=== PATIENT | male | born 1955 | race Caucasian/White ===

== ENCOUNTER 2023-02-12 19:00 | Emergency (ER) | payer MEDICARE, MEDICAID ==
[~2023-02-12] VITALS: Ht 180.3 cm; Wt 86.2 kg
[~2023-02-12 19:00] MED LIST: ASPI81CH43 PO; DIPH25CA39 PO; FURO1TAB31 PO; HYDR8TAB46 PO; LEVADOPA PO; MULTTAB99 PO; POTA-167 PO; TEST100I IM; VENL1TAB97 PO
[2023-02-12 19:53] VITALS: BP 102/60
== END 2023-02-12 19:57 | disposition home or self-care (01) ==
LOC: EDBD 19:00 → ER 19:10
DX: R55 Syncope and collapse (principal); I95.1 Orthostatic hypotension; F45.8 Other somatoform disorders; Z79.899 Other long term (current) drug therapy; Z79.82 Long term (current) use of aspirin

== ENCOUNTER 2024-08-15 16:29 | Inpatient (IN) | payer MEDICARE, MEDICAID ==
[~2024-08-15] VITALS: Ht 195.6 cm; Wt 75.0 kg
[~2024-08-15 16:29] MED LIST changes: -POTA-167 PO; +POTA-211 PO
--- NOTE | 2024-08-15 16:41 | ED.PDOC ---
Altered Mental Status HPI Comments 69 y.o male presents to the ED via EMS for an evaluation of increased confusion x 2 days. reports patient was recently diagnosed with a UTI, was prescribed Macrobid, took a dose last night and began vomiting profusely. also reports patient has frequency and is not more confused than usual. Patient has a history of throat cancer and seizures. 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 When he took his second dose last evening, he became dizzy, agitated, developed itching of the skin, and sensation of his throat closing up. Home Meds Reported Medications Hydromorphone Hcl (Dilaudid) 8 Mg Tab, 64 MG PO Q4HR, TAB 10/17/13 Testosterone Cypionate (Depo-Testosterone) 100 Mg/Ml Inj, IM UNK, INJ 10/15/13 Diphenhydramine Hcl (Benadryl) 25 Mg Cap, 25 MG PO BID, CAP 10/15/13 Multiple Vitamin (Mvi Tab) 1 Tab Tb, 1 TAB PO DAILY 10/15/13 Venlafaxine Hydrochloride (Venlafaxine Hcl) 37.5 Mg Tab, 37.5 MG PO DAILY, #2 TAB 10/15/13 Aspirin (Asa) 81 Mg Ch, 81 MG PO DAILY 10/15/13 [Levadopa] No Conflict Check, 25-100 TAB PO TID 10/15/13 Potassium Chloride (Klor-Con 10) 10 Meq Tab, 10 MEQ PO DAILY, TAB 10/15/13 Furosemide (Lasix) 40 Mg Tab, 40 MG PO DAILY, TAB 10/15/13 Information Source: Emergency Med Personnel, Spouse Mode of Arrival: EMS Severity: Unable to Care for Self Timing: Days (2) Duration: Since onset Quality: Change in Behavior, Confusion Recent: Urinary Symptoms History of: Other Associated Signs and Symptoms: Other Past Medical History PAST MEDICAL HISTORY: Cancer, Seizures Surgical History: Denies all surgeries Family History Family History: No family hx of Cancer Social History Smoker: Pipe Alcohol: Denies ETOH Use Drugs: Denies Drug Use Lives In: Home Unable to Obtain due to: Altered Mental Status Physical Exam General Appearance: Moderate Distress HEENT: Normal ENT Inspection, Pharynx Normal, TMs Normal Neck: Full Range of Motion, Non-Tender, Normal, Normal Inspection Respiratory: Chest Non-Tender, Lungs Clear, No Accessory Muscle Use, No Respiratory Distress, Normal Breath Sounds Cardiovascular: No Edema, No JVD, No Murmur, No Gallop, Normal Peripheral Pulses, Regular Rate/Rhythm Breast Exam: Deferred Gastrointestinal: No Organomegaly, Non Tender, No Pulsatile Mass, Normal Bowel Sounds, Soft Genitalia: Deferred Pelvic: Deferred Rectal: Deferred Extremities: No pedal edema Musculoskeletal : Apperance: Normal Neurologic: Disoriented Cerebellar Function: NOT DONE Reflexes: NOT DONE Skin: Dry, Normal Color, Warm Lymphatic: No Adenopathy Was a procedure done? Was a procedure done?: No Differential Diagnosis (ALOC) Differential Diagnosis: Dehydration, Sepsis, Other (UTI) X-Ray, Labs, Meds, VS Patient disoriented. Unable to express himself. Vitals stable. at bedside. States that he has frequent urinary tract infections. Possible sepsis from urine. Patient was normal few days ago. For the past two days it is getting progressively confused. Establish intravenous access. Was given fluids. Was given Rocephin. Reviewed his previous visit. Explained to the patient. Continue cardiac monitoring. EKG reviewed does not show any acute changes. Will be followed by night provider Neil. Time of 1ST Reevaluation: 16:41 Reevaluation 1ST: Unchanged Patient Education/Counseling: Other Family Education/Counseling: Diagnosis, Treatment, Prognosis Assigned to Dr. Trejo Departure 1 Departure Time of Disposition: 16:53 Impression: Primary Impression: Metabolic encephalopathy Additional Impression: Sepsis due to urinary tract infection Disposition: ADMITTED INPATIENT Admit to: Med Surg Condition: Guarded Critical Care Note Critical Care Time?: Yes (45 min-critical care time only) Stability Stability form required: No I personally scribed for ALBERTO,SHELBI MD ([email or web address]) on 08/15/24 at 16:41. Electronically submitted by Kylah White ([facility]). SHELBI DOMINGUEZ MD Aug 15, 2024 16:41
[2024-08-15] MEDS: SODIUM CHLORIDE 0.9% 1,000 ML IV ONE ×2 (16:45→18:21)
--- NOTE | 2024-08-15 17:20 | DVH ---
EXAM: CT HEAD WITHOUT CONTRAST INDICATION: AMS TECHNIQUE: CT of the head without intravenous contrast. Radiation dose : Head: CT Dose: CTDI volume is 53 mGy. Dose-length product is 863.9 mGy*cm The dose indicators for CT are the volume computed tomography (CT) dose index (CTDIvol) and the dose length product (DLP), and are measured in units of mGy and mGy-cm, respectively. These indicators are not patient dose, but values generated from the CT scanner acquisition factors. The report includes radiation exposure data for exposures received during this examination. COMPARISON: None FINDINGS: There is no evidence of acute intracranial hemorrhage, extra-axial collection, mass effect, midline s hift, herniation or hydrocephalus. The ventricles, sulci and cisterns are age appropriate. The peña-white differentiation is intact. Patchy periventricular and subcortical white matter hypoattenuation is nonspecific but may be related to small vessel ischemic disease. The visualized paranasal sinuses and mastoid air cells are clear. The surrounding soft tissues and osseous structures are unremarkable. IMPRESSION: 1. No acute intracranial abnormality. Moderate changes of chronic microvascular ischemic disease. Radiation optimization: All CT scans at this facility use at least one of these dose optimization rafael hniques: Automated exposure control mA and/or kV adjustment per patient size (includes targeted exams where dose is matched to clinical indication) or iterative reconstruction. HS:Y
[2024-08-15 17:51] LABS: Basophils # (auto) 0 10 ^3/uL (0-0.2); Basophils % (auto) 0.2 % (0.0-2.0); Eosinophils # (auto) 0 10 ^3/uL (0-0.8); Lymphocytes # (auto) 1.3 10 ^3/uL (0.4-5.4); Monocytes # (auto) 0.7 10 ^3/uL (0-1.3)
[2024-08-15 17:53] LABS: Hemoglobin 11.3 g/dL (13.5-17.5); Lymphocytes % (auto) 9.9 % (10.0-50.0); Mean Corpuscular Hemoglobin 34.3 pg (28.0-32.0); Mean Corpuscular Hgb Conc. 34.3 g/dL (32.0-36.0); Mean Corpuscular Volume 100.1 fL (80.0-100.0); Neutrophils # (auto) 11.6 10 ^3/uL (1.6-8.6); Neutrophils % (auto) 84.9 % (37.0-80.0); Platelet Count (auto) 167 10^3/uL (140-450); White Blood Cell 13.6 10^3/uL (4.4-10.8)
[2024-08-15 17:58] LABS: Chloride 103 mmol/L (98-107); Potassium 3.6 mmol/L (3.5-5.1); Sodium 139 mmol/L (136-145)
[2024-08-15 17:59] LABS: Anion Gap 7 (5-15); Carbon Dioxide 29 mmol/L (20-31)
[2024-08-15 18:00] LABS: Calcium 9.8 mg/dL (8.7-10.4)
[2024-08-15 18:05] LABS: BUN/Creatinine Ratio 13.2 (10.0-20.0); Blood Urea Nitrogen 19 mg/dL (9-23); Glucose 122 mg/dL (74-106)
[2024-08-15] MEDS: cefTRIAXone 1GM/50ML D5W 50 ML IV ONE (18:21)
[2024-08-15 18:27] VITALS: PULSE 100; RESP 18; O2SAT 94
[2024-08-15 18:32] LABS: Urine Bacteria None Seen /hpf (None Seen)
[2024-08-15 18:54] LABS: Urine Blood 2+ /uL (Negative); Urine Clarity Ex.Turbid (Clear); Urine Color Yellow (Yellow); Urine Mucus FEW (None Seen); Urine Protein, UAD 2+ (Negative); Urine Specific Gravity 1.017 (1.001-1.035); Urine Urobilinogen Normal (Negative); Urine WBC 4161 /hpf (0 - 3); Urine WBC Clumps PRESENT /hpf (None Seen)
--- NOTE | 2024-08-15 19:04 | ECG ---
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
[2024-08-15] MEDS ORDERED: ACETAMINOPHEN 325 MG TAB PO PRN (20:30)
[2024-08-15] MEDS: ENOXAPARIN SOD 40 MG/0.4 ML SYRINGE SC SCH (20:30)
[2024-08-15] MEDS ORDERED: NITROGLYCERIN 0.4 MG SL TAB SL PRN (20:30)
[2024-08-15] MEDS ORDERED: MORPHINE SULFATE INJ 2 MG/ml SYRG IV PRN (20:30)
[2024-08-15 21:14] LABS: Basophils # (auto) 0 10 ^3/uL (0-0.2); Basophils % (auto) 0.2 % (0.0-2.0); Eosinophils # (auto) 0 10 ^3/uL (0-0.8); Hematocrit 29.6 % (41.0-53.0); Hemoglobin 9.6 g/dL (13.5-17.5); Lymphocytes # (auto) 2.1 10 ^3/uL (0.4-5.4); Lymphocytes % (auto) 16.1 % (10.0-50.0); Mean Corpuscular Hemoglobin 32.7 pg (28.0-32.0); Mean Corpuscular Hgb Conc. 32.4 g/dL (32.0-36.0); Mean Corpuscular Volume 101.2 fL (80.0-100.0); Monocytes # (auto) 0.8 10 ^3/uL (0-1.3); Monocytes % (auto) 5.7 % (0.0-12.0); Neutrophils # (auto) 10.4 10 ^3/uL (1.6-8.6); Platelet Count (auto) 143 10^3/uL (140-450); Red Blood Cells 2.93 10^6/uL (4.5-5.90); Red Cell Distribution Width 14.2 % (11.8-14.3); White Blood Cell 13.3 10^3/uL (4.4-10.8)
[2024-08-15 21:24] LABS: Alanine Aminotransferase 13 U/L (7-40); Albumin 3.1 g/dL (3.2-4.8); Alkaline Phosphatase 80 U/L (46-116); Anion Gap 9 (5-15); Aspartate Aminotransferase 20 U/L (13-40); Blood Urea Nitrogen 19 mg/dL (9-23); Calcium 8.5 mg/dL (8.7-10.4); Carbon Dioxide 25 mmol/L (20-31); Chloride 107 mmol/L (98-107); Glucose 101 mg/dL (74-106); Potassium 3.3 mmol/L (3.5-5.1); Sodium 141 mmol/L (136-145)
[2024-08-15 21:25] LABS: Bilirubin, Total 0.3 mg/dL (0.2-1.0); Total Protein 6.3 g/dL (5.7-8.2)
--- NOTE | 2024-08-15 22:12 | DVHHPRES ---
History of Present Illness Resident Creating Document: EDNA LUNA RESIDENT History of Present Illness Eduardo Inman is a 69 years old male with a PMH of AML, hepatitis-C, throat cancer, PTSD accompanied by his presented to the ED with the chief complaints of altered level of consciousness for 2 days. Patient is altered, poor historian so given the history, 2 weeks ago patient had urinary symptoms, went to PCP, given antibiotics but the symptoms keep on going, for last 2 days patient has been altered, confused asking for a friend who has 15 years ago then patient called PCP, prescribed Macrobid, after taking that medication patient become more ill with vomiting and also had 2 times fall today, lacerated injury left elbow and noted having more incontinence than before which prompted them to visit ED. 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 Denies smoking, alcohol and other drug abuse Review of Systems Constitutional: No: Fever, Chills, Sweats, Weakness, Malaise, Other Eyes: No: Pain, Vision change, Conjunctivae inflammation, Eyelid inflammation, Other, Redness ENT: No: Ear pain, Ear discharge, Nose pain, Nose discharge, Nose congestion, Mouth pain, Mouth swelling, Throat pain, Throat swelling, Other Respiratory: No: Cough, Dry, Shortness of breath, SOB with excertion, Wheezing, Hemoptysis, Pleuritic Pain, Sputum, Wheezing, Other Cardiovascular: No: Chest Pain, Palpitations, Orthopnea, Paroxysmal Noc. Dyspnea, Edema, Lt Headedness, Other Genitourinary: Incontinence Musculoskeletal: No: other, neck pain, shoulder pain, arm pain, back pain, hand pain, leg pain, foot pain Skin: No: Rash, Lesions, Jaundice, Bruising, Other Neurological: Weakness, Change in speech, Confusion Other Limited due to patient clinical status Allergies: Coded Allergies: Furosemide (Verified Allergy, Severe, 10/16/13) DIFFICULTY BREATHING AND THROAT SWELLS UP Caffeine (Verified Allergy, Mild, 10/17/13) PER CAFFEINE IS CONTRAINDICATED TO PT DUE TO PARKINSONS DISEASE Codeine (Verified Allergy, Unknown, 08/15/24) Doripenem (Verified Allergy, Unknown, 08/15/24) Metoclopramide (Verified Allergy, Unknown, 08/15/24) Metolazone (Verified Allergy, Unknown, 08/15/24) HISTORY OF PRESENT ILLNESS: The patient was recently started on to a new diuretic medication of metolazone. When he took his second dose last evening, he became dizzy, agitated, developed itching of the skin, and sensation of his throat closing up. Medications Current Medications Medications Dose Ordered Sig/Praneeth Route Start Time Stop Time Status Last Admin Dose Admin Sodium Chloride 10 ml Q8HR IV 08/15/24 22:00 Ondansetron HCl 4 mg Q4HP PRN IV 08/15/24 20:30 Acetaminophen 650 mg Q6HP PRN PO 08/15/24 20:30 Morphine Sulfate 2 mg Q4HPRN PRN IV 08/15/24 20:30 Enoxaparin Sodium 40 mg DAILY SC 08/15/24 20:30 Nitroglycerin 0.4 mg Q5MINP PRN SL 08/15/24 20:30 Morphine Sulfate 2 mg Q30M PRN IV 08/15/24 20:30 Ceftriaxone Sodium 50 ml @ 100 mls/hr DAILY@09 IV 08/16/24 09:00 UNV Potassium Chloride 100 ml @ 50 mls/hr Q2H IV 08/15/24 22:00 08/16/24 01:59 UNV Exam Vital Signs Vital Signs Date Time Temp Pulse Resp B/P (MAP) Pulse Ox O2 Delivery O2 Flow Rate FiO2 08/15/24 18:27 100 18 94 Room Air* 0 21 08/15/24 18:27 98.2 125/62 (83) 98.2 Exam Pt is lying on bed, limited exam due to patient clinical status General Appearance: Confused, Oriented X0, HEENT: Atraumatic, Mucous membranes moist/pink Respiratory: Clear to auscultation, Normal air movement, No added sounds Cardiovascular: Regular rate, Normal S1, Normal S2, No murmurs Abdominal: Active bowel sounds, Soft, no distention, no tenderness Extremities: No edema, Normal pulses, No tenderness/swelling : Pal's catheter In place Skin: Lacerated injury near left elbow Neuro: Unable to perform Psych/Mental Status: Confused Nurse was there as sharperone during examination Labs/Xrays Labs Test 08/15/24 20:50 08/15/24 18:15 08/15/24 17:24 Range/Units White Blood Count 13.3 H 4.4-10.8 10^3/uL Red Blood Count 2.93 L 4.5-5.90 10^6/uL Hemoglobin 9.6 #L 13.5-17.5 g/dL Hematocrit 29.6 #L 41.0-53.0 % Mean Corpuscular Volume 101.2 H 80.0-100.0 fL Mean Corpuscular Hemoglobin 32.7 H 28.0-32.0 pg Mean Corpuscular Hemoglobin Concent 32.4 32.0-36.0 g/dL Red Cell Distribution Width 14.2 11.8-14.3 % Platelet Count 143 140-450 10^3/uL Mean Platelet Volume 8.3 6.9-10.8 fL Neutrophils (%) (Auto) 78.0 37.0-80.0 % Lymphocytes (%) (Auto) 16.1 10.0-50.0 % Monocytes (%) (Auto) 5.7 0.0-12.0 % Eosinophils (%) (Auto) 0.0 0.0-7.0 % Basophils (%) (Auto) 0.2 0.0-2.0 % Neutrophils # (Auto) 10.4 H 1.6-8.6 10 ^3/uL Lymphocytes # (Auto) 2.1 0.4-5.4 10 ^3/uL Monocytes # (Auto) 0.8 0-1.3 10 ^3/uL Eosinophils # (Auto) 0 0-0.8 10 ^3/uL Basophils # (Auto) 0 0-0.2 10 ^3/uL Nucleated Red Blood Cells 0.0 % Sodium Level 141 136-145 mmol/L Potassium Level 3.3 L 3.5-5.1 mmol/L Chloride Level 107 98-107 mmol/L Carbon Dioxide Level 25 20-31 mmol/L Anion Gap 9 5-15 Blood Urea Nitrogen 19 9-23 mg/dL Creatinine 1.12 0.700-1.30 mg/dL Glomerular Filtration Rate Calc 70 >90 mL/min BUN/Creatinine Ratio 17.0 10.0-20.0 Serum Glucose 101 74-106 mg/dL Calcium Level 8.5 L 8.7-10.4 mg/dL Total Bilirubin 0.3 0.2-1.0 mg/dL Aspartate Amino Transferase (AST) 20 13-40 U/L Alanine Aminotransferase (ALT) 13 7-40 U/L Alkaline Phosphatase 80 46-116 U/L B-Type Natriuretic Peptide 515.54 0-100 pg/mL Total Protein 6.3 5.7-8.2 g/dL Albumin 3.1 L 3.2-4.8 g/dL Urine Color Yellow Yellow Urine Clarity Ex.turbid Clear Urine pH 6.0 5.0-9.0 Urine Specific [place] 1.017 1.001-1.035 Urine Protein 2+ H Negative Urine Ketones Trace Negative Urine Blood 2+ H Negative /uL Urine Nitrite Negative Negative Urine Bilirubin Negative Negative Urine Urobilinogen Normal Negative mg/dL Urine Leukocyte Esterase 3+ Negative /uL Urine RBC 49 0 - 3 /hpf Urine WBC 4161 0 - 3 /hpf Urine WBC Clumps Present None Seen /hpf Urine Squamous Epithelial Cells Mod <5 /hpf Urine Bacteria None seen None Seen /hpf Urine Mucus Few None Seen Urine Glucose Trace Normal mg/dL Assessment/Plan Assessment/Plan # mechanical fall without LOC # acute metabolic encephalopathy -head CT showed no acute abnormalities -continuously monitor -fall risk precautions # leukocytosis # rule out sepsis # Acute complicated UTI/ cystitis - evident on urinalysis - ordered urine bacterial culture - currently giving Rocephin # acute lacerated injury on left elbow due to fall -ordered wound consult # anemia macrocytic, hyperchromic -monitor lab for now # PTSD -continue home meds SCDs for now Protonix Soft Diet as tolerated Goals of care discussed with the patient for more than 27 minutes: Full code status Case management discussed with Dr. Lieberman, patient and nurse Plan discussed with: Patient My Orders Orders - EDNA LUNA RESIDENT Procedure Category Date Status Time Admit ADMIT 08/15/24 Transmitted 20:26 Allergies KEON 08/15/24 In Process 20:26 Code Status CODE 08/15/24 Transmitted 20:26 Sodium Chloride Lock PHA 08/15/24 In Process (Saline Lock Ns) 22:00 Ondansetron Hcl PHA 08/15/24 In Process (Zofran) 20:30 Complete Blood Count LAB 08/16/24 Verified 04:00 Comprehensive LAB 08/16/24 Verified Metabolic Panel 04:00 Acetaminophen Tablet PHA 08/15/24 In Process (Tylenol Tablet) 20:30 Morphine Sulfate PHA 08/15/24 In Process Injection 20:30 Nitroglycerin PHA 08/15/24 In Process Sublingual (Ntrostat 20:30 Morphine Sulfate PHA 08/15/24 In Process Injection 20:30 Oxygen By Nasal RT 08/15/24 Transmitted Cannula 20:26 Stat Ekg For Chest KEON 08/15/24 In Process Pain 20:26 Notify Of Changes KEON 08/15/24 In Process From Base 20:26 Machine I Engraver For KEON 08/15/24 In Process 24 Hours 20:26 Emergency Dysrhythmia KEON 08/15/24 In Process Protocol 20:26 Rhythm Strips Once KEON 08/15/24 In Process Every Shift 20:26 Vitamin D, 25-Hydroxy LAB 08/15/24 In Process 21:50 Vitamin B12 LAB 08/15/24 In Process 21:50 Thyroid Stimulating LAB 08/15/24 In Process Hormone 21:50 PTPTT LAB 08/15/24 In Process 21:50 Hemoglobin A1c LAB 08/15/24 In Process 21:50 Drug Screen LAB 08/15/24 Logged 21:50 L Elbow 2 View Xray XY 08/15/24 Taken 21:50 * Wound Consult CONS 08/15/24 Transmitted Urine Bacterial ALEXSANDER 08/15/24 Logged Culture 21:50 Ceftriaxone 1gm/50ml PHA 08/16/24 Logged D5w (Rocephin) 09:00 Potassium Chl PHA 08/15/24 Logged 20meq/100ml 22:00 Aspirin Tablet PHA 08/16/24 In Process 10:00 Furosemide Tablet PHA 08/16/24 Pending (Lasix Tablet) 10:00 Venlafaxine PHA 08/16/24 Logged Hydrochloride 10:00 (Nf) [Levadopa] PHA 08/16/24 Logged 06:00 Pantoprazole PHA 08/15/24 Logged (Protonix) 22:15 Pantoprazole PHA 08/16/24 Logged (Protonix) 10:00 Sequential KEON 08/15/24 In Process Compression Device 22:04 Mechanical Soft Diet DIET 08/16/24 Transmitted Breakfast Folate (Folic Acid) LAB 08/15/24 Logged 22:06 Lactic Acid W/ Reflex LAB 08/15/24 Logged Order 22:07 Date of Service: Aug 15, 2024 Billing Provider: LEIGHTON LIEBERMAN MD Common Visit Codes: [id number] INP/OBS CARE (HIGH) Secondary Visit Codes: [id number] CARE PLAN 30 MINUTES EDNA LUNA RESIDENT Aug 15, 2024 22:12 LEIGHTON LIEBERMAN MD Aug 16, 2024 10:43
[2024-08-15 22:26] LABS: Partial Thromboplastin Time 32.8 SEC (24.5-34.5); Prothrombin Time 10.6 sec (9.3-11.8)
--- NOTE | 2024-08-15 22:41 | DVH ---
CLINICAL INDICATION: fall TECHNIQUE: 3 radiographic views of the left elbow were obtained. Comparison: None FINDINGS/IMPRESSION: There is no evidence of acute fracture or dislocation. The visualized joint space is well maintained. The alignment is anatomical. There is no radiopaque foreign body.
[2024-08-15 23:20] LABS: Amphetamine Screen, Urine Neg (NEGATIVE); Barbiturate Scree,Urine Pos (NEGATIVE); Benzodiazephine Screen, Urine Neg (NEGATIVE); Cannabinoid Screen, Urine Neg (NEGATIVE); Cocaine Screen, Urine Neg (NEGATIVE); Opiate Scree,Urine Neg (NEGATIVE); Phencyclidine Screen, Urine Neg (NEGATIVE)
[2024-08-15] MEDS: SODIUM CHLOR 0.9% PF (SALINE LOCK) 10ML VIAL/SYR IV SCH (23:29)
[2024-08-16] MEDS: PANTOPRAZOLE 40 MG/10 ML VIAL INJ IV ONE (00:31)
[2024-08-16] MEDS: POTASSIUM CHL 20MEQ/100ML 100 ML IV SCH (00:32)
[2024-08-16] MEDS ORDERED: HYDR2TAB58 PO (00:53)
[2024-08-16] MEDS ORDERED: FLUD0.1T2 PO (00:53)
[2024-08-16] MEDS ORDERED: VIBE75TA PO (00:53)
[2024-08-16] MEDS ORDERED: VENL112. PO (00:53)
[2024-08-16] MEDS: MORPHINE SULFATE INJ 2 MG/ml SYRG IV PRN (03:33)
[2024-08-16] MEDS: ONDANSETRON HCL 4 MG/2 ML VIAL IV PRN (03:38)
[2024-08-16 05:11] LABS: Basophils # (auto) 0 10 ^3/uL (0-0.2); Basophils % (auto) 0.2 % (0.0-2.0); Eosinophils # (auto) 0 10 ^3/uL (0-0.8); Hematocrit 28.9 % (41.0-53.0); Hemoglobin 9.6 g/dL (13.5-17.5); Lymphocytes # (auto) 2.2 10 ^3/uL (0.4-5.4); Lymphocytes % (auto) 20.2 % (10.0-50.0); Mean Corpuscular Hemoglobin 33.6 pg (28.0-32.0); Mean Corpuscular Hgb Conc. 33.2 g/dL (32.0-36.0); Mean Corpuscular Volume 101.2 fL (80.0-100.0); Monocytes # (auto) 0.7 10 ^3/uL (0-1.3); Monocytes % (auto) 6.7 % (0.0-12.0); Neutrophils # (auto) 7.9 10 ^3/uL (1.6-8.6); Neutrophils % (auto) 72.9 % (37.0-80.0); Platelet Count (auto) 129 10^3/uL (140-450); Red Blood Cells 2.85 10^6/uL (4.5-5.90); Red Cell Distribution Width 14.1 % (11.8-14.3); White Blood Cell 10.9 10^3/uL (4.4-10.8)
[2024-08-16 05:29] LABS: Alanine Aminotransferase 12 U/L (7-40); Albumin 3.3 g/dL (3.2-4.8); Alkaline Phosphatase 81 U/L (46-116); Anion Gap 10 (5-15); Aspartate Aminotransferase 22 U/L (13-40); Bilirubin, Total 0.4 mg/dL (0.2-1.0); Blood Urea Nitrogen 17 mg/dL (9-23); Calcium 9.1 mg/dL (8.7-10.4); Carbon Dioxide 21 mmol/L (20-31); Chloride 105 mmol/L (98-107); Glucose 96 mg/dL (74-106); Sodium 136 mmol/L (136-145); Total Protein 6.4 g/dL (5.7-8.2)
[2024-08-16 07:00] VITALS: PULSE 5; RESP 21; O2SAT 96
[2024-08-16] MEDS: CARBIDOPA W LEVODOPA 25/100mg TABLET PO SCH (09:00)
--- NOTE | 2024-08-16 09:53 | DVH ---
EXAM: XY CHEST PORTABLE Indication:sepsis Technique: Single frontal view of the chest was obtained Comparison: None FINDINGS: Lines and Tubes: None Lungs: Diffuse multifocal consolidative. Pleura: No effusion. No pneumothorax. Cardiomediastinal contours: Unremarkable Bones: No acute osseous abnormality. IMPRESSION: Diffuse multifocal consolidative opacities which can be seen in the setting of atypical infection or pulmonary edema.
[2024-08-16] MEDS ORDERED: VENLAFAXINE HCL 37.5MG TABLET PO SCH (10:00)
[2024-08-16] MEDS: FUROSEMIDE 40 MG TAB PO SCH (10:00)
[2024-08-16] MEDS: ASPirin 81 mg TAB PO SCH (10:29)
[2024-08-16] MEDS: AZITHROMYCIN 500MG/ 250ML 250 ML IV ONE (10:29)
[2024-08-16] MEDS: PANTOPRAZOLE 40 MG/10 ML VIAL INJ IV SCH (10:29)
[2024-08-16 14:20] LABS: Rapid Influenza A Negative (Negative); Rapid Influenza B Negative (Negative)
[2024-08-16 14:23] LABS: COVID19 ANTIGEN SOFIA FIA NEGATIVE (NEGATIVE)
--- NOTE | 2024-08-16 16:00 | DVHPNRES ---
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 Per patient's , he recently was diagnosed with UTI for which he was started on Macrobid and the patient started nausea and vomiting 08/15 following which he was altered and disoriented and experienced a mechanical fall and hit his left elbow. Patient reports weakness and that he could not get up from his bed and therefore they called EMS. Patient denies loss of consciousness or fever/chills/chest pain/shortness of breaths/cough/phlegm. Patient was seen in this facility for syncope versus ALOC due to metolazone Past medical history: See HPI Home medications: Midodrine HCL 50 mg b.i.d., Amitiza 24 mcg b.i.d., omeprazole 20 mg, testosterone 1000 mg/mL 0.05 mg every week, venlafaxine 150 mg, naproxen surgery, valproate 250 mg b.i.d., Dilaudid 2 mg every 8 hour, fludrocortisone 0.1 mg daily, levothyroxine 0.100 mcg daily, primidone 50 mg q.i.d., empties on 75 mg daily, alprazolam 0.5 mg p.r.n., iron slow release 45 mg Patient's reports that patient gets seizures with azithromycin. Objective vital signs Vital Sign Date Time Temp Pulse Resp B/P (MAP) Pulse Ox O2 Delivery O2 Flow Rate FiO2 08/16/24 13:00 90 19 107/57 (74) 97 08/16/24 07:00 Nasal Cannula* 2 28 08/16/24 03:30 99.2 99.2 Total Intake and Output 08/15/24 08/15/24 08/16/24 15:00 23:00 07:00 Intake Total 600 ml 1050 ml Balance 600 ml 1050 ml medications Current Medications Medications Dose Ordered Sig/Praneeth Route Start Time Stop Time Status Last Admin Dose Admin Sodium Chloride 10 ml Q8HR IV 08/15/24 22:00 08/16/24 13:04 10 ML Ondansetron HCl 4 mg Q4HP PRN IV 08/15/24 20:30 08/16/24 03:38 4 MG Acetaminophen 650 mg Q6HP PRN PO 08/15/24 20:30 Morphine Sulfate 2 mg Q4HPRN PRN IV 08/15/24 20:30 08/16/24 03:33 2 MG Nitroglycerin 0.4 mg Q5MINP PRN SL 08/15/24 20:30 Morphine Sulfate 2 mg Q30M PRN IV 08/15/24 20:30 Ceftriaxone Sodium 50 ml @ 100 mls/hr DAILY@1800 IV 08/16/24 18:00 Aspirin 81 mg DAILY PO 08/16/24 10:00 08/16/24 10:29 81 MG Furosemide 40 mg DAILY PO 08/16/24 10:00 Carbidopa/Levodopa 1 tab TID PO 08/16/24 09:00 UNV Pantoprazole Sodium 40 mg DAILY IV 08/16/24 10:00 08/16/24 10:29 40 MG Azithromycin 250 ml @ 125 mls/hr DAILY IV 08/17/24 10:00 Examination Elderly male patient lying in bed, in no acute distress General: Cachectic looking, afebrile, palor, mucosae are moist Cardiovascular: Regular S1 and S2. No murmurs, gallops or rubs. No JVD elevation. No pedal edema Respiratory: Normal B/L air entry on 2 L NC. Clear lung sounds on auscultation Abdomen: Soft, nontender, nondistended, normoactive bowel sounds, no rebound tenderness, no organomegaly, no masses. Laceration at left elbow. Genitourinary: Deferred MSK/skin: Mobilizes 4 limbs. Skin is dry and warm Neurological: No motor, no sensitive deficits, normal speech. Pupils are isocoric and reactive. Psych/Mental Status: A/Ox3, not oriented to time laboratory and microbiology Laboratory Tests 08/16/24 04:54 Test 08/16/24 04:54 Range/Units Serum Glucose 96 74-106 mg/dL Labs and/or images reviewed: Labs reviewed by me, Image(s) reviewed by me Problem List/Assessment/Plan Problem List/Assessment/Plan Sepsis secondary to Probable community-acquired pneumonia, Gram-positive and Gram-negative versus acute cystitis Lactic acid WNL On Unasyn and doxycycline Started ceftriaxone 08/15, switched to Unasyn 08/16 Started azithromycin 08/16, switched to doxycycline 08/17 Nebulized treatment with ipratropium and levalbuterol q.6 p.r.n. Blood culture and MRSA screen pending COVID and influenza testing negative Altered level of consciousness secondary to above Head CT unremarkable for acute intracranial pathology. Moderate chronic microvascular ischemic changes. Folate/B12 within normal limits TSH WNL Acute cystitis Started ceftriaxone 08/15 Urine bacterial culture pending Anemia, likely macrocytic H&H 9.6/8.9 MCV 101 History of seizure disorder Continue home medication valproate 250 mg b.i.d. 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 Novoa. Plan discussed with: Patient, Spouse (At bedside) My Orders My Orders Orders - JUSTIN GARCIA Procedure Category Date Status Time Clean Wound With: ORDERS 08/16/24 Transmitted 06:48 Cleanse Wound W/ KEON 08/16/24 In Process Sterile Gauze 06:48 Valproate Ivpb Depacon PHA 08/16/24 Verified 15:30 Fludrocortisone PHA 08/16/24 Verified Tablet (Florinef 15:30 Fludrocortisone PHA 08/17/24 Verified Tablet (Florinef 10:00 Levothyroxine Tablet PHA 08/17/24 Verified (Synthroid Tablet) 06:00 Levothyroxine Tablet PHA 08/16/24 Verified (Synthroid Tablet) 15:30 Doxycycline PHA 08/17/24 Verified 100mg/250ml 08:30 Date of Service: Aug 16, 2024 Billing Provider: SARAVANAN HARRISON MD Common Visit Codes: [id number] INP/OBS CARE(HIGH) JUSTIN GARCIA Aug 16, 2024 16:00 SARAVANAN HARRISON MD Aug 17, 2024 19:59
[2024-08-16] MEDS: FLUDROCORTISONE ACETATE 0.1 MG TAB PO ONE (16:32)
[2024-08-16] MEDS: LEVOTHYROXINE SODIUM 100 MCG TAB PO ONE (16:32)
[2024-08-16] MEDS ORDERED: cefTRIAXone 1GM/50ML D5W 50 ML IV SCH (18:00)
[2024-08-16] MEDS: AMPICILLIN & SULBACTAM SODIUM 3 GM in SODIUM CHL 0.9% 100 ML IV SCH (18:44)
[2024-08-16] MEDS: VALPROATE INJ 250 MG in SODIUM CHL 0.9% 50 ML IV SCH (18:44)
[2024-08-16 19:30] VITALS: PULSE 92; RESP 17; O2SAT 94
[2024-08-16] MEDS: PRIMIDONE 50 MG TAB PO SCH (22:48)
[2024-08-17 04:56] LABS: Basophils # (auto) 0 10 ^3/uL (0-0.2); Basophils % (auto) 0.3 % (0.0-2.0); Eosinophils # (auto) 0.1 10 ^3/uL (0-0.8); Eosinophils % (auto) 0.9 % (0.0-7.0); Hematocrit 30.4 % (41.0-53.0); Hemoglobin 10.2 g/dL (13.5-17.5); Lymphocytes # (auto) 2.2 10 ^3/uL (0.4-5.4); Lymphocytes % (auto) 31.9 % (10.0-50.0); Mean Corpuscular Hemoglobin 33.7 pg (28.0-32.0); Mean Corpuscular Hgb Conc. 33.5 g/dL (32.0-36.0); Mean Corpuscular Volume 100.6 fL (80.0-100.0); Monocytes # (auto) 0.5 10 ^3/uL (0-1.3); Monocytes % (auto) 6.5 % (0.0-12.0); Neutrophils # (auto) 4.2 10 ^3/uL (1.6-8.6); Neutrophils % (auto) 60.4 % (37.0-80.0); Nucleated Red Blood Cells % 0.1 %; Platelet Count (auto) 139 10^3/uL (140-450); Red Blood Cells 3.02 10^6/uL (4.5-5.90); Red Cell Distribution Width 14.6 % (11.8-14.3); White Blood Cell 6.9 10^3/uL (4.4-10.8)
[2024-08-17 05:06] LABS: Chloride 109 mmol/L (98-107); Potassium 3.4 mmol/L (3.5-5.1); Sodium 143 mmol/L (136-145)
[2024-08-17 05:07] LABS: Anion Gap 8 (5-15); Calcium 9.4 mg/dL (8.7-10.4); Carbon Dioxide 26 mmol/L (20-31)
[2024-08-17 05:12] LABS: BUN/Creatinine Ratio 15.4 (10.0-20.0); Blood Urea Nitrogen 16 mg/dL (9-23); Glucose 103 mg/dL (74-106)
[2024-08-17] MEDS: LEVOTHYROXINE SODIUM 100 MCG TAB PO SCH (06:31)
[2024-08-17 07:30] VITALS: PULSE 99; RESP 18; O2SAT 97
[2024-08-17] MEDS: DOXYCYCLINE 100MG/250ML 250 ML IV SCH (08:34)
[2024-08-17] MEDS ORDERED: AZITHROMYCIN 500MG/ 250ML 250 ML IV SCH (10:00)
[2024-08-17] MEDS: FLUDROCORTISONE ACETATE 0.1 MG TAB PO SCH (10:50)
[2024-08-17] MEDS: POTASSIUM EFFERVESENT TAB 25 MEQ PO ONE (12:15)
[2024-08-17] MEDS ORDERED: DOXY-286 PO (14:17)
[2024-08-17] MEDS ORDERED: AUG875T PO (14:17)
[2024-08-17 14:59] VITALS: BP 100/52; PULSE 89; RESP 20; TEMP 98.2; O2SAT 96
[2024-08-17 15:20] VITALS: BP 96/53; PULSE 81; RESP 20; TEMP 97.9; O2SAT 99
--- NOTE | 2024-08-17 16:15 | DVHDSRES ---
Discharge Summary Date of Admission Resident Creating Document: BURTON WHITT Aug 15, 2024 at 20:26 Date of Discharge: Aug 17, 2024 Labs/Diagnostic Data: Laboratory Results Test 08/17/24 04:20 08/16/24 12:27 08/16/24 04:54 08/15/24 22:27 White Blood Count 6.9 10^3/uL (4.4-10.8) Red Blood Count 3.02 10^6/uL (4.5-5.90) Hemoglobin 10.2 g/dL (13.5-17.5) Hematocrit 30.4 % (41.0-53.0) Mean Corpuscular Volume 100.6 fL (80.0-100.0) Mean Corpuscular Hemoglobin 33.7 pg (28.0-32.0) Mean Corpuscular Hemoglobin Concent 33.5 g/dL (32.0-36.0) Red Cell Distribution Width 14.6 % (11.8-14.3) Platelet Count 139 10^3/uL (140-450) Mean Platelet Volume 8.3 fL (6.9-10.8) Neutrophils (%) (Auto) 60.4 % (37.0-80.0) Lymphocytes (%) (Auto) 31.9 % (10.0-50.0) Monocytes (%) (Auto) 6.5 % (0.0-12.0) Eosinophils (%) (Auto) 0.9 % (0.0-7.0) Basophils (%) (Auto) 0.3 % (0.0-2.0) Neutrophils # (Auto) 4.2 10 ^3/uL (1.6-8.6) Lymphocytes # (Auto) 2.2 10 ^3/uL (0.4-5.4) Monocytes # (Auto) 0.5 10 ^3/uL (0-1.3) Eosinophils # (Auto) 0.1 10 ^3/uL (0-0.8) Basophils # (Auto) 0 10 ^3/uL (0-0.2) Nucleated Red Blood Cells 0.1 % Sodium Level 143 mmol/L (136-145) Potassium Level 3.4 mmol/L (3.5-5.1) Chloride Level 109 mmol/L (98-107) Carbon Dioxide Level 26 mmol/L (20-31) Anion Gap 8 (5-15) Blood Urea Nitrogen 16 mg/dL (9-23) Creatinine 1.04 mg/dL (0.700-1.30) Glomerular Filtration Rate Calc 77 mL/min (>90) BUN/Creatinine Ratio 15.4 (10.0-20.0) Serum Glucose 103 mg/dL (74-106) Calcium Level 9.4 mg/dL (8.7-10.4) Influenza Type A Antigen Negative (Negative) Influenza Type B Antigen Negative (Negative) SARS-CoV-2 Antigen (Rapid) Negative (NEGATIVE) Magnesium Level 2.0 mg/dL (1.6-2.6) Total Bilirubin 0.4 mg/dL (0.2-1.0) Aspartate Amino Transferase (AST) 22 U/L (13-40) Alanine Aminotransferase (ALT) 12 U/L (7-40) Alkaline Phosphatase 81 U/L (46-116) Total Protein 6.4 g/dL (5.7-8.2) Albumin 3.3 g/dL (3.2-4.8) Lactic Acid Level 1.6 mmol/L (0.4-2.0) Test 08/15/24 20:50 08/15/24 18:15 08/15/24 17:24 B-Type Natriuretic Peptide 515.54 pg/mL (0-100) Urine Color Yellow (Yellow) Urine Clarity Ex.turbid (Clear) Urine pH 6.0 (5.0-9.0) Urine Specific [place] 1.017 (1.001-1.035) Urine Protein 2+ (Negative) Urine Ketones Trace (Negative) Urine Blood 2+ /uL (Negative) Urine Nitrite Negative (Negative) Urine Bilirubin Negative (Negative) Urine Urobilinogen Normal mg/dL (Negative) Urine Leukocyte Esterase 3+ /uL (Negative) Urine RBC 49 /hpf (0 - 3) Urine WBC 4161 /hpf (0 - 3) Urine WBC Clumps Present /hpf (None Seen) Urine Squamous Epithelial Cells Mod /hpf (<5) Urine Bacteria None seen /hpf (None Seen) Urine Mucus Few (None Seen) Urine Glucose Trace mg/dL (Normal) Urine Opiates Screen Neg (NEGATIVE) Urine Fentanyl Screen Neg (NEGATIVE) Urine Barbiturates Screen Pos (NEGATIVE) Urine Phencyclidine Screen Neg (NEGATIVE) Urine Amphetamines Screen Neg (NEGATIVE) Urine Benzodiazepines Screen Neg (NEGATIVE) Urine Cocaine Screen Neg (NEGATIVE) Urine Cannabinoids Screen Neg (NEGATIVE) Prothrombin Time 10.6 sec (9.3-11.8) Prothrombin Time INR 1.00 (0.9-1.15) Activated Partial Thromboplast Time 32.8 SEC (24.5-34.5) Hemoglobin A1c 5.8 % A1C (<5.7) Vitamin B12 Level 1078 pg/mL (211-911) Vitamin D 25-Hydroxy 47.2 ng/mL (30.0-100) Folic Acid 15.94 ng/mL (>5.38) Thyroid Stimulating Hormone (TSH) 1.06 uIU/mL (0.55-4.78) Other Laboratory Tests 08/17/24 04:20 Brief Hx & Hospital Course: 69-year-old male patient with past medical history of AML, in remission, hepatitis-C, throat cancer, chemotherapy-induced toxicity, essential tremor, PTSD, history of seizure disorder presented with chief complaint of ALOC associated nausea and vomiting. Per patient's , he recently was diagnosed with UTI for which he was started on Macrobid and the patient started nausea and vomiting 08/15 following which he was altered and disoriented and experienced a mechanical fall and hit his left elbow. Patient reported weakness and that he could not get up from his bed and therefore they called EMS. Patient was started on IV fluids for sepsis. Patient was initially Started on initially ceftriaxone because urine routine showed evidence of UTI. Chest x-ray showed possible evidence of pneumonia after which doxycycline was added. Patient was initially on oxygen but later was on room air. Patient got more alert during the hospital stay and as per patient was at baseline at the time of discharge. Head CT showed no acute abnormalities. Patient was continued on his home medication. Patient had an elbow injury left side but elbow x-ray did not show any evidence of fracture. Patient was already receiving home health services at home. At the time of discharge, patient is stable vitals, no new complaints. discharge plan was discussed with the patient and patient was advised to follow up with PCP within one week. Patient was discharged on Augmentin and doxycycline Condition at Discharge: Stable Final Diagnosis/Problems List Sepsis in the setting of UTI/pneumonia Metabolic encephalopathy due to UTI/sepsis/pneumonia left elbow wound UTI Comm acquired Pneumonia- gram +ve/-ve history of seizure anemia Prediabetes Hypothyroidism history of AML in remission history of hep c history of throat cancer chemotherapy induced ototoxicity hsitory of essential tremor Discharge Disposition: Home Discharge Instruct/Medications Diet: Cardiac 2g Na,low cholest Activity: No Restrictions, As Tolerated Follow Up/Referral: pcp Medications: augmentin doxycycline Discharge Statement: "Patient was advised to return to the ER or call 911 if any headaches, dizziness, shortness of breath, chest pain, abdominal pain, bleeding, fevers, or worsening of medical condition. Patient was counseled about treatment plan, medications, possible side effects, patientverbalized understanding. All questions were answered to the best of my ability. This discharge took greater then 30 minutes in planning, reviewing documentation, counseling the patient, and discussing with other team members." ASSESSMENT ASSESSMENT Assessment BURTON WHITT RESIDENT Aug 17, 2024 16:15
== END 2024-08-17 13:28 | disposition home or self-care (01) | DRG 871 ==
LOC: EDBD 16:29 → ER 16:29 → EDUNIT# 16:29 → TELE 20:26
PROVIDERS: ADMIT Student in an Organized Health Care Education/Training Program; ATTEND Student in an Organized Health Care Education/Training Program
DX: A41.59 Other Gram-negative sepsis (principal); G93.41 Metabolic encephalopathy; J15.69 Pneumonia due to other Gram-negative bacteria; J15.9 Unspecified bacterial pneumonia; N30.00 Acute cystitis without hematuria; D53.9 Nutritional anemia, unspecified; F43.10 Post-traumatic stress disorder, unspecified; S51.012A Laceration without foreign body of left elbow, initial encounter; E03.9 Hypothyroidism, unspecified; I95.1 Orthostatic hypotension; G40.909 Epilepsy, unspecified, not intractable, without status epilepticus; H91.03 Ototoxic hearing loss, bilateral; T45.1X5A Adverse effect of antineoplastic and immunosuppressive drugs, initial encounter; Z79.82 Long term (current) use of aspirin; Z79.899 Other long term (current) drug therapy; Z85.818 Personal history of malignant neoplasm of other sites of lip, oral cavity, and pharynx; W18.39XA Other fall on same level, initial encounter; Y93.89 Activity, other specified; Y92.89 Other specified places as the place of occurrence of the external cause; Y99.8 Other external cause status; R73.03 Prediabetes
CPT/HCPCS: 36415; 70450; 71045; 73070; 80048; 80053; 80307; 81001; 82306; 82607; 82746; 83036; 83605; 83735; 83880; 84443; 85025; 85610; 85730; 87077; 87086; 87205; 87426; 87804; 93005; 99291; G0378; J2405; J2470; J3480; J3490

== ENCOUNTER 2024-09-16 13:08 | Inpatient (IN) | payer MEDICARE, MEDICAID ==
[~2024-09-16] VITALS: Ht 195.6 cm; Wt 79.2 kg
[~2024-09-16 13:08] MED LIST changes: +AUG875T PO; +DIVA1TAB59 PO; +DOXY-286 PO; +FLUD0.1T2 PO; +HYDR2TAB58 PO; +VENL112. PO; +VIBE75TA PO
[2024-09-16 15:02] LABS: Basophils # (auto) 0 10 ^3/uL (0-0.2); Eosinophils # (auto) 0.5 10 ^3/uL (0-0.8); Monocytes # (auto) 0.7 10 ^3/uL (0-1.3); Neutrophils # (auto) 3.2 10 ^3/uL (1.6-8.6)
[2024-09-16 15:03] LABS: Basophils % (auto) 0.5 % (0.0-2.0); Eosinophils % (auto) 5.4 % (0.0-7.0); Hematocrit 36.4 % (41.0-53.0); Hemoglobin 12.2 g/dL (13.5-17.5); Lymphocytes # (auto) 4.6 10 ^3/uL (0.4-5.4); Lymphocytes % (auto) 50.9 % (10.0-50.0); Mean Corpuscular Hemoglobin 34.3 pg (28.0-32.0); Mean Corpuscular Hgb Conc. 33.6 g/dL (32.0-36.0); Monocytes % (auto) 7.8 % (0.0-12.0); Neutrophils % (auto) 35.4 % (37.0-80.0); Nucleated Red Blood Cells % 0.1 %; Platelet Count (auto) 182 10^3/uL (140-450); Red Blood Cells 3.57 10^6/uL (4.5-5.90); Red Cell Distribution Width 15.1 % (11.8-14.3); White Blood Cell 9.1 10^3/uL (4.4-10.8)
[2024-09-16 15:19] LABS: Alanine Aminotransferase 13 U/L (7-40); Albumin 3.9 g/dL (3.2-4.8); Alkaline Phosphatase 97 U/L (46-116); Anion Gap 7 (5-15); Aspartate Aminotransferase 21 U/L (13-40); BUN/Creatinine Ratio 13.8 (10.0-20.0); Blood Alcohol 3.6 mg/dL (<10); Blood Urea Nitrogen 19 mg/dL (9-23); Carbon Dioxide 29 mmol/L (20-31); Chloride 104 mmol/L (98-107); Glucose 95 mg/dL (74-106); Potassium 4.4 mmol/L (3.5-5.1); Sodium 140 mmol/L (136-145)
[2024-09-16 15:20] LABS: Total Protein 7.4 g/dL (5.7-8.2)
[2024-09-16 15:22] LABS: Bilirubin, Total 0.3 mg/dL (0.2-1.0)
--- NOTE | 2024-09-16 15:37 | DVH ---
EXAM: CT HEAD WITHOUT CONTRAST HISTORY: ams COMPARISON: CT HEAD WITHOUT CONTRAST on DOS: 08/15/24 TECHNIQUE: Axial images of the head were obtained and reformatted in coronal and sagittal planes. All CT scans at this medical facility are performed using dose modulation techniques as appropriate t o a performed exam including the following: Automated exposure control was utilized; adjustment of th e MA and/or KV according to patient size; and use of iterative reconstruction technique. CT Dose: CTDI volume is 56 mGy. Dose-length product is 11 15 mGy*cm FINDINGS: There is no evidence of acute intracranial hemorrhage, mass, mass effect midline shift. There is no h ydrocephalus or extra-axial fluid collection. There are patchy hypodense changes in the supratentoria l white matter compatible with chronic microvascular ischemic changes. Najera-white matter differentia tion appears maintained. The visualized paranasal sinuses and mastoid air cells are clear. The calvarium is intact. IMPRESSION: 1. No acute intracranial process. HS:Y
--- NOTE | 2024-09-16 15:38 | DVH ---
CHEST RADIOGRAPH Indication: sob Technique: Single frontal view of the chest was obtained Comparison: XY CHEST PORTABLE on DOS: 08/16/24, XY CHEST PORTABLE on DOS: 08/16/24 FINDINGS: Lines and Tubes: None Lungs: Diffuse multifocal consolidative. Pleura: No effusion. No pneumothorax. Cardiomediastinal contours: Unremarkable Bones: No acute osseous abnormality. IMPRESSION: Diffuse multifocal consolidative opacities which can be seen in the setting of atypical infection or pulmonary edema.
--- NOTE | 2024-09-16 18:01 | ED.PDOC ---
History of Present Illness HPI Comments 69-year-old is brought in by ambulance with spouse for complaint of altered level consciousness with confusion and urinary incontinence, today. Per spouse patient was found altered this morning after having urinary incontinence symptoms for the past few days. She suspects on him having another UTI, due to previous ED visit with hospital admission for similar symptoms in the past. He was stated to have been treated with antibiotics done and discharged without any medications. He has some having any dysuria, fever, chills, associated symptoms or modifying us at this time Chief Complaint: Urinary Time Seen by MD: 14:30 Primary Care Provider: UNKNOWN NAME Reviewed Notes: Nurses Notes, [facility] Notes, Medications, Allergies Allergies: Coded Allergies: Caffeine (Verified Allergy, Mild, 10/17/13) PER CAFFEINE IS CONTRAINDICATED TO PT DUE TO PARKINSONS DISEASE Codeine (Verified Allergy, Unknown, 08/15/24) Doripenem (Verified Allergy, Unknown, 08/15/24) Metoclopramide (Verified Allergy, Unknown, 08/15/24) Metolazone (Verified Allergy, Unknown, 08/15/24) HISTORY OF PRESENT ILLNESS: The patient was recently started on to a new diuretic medication of metolazone. When he took his second dose last evening, he became dizzy, agitated, developed itching of the skin, and sensation of his throat closing up. Home Meds Active Scripts Doxycycline Hyclate (DOXYCYCLINE HYCLATE) 100 Mg Tab, 1 TAB PO BID for 7 Days, #14 TAB Prov:SIENNA PRETTYMY Saqib DO 08/17/24 Amoxicillin & Pot Clavulanate (AUGMENTIN TABLET) 875 Mg Tb, 875 MG PO BID for 7 Days, #14 TAB Prov:DAVID PRETTY DO 08/17/24 Reported Medications Venlafaxine Besylate (Venlafaxine Besylate ER) 112.5 Mg Tab, 112.5 MG PO, TAB 08/16/24 Fludrocortisone Acetate (Fludrocortisone Acetate) 0.1 Mg Tab, 0.1 MG PO, TAB 08/16/24 Vibegron (Gemtesa) 75 Mg Tab, 150 MG PO, TAB 08/16/24 Vibegron (Gemtesa) 75 Mg Tab, 75 MG PO, TAB 08/16/24 Hydromorphone Hcl (Dilaudid) 2 Mg Tab, 2 MG PO, TAB 08/16/24 Hydromorphone Hcl (Dilaudid) 8 Mg Tab, 64 MG PO Q4HR, TAB 10/17/13 Testosterone Cypionate (Depo-Testosterone) 100 Mg/Ml Inj, IM UNK, INJ 10/15/13 Diphenhydramine Hcl (Benadryl) 25 Mg Cap, 25 MG PO BID, CAP 10/15/13 Multiple Vitamin (Mvi Tab) 1 Tab Tb, 1 TAB PO DAILY 10/15/13 Venlafaxine Hydrochloride (Venlafaxine Hcl) 37.5 Mg Tab, 37.5 MG PO DAILY, #2 TAB 10/15/13 Aspirin (Asa) 81 Mg Ch, 81 MG PO DAILY 10/15/13 [Levadopa] No Conflict Check, 25-100 TAB PO TID 10/15/13 Potassium Chloride (Klor-Con 10) 10 Meq Tab, 10 MEQ PO DAILY, TAB 10/15/13 Furosemide (Lasix) 40 Mg Tab, 40 MG PO DAILY, TAB 10/15/13 Information Source: Patient, Emergency Med Personnel, Spouse Mode of Arrival: EMS Severity: Moderate Timing: Days Duration: Since onset Prehospital treatment: 12 Lead EKG, Accucheck (high), Mica Laminating Machine Feeder, IVF (500ml ns) Past Medical History PAST MEDICAL HISTORY: Anemia, Cancer (AML in remission, throat cancer), DM (Prediabetes), Liver (Hepatitis C), Seizures, Thyroid (Hypothyroidism), UTI'S Past Medical History (Other): Sepsis, pneumonia, metabolic encephalopathy, chemotherapy otoxicity, history of essential tremor, hard of hearing Surgical History: Denies all surgeries Family History Family History: No family hx of Cancer Social History Smoker: Pipe Alcohol: Denies ETOH Use Drugs: Denies Drug Use Lives In: Home Genitourinary: reports: incontinence (Urine) Neurological: reports: others (ALOC, with confusion) Physical Exam Exam Comments General Appearance: No Apparent Distress, Normal HEENT: Pharynx Normal, TMs Normal, Other (hard of hearing, otherwise nml HEENT exam) Neck: Full Range of Motion, Non-Tender, Normal, Normal Inspection Respiratory: Chest Non-Tender, Lungs Clear, No Accessory Muscle Use, No Respiratory Distress, Normal Breath Sounds Cardiovascular: No Edema, No JVD, No Murmur, No Gallop, Normal Peripheral Pulses, Regular Rate/Rhythm Breast Exam: Deferred Gastrointestinal: No Organomegaly, Non Tender, No Pulsatile Mass, Normal Bowel Sounds, Soft Genitalia: Deferred Pelvic: Deferred Rectal: Deferred Extremities: No calf tenderness, Normal capillary refill, Normal inspection, Normal range of motion, Non-tender, No pedal edema Musculoskeletal : Apperance: Normal Neurologic: Alert, education director II-XII nml as Tested, No Motor Deficits, Normal Affect, Normal Mood, No Sensory Deficits, Other (answering questions appropriately; not appear confused amidst spouse's testimony) Cerebellar Function: Normal Reflexes: Normal Skin: Dry, Normal Color, Warm Lymphatic: No Adenopathy Was a procedure done? Was a procedure done?: No Differential Dx Considerations may include: Cystitis, pyelonephritis, electrolyte imbalance, and encephalopathy X-Ray, Labs, Meds, VS Vital Signs Date Time Temp Pulse Resp B/P (MAP) Pulse Ox O2 Delivery O2 Flow Rate FiO2 09/16/24 13:27 94.5 85 20 169/102 (124) 95 Lab Test 09/16/24 15:53 09/16/24 14:50 Range/Units Troponin I High Sensitivity 5 5 </=54 ng/L White Blood Count 9.1 4.4-10.8 10^3/uL Red Blood Count 3.57 L 4.5-5.90 10^6/uL Hemoglobin 12.2 L 13.5-17.5 g/dL Hematocrit 36.4 L 41.0-53.0 % Mean Corpuscular Volume 102.0 H 80.0-100.0 fL Mean Corpuscular Hemoglobin 34.3 H 28.0-32.0 pg Mean Corpuscular Hemoglobin Concent 33.6 32.0-36.0 g/dL Red Cell Distribution Width 15.1 H 11.8-14.3 % Platelet Count 182 140-450 10^3/uL Mean Platelet Volume 8.5 6.9-10.8 fL Neutrophils (%) (Auto) 35.4 L 37.0-80.0 % Lymphocytes (%) (Auto) 50.9 H 10.0-50.0 % Monocytes (%) (Auto) 7.8 0.0-12.0 % Eosinophils (%) (Auto) 5.4 0.0-7.0 % Basophils (%) (Auto) 0.5 0.0-2.0 % Neutrophils # (Auto) 3.2 1.6-8.6 10 ^3/uL Lymphocytes # (Auto) 4.6 0.4-5.4 10 ^3/uL Monocytes # (Auto) 0.7 0-1.3 10 ^3/uL Eosinophils # (Auto) 0.5 0-0.8 10 ^3/uL Basophils # (Auto) 0 0-0.2 10 ^3/uL Nucleated Red Blood Cells 0.1 % Sodium Level 140 136-145 mmol/L Potassium Level 4.4 3.5-5.1 mmol/L Chloride Level 104 98-107 mmol/L Carbon Dioxide Level 29 20-31 mmol/L Anion Gap 7 5-15 Blood Urea Nitrogen 19 9-23 mg/dL Creatinine 1.38 H 0.700-1.30 mg/dL Glomerular Filtration Rate Calc 55 >90 mL/min BUN/Creatinine Ratio 13.8 10.0-20.0 Serum Glucose 95 74-106 mg/dL Calcium Level 10.0 8.7-10.4 mg/dL Total Bilirubin 0.3 0.2-1.0 mg/dL Aspartate Amino Transferase (AST) 21 13-40 U/L Alanine Aminotransferase (ALT) 13 7-40 U/L Alkaline Phosphatase 97 46-116 U/L Total Protein 7.4 5.7-8.2 g/dL Albumin 3.9 3.2-4.8 g/dL Plasma/Serum Blood Alcohol 3.6 <10 mg/dL [place] [address] Ph: [phone] DIAGNOSTIC IMAGING Diagnostic Imaging Report : [id number] Signed PATIENT: NICHOLE NIELSON ACCT: [id number] UNIT: [id number] : 1955 LOC: ER ROOM / BED: / AGE / SEX: 69 / M ADM STATUS: REG ER SERVICE 1438 ORDERING PHYSICIAN: YADIRA VILLEDA MD PROCEDURE(s): HWOCT - HEAD WITHOUT CONTRAST REASON: [facility] ORDER NUMBER(s): [id number], ACCESSION NUMBER(s): [id number] EXAM: CT HEAD WITHOUT CONTRAST HISTORY: ams COMPARISON: CT HEAD WITHOUT CONTRAST on DOS: 08/15/24 TECHNIQUE: Axial images of the head were obtained and reformatted in coronal and sagittal planes. All CT scans at this medical facility are performed using dose modulation techniques as appropriate to a performed exam including the following: Automated exposure control was utilized; adjustment of the MA and/or KV according to patient size; and use of iterative reconstruction technique. CT Dose: CTDI volume is 56 mGy. Dose-length product is 11 15 mGy*cm FINDINGS: There is no evidence of acute intracranial hemorrhage, mass, mass effect midline shift. There is no hydrocephalus or extra-axial fluid collection. There are patchy hypodense changes in the supratentorial white matter compatible with chronic microvascular ischemic changes. Najera-white matter differentiation appears maintained. The visualized paranasal sinuses and mastoid air cells are clear. The calvarium is intact. IMPRESSION: 1. No acute intracranial process. HS:Y ATED BY: JACQUES HENSLEY MD DICTATED DATE/TIME: 09/16/24 153 SIGNED BY: JACQUES HENSLEY MD SIGNED DATE/TIME: 09/16/241534 CC: [place] [address] Ph: [phone] DIAGNOSTIC IMAGING Diagnostic Imaging Report : [id number] Signed PATIENT: NICHOLE NIELSON ACCT: [id number] UNIT: [id number] : 1955 LOC: ER ROOM / BED: / AGE / SEX: 69 / M ADM STATUS: REG ER SERVICE 1438 ORDERING PHYSICIAN: YADIRA VILLEDA MD PROCEDURE(s): CXRP - CHEST PORTABLE REASON: sob ORDER NUMBER(s): [id number], ACCESSION NUMBER(s): [id number] CHEST RADIOGRAPH Indication: sob Technique: Single frontal view of the chest was obtained Comparison: XY CHEST PORTABLE on DOS: 08/16/24, XY CHEST PORTABLE on DOS: 08/16/24 FINDINGS: Lines and Tubes: None Lungs: Diffuse multifocal consolidative. Pleura: No effusion. No pneumothorax. Cardiomediastinal contours: Unremarkable Bones: No acute osseous abnormality. IMPRESSION: Diffuse multifocal consolidative opacities which can be seen in the setting of atypical infection or pulmonary edema. ATED BY: KANE CANO MD DICTATED DATE/TIME: 09/16/24 153 SIGNED BY: KANE CANO MD SIGNED DATE/TIME: 09/16/245 CC: Time of 1ST Reevaluation: 15:00 Reevaluation 1ST: Unchanged Patient Education/Counseling: Diagnosis, Treatment Family Education/Counseling: No Family Present Additional Information I reviewed the following notes from patient's past medical encounters: Hospital admission discharge summary report on 08/17/2024. The following tests were ordered, and results were reviewed by me: Labs, x- rays, CT Additional Information was gathered from interviewing the following independent historians: Spouse, EMT I reviewed and agreed with the following test results read by other providers: X-Ray, CT I discussed treatment and results with medical personnel and: Spouse Departure 1 Departure Time of Disposition: 18:02 Impression: Primary Impression: AMS (altered mental status) Disposition: 09 ADMITTED INPATIENT Admit to: Tele Condition: Guarded Critical Care Note Critical Care Time?: No Stability Stability form required: No Heart Score Heart Score: Heart Score Response (Comments) Value History N/A 0 EKG N/A 0 Age N/A 0 Risk Factors N/A 0 Troponin N/A 0 Total 0 I personally scribed for YADIRA VILLEDA MD ([email or web address]) on 09/16/24 at 18:01. Electronically submitted by Cornell Anderson [email or web address]). YADIRA VILLEDA MD Sep 16, 2024 18:01
[2024-09-16 18:25] VITALS: PULSE 89; RESP 13; O2SAT 96
[2024-09-16] MEDS ORDERED: ONDANSETRON HCL 4 MG/2 ML VIAL IV PRN (19:00)
[2024-09-16] MEDS ORDERED: AZITHROMYCIN 500MG/ 250ML 250 ML IV ONE (19:00)
[2024-09-16] MEDS ORDERED: cefTRIAXone 1GM/50ML D5W 50 ML IV ONE (19:00)
[2024-09-16 19:34] LABS: Urine Bacteria FEW /hpf (None Seen); Urine Blood 2+ /uL (Negative); Urine Clarity Ex.Turbid (Clear); Urine Color Light-Orange (Yellow); Urine Mucus FEW (None Seen); Urine Protein, UAD 2+ (Negative); Urine Urobilinogen Normal (Negative); Urine WBC 5531 /hpf (0 - 3); Urine WBC Clumps PRESENT /hpf (None Seen)
[2024-09-16] MEDS: cefTRIAXone 1GM/50ML D5W 50 ML IV ONE (20:57)
[2024-09-16 21:03] VITALS: PULSE 89; RESP 16; O2SAT 96
[2024-09-16] MEDS: AZITHROMYCIN 500MG/ 250ML 250 ML IV ONE (21:05)
[2024-09-16 21:47] VITALS: BP 118/57; PULSE 91; RESP 18; TEMP 98.3; O2SAT 98
[2024-09-16] MEDS: CARBIDOPA W LEVODOPA 25/100mg TABLET PO SCH (22:00)
[2024-09-16] MEDS ORDERED: VENL150C58 PO (22:41)
[2024-09-16] MEDS ORDERED: HYDR2TAB2 PO (22:41)
[2024-09-16] MEDS ORDERED: LEVO125T7 PO (22:41)
[2024-09-16] MEDS ORDERED: ALPR0.5T7 PO (22:41)
[2024-09-16] MEDS ORDERED: MIDO5TAB22 PO (22:41)
[2024-09-16] MEDS ORDERED: VENL75CA78 PO (22:41)
[2024-09-16] MEDS ORDERED: PRIM125T PO (22:41)
[2024-09-16] MEDS ORDERED: LUBI24CA12 PO (22:41)
[2024-09-16] MEDS ORDERED: OMEP1CAP70 PO (22:41)
--- NOTE | 2024-09-16 22:47 | DVHHP2 ---
History of Present Illness Reason for Visit: Altered mental status History of Present Illness 69-year-old male brought in for evaluation of altered mental status. Patient presents with a two day history of worsening confusion with associated urinary incontinence. No slurred speech or unilateral weakness. Patient is currently lethargic and oriented x2. No complaints of chest pain no shortness a breath. No other acute complaints. Past Medical History Anemia, diabetes mellitus, liver disease, seizures, thyroid, Past Surgical History None Family History Noncontributory Smoke: No ALCOHOL: none Drugs: None Lives: with Family Review of Systems Review of Systems Review of systems are currently negative otherwise addressed in HPI. Allergies: Coded Allergies: Caffeine (Verified Allergy, Mild, 10/17/13) PER CAFFEINE IS CONTRAINDICATED TO PT DUE TO PARKINSONS DISEASE Azithromycin (Verified Allergy, Unknown, 09/16/24) Codeine (Verified Allergy, Unknown, 08/15/24) Doripenem (Verified Allergy, Unknown, 08/15/24) Metoclopramide (Verified Allergy, Unknown, 08/15/24) Metolazone (Verified Allergy, Unknown, 08/15/24) HISTORY OF PRESENT ILLNESS: The patient was recently started on to a new diuretic medication of metolazone. When he took his second dose last evening, he became dizzy, agitated, developed itching of the skin, and sensation of his throat closing up. Medications Current Medications Medications Dose Ordered Sig/Praneeth Route Start Time Stop Time Status Last Admin Dose Admin Carbidopa/Levodopa 1 tab BID PO 09/16/24 22:00 09/16/24 22:00 1 TAB Aspirin 81 mg DAILY PO 09/17/24 10:00 Furosemide 40 mg DAILY PO 09/17/24 10:00 Levothyroxine Sodium 125 mcg QAM@0600 PO 09/17/24 06:00 Divalproex Sodium 500 mg BID PO 09/16/24 22:00 09/16/24 22:00 500 MG Ceftriaxone Sodium 50 ml @ 100 mls/hr DAILY@09 IV 09/17/24 09:00 Azithromycin 250 ml @ 125 mls/hr DAILY IV 09/17/24 10:00 Cancel Ondansetron HCl 4 mg Q4HP PRN IV 09/16/24 19:00 Enoxaparin Sodium 40 mg DAILY SC 09/17/24 10:00 Acetaminophen 650 mg Q6HP PRN PO 09/16/24 19:00 Exam Vital Signs Vital Signs Date Time Temp Pulse Resp B/P (MAP) Pulse Ox O2 Delivery O2 Flow Rate FiO2 09/16/24 21:03 89 16 104/58 (73) 96 09/16/24 21:03 Room Air* 0 21 09/16/24 13:27 94.5 Exam Gen: 69-year-old male in mild distress, lethargic Skin: Warm, dry, normal color and texture, no rash. HEENT: Normocephalic atraumatic, mucous membranes moist and pink. Neck: Cervical and supraclavicular nodes normal without enlargement, trachea is midline, thyroid gland is normal without masses. Pulmonary: Clear to auscultation and percussion bilaterally. Cardiac: Regular rate and rhythm. No murmur Abdomen: Soft, nontender, nondistended, bowel sounds present all 4 quadrants, no guarding, no rigidity, no organomegaly. Extremities: No cyanosis, clubbing, no edema Neuro: Cranial nerves II through XII grossly intact, normal affect and speech, no focal motor deficits. Labs/Xrays ORDERING PHYSICIAN: YADIRA VILLEDA MD PROCEDURE(s): CXRP - CHEST PORTABLE REASON: sob ORDER NUMBER(s): [id number], ACCESSION NUMBER(s): [id number] CHEST RADIOGRAPH Indication: sob Technique: Single frontal view of the chest was obtained Comparison: XY CHEST PORTABLE on DOS: 08/16/24, XY CHEST PORTABLE on DOS: 08/16/24 FINDINGS: Lines and Tubes: None Lungs: Diffuse multifocal consolidative. Pleura: No effusion. No pneumothorax. Cardiomediastinal contours: Unremarkable Bones: No acute osseous abnormality. IMPRESSION: Diffuse multifocal consolidative opacities which can be seen in the setting of atypical infection or pulmonary edema. RING PHYSICIAN: YADIRA VILLEDA MD PROCEDURE(s): HWOCT - HEAD WITHOUT CONTRAST REASON: ams ORDER NUMBER(s): [id number], ACCESSION NUMBER(s): [id number] EXAM: CT HEAD WITHOUT CONTRAST HISTORY: ams COMPARISON: CT HEAD WITHOUT CONTRAST on DOS: 08/15/24 TECHNIQUE: Axial images of the head were obtained and reformatted in coronal and sagittal planes. All CT scans at this medical facility are performed using dose modulation techniques as appropriate to a performed exam including the following: Automated exposure control was utilized; adjustment of the MA and/or KV according to patient size; and use of iterative reconstruction technique. CT Dose: CTDI volume is 56 mGy. Dose-length product is 11 15 mGy*cm FINDINGS: There is no evidence of acute intracranial hemorrhage, mass, mass effect midline shift. There is no hydrocephalus or extra-axial fluid collection. There are patchy hypodense changes in the supratentorial white matter compatible with chronic microvascular ischemic changes. Najera-white matter differentiation appears maintained. The visualized paranasal sinuses and mastoid air cells are clear. The calvarium is intact. IMPRESSION: 1. No acute intracranial process. HS:Y Labs Test 09/16/24 21:44 09/16/24 18:36 09/16/24 17:25 09/16/24 14:50 Range/Units B-Type Natriuretic Peptide 207.60 0-100 pg/mL Troponin I High Sensitivity 3 L </=54 ng/L Urine Color Light-orange Yellow Urine Clarity Ex.turbid Clear Urine pH 6.0 5.0-9.0 Urine Specific Dillon 1.010 1.001-1.035 Urine Protein 2+ H Negative Urine Ketones Negative Negative Urine Blood 2+ H Negative /uL Urine Nitrite Negative Negative Urine Bilirubin Negative Negative Urine Urobilinogen Normal Negative mg/dL Urine Leukocyte Esterase 3+ Negative /uL Urine RBC 14 0 - 3 /hpf Urine WBC 5531 0 - 3 /hpf Urine WBC Clumps Present None Seen /hpf Urine Squamous Epithelial Cells Few <5 /hpf Urine Bacteria Few H None Seen /hpf Urine Mucus Few None Seen Urine Glucose Normal Normal mg/dL White Blood Count 9.1 4.4-10.8 10^3/uL Red Blood Count 3.57 L 4.5-5.90 10^6/uL Hemoglobin 12.2 L 13.5-17.5 g/dL Hematocrit 36.4 L 41.0-53.0 % Mean Corpuscular Volume 102.0 H 80.0-100.0 fL Mean Corpuscular Hemoglobin 34.3 H 28.0-32.0 pg Mean Corpuscular Hemoglobin Concent 33.6 32.0-36.0 g/dL Red Cell Distribution Width 15.1 H 11.8-14.3 % Platelet Count 182 140-450 10^3/uL Mean Platelet Volume 8.5 6.9-10.8 fL Neutrophils (%) (Auto) 35.4 L 37.0-80.0 % Lymphocytes (%) (Auto) 50.9 H 10.0-50.0 % Monocytes (%) (Auto) 7.8 0.0-12.0 % Eosinophils (%) (Auto) 5.4 0.0-7.0 % Basophils (%) (Auto) 0.5 0.0-2.0 % Neutrophils # (Auto) 3.2 1.6-8.6 10 ^3/uL Lymphocytes # (Auto) 4.6 0.4-5.4 10 ^3/uL Monocytes # (Auto) 0.7 0-1.3 10 ^3/uL Eosinophils # (Auto) 0.5 0-0.8 10 ^3/uL Basophils # (Auto) 0 0-0.2 10 ^3/uL Nucleated Red Blood Cells 0.1 % Sodium Level 140 136-145 mmol/L Potassium Level 4.4 3.5-5.1 mmol/L Chloride Level 104 98-107 mmol/L Carbon Dioxide Level 29 20-31 mmol/L Anion Gap 7 5-15 Blood Urea Nitrogen 19 9-23 mg/dL Creatinine 1.38 H 0.700-1.30 mg/dL Glomerular Filtration Rate Calc 55 >90 mL/min BUN/Creatinine Ratio 13.8 10.0-20.0 Serum Glucose 95 74-106 mg/dL Calcium Level 10.0 8.7-10.4 mg/dL Total Bilirubin 0.3 0.2-1.0 mg/dL Aspartate Amino Transferase (AST) 21 13-40 U/L Alanine Aminotransferase (ALT) 13 7-40 U/L Alkaline Phosphatase 97 46-116 U/L Total Protein 7.4 5.7-8.2 g/dL Albumin 3.9 3.2-4.8 g/dL Plasma/Serum Blood Alcohol 3.6 <10 mg/dL Assessment/Plan Assessment/Plan Assessment Metabolic encephalopathy Urinary tract infection Possible pneumonia Plan Admit the patient to [facility] to the hospitalist Dennis Resume home medications Continue treatment per orders. Plan discussed with: Patient My Orders Orders - NARCISA SAMAYOA Procedure Category Date Status Time Carbidopa W Levodopa PHA 09/16/24 In Process 25/100mg (Sinemet 2 22:00 Aspirin Tablet PHA 09/17/24 In Process 10:00 Furosemide Tablet PHA 09/17/24 In Process (Lasix Tablet) 10:00 Levothyroxine Tablet PHA 09/17/24 In Process (Synthroid Tablet) 06:[address] Tablet PHA 09/16/24 In Process (Depakote "Dr" Tabl 22:00 Ceftriaxone 1gm/50ml PHA 09/17/24 In Process D5w (Rocephin) 09:00 Blood Culture ALEXSANDER 09/16/24 In Process 18:59 Basic Metabolic Panel LAB 09/17/24 Verified 04:00 Admit ADMIT 09/16/24 Transmitted 18:59 Ondansetron Hcl PHA 09/16/24 In Process (Zofran) 19:00 Enoxaparin Sodium PHA 09/17/24 In Process (Lovenox) 10:00 Complete Blood Count LAB 09/17/24 Verified 04:00 Cardiac DIET 09/17/24 Transmitted Diet-2gna,Lofat,Lochol Breakfast Condition: Stable KEON 09/16/24 In Process 18:59 Acetaminophen Tablet PHA 09/16/24 In Process (Tylenol Tablet) 19:00 Bedrest With Bathroom KEON 09/16/24 In Process Privileg 18:59 Date of Service: Sep 16, 2024 Billing Provider: NARCISA SAMAYOA Common Visit Codes: [id number] INP/OBS CARE (HIGH) NARCISA SAMAYOA Sep 16, 2024 22:46
[2024-09-17] VITALS (8 sets, daily range): BP systolic 94–142; BP diastolic 52–74; PULSE 86–93; RESP 16–18; TEMP 97.2–98.2; O2SAT 92–96
[2024-09-17] MEDS: ACETAMINOPHEN 325 MG TAB PO PRN (05:43)
[2024-09-17] MEDS: LEVOTHYROXINE SODIUM 50 MCG TAB PO SCH (05:43)
[2024-09-17 06:29] LABS: Chloride 102 mmol/L (98-107); Potassium 3.9 mmol/L (3.5-5.1); Sodium 138 mmol/L (136-145)
[2024-09-17 06:30] LABS: Anion Gap 7 (5-15); Calcium 9.6 mg/dL (8.7-10.4); Carbon Dioxide 29 mmol/L (20-31)
[2024-09-17 06:35] LABS: BUN/Creatinine Ratio 14.8 (10.0-20.0); Blood Urea Nitrogen 18 mg/dL (9-23); Glucose 93 mg/dL (74-106)
[2024-09-17 06:43] LABS: Basophils # (auto) 0 10 ^3/uL (0-0.2); Basophils % (auto) 0.4 % (0.0-2.0); Eosinophils # (auto) 0.3 10 ^3/uL (0-0.8); Eosinophils % (auto) 3.9 % (0.0-7.0); Hematocrit 32.3 % (41.0-53.0); Lymphocytes # (auto) 3.1 10 ^3/uL (0.4-5.4); Mean Corpuscular Hemoglobin 34.9 pg (28.0-32.0); Mean Corpuscular Hgb Conc. 34.1 g/dL (32.0-36.0); Mean Corpuscular Volume 102.4 fL (80.0-100.0); Monocytes # (auto) 0.5 10 ^3/uL (0-1.3); Neutrophils # (auto) 3.5 10 ^3/uL (1.6-8.6); Neutrophils % (auto) 46.7 % (37.0-80.0); Platelet Count (auto) 152 10^3/uL (140-450); Red Blood Cells 3.16 10^6/uL (4.5-5.90); Red Cell Distribution Width 14.8 % (11.8-14.3); White Blood Cell 7.5 10^3/uL (4.4-10.8)
[2024-09-17 09:05] LABS: Blood Alcohol 3.2 mg/dL (<10)
[2024-09-17 09:07] LABS: Phosphorus 3.5 mg/dL (2.4-5.1)
[2024-09-17] MEDS ORDERED: DOXYCYCLINE 100MG/250ML 250 ML IV ONE (09:15)
[2024-09-17] MEDS: FUROSEMIDE 40 MG TAB PO SCH (09:27)
[2024-09-17] MEDS: ASPirin 81 mg TAB PO SCH (09:27)
[2024-09-17] MEDS: cefTRIAXone 1GM/50ML D5W 50 ML IV SCH (09:28)
[2024-09-17] MEDS: ENOXAPARIN SOD 40 MG/0.4 ML SYRINGE SC SCH (09:28)
[2024-09-17] MEDS ORDERED: AZITHROMYCIN 500MG/ 250ML 250 ML IV SCH ×2 (10:00)
[2024-09-17] MEDS: DOXYCYCLINE 100MG/250ML 250 ML IV SCH (11:45)
[2024-09-17 12:36] LABS: Folate (Folic Acid) 15.43 ng/mL (>5.38)
[2024-09-17 13:14] LABS: Amphetamine Screen, Urine Neg (NEGATIVE); Barbiturate Scree,Urine Pos (NEGATIVE); Benzodiazephine Screen, Urine Neg (NEGATIVE); Cannabinoid Screen, Urine Neg (NEGATIVE); Cocaine Screen, Urine Neg (NEGATIVE); Opiate Scree,Urine Neg (NEGATIVE); Phencyclidine Screen, Urine Neg (NEGATIVE)
--- NOTE | 2024-09-17 14:56 | DVHPNRES ---
Progress Note Date Seen: Sep 17, 2024 Resident Creating Document: SINAN BORDEN RESIDENT Medical Necessity Reason Pt with a Central, PICC or Fol: No Subjective Review of Systems Patient is 69 years old male with past medical history of seizure disorder, thyroid disorder, liver disease, history of recurrent UTI, throat cancer status post chemotherapy and radiotherapy, peripheral neuropathy, Two kind of stimulator in the body one for bladder and oneon the spine for pain, history of essential tremor/Parkinson's disease was brought in to the hospital due to altered mental status. Provider spoke with the patient's Alyse henson [phone], and also gathered information reviewing chart from the ER. As per patient's patient was getting confused for last 2 days, he could not complete a full sentence, had hard time concentrating or following commands. Patient also had urinary incontinence. Patient's family denied any chest pain, fever, shortness of breath, acute joint redness or swelling, diarrhea. Initial lab workup revealed serum creatinine 1.38, GFR 55, TSH 0.38, urinalysis revealed UTI with leukocyte esterase 3+, WBC 5531, RBC 14, bacteria few. CXR revealed- Diffuse multifocal consolidative opacities which can be seen in the setting of atypical infection or pulmonary edema. CTA revealed -No acute intracranial process. Allergy- azithromycin, caffeine, codeine, doripenem, metoclopramide, metolazone Patient was seen today at the bedside. Cardiovascular- deny acute chest pain or shortness of breath or cough or palpitation Respiratory- denies cough or short of breath or wheezing Gastrointestinal- denies any rectal bleeding, nausea or vomiting Musculoskeletal-denies acute joint swelling or tenderness or redness Psychiatry- denies depression or SI or HI Skin- denies acute rash or purpura Patient is seen today for clinical evaluation. Labs and chart reviewed. Patient with a confusion. Patient IV antibiotic ceftriaxone and doxycycline, tolerating well. External Grinder spoke to patient's Alyse henson and answered her question. Pending echo 2D report. Pending blood culture, urinary culture, respiratory culture. Objective vital signs Vital Sign Date Time Temp Pulse Resp B/P (MAP) Pulse Ox O2 Delivery O2 Flow Rate FiO2 09/17/24 13:00 97.2 86 18 120/70 (87) 94 97.2 09/17/24 08:30 Room Air* 0 21 Total Intake and Output 09/16/24 09/16/24 09/17/24 15:00 23:00 07:00 Intake Total 200 ml Output Total 600 ml Balance -400 ml medications Current Medications Medications Dose Ordered Sig/Praneeth Route Start Time Stop Time Status Last Admin Dose Admin Carbidopa/Levodopa 1 tab BID PO 09/16/24 22:00 09/17/24 09:26 1 TAB Aspirin 81 mg DAILY PO 09/17/24 10:00 09/17/24 09:27 81 MG Furosemide 40 mg DAILY PO 09/17/24 10:00 09/17/24 09:27 40 MG Levothyroxine Sodium 125 mcg QAM@0600 PO 09/17/24 06:00 09/17/24 05:43 125 MCG Divalproex Sodium 500 mg BID PO 09/16/24 22:00 Hold 09/17/24 09:26 500 MG Ceftriaxone Sodium 50 ml @ 100 mls/hr DAILY@09 IV 09/17/24 09:00 09/17/24 09:28 100 MLS/HR Azithromycin 250 ml @ 125 mls/hr DAILY IV 09/17/24 10:00 Cancel Ondansetron HCl 4 mg Q4HP PRN IV 09/16/24 19:00 Enoxaparin Sodium 40 mg DAILY SC 09/17/24 10:00 09/17/24 09:28 40 MG Acetaminophen 650 mg Q6HP PRN PO 09/16/24 19:00 09/17/24 05:43 650 MG Doxycycline Hyclate 250 ml @ 125 mls/hr Q12H IV 09/17/24 09:15 09/17/24 11:45 125 MLS/HR Fludrocortisone Acetate 0.1 mg DAILY PO 09/18/24 10:00 Hydromorphone HCl 2 mg Q8HR PO 09/17/24 22:00 Patient Own Medication 3 tab BID PO 09/17/24 22:00 UNV Patient Own Medication 250 tab BID PO 09/17/24 22:00 UNV Patient Own Medication 1 tab DAILY PO 09/18/24 10:00 UNV Patient Own Medication 2 cap DAILY PO 09/18/24 10:00 UNV Patient Own Medication 1 cap DAILY PO 09/18/24 10:00 UNV Patient Own Medication 50 mg BID PO 09/17/24 22:00 UNV Patient Own Medication 1 cap DAILY PO 12/18/24 10:00 UNV Patient Own Medication 1 cap DAILY PO 09/18/24 10:00 UNV Patient Own Medication 75 mg HS PO 09/17/24 22:00 UNV Examination General examination- patient with confusion HEENT- PEERLA, no acute nasal discharge Cardiovascular- S1-S2 audible, rate and rhythm regular, no murmur Respiratory- CTAB, no wheeze or rhonchi Gastrointestinal-nontender, bowel sound+. Nondistended Musculoskeletal-no acute joint swelling or tenderness or redness# Lower extremity- no leg edema Neurological- cranial nerves intact, no acute dysarthria or dysphagia Psychiatry- patient with confusion Skin- fragile skin laboratory and microbiology Laboratory Tests 09/17/24 05:14 Test 09/17/24 05:14 Range/Units Serum Glucose 93 74-106 mg/dL Problem List/Assessment/Plan Problem List/Assessment/Plan # metabolic encephalopathy likely due to UTI/pneumonia #UTI # pneumonia Gram-positive versus Gram-negative # seizure disorder # hypothyroidism # peripheral neuropathy # suspected congestive heart failure, pending echo 2D report # AGATHA on CKD stage 2 likely due to VMN/hemodynamic cause # history of throat cancer, status post chemotherapy and radiotherapy # history of essential tremor versus Parkinson's disease Pending blood culture, urine culture, sputum culture Continue ceftriaxone 1 g IV daily Continue doxycycline 100 mg IV b.i.d. Continue levothyroxine 100 mcg q.a.m. Continue Lovenox 40 mg subcutaneously daily Continue normal saline 75 mL/hour daily Continue hydromorphone as prescribed Continue divalproex DR tablet 250 mg b.i.d. Continue midodrine 5 mg p.o. t.i.d. Continue Lasix 20 mg daily -continue carbidopa levodopa as prescribed Goals of care/advance care planning; FULL CODE; discussed with the patient >15 minutes PUD prophylaxis: Omeprazole DVT prophylaxis: Lovenox Plan discussed with Dr. Norris, nursing staff, patient Total time spent on patient evaluation, chart review, assessment and plan, discussion discussion >30 minutes Plan discussed with: Patient Plan discussed with: Patient, Spouse, Other (RN) My Orders My Orders Orders - SINAN BORDEN Procedure Category Date Status Time Urine Bacterial ALEXSANDER 09/17/24 In Process Culture 08:38 Respiratory Culture ALEXSANDER 09/17/24 Logged W/ Gs 08:45 Doxycycline PHA 12/17/24 In Process 100mg/250ml 09:15 * Window Covering Sales Consultant CONS 09/17/24 Transmitted Consult Pt Request For Service PT 09/17/24 Logged 13:07 Ammonia LAB 09/17/24 Logged 13:07 Echo 2d Mode Cardiac US 09/17/24 Taken DOP 13:07 Fludrocortisone PHA 09/18/24 In Process Tablet (Florinef 10:00 Hydromorphone Tablet PHA 09/17/24 In Process (Dilaudid Tablet) 22:00 (Nf) Midodrine Hcl PHA 09/17/24 Logged (Midodrine Hydrochlor 22:00 (Nf) Divalproex PHA 09/17/24 Logged Sodium (Divalproex 22:00 (Nf) Levothyroxine PHA 09/18/24 Logged Sodium 10:00 (Nf) Lubiprostone PHA 09/18/24 Logged 10:00 (Nf) Omeprazole PHA 09/18/24 Logged (Omeprazole Dr) 10:00 (Nf) Primidone PHA 09/17/24 Logged 22:00 (Nf) Venlafaxine Hcl PHA 09/18/24 Logged (Venlafaxine Hcl Er 10:00 (Nf) Venlafaxine Hcl PHA 09/18/24 Logged (Venlafaxine Hcl Er 10:00 (Nf) Vibegron PHA 09/17/24 Logged (Gemtesa) 22:00 Date of Service: Sep 17, 2024 Billing Provider: ELIDIA NORRIS MD Common Visit Codes: [id number] INP/OBS CARE(HIGH) Secondary Visit Codes: [id number] CARE PLAN 30 MINUTES SINAN BORDEN RESIDENT Sep 17, 2024 14:56 ELIDIA NORRIS MD Sep 17, 2024 19:23
[2024-09-17] MEDS: HYDROmorphone HCL 2 MG TAB PO SCH (16:00)
--- NOTE | 2024-09-17 16:05 | DVHSR ---
APPROVED REPORT EXAM: LIMITED Two-dimensional and M-mode echocardiogram with Doppler and color Doppler. Blood Pressure: 120/70 mmHg INDICATION rule out hypokinesia/ valvular heart disease RISK FACTORS Height: 6'5, Weight: 210 DIMENSIONS EF (%) 55.0 (55-70%)Rt. Atrium (1.9-4.0cm)Asc. Aorta cm Mitral Valve MitralMitral Stenosis A wavem/sMV Peak GR.64mmHg E/A ratio0.02D MVAcm2 Tricuspid Valve TR Velocity1.90m/s [id number] Other Information Quality : Technically LimitedRhythm : Technically limited study due to patient position.body habitus. Conclusion Only subcostal views were obtained. Given limited images patient ECHO revealed, grossly normal left ventricular size and dimension with the overall preserved left ventricular systolic function 55%. Normal right ventricular size and dimension. Normal biatrial size and dimension. No significant pathologic change was noted No significant pericardial effusion.
[2024-09-17] MEDS: SODIUM CHLORIDE 0.9% 1,000 ML IV SCH (16:22)
[2024-09-17] MEDS: MIDODRINE HCL 10 MG TAB PO SCH (17:16)
[2024-09-17] MEDS: PRIMIDONE 50 MG TAB PO SCH (21:49)
[2024-09-17] MEDS ORDERED: HYDROmorphone HCL 2 MG TAB PO SCH (22:00)
[2024-09-17] MEDS ORDERED: FAMOTIDINE (10MG/ML) 2ML VL IV SCH (22:00)
[2024-09-17] MEDS: Vibegron 75 MG TABLET PO SCH (22:00)
[2024-09-18] VITALS (8 sets, daily range): BP systolic 98–126; BP diastolic 47–66; PULSE 80–99; RESP 17–19; TEMP 97.7–98.6; O2SAT 94–99
[2024-09-18] MEDS ORDERED: LEVOTHYROXINE SODIUM 25 MCG TAB PO SCH (07:00)
[2024-09-18] MEDS ORDERED: LEVOTHYROXINE SODIUM 100 MCG TAB PO SCH (07:00)
[2024-09-18 07:02] LABS: Basophils # (auto) 0 10 ^3/uL (0-0.2); Basophils % (auto) 0.3 % (0.0-2.0); Hematocrit 34.9 % (41.0-53.0); Monocytes # (auto) 0.5 10 ^3/uL (0-1.3)
[2024-09-18 07:05] LABS: Albumin 3.6 g/dL (3.2-4.8); Alkaline Phosphatase 81 U/L (46-116); Anion Gap 10 (5-15); Calcium 9.8 mg/dL (8.7-10.4); Carbon Dioxide 26 mmol/L (20-31); Chloride 103 mmol/L (98-107); Glucose 83 mg/dL (74-106); Magnesium 2.1 mg/dL (1.6-2.6); Potassium 3.8 mmol/L (3.5-5.1); Sodium 139 mmol/L (136-145)
[2024-09-18 07:06] LABS: Total Protein 7.1 g/dL (5.7-8.2)
[2024-09-18 07:07] LABS: Eosinophils # (auto) 0.2 10 ^3/uL (0-0.8); Eosinophils % (auto) 2.4 % (0.0-7.0); Hemoglobin 11.6 g/dL (13.5-17.5); Lymphocytes # (auto) 2.9 10 ^3/uL (0.4-5.4); Lymphocytes % (auto) 40.9 % (10.0-50.0); Mean Corpuscular Hgb Conc. 33.2 g/dL (32.0-36.0); Mean Corpuscular Volume 102.5 fL (80.0-100.0); Monocytes % (auto) 6.9 % (0.0-12.0); Neutrophils # (auto) 3.5 10 ^3/uL (1.6-8.6); Neutrophils % (auto) 49.5 % (37.0-80.0); Platelet Count (auto) 164 10^3/uL (140-450); Red Cell Distribution Width 14.5 % (11.8-14.3); White Blood Cell 7.2 10^3/uL (4.4-10.8)
[2024-09-18 07:17] LABS: Alanine Aminotransferase < 9 U/L (7-40); Aspartate Aminotransferase 13 U/L (13-40); Bilirubin, Total 0.2 mg/dL (0.2-1.0)
[2024-09-18 07:32] LABS: Blood Urea Nitrogen 17 mg/dL (9-23)
[2024-09-18] MEDS: FLUDROCORTISONE ACETATE 0.1 MG TAB PO SCH (09:42)
[2024-09-18] MEDS: FUROSEMIDE 40 MG TAB PO SCH (09:43)
[2024-09-18] MEDS: VENLAFAXINE HCL 37.5mg XR cap PO SCH (09:44)
[2024-09-18] MEDS ORDERED: PATIENTS OWN MEDICATION (Venlafaxine Hcl (Venlafaxine Hcl Er) 1 CAP) PO SCH (10:00)
--- NOTE | 2024-09-18 10:16 | ECG ---
[facility] Test Date: 2024-09-16 Test Time: 13:14:52 Pat Name: NICHOLE NIELSON Department: ED Room: 0275 B Gender: M Fuel Manager: MICHAEL : [id number] Requested By: YADIRA VILLEDA Order Number: [id number] Reading MD: Armani Gama Measurements Intervals [place] Rate: 93 P: 79 MO: 146 QRS: 22 QRSD: 110 T: 59 QT: 388 QTc: 483 Interpretive Statements Sinus rhythm Probable left atrial enlargement Borderline low voltage, extremity leads Borderline prolonged QT interval Electronically Signed On 09-20-2024 10:18:40 PST by Armani Gama Please click the below link to view image of tracing.
--- NOTE | 2024-09-18 16:25 | DVHPNRES ---
Progress Note Date Seen: Sep 18, 2024 Resident Creating Document: SINAN BORDEN RESIDENT Medical Necessity Reason Pt with a Central, PICC or Fol: No Subjective Review of Systems Patient is 69 years old male with past medical history of seizure disorder, thyroid disorder, liver disease, history of recurrent UTI, throat cancer status post chemotherapy and radiotherapy, peripheral neuropathy, Two kind of stimulator in the body one for bladder and oneon the spine for pain, history of essential tremor/Parkinson's disease was brought in to the hospital due to altered mental status. Provider spoke with the patient's Alyse henson [phone], and also gathered information reviewing chart from the ER. As per patient's patient was getting confused for last 2 days, he could not complete a full sentence, had hard time concentrating or following commands. Patient also had urinary incontinence. Patient's family denied any chest pain, fever, shortness of breath, acute joint redness or swelling, diarrhea. Initial lab workup revealed serum creatinine 1.38, GFR 55, TSH 0.38, urinalysis revealed UTI with leukocyte esterase 3+, WBC 5531, RBC 14, bacteria few. CXR revealed- Diffuse multifocal consolidative opacities which can be seen in the setting of atypical infection or pulmonary edema. CTA revealed -No acute intracranial process. Allergy- azithromycin, caffeine, codeine, doripenem, metoclopramide, metolazone Patient was seen today at the bedside. Cardiovascular- deny acute chest pain or shortness of breath or cough or palpitation Respiratory- denies cough or short of breath or wheezing Gastrointestinal- denies any rectal bleeding, nausea or vomiting Musculoskeletal-denies acute joint swelling or tenderness or redness Psychiatry- denies depression or SI or HI Skin- denies acute rash or purpura Patient is seen today for clinical evaluation. Labs and chart reviewed. Patient is more awake and alert today and more communicative. Echo 2D revealed- Only subcostal views were obtained. Given limited images patient ECHO revealed, grossly normal left ventricular size and dimension with the overall preserved left ventricular systolic function 55%. Blood culture no growth so far in 24 hours. Uterine preliminary culture no growth. Patient's IV antibiotic ceftriaxone and doxycycline, tolerating well, no side effect noted. Objective vital signs Vital Sign Date Time Temp Pulse Resp B/P (MAP) Pulse Ox O2 Delivery O2 Flow Rate FiO2 09/18/24 09:43 126/66 09/18/24 09:00 98.3 94 19 95 98.3 09/18/24 08:30 Room Air* 0 21 Total Intake and Output 09/17/24 09/17/24 09/18/24 15:00 23:00 07:00 Intake Total 300 ml 480 ml 425 ml Output Total 1000 ml 1300 ml Balance 300 ml -520 ml -875 ml medications Current Medications Medications Dose Ordered Sig/Praneeth Route Start Time Stop Time Status Last Admin Dose Admin Carbidopa/Levodopa 1 tab BID PO 09/16/24 22:00 09/18/24 09:40 1 TAB Aspirin 81 mg DAILY PO 09/17/24 10:00 09/18/24 09:40 81 MG Ceftriaxone Sodium 50 ml @ 100 mls/hr DAILY@09 IV 09/17/24 09:00 09/18/24 09:45 100 MLS/HR Azithromycin 250 ml @ 125 mls/hr DAILY IV 09/17/24 10:00 Cancel Ondansetron HCl 4 mg Q4HP PRN IV 09/16/24 19:00 Enoxaparin Sodium 40 mg DAILY SC 09/17/24 10:00 09/18/24 09:44 40 MG Acetaminophen 650 mg Q6HP PRN PO 09/16/24 19:00 09/18/24 01:11 650 MG Doxycycline Hyclate 250 ml @ 125 mls/hr Q12H IV 09/17/24 09:15 09/18/24 11:54 125 MLS/HR Fludrocortisone Acetate 0.1 mg DAILY PO 09/18/24 10:00 09/18/24 09:42 0.1 MG Midodrine 15 mg BIDD PO 09/17/24 18:00 09/18/24 06:00 15 MG Divalproex Sodium 250 mg BID PO 09/17/24 22:00 Hold Patient Own Medication 2 cap DAILY PO 09/18/24 10:00 Patient Own Medication 1 cap DAILY PO 09/18/24 10:00 Primidone 50 mg BID PO 09/17/24 22:00 09/18/24 09:40 50 MG Venlafaxine HCl 225 mg DAILY PO 09/18/24 10:00 09/18/24 09:44 225 MG Patient Own Medication 75 mg HS PO 09/17/24 22:00 Sodium Chloride 1,000 ml @ 75 mls/hr [id number] IV 09/17/24 15:00 09/18/24 05:58 75 MLS/HR Hydromorphone HCl 2 mg BID PO 09/17/24 16:00 09/18/24 09:41 2 MG Furosemide 20 mg DAILY PO 09/18/24 10:00 09/18/24 09:43 20 MG Examination General examination-patient is more awake and alert today, more communicative HEENT- PEERLA, no acute nasal discharge Cardiovascular- S1-S2 audible, rate and rhythm regular, no murmur Respiratory- CTAB, no wheeze or rhonchi Gastrointestinal-nontender, bowel sound+. Nondistended Musculoskeletal-no acute joint swelling or tenderness or redness# Lower extremity- no leg edema Neurological- cranial nerves intact, no acute dysarthria or dysphagia Psychiatry- patient with confusion Skin- fragile skin laboratory and microbiology Laboratory Tests 09/18/24 06:02 Test 09/18/24 06:02 Range/Units Serum Glucose 83 74-106 mg/dL Microbiology Date/Time Source Procedure Growth Status 09/17/24 12:30 Voided Urine Urine Culture - Preliminary Resulted 09/16/24 21:44 Blood Blood Culture - Preliminary NO GROWTH AFTER 24 HOURS OF INCUBATION. Resulted Problem List/Assessment/Plan Problem List/Assessment/Plan # metabolic encephalopathy likely due to UTI/pneumonia #UTI # pneumonia Gram-positive versus Gram-negative # seizure disorder # hypothyroidism # peripheral neuropathy # suspected congestive heart failure, pending echo 2D report # AGATHA on CKD stage 2 likely due to VMN/hemodynamic cause # history of throat cancer, status post chemotherapy and radiotherapy # history of essential tremor versus Parkinson's disease Echo 2D revealed-Only subcostal views were obtained. Given limited images patient ECHO revealed, grossly normal left ventricular size and dimension with the overall preserved left ventricular systolic function 55%. Blood culture no growth so far in 24 hours. Urine preliminary culture no growth. Continue ceftriaxone 1 g IV daily Continue doxycycline 100 mg IV b.i.d. Continue levothyroxine 100 mcg q.a.m. Continue Lovenox 40 mg subcutaneously daily Continue normal saline 75 mL/hour daily Continue hydromorphone as prescribed Continue divalproex DR tablet 250 mg b.i.d. Continue midodrine 5 mg p.o. t.i.d. Continue Lasix 20 mg daily -continue carbidopa levodopa as prescribed Goals of care/advance care planning; FULL CODE; discussed with the patient >15 minutes PUD prophylaxis: Omeprazole DVT prophylaxis: Lovenox Plan discussed with Dr. Norris, nursing staff, patient Total time spent on patient evaluation, chart review, assessment and plan, discussion discussion >30 minutes Plan discussed with: Patient Plan discussed with: Patient, Other (RN) Date of Service: Sep 18, 2024 Billing Provider: ELIDIA NORRIS MD Common Visit Codes: [id number] INP/OBS CARE(HIGH) SINAN BORDEN RESIDENT Sep 18, 2024 16:25 ELIDIA NORRIS MD Sep 18, 2024 20:21
[2024-09-19 01:00] VITALS: BP 105/59; PULSE 95; RESP 19; TEMP 98; O2SAT 94
[2024-09-19 05:00] VITALS: BP 118/64; PULSE 98; RESP 19; TEMP 97.9; O2SAT 95
[2024-09-19 07:16] LABS: Anion Gap 6 (5-15); Basophils # (auto) 0 10 ^3/uL (0-0.2); Basophils % (auto) 0.5 % (0.0-2.0); Carbon Dioxide 28 mmol/L (20-31); Chloride 105 mmol/L (98-107); Eosinophils # (auto) 0.2 10 ^3/uL (0-0.8); Eosinophils % (auto) 2.7 % (0.0-7.0); Hemoglobin 11.1 g/dL (13.5-17.5); Lymphocytes # (auto) 3.1 10 ^3/uL (0.4-5.4); Mean Corpuscular Hemoglobin 33.9 pg (28.0-32.0); Mean Corpuscular Hgb Conc. 33.5 g/dL (32.0-36.0); Mean Corpuscular Volume 101.1 fL (80.0-100.0); Monocytes # (auto) 0.7 10 ^3/uL (0-1.3); Monocytes % (auto) 8.2 % (0.0-12.0); Neutrophils # (auto) 4.4 10 ^3/uL (1.6-8.6); Neutrophils % (auto) 51.6 % (37.0-80.0); Platelet Count (auto) 173 10^3/uL (140-450); Potassium 3.6 mmol/L (3.5-5.1); Red Blood Cells 3.26 10^6/uL (4.5-5.90); Sodium 139 mmol/L (136-145); White Blood Cell 8.5 10^3/uL (4.4-10.8)
[2024-09-19 07:17] LABS: Calcium 9.7 mg/dL (8.7-10.4)
[2024-09-19 07:21] LABS: Glucose 97 mg/dL (74-106)
[2024-09-19 07:22] LABS: BUN/Creatinine Ratio 16.7 (10.0-20.0); Blood Urea Nitrogen 24 mg/dL (9-23); Magnesium 1.9 mg/dL (1.6-2.6)
[2024-09-19 08:42] VITALS: BP 149/75; PULSE 95; RESP 18; TEMP 98.6; O2SAT 97
[2024-09-19] MEDS ORDERED: AUG875T PO (11:40)
--- NOTE | 2024-09-19 12:26 | DVHDSRES ---
Discharge Summary Date of Admission Resident Creating Document: SINAN BORDEN Sep 16, 2024 at 18:59 Date of Discharge: Sep 19, 2024 Admitting Diagnosis Altered mental status likely due to pneumonia/UTI Labs/Diagnostic Data: Laboratory Results Test 09/19/24 06:27 09/18/24 06:02 09/17/24 14:46 09/17/24 12:30 White Blood Count 8.5 10^3/uL (4.4-10.8) Red Blood Count 3.26 10^6/uL (4.5-5.90) Hemoglobin 11.1 g/dL (13.5-17.5) Hematocrit 33.0 % (41.0-53.0) Mean Corpuscular Volume 101.1 fL (80.0-100.0) Mean Corpuscular Hemoglobin 33.9 pg (28.0-32.0) Mean Corpuscular Hemoglobin Concent 33.5 g/dL (32.0-36.0) Red Cell Distribution Width 15.0 % (11.8-14.3) Platelet Count 173 10^3/uL (140-450) Mean Platelet Volume 8.6 fL (6.9-10.8) Neutrophils (%) (Auto) 51.6 % (37.0-80.0) Lymphocytes (%) (Auto) 37.0 % (10.0-50.0) Monocytes (%) (Auto) 8.2 % (0.0-12.0) Eosinophils (%) (Auto) 2.7 % (0.0-7.0) Basophils (%) (Auto) 0.5 % (0.0-2.0) Neutrophils # (Auto) 4.4 10 ^3/uL (1.6-8.6) Lymphocytes # (Auto) 3.1 10 ^3/uL (0.4-5.4) Monocytes # (Auto) 0.7 10 ^3/uL (0-1.3) Eosinophils # (Auto) 0.2 10 ^3/uL (0-0.8) Basophils # (Auto) 0 10 ^3/uL (0-0.2) Nucleated Red Blood Cells 0.0 % Sodium Level 139 mmol/L (136-145) Potassium Level 3.6 mmol/L (3.5-5.1) Chloride Level 105 mmol/L (98-107) Carbon Dioxide Level 28 mmol/L (20-31) Anion Gap 6 (5-15) Blood Urea Nitrogen 24 mg/dL (9-23) Creatinine 1.44 mg/dL (0.700-1.30) Glomerular Filtration Rate Calc 52 mL/min (>90) BUN/Creatinine Ratio 16.7 (10.0-20.0) Serum Glucose 97 mg/dL (74-106) Calcium Level 9.7 mg/dL (8.7-10.4) Magnesium Level 1.9 mg/dL (1.6-2.6) Total Bilirubin 0.2 mg/dL (0.2-1.0) Aspartate Amino Transferase (AST) 13 U/L (13-40) Alanine Aminotransferase (ALT) < 9 U/L (7-40) Alkaline Phosphatase 81 U/L (46-116) Total Protein 7.1 g/dL (5.7-8.2) Albumin 3.6 g/dL (3.2-4.8) Ammonia 13 umol/L (11-32) Urine Opiates Screen Neg (NEGATIVE) Urine Fentanyl Screen Neg (NEGATIVE) Urine Barbiturates Screen Pos (NEGATIVE) Urine Phencyclidine Screen Neg (NEGATIVE) Urine Amphetamines Screen Neg (NEGATIVE) Urine Benzodiazepines Screen Neg (NEGATIVE) Urine Cocaine Screen Neg (NEGATIVE) Urine Cannabinoids Screen Neg (NEGATIVE) Test 09/17/24 05:14 09/16/24 21:44 09/16/24 18:36 09/16/24 17:25 D-Dimer, Quantitative 0.88 mg/L FEU (0.0-0.49) Hemoglobin A1c 5.6 % A1C (<5.7) Phosphorus Level 3.5 mg/dL (2.4-5.1) Vitamin B12 Level 1032 pg/mL (211-911) Vitamin D 25-Hydroxy 40.7 ng/mL (30.0-100) Folic Acid 15.43 ng/mL (>5.38) Thyroid Stimulating Hormone (TSH) 0.38 uIU/mL (0.55-4.78) Plasma/Serum Blood Alcohol 3.2 mg/dL (<10) B-Type Natriuretic Peptide 207.60 pg/mL (0-100) Troponin I High Sensitivity 3 ng/L (</=54) Urine Color Light-orange (Yellow) Urine Clarity Ex.turbid (Clear) Urine pH 6.0 (5.0-9.0) Urine Specific [place] 1.010 (1.001-1.035) Urine Protein 2+ (Negative) Urine Ketones Negative (Negative) Urine Blood 2+ /uL (Negative) Urine Nitrite Negative (Negative) Urine Bilirubin Negative (Negative) Urine Urobilinogen Normal mg/dL (Negative) Urine Leukocyte Esterase 3+ /uL (Negative) Urine RBC 14 /hpf (0 - 3) Urine WBC 5531 /hpf (0 - 3) Urine WBC Clumps Present /hpf (None Seen) Urine Squamous Epithelial Cells Few /hpf (<5) Urine Bacteria Few /hpf (None Seen) Urine Mucus Few (None Seen) Urine Glucose Normal mg/dL (Normal) Other Laboratory Tests 09/19/24 06:27 Brief Hx & Hospital Course: Patient is 69 years old male with past medical history of seizure disorder, thyroid disorder, liver disease, history of recurrent UTI, throat cancer status post chemotherapy and radiotherapy, peripheral neuropathy, Two kind of stimulator in the body one for bladder and oneon the spine for pain, history of essential tremor/Parkinson's disease was brought in to the hospital due to altered mental status. Provider spoke with the patient's Alyse henson [phone], and also gathered information reviewing chart from the ER. As per patient's patient was getting confused for last 2 days, he could not complete a full sentence, had hard time concentrating or following commands. Patient also had urinary incontinence. Patient's family denied any chest pain, fever, shortness of breath, acute joint redness or swelling, diarrhea. Initial lab workup revealed serum creatinine 1.38, GFR 55, TSH 0.38, urinalysis revealed UTI with leukocyte esterase 3+, WBC 5531, RBC 14, bacteria few. CXR revealed- Diffuse multifocal consolidative opacities which can be seen in the setting of atypical infection or pulmonary edema. CTA revealed -No acute intracranial process.Echo 2D revealed-Only subcostal views were obtained. Given limited images patient ECHO revealed, grossly normal left ventricular size and dimension with the overall preserved left ventricular systolic function 55%. During hospitalization patient was treated with IV antibiotic ceftriaxone and doxycycline. Urine culture had no significant growth. Blood culture had no significant growth. Patient is significantly improved during hospitalization with treatment. Patient was more awake and alert and very coherent. Patient is being discharged home with Augmentin 875 mg 1 tab b.i.d for 5 days. Patient was advised to follow up with the primary care physician 1 week. Patient's meds were sent to the pharmacy electronically. Patient was hemodynamically stable on discharge Allergy- azithromycin, caffeine, codeine, doripenem, metoclopramide, metolazone Patient was seen today at the bedside. Cardiovascular- deny acute chest pain or shortness of breath or cough or palpitation Respiratory- denies cough or short of breath or wheezing Gastrointestinal- denies any rectal bleeding, nausea or vomiting Musculoskeletal-denies acute joint swelling or tenderness or redness Psychiatry- denies depression or SI or HI Skin- denies acute rash or purpura Operations or Procedures Diagnostic Imaging Report : [id number] Signed PATIENT: NICHOLE HENSON ACCT: [id number] UNIT: [id number] : 1955 LOC: ER ROOM / BED: / AGE / SEX: 69 / M ADM STATUS: REG ER SERVICE [id number] ORDERING PHYSICIAN: YADIRA VILLEDA MD PROCEDURE(s): CXRP - CHEST PORTABLE REASON: sob ORDER NUMBER(s): [id number], ACCESSION NUMBER(s): [id number] CHEST RADIOGRAPH Indication: sob Technique: Single frontal view of the chest was obtained Comparison: XY CHEST PORTABLE on DOS: 08/16/24, XY CHEST PORTABLE on DOS: 08/16/24 FINDINGS: Lines and Tubes: None Lungs: Diffuse multifocal consolidative. Pleura: No effusion. No pneumothorax. Cardiomediastinal contours: Unremarkable Bones: No acute osseous abnormality. IMPRESSION: Diffuse multifocal consolidative opacities which can be seen in the setting of atypical infection or pulmonary edema. ATED BY: KANE CANO MD DICTATED DATE/TIME: 09/16/241534 SIGNED BY: KANE CANO MD SIGNED DATE/TIME: 09/16/241534 CC: Signed PATIENT: NICHOLE HENSON ACCT: [id number] UNIT: [id number] : 1955 LOC: ER ROOM / BED: / AGE / SEX: 69 / M ADM STATUS: REG ER SERVICE 1438 ORDERING PHYSICIAN: YADIRA VILLEDA MD PROCEDURE(s): HWOCT - HEAD WITHOUT CONTRAST REASON: ams ORDER NUMBER(s): [id number], ACCESSION NUMBER(s): [id number] EXAM: CT HEAD WITHOUT CONTRAST HISTORY: ams COMPARISON: CT HEAD WITHOUT CONTRAST on DOS: 08/15/24 TECHNIQUE: Axial images of the head were obtained and reformatted in coronal and sagittal planes. All CT scans at this medical facility are performed using dose modulation techniques as appropriate to a performed exam including the following: Automated exposure control was utilized; adjustment of the MA and/or KV according to patient size; and use of iterative reconstruction technique. CT Dose: CTDI volume is 56 mGy. Dose-length product is 11 15 mGy*cm FINDINGS: There is no evidence of acute intracranial hemorrhage, mass, mass effect midline shift. There is no hydrocephalus or extra-axial fluid collection. There are patchy hypodense changes in the supratentorial white matter compatible with chronic microvascular ischemic changes. Najera-white matter differentiation appears maintained. The visualized paranasal sinuses and mastoid air cells are clear. The calvarium is intact. IMPRESSION: 1. No acute intracranial process. HS:Y ATED BY: JACQUES HENSLEY MD DICTATED DATE/TIME: 09/16/241534 SIGNED BY: JACQUES HENSLEY MD SIGNED DATE/TIME: 09/16/241534 CC: Condition at Discharge: Stable Final Diagnosis/Problems List #Metabolic encephalopathy due to UTI and pneumonia #UTI # pneumonia Gram-positive versus Gram-negative # seizure disorder #Liver Disease # hypothyroidism # peripheral neuropathy # suspected congestive heart failure, pending echo 2D report # AGATHA on CKD stage 2 likely due to VMN/hemodynamic cause # history of throat cancer, status post chemotherapy and radiotherapy # history of essential tremor versus Parkinson's disease Discharge Disposition: Home Discharge Instruct/Medications Diet: Consistent carbohydrate Activity: Light activity Follow Up/Referral: Please follow with your primary care physician in 1 week Medications: Augmentin 1 tab b.i.d. as prescribed Resume home medications Discharge Statement: "Patient was advised to return to the ER or call 911 if any headaches, dizziness, shortness of breath, chest pain, abdominal pain, bleeding, fevers, or worsening of medical condition. Patient was counseled about treatment plan, medications, possible side effects, patientverbalized understanding. All questions were answered to the best of my ability. This discharge took greater then 30 minutes in planning, reviewing documentation, counseling the patient, and discussing with other team members." ASSESSMENT ASSESSMENT Assessment Metabolic encephalopathy due to UTI and pneumonia Date of Service: Sep 19, 2024 Billing Provider: ELIDIA HOLLAND MD Common Visit Codes: 28625-SGQ/OBS DISCH DAY >30min SINAN BORDEN RESIDENT Sep 19, 2024 12:26 ELIDIA HOLLAND MD Sep 19, 2024 20:30
[2024-09-19 12:45] VITALS: BP 133/60; PULSE 93; RESP 20
[2024-09-19 12:58] VITALS: BP 133/60; PULSE 93; RESP 20; TEMP 98.2; O2SAT 98
== END 2024-09-19 14:00 | disposition home health service (06) | DRG 177 ==
LOC: EDBD 13:08 → ER 13:08 → EDUNIT# 13:08 → OVERFLOW 18:59 → WEST WING 21:20
PROVIDERS: ADMIT Internal Medicine Geriatric Medicine; ATTEND Internal Medicine Geriatric Medicine
DX: J15.69 Pneumonia due to other Gram-negative bacteria (principal); G93.41 Metabolic encephalopathy; N17.0 Acute kidney failure with tubular necrosis; N39.0 Urinary tract infection, site not specified; J15.9 Unspecified bacterial pneumonia; G40.909 Epilepsy, unspecified, not intractable, without status epilepticus; N18.2 Chronic kidney disease, stage 2 (mild); I50.9 Heart failure, unspecified; E03.9 Hypothyroidism, unspecified; G20.A1 Parkinson's disease without dyskinesia, without mention of fluctuations; F17.200 Nicotine dependence, unspecified, uncomplicated; E11.42 Type 2 diabetes mellitus with diabetic polyneuropathy; E11.22 Type 2 diabetes mellitus with diabetic chronic kidney disease; Z88.1 Allergy status to other antibiotic agents; Z88.5 Allergy status to narcotic agent; Z79.82 Long term (current) use of aspirin; Z79.899 Other long term (current) drug therapy; Z85.819 Personal history of malignant neoplasm of unspecified site of lip, oral cavity, and pharynx
CPT/HCPCS: 36415; 70450; 71045; 80048; 80053; 80307; 80320; 81001; 82140; 82306; 82607; 82746; 83036; 83735; 83880; 84100; 84443; 84484; 85025; 85379; 87040; 87086; 93005; 93306; 97163; G0378; J3490

== ENCOUNTER 2024-10-13 15:19 | Inpatient (IN) | payer MEDICARE, MEDICAID ==
[~2024-10-13] VITALS: Ht 177.8 cm; Wt 75.4 kg
[~2024-10-13 15:19] MED LIST changes: +ALPR0.5T7 PO; -ASPI81CH43 PO; -DIPH25CA39 PO; -DOXY-286 PO; -FURO1TAB31 PO; +HYDR2TAB2 PO; -HYDR2TAB58 PO; -HYDR8TAB46 PO; -LEVADOPA PO; +LEVO125T7 PO; +LUBI24CA12 PO; +MIDO5TAB22 PO; -MULTTAB99 PO; +OMEP1CAP70 PO; -POTA-211 PO; +PRIM125T PO; -VENL112. PO; +VENL150C58 PO; -VENL1TAB97 PO; +VENL75CA78 PO
--- NOTE | 2024-10-13 15:35 | ECG ---
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
[2024-10-13 15:38] VITALS: PULSE 100; RESP 17; O2SAT 97
[2024-10-13] MEDS: SODIUM CHLORIDE 0.9% 1,000 ML IV ONE (15:57)
--- NOTE | 2024-10-13 15:57 | DVH ---
CHEST RADIOGRAPH Indication: aloc Technique: Single frontal view of the chest was obtained Comparison: XY CHEST PORTABLE on DOS: 09/16/24, XY CHEST PORTABLE on DOS: 08/16/24 FINDINGS: Lines and Tubes: None Lungs: No focal consolidation. Mild interstitial prominence with hazy opacification of the right jessica thorax. Suture material is noted over the right costophrenic angle. Minimal blunting of the right co stophrenic angle. Right lower lung zone linear densities. No pneumothorax. Cardiomediastinal contours: Unremarkable Bones: No acute osseous abnormality. IMPRESSION: Diffuse interstitial prominence which may be from pulmonary vascular congestion with underlying fibro tic changes not excluded. Hazy opacification of the right hemithorax with minimal blunting of the right costophrenic angle whic h may be from layering effusion . Right lower lung zone linear atelectasis.
--- NOTE | 2024-10-13 16:05 | ED.PDOC ---
History of Present Illness HPI Comments 69-year-old male who comes in with chief complaint of altered level of consciousness. The patient's states that the symptoms started approximately 3-4 hours ago. The patient's states that the patient was recently admitted to our facility from the through the 18 of September. The patient then went home with a UTI and returned again with a UTI. At this time, the patient is not completely oriented and stating that does not want to take his medications at this time. EN route, the patient's vital signs were normal. The patient's Accu-Chek was 79. There has been no fever or chills at this time. Chief Complaint: ALOC Time Seen by MD: 15:25 Primary Care Provider: UNKNOWN NAME Reviewed Notes: Nurses Notes, Hand Mold Maker Notes, Medications, Allergies (Allergies listed above) Allergies: Coded Allergies: Caffeine (Verified Allergy, Mild, 10/17/13) PER CAFFEINE IS CONTRAINDICATED TO PT DUE TO PARKINSONS DISEASE Azithromycin (Verified Allergy, Unknown, 09/16/24) Codeine (Verified Allergy, Unknown, 08/15/24) Doripenem (Verified Allergy, Unknown, 08/15/24) Metoclopramide (Verified Allergy, Unknown, 08/15/24) Metolazone (Verified Allergy, Unknown, 08/15/24) HISTORY OF PRESENT ILLNESS: The patient was recently started on to a new diuretic medication of metolazone. When he took his second dose last evening, he became dizzy, agitated, developed itching of the skin, and sensation of his throat closing up. Home Meds Active Scripts Amoxicillin & Pot Clavulanate (AUGMENTIN TABLET) 875 Mg Tb, 875 MG PO BID for 5 Days, #10 TAB Prov:AYSHA GARCES RESIDENT 09/19/24 Reported Medications Alprazolam (Alprazolam) 0.5 Mg Tab, 0.5 MG PO Q8HPRN PRN for ANXIETY, TAB 09/16/24 Primidone (Primidone) 125 Mg Tab, 50 MG PO BID, TAB 09/16/24 Levothyroxine Sodium (Levothyroxine Sodium) 125 Mcg Tab, 1 TAB PO DAILY 09/16/24 Hydromorphone Hcl (Hydromorphone Hcl) 2 Mg Tab, 1 TAB PO Q8HR 12/16/24 Divalproex Sodium (Divalproex Sodium Dr) 500 Mg Tab, 1 TAB PO BID for 90 Days, #180 09/16/24 Venlafaxine Hcl (Venlafaxine Hcl Er) 75 Mg Cap, 1 CAP PO DAILY 09/16/24 Venlafaxine Hcl (Venlafaxine Hcl Er) 150 Mg Cap, 1 CAP PO DAILY 09/16/24 Omeprazole (Omeprazole Dr) 20 Mg Cap, 1 CAP PO DAILY 09/16/24 Lubiprostone (Lubiprostone) 24 Mcg Cap, 2 CAP PO DAILY 09/16/24 Midodrine HCl (Midodrine Hydrochloride) 5 Mg Tab, 3 TAB PO BID 09/16/24 Fludrocortisone Acetate (Fludrocortisone Acetate) 0.1 Mg Tab, 1 TAB PO BID for 90 Days, #180 08/16/24 Vibegron (Gemtesa) 75 Mg Tab, 75 MG PO HS, TAB 08/16/24 Testosterone Cypionate (Depo-Testosterone) 100 Mg/Ml Inj, 0.5 ML IM ONCE EVERY OTHER WEEK for 180 Days, #10 10/15/13 Information Source: Emergency Med Personnel, Spouse Mode of Arrival: EMS Severity: Moderate Timing: Hours Duration: Since onset Prehospital treatment: Accucheck (79), 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, IVF Associated signs and symptoms Generalized weakness Past Medical History PAST MEDICAL HISTORY: Anemia, Cancer (Throat cancer, leukemia), DM, Liver, Seizures, Thyroid, UTI'S Past Medical History (Other): Hard of hearing Surgical History: Cholecystectomy Surgical History (Other): Throat cancer surgery Family History Family History: No family hx of Cancer Social History Smoker: Pipe Alcohol: Denies ETOH Use Drugs: Denies Drug Use Lives In: Home Constitutional: reports: weakness; denies: chills, diaphoresis, fatigue, fever, malaise, sweats, others EENTM: denies: blurred vision, double vision, ear bleeding, ear discharge, ear drainage, ear pain, ear ringing, eye pain, eye redness, hearing loss, mouth pain, mouth swelling, nasal discharge, nose bleeding, nose congestion, nose pain, photophobia, tearing, throat pain, throat swelling, voice changes, others Respiratory: denies: cough, hemoptysis, orthopnea, SOB at rest, shortness of breath, SOB with excertion, stridor, wheezing, others Cardiovascular: denies: chest pain, dizzy spells, diaphoresis, Dyspnea on exertion, edema, irregular heart beat, left arm pain, lightheadedness, palpitations, PND, syncope, others Gastrointestinal: denies: abdomen distended, abdominal pain, blood streaked bowels, constipated, diarrhea, dysphagia, difficulty swallowing, hematemesis, melena, nausea, poor appetite, poor fluid intake, rectal bleeding, rectal pain, vomiting, others Genitourinary: denies: burning, dysuria, flank pain, frequency, hematuria, incontinence, penile discharge, penile sore, pain, testicle pain, testicle swelling, urgency, others Neurological: reports: others (Confusion); denies: dizziness, fainting, headache, left sided numbness, left sided weakness, numbness, paresthesia, pre- existing deficit, right sided numbness, right sided weakness, seizure, speech problems, tingling, tremors, weakness Musculoskeletal: denies: back pain, gout, joint pain, joint swelling, muscle pain, muscle stiffness, neck pain, others Integumetry: denies: bruises, change in color, change in hair/nails, dryness, laceration, lesions, lumps, rash, wounds, others Allergic/Immunocompromised: denies: Difficulty Healing, Frequent Infections, Hives, Itching, others Hematologic/Lymphatic: denies: anemia, blood clots, easy bleeding, easy bruising, swollen glands, others Endocrine: denies: excessive hunger, excessive sweating, excessive thirst, excessive urination, flushing, intolerance to cold, intolerance to heat, unexplained weight gain, unexplained weight loss, others Psychiatric: denies: anxiety, bipolar disorder, depression, hopeless, panic disorder, schizophrenia, sleepless, suicidal, others Physical Exam General Appearance: Moderate Distress HEENT: Pale Conjuntivae (L), Pale Conjuntivae (R), Pharynx Normal, TMs Normal Neck: Full Range of Motion, Non-Tender, Normal, Normal Inspection Respiratory: Chest Non-Tender, Lungs Clear, No Accessory Muscle Use, No Respiratory Distress, Normal Breath Sounds Cardiovascular: No Edema, No JVD, No Murmur, No Gallop, Normal Peripheral Pulses, Regular Rate/Rhythm Breast Exam: Deferred Gastrointestinal: No Organomegaly, Non Tender, No Pulsatile Mass, Normal Bowel Sounds, Soft Genitalia: Deferred Pelvic: Deferred Rectal: Deferred Extremities: No calf tenderness, Normal capillary refill, No pedal edema Musculoskeletal : Apperance: Normal Neurologic: can tester II-XII nml as Tested, Motor Weakness, Normal Affect, Normal Mood, No Sensory Deficits, Other (Patient is somewhat confused) Cerebellar Function: Unable to Test Reflexes: Normal Skin: Dry, Pallor, Warm Lymphatic: No Adenopathy Was a procedure done? Was a procedure done?: No EKG EKG : Pulse Rate (adult): 103 [employer]: Normal Cardiac Rhythm: ST ST: Nonsp Differential Dx Considerations may include: Generalized weakness, electrolyte imbalance, dehydration, UTI, sepsis X-Ray, Labs, Meds, VS Vital Signs Date Time Temp Pulse Resp B/P (MAP) Pulse Ox O2 Delivery O2 Flow Rate FiO2 10/13/24 18:00 88 18 102/57 (72) 93 10/13/24 16:05 103 10/13/24 16:00 96 19 121/59 (79) 91 10/13/24 15:38 98.4 99 19 126/56 (79) 92 98.4 10/13/24 15:38 100 17 97 Room Air* 0 21 10/13/24 15:25 98.4 107 24 105/52 (69) 96 10/13/24 15:23 103 Lab Test 10/13/24 15:49 Range/Units White Blood Count 7.0 4.4-10.8 10^3/uL Red Blood Count 3.66 L 4.5-5.90 10^6/uL Hemoglobin 12.2 L 13.5-17.5 g/dL Hematocrit 36.8 L 41.0-53.0 % Mean Corpuscular Volume 100.6 H 80.0-100.0 fL Mean Corpuscular Hemoglobin 33.4 H 28.0-32.0 pg Mean Corpuscular Hemoglobin Concent 33.2 32.0-36.0 g/dL Red Cell Distribution Width 14.4 H 11.8-14.3 % Platelet Count 140 140-450 10^3/uL Mean Platelet Volume 8.7 6.9-10.8 fL Neutrophils (%) (Auto) 59.8 37.0-80.0 % Lymphocytes (%) (Auto) 26.1 10.0-50.0 % Monocytes (%) (Auto) 8.2 0.0-12.0 % Eosinophils (%) (Auto) 5.4 0.0-7.0 % Basophils (%) (Auto) 0.5 0.0-2.0 % Neutrophils # (Auto) 4.2 1.6-8.6 10 ^3/uL Lymphocytes # (Auto) 1.8 0.4-5.4 10 ^3/uL Monocytes # (Auto) 0.6 0-1.3 10 ^3/uL Eosinophils # (Auto) 0.4 0-0.8 10 ^3/uL Basophils # (Auto) 0 0-0.2 10 ^3/uL Nucleated Red Blood Cells 0.0 % Sodium Level 137 136-145 mmol/L Potassium Level 3.3 L 3.5-5.1 mmol/L Chloride Level 102 98-107 mmol/L Carbon Dioxide Level 28 20-31 mmol/L Anion Gap 7 5-15 Blood Urea Nitrogen 25 H 9-23 mg/dL Creatinine 1.36 H 0.700-1.30 mg/dL Glomerular Filtration Rate Calc 56 >90 mL/min BUN/Creatinine Ratio 18.4 10.0-20.0 Serum Glucose 148 H 74-106 mg/dL Lactic Acid Level 1.8 0.4-2.0 mmol/L Calcium Level 10.3 8.7-10.4 mg/dL Current Medications Medications (Trade) Dose Ordered Sig/Praneeth Route Start Time Stop Time Status Last Admin Sodium Chloride 1,000 ml @ 150 mls/hr Q6H40M ONCE IV 10/13/24 15:45 10/13/24 22:24 10/13/24 15:57 CHEST RADIOGRAPH IMPRESSION: Diffuse interstitial prominence which may be from pulmonary vascular congestion with underlying fibrotic changes not excluded. Hazy opacification of the right hemithorax with minimal blunting of the right costophrenic angle which may be from layering effusion . Right lower lung zone linear atelectasis. Patient was given normal saline as a bolus The CBC is within normal limits The patient's potassium is 3.3 The BUN is 25 the creatinine is 1.36 The lactic acid level is 1.8 After blood cultures were drawn, the patient was started on Levaquin 500 mg IV piggyback. Images Reviewed?: Images reviewed and evaluated by me Time of 1ST Reevaluation: 16:04 Reevaluation 1ST: Unchanged Patient Education/Counseling: Other (The patient was confused) Family Education/Counseling: Diagnosis, Treatment, Prognosis Departure 1 Departure Time of Disposition: 18:59 Impression: Primary Impression: Sepsis due to urinary tract infection Additional Impressions: Dysfunctional autonomic nervous system Metabolic encephalopathy Pleural effusion Disposition: 09 ADMITTED INPATIENT Admit to: Tele Condition: Fair Critical Care Note Critical Care Time?: Yes (45 min-critical care time only) Stability Stability form required: Yes Unstable for transfer: Telemetry monitoring (Telemetry monitoring required), ED Physician Assesment (Clinical assesment) Heart Score Heart Score: Heart Score Response (Comments) Value History N/A 0 EKG N/A 0 Age N/A 0 Risk Factors N/A 0 Troponin N/A 0 Total 0 I personally scribed for PARK BARRIOS MD ([email or web address]) on 10/13/24 at 16:06. Electronically submitted by Kylah White ([facility]). PARK BARRIOS MD Oct 13, 2024 16:05
[2024-10-13 16:07] LABS: Basophils # (auto) 0 10 ^3/uL (0-0.2); Basophils % (auto) 0.5 % (0.0-2.0); Eosinophils # (auto) 0.4 10 ^3/uL (0-0.8); Eosinophils % (auto) 5.4 % (0.0-7.0); Hematocrit 36.8 % (41.0-53.0); Hemoglobin 12.2 g/dL (13.5-17.5); Lymphocytes # (auto) 1.8 10 ^3/uL (0.4-5.4); Lymphocytes % (auto) 26.1 % (10.0-50.0); Mean Corpuscular Hemoglobin 33.4 pg (28.0-32.0); Mean Corpuscular Hgb Conc. 33.2 g/dL (32.0-36.0); Mean Corpuscular Volume 100.6 fL (80.0-100.0); Monocytes # (auto) 0.6 10 ^3/uL (0-1.3); Monocytes % (auto) 8.2 % (0.0-12.0); Neutrophils # (auto) 4.2 10 ^3/uL (1.6-8.6); Neutrophils % (auto) 59.8 % (37.0-80.0); Platelet Count (auto) 140 10^3/uL (140-450); Red Blood Cells 3.66 10^6/uL (4.5-5.90); Red Cell Distribution Width 14.4 % (11.8-14.3)
[2024-10-13 16:12] LABS: Chloride 102 mmol/L (98-107); Potassium 3.3 mmol/L (3.5-5.1); Sodium 137 mmol/L (136-145)
[2024-10-13 16:13] LABS: Anion Gap 7 (5-15); Calcium 10.3 mg/dL (8.7-10.4); Carbon Dioxide 28 mmol/L (20-31)
[2024-10-13 16:18] LABS: BUN/Creatinine Ratio 18.4 (10.0-20.0)
[2024-10-13 16:22] LABS: Blood Urea Nitrogen 25 mg/dL (9-23); Glucose 148 mg/dL (74-106)
[2024-10-13] MEDS ORDERED: levoFLOXacin 500MG 100 ML IV ONE (19:00)
[2024-10-13 19:30] VITALS: PULSE 90; RESP 16; O2SAT 97
[2024-10-13] MEDS: cefTRIAXone 1GM/50ML D5W 50 ML IV ONE (19:45)
[2024-10-13 20:22] LABS: Urine Bacteria None Seen /hpf (None Seen)
[2024-10-13 20:26] LABS: Urine Blood Negative /uL (Negative); Urine Clarity Clear (Clear); Urine Color Yellow (Yellow); Urine Protein, UAD TRACE (Negative); Urine Specific Gravity 1.016 (1.001-1.035); Urine Squamous Epithelial Cell FEW /hpf (<5); Urine Urobilinogen Normal (Negative); Urine WBC 2 /hpf (0 - 3); Urine pH 6.5 (5.0-9.0)
[2024-10-13] MEDS ORDERED: DEXTROSE (50%) 50ML SYRG IV PRN (21:00)
[2024-10-13] MEDS ORDERED: ONDANSETRON HCL 4 MG/2 ML VIAL IV PRN (21:00)
[2024-10-13] MEDS ORDERED: ACETAMINOPHEN 325 MG TAB PO PRN (21:00)
[2024-10-13] MEDS: POTASSIUM CHL 20 Meq TABLET PO ONE (21:20)
[2024-10-13] MEDS: InsuLIN REG 1unit/0.01ml Soln (100units/ml) SC SCH (21:59)
[2024-10-13] MEDS: ACCU-CHEK COMFORT CURVE STRIP VI SCH (22:01)
[2024-10-13 23:05] VITALS: BP 155/83; PULSE 90; RESP 18; TEMP 97.5; O2SAT 98
[2024-10-14] VITALS (7 sets, daily range): BP systolic 110–146; BP diastolic 65–90; PULSE 86–103; RESP 17–19; TEMP 97–98.5; O2SAT 94–97
--- NOTE | 2024-10-14 04:27 | DVHHP2 ---
History of Present Illness Reason for Visit: Altered mental status History of Present Illness 69-year-old male presents for evaluation of altered mental status. Patient is who was at the bedside reports a one day history of worsening confusion and generalized weakness. Patient has been recently treated for urinary tract infection. No reports of slurred speech or unilateral weakness. No other acute complaints reported. Past Medical History Anemia, throat cancer, diabetes mellitus, liver disease, seizures thyroid, UTI Past Surgical History Lung biopsy, throat surgery, spinal stimulator Family History Noncontributory Smoke: No ALCOHOL: none Drugs: None Lives: with Family Review of Systems Review of Systems Review of systems are currently negative otherwise addressed in HPI. Allergies: Coded Allergies: Caffeine (Verified Allergy, Mild, 10/17/13) PER CAFFEINE IS CONTRAINDICATED TO PT DUE TO PARKINSONS DISEASE Azithromycin (Verified Allergy, Unknown, 09/16/24) Codeine (Verified Allergy, Unknown, 08/15/24) Doripenem (Verified Allergy, Unknown, 08/15/24) Metoclopramide (Verified Allergy, Unknown, 08/15/24) Metolazone (Verified Allergy, Unknown, 08/15/24) HISTORY OF PRESENT ILLNESS: The patient was recently started on to a new diuretic medication of metolazone. When he took his second dose last evening, he became dizzy, agitated, developed itching of the skin, and sensation of his throat closing up. Medications Current Medications Medications Dose Ordered Sig/Praneeth Route Start Time Stop Time Status Last Admin Dose Admin Ceftriaxone Sodium 50 ml @ 100 mls/hr DAILY@2000 IV 10/14/24 20:00 Divalproex Sodium 500 mg BID PO 10/13/24 22:00 10/13/24 21:51 500 MG Levothyroxine Sodium 125 mcg QAM@0600 PO 10/14/24 06:00 Venlafaxine HCl 75 mg DAILY PO 10/14/24 10:00 Ondansetron HCl 4 mg Q4HP PRN IV 10/13/24 21:00 Enoxaparin Sodium 40 mg DAILY SC 10/14/24 10:00 Acetaminophen 650 mg Q6HP PRN PO 10/13/24 21:00 Diagnostic Test (Pha) 1 strip ACHS 10/13/24 22:00 10/13/24 22:01 1 STRIP Insulin Human Regular ACHS SC 10/13/24 22:00 10/13/24 21:59 2 UNITS Dextrose 50 ml UD PRN IV 10/13/24 21:00 Midodrine 5 mg BID PO 10/14/24 10:00 Exam Vital Signs Vital Signs Date Time Temp Pulse Resp B/P (MAP) Pulse Ox O2 Delivery O2 Flow Rate FiO2 10/14/24 01:00 97.0 102 19 136/65 (88) 95 97.0 10/13/24 23:05 Room Air* 0 21 Exam Gen: 69-year-old male in mild distress Skin: Warm, dry, normal color and texture, no rash. HEENT: Normocephalic atraumatic, mucous membranes moist and pink. Neck: Cervical and supraclavicular nodes normal without enlargement, trachea is midline, thyroid gland is normal without masses. Pulmonary: Clear to auscultation and percussion bilaterally. Cardiac: Regular rate and rhythm. No murmur Abdomen: Soft, nontender, nondistended, bowel sounds present all 4 quadrants, no guarding, no rigidity, no organomegaly. Extremities: No cyanosis, clubbing, no edema Neuro: Lethargic, no focal deficits Labs/Xrays Labs Test 10/13/24 20:10 10/13/24 15:49 Range/Units Urine Color Yellow Yellow Urine Clarity Clear Clear Urine pH 6.5 5.0-9.0 Urine Specific [place] 1.016 1.001-1.035 ORDERING PHYSICIAN: PARK BARRIOS MD PROCEDURE(s): CXRP - CHEST PORTABLE REASON: aloc ORDER NUMBER(s): [id number], ACCESSION NUMBER(s): [id number] CHEST RADIOGRAPH Indication: aloc Technique: Single frontal view of the chest was obtained Comparison: XY CHEST PORTABLE on DOS: 09/16/24, XY CHEST PORTABLE on DOS: 08/16/24 FINDINGS: Lines and Tubes: None Lungs: No focal consolidation. Mild interstitial prominence with hazy opacification of the right hemithorax. Suture material is noted over the right costophrenic angle. Minimal blunting of the right costophrenic angle. Right lower lung zone linear densities. No pneumothorax. Cardiomediastinal contours: Unremarkable Bones: No acute osseous abnormality. IMPRESSION: Diffuse interstitial prominence which may be from pulmonary vascular congestion with underlying fibrotic changes not excluded. Hazy opacification of the right hemithorax with minimal blunting of the right costophrenic angle which may be from layering effusion . Right lower lung zone linear atelectasis. Urine Protein Trace H Negative Urine Ketones Negative Negative Urine Blood Negative Negative /uL Urine Nitrite Negative Negative Urine Bilirubin Negative Negative Urine Urobilinogen Normal Negative mg/dL Urine Leukocyte Esterase Negative Negative /uL Urine RBC <1 0 - 3 /hpf Urine WBC 2 0 - 3 /hpf Urine Squamous Epithelial Cells Few <5 /hpf Urine Bacteria None seen None Seen /hpf Urine Glucose Trace Normal mg/dL White Blood Count 7.0 4.4-10.8 10^3/uL Red Blood Count 3.66 L 4.5-5.90 10^6/uL Hemoglobin 12.2 L 13.5-17.5 g/dL Hematocrit 36.8 L 41.0-53.0 % Mean Corpuscular Volume 100.6 H 80.0-100.0 fL Mean Corpuscular Hemoglobin 33.4 H 28.0-32.0 pg Mean Corpuscular Hemoglobin Concent 33.2 32.0-36.0 g/dL Red Cell Distribution Width 14.4 H 11.8-14.3 % Platelet Count 140 140-450 10^3/uL Mean Platelet Volume 8.7 6.9-10.8 fL Neutrophils (%) (Auto) 59.8 37.0-80.0 % Lymphocytes (%) (Auto) 26.1 10.0-50.0 % Monocytes (%) (Auto) 8.2 0.0-12.0 % Eosinophils (%) (Auto) 5.4 0.0-7.0 % Basophils (%) (Auto) 0.5 0.0-2.0 % Neutrophils # (Auto) 4.2 1.6-8.6 10 ^3/uL Lymphocytes # (Auto) 1.8 0.4-5.4 10 ^3/uL Monocytes # (Auto) 0.6 0-1.3 10 ^3/uL Eosinophils # (Auto) 0.4 0-0.8 10 ^3/uL Basophils # (Auto) 0 0-0.2 10 ^3/uL Nucleated Red Blood Cells 0.0 % Sodium Level 137 136-145 mmol/L Potassium Level 3.3 L 3.5-5.1 mmol/L Chloride Level 102 98-107 mmol/L Carbon Dioxide Level 28 20-31 mmol/L Anion Gap 7 5-15 Blood Urea Nitrogen 25 H 9-23 mg/dL Creatinine 1.36 H 0.700-1.30 mg/dL Glomerular Filtration Rate Calc 56 >90 mL/min BUN/Creatinine Ratio 18.4 10.0-20.0 Serum Glucose 148 H 74-106 mg/dL Lactic Acid Level 1.8 0.4-2.0 mmol/L Calcium Level 10.3 8.7-10.4 mg/dL Assessment/Plan Assessment/Plan Assessment Acute encephalopathy Diabetes mellitus Hypertension Chronic kidney disease Hypokalemia Plan Admit the patient to Med surge to the hospitalist Dennis Resume home medications Continue treatment per orders. Plan discussed with: Spouse My Orders Orders - NARCISA SAMAYOA Procedure Category Date Status Time Communication Order ORDERS 10/13/24 Transmitted 19:44 Ceftriaxone 1gm/50ml PHA 10/14/24 In Process D5w (Rocephin) 20:[address] Tablet PHA 10/13/24 In Process (Depakote "Dr" Tabl 22:00 Levothyroxine Tablet PHA 10/14/24 In Process (Synthroid Tablet) 06:00 Venlafaxine PHA 10/14/24 In Process Hydrochloride 10:00 Basic Metabolic Panel LAB 10/14/24 Logged 04:00 Admit ADMIT 10/13/24 Transmitted 20:48 Ondansetron Hcl PHA 10/13/24 In Process (Zofran) 21:00 Enoxaparin Sodium PHA 10/14/24 In Process (Lovenox) 10:00 Complete Blood Count LAB 10/14/24 Logged 04:00 Cardiac DIET 10/14/24 Transmitted Diet-2gna,Lofat,Lochol Breakfast Condition: Stable KEON 10/13/24 In Process 20:48 Acetaminophen Tablet PHA 10/13/24 In Process (Tylenol Tablet) 21:00 Bedrest With Bathroom KEON 10/13/24 In Process Privileg 20:48 Glucose Blood PHA 10/13/24 In Process (Accu-Chek Comfort 22:00 Insulin R (Human) PHA 10/13/24 In Process (Insulin R) 22:00 Dextrose 50% Syringe PHA 10/13/24 In Process 21:00 Midodrine Tablet PHA 10/14/24 In Process (Proamatine Tablet) 10:00 Mrsa Screen ALEXSANDER 10/14/24 Uncollected 02:03 * Process Development Manager CONS 10/14/24 Transmitted Consult 03:05 * Dietary Consult CONS 10/14/24 Transmitted 03:05 Date of Service: Oct 13, 2024 Billing Provider: NARCISA SAMAYOA Common Visit Codes: [id number] INP/OBS CARE (HIGH) NARCISA SAMAYOA Oct 14, 2024 04:27
[2024-10-14] MEDS: LEVOTHYROXINE SODIUM 50 MCG TAB PO SCH (06:41)
[2024-10-14 06:58] LABS: Basophils # (auto) 0 10 ^3/uL (0-0.2); Basophils % (auto) 0.6 % (0.0-2.0); Eosinophils # (auto) 0.1 10 ^3/uL (0-0.8); Eosinophils % (auto) 1.7 % (0.0-7.0); Hematocrit 34.8 % (41.0-53.0); Hemoglobin 11.6 g/dL (13.5-17.5); Lymphocytes # (auto) 3.3 10 ^3/uL (0.4-5.4); Mean Corpuscular Hemoglobin 33.7 pg (28.0-32.0); Mean Corpuscular Hgb Conc. 33.4 g/dL (32.0-36.0); Mean Corpuscular Volume 100.9 fL (80.0-100.0); Monocytes # (auto) 0.5 10 ^3/uL (0-1.3); Monocytes % (auto) 6.9 % (0.0-12.0); Neutrophils # (auto) 3.8 10 ^3/uL (1.6-8.6); Neutrophils % (auto) 48.8 % (37.0-80.0); Nucleated Red Blood Cells % 0.1 %; Platelet Count (auto) 117 10^3/uL (140-450); Red Blood Cells 3.45 10^6/uL (4.5-5.90); Red Cell Distribution Width 14.7 % (11.8-14.3); White Blood Cell 7.8 10^3/uL (4.4-10.8)
[2024-10-14 07:09] LABS: Chloride 106 mmol/L (98-107); Potassium 3.6 mmol/L (3.5-5.1); Sodium 139 mmol/L (136-145)
[2024-10-14 07:10] LABS: Anion Gap 7 (5-15); Carbon Dioxide 26 mmol/L (20-31)
[2024-10-14 07:11] LABS: Calcium 9.4 mg/dL (8.7-10.4)
[2024-10-14 07:15] LABS: BUN/Creatinine Ratio 15.5 (10.0-20.0); Blood Urea Nitrogen 16 mg/dL (9-23); Glucose 93 mg/dL (74-106)
--- NOTE | 2024-10-14 08:35 | DVHPNRES ---
Progress Note Date Seen: Oct 14, 2024 Resident Creating Document: BEATRIZ NULL RESIDENT Has the PT tested + for MRSA If YES, has PT been informed?: No Medical Necessity Reason Pt with a Central, PICC or Fol: No Subjective Review of Systems 69-year-old male with past medical history of throat cancer in remission AML seizure disorder hypothyroidism anemia, liver disease? Who came for altered mental status since October 10, per patient is being having dysarthria and since october 17 patient is been more combative than usual Home meds: vigebron venlafaxine testosterone primidone omeprazole methadone levothyroxine fludrocortisone divalproex, alprazolam Dilaudid Objective vital signs Vital Sign Date Time Temp Pulse Resp B/P (MAP) Pulse Ox O2 Delivery O2 Flow Rate FiO2 10/14/24 01:00 97.0 102 19 136/65 (88) 95 97.0 10/13/24 23:05 Room Air* 0 21 Total Intake and Output 10/13/24 10/13/24 10/14/24 15:00 23:00 07:00 Intake Total 1000 ml Balance 1000 ml medications Current Medications Medications Dose Ordered Sig/Praneeth Route Start Time Stop Time Status Last Admin Dose Admin Ceftriaxone Sodium 50 ml @ 100 mls/hr DAILY@2000 IV 10/14/24 20:00 Divalproex Sodium 500 mg BID PO 10/13/24 22:00 10/13/24 21:51 500 MG Levothyroxine Sodium 125 mcg QAM@0600 PO 10/14/24 06:00 10/14/24 06:41 125 MCG Venlafaxine HCl 75 mg DAILY PO 10/14/24 10:00 Ondansetron HCl 4 mg Q4HP PRN IV 10/13/24 21:00 Enoxaparin Sodium 40 mg DAILY SC 10/14/24 10:00 Acetaminophen 650 mg Q6HP PRN PO 10/13/24 21:00 Diagnostic Test (Pha) 1 strip ACHS 10/13/24 22:00 10/14/24 06:40 1 STRIP Insulin Human Regular ACHS SC 10/13/24 22:00 10/13/24 21:59 2 UNITS Dextrose 50 ml UD PRN IV 10/13/24 21:00 Midodrine 5 mg BID PO 10/14/24 10:00 Examination Gen: 69-year-old male in mild distress Skin: Warm, dry, normal color and texture, no rash. HEENT: Normocephalic atraumatic, mucous membranes moist and pink. Neck: Cervical and supraclavicular nodes normal without enlargement, trachea is midline, thyroid gland is normal without masses. Pulmonary: Clear to auscultation and percussion bilaterally. Cardiac: Regular rate and rhythm. No murmur Abdomen: Soft, nontender, nondistended, bowel sounds present all 4 quadrants, no guarding, no rigidity, no organomegaly. Extremities: No cyanosis, clubbing, no edema Neuro: [id number]-kyrjjnr, no dysarthria on examination, no focal deficit laboratory and microbiology Laboratory Tests 10/14/24 06:13 Test 10/14/24 06:13 Range/Units Serum Glucose 93 74-106 mg/dL Problem List/Assessment/Plan Problem List/Assessment/Plan #Acute metabolic encephalopathy due to probably sepsis #Early dementia? #Sepsis due to probably aspiration pneumonia #H/o throat cancer in remission s/p chemotherapy and radiotherapy #Radiation induced esophageal strictures # H/o AML s/p chemotherapy #Peripheral neuropathy due to chemotherapy #Hyperammonemia #Hypothyroidism #Thrombocytopenia #AGATHA due to VMN resolved #Mild macrocytic anemia #Depression #Emphysema #Bilateral renal cysts Cardiac diet Aspiration precautions No need of O2 AB: ceftriaxone and doxycicline Normal valproate levels Keep levothyroxine 125 mg: due to sepsis TSH can be supressed normal T4 Pt is seeing Dr Carina WEI as outpatient, due to probably Radiation induced esophageal strictures, EDS was planned on Monday, GI consult was placed and Dr Lim is aware: probably EDS as inpatient Hyperammonemia: Liver US and CMP is ordered No need of insulin, normal hba1c Protonix IV Due to thromobocytopenia: SCD Normal head ct scan: no focal deficit at exam Case discussed with Dr Eiwng Time spent on care 23 min Plan discussed with: Patient, Other (rn) My Orders My Orders Orders - BEATRIZ NULL RESIDENT Procedure Category Date Status Time Covid19 Antigen Nora LAB 10/14/24 Logged Rapid Influenza A&B LAB 10/14/24 Logged 08:[address] 10/14/24 Logged 08:03 Date of Service: Oct 14, 2024 Billing Provider: ANURADHA EWING MD Common Visit Codes: [id number] INP/OBS CARE(HIGH) BEATRIZ NULL RESIDENT Oct 14, 2024 08:35 ANURADHA EWING MD Oct 16, 2024 17:11
--- NOTE | 2024-10-14 10:19 | DVH ---
EXAM: CT HEAD WITHOUT CONTRAST HISTORY: AMS COMPARISON: CT HEAD WITHOUT CONTRAST on DOS: 09/16/24, CT HEAD WITHOUT CONTRAST on DOS: 08/15/24 TECHNIQUE: Axial images of the head were obtained and reformatted in coronal and sagittal planes. All CT scans at this medical facility are performed using dose modulation techniques as appropriate t o a performed exam including the following: Automated exposure control was utilized; adjustment of th e MA and/or KV according to patient size; and use of iterative reconstruction technique. CT Dose: CTDI volume is 67 mGy. Dose-length product is 1326 mGy*cm FINDINGS: There is no evidence of acute intracranial hemorrhage, mass, mass effect midline shift. There is no h ydrocephalus or extra-axial fluid collection. There are patchy hypodense signal changes in supratent orial white matter compatible with chronic small-vessel ischemic changes. Najera-white matter different iation is maintained. The visualized paranasal sinuses and mastoid air cells are clear. The calvarium is intact. IMPRESSION: 1. No acute intracranial process. HS:Y
[2024-10-14] MEDS: ENOXAPARIN SOD 40 MG/0.4 ML SYRINGE SC SCH (10:55)
[2024-10-14] MEDS: VENLAFAXINE HCL 37.5MG TABLET PO SCH (10:55)
[2024-10-14] MEDS: MIDODRINE HCL 10 MG TAB PO SCH (10:56)
--- NOTE | 2024-10-14 11:07 | DVH ---
Procedure: CT CHEST WITHOUT CONTRAST Reason for study/Clinical History: r/o right sided parenchymal infection/ pleural effusion Comparison Study: Chest radiograph performed on 10/13/2024 Exam Date: 10/14/2024 09:56 AM TECHNIQUE: Multidetector CT of the chest was performed from the lung apices to the upper abdomen with out the use of intravenous contract. Axial, coronal and sagittal multiplanar reformats were performed . Radiation Dose Information: CT Dose: CTDI volume is 10.4 mGy. Dose-length product is 420.4 mGy*cm The dose indicators for CT are the volume Computed Tomography (CT) Dose Index (CTDIvol) and the Dose Length Product (DLP), and are measured in units of mGy and mGy-cm, respectively. These indicators are not patient dose, but values generated from the CT scanner acquisition factors. The report includes radiation exposure data for exposures received during this examination. FINDINGS: Lower neck: Normal thyroid. Lungs: There are scattered opacities in the right upper and lower lobe. There is a 4 mm right lower lobe pulmonary nodule. There is emphysema at the lung apices. Central airways: Patent. Esophagus: There fluid and/or enteric debris in the esophagus. Pleura: No pleural effusion or significant pneumothorax. Heart/Vascular Structures: Normal heart size. No pericardial effusion. Normal caliber thoracic aorta and main pulmonary artery. Lymph Nodes: No adenopathy Musculoskeletal: No acute osseous abnormality. Soft tissues: Normal. Upper abdomen: Limited portions of the upper abdomen show bilateral renal cysts. There is a 1.8 cm r ight hyperdense renal cysts. Cholecystectomy. IMPRESSION: 1. Scattered opacities in the right upper and lower lobe which may be infectious or inflammatory in e tiology. 2. Emphysema. 3. Fluid and/or enteric debris in the esophagus. Aspiration precautions recommended. 4. Cholecystectomy. Bilateral renal cysts. Radiation optimization: All CT scans at this facility use at least one of these dose optimization rafael hniques: automated exposure control mA and/or kV adjustment per patient size (includes targeted exam s where dose is matched to clinical indication) or iterative reconstruction.
[2024-10-14 13:14] LABS: Barbiturate Scree,Urine Pos (NEGATIVE); Opiate Scree,Urine Neg (NEGATIVE)
[2024-10-14 13:20] LABS: Amphetamine Screen, Urine Neg (NEGATIVE); Benzodiazephine Screen, Urine Neg (NEGATIVE); Cannabinoid Screen, Urine Neg (NEGATIVE); Cocaine Screen, Urine Neg (NEGATIVE); Phencyclidine Screen, Urine Neg (NEGATIVE)
[2024-10-14] MEDS: DOXYCYCLINE 100MG/100ML 100 ML IV SCH (16:01)
[2024-10-14 16:05] LABS: % Iron Saturation 20.6 % (20-55)
[2024-10-14 16:26] LABS: COVID19 ANTIGEN SOFIA FIA NEGATIVE (NEGATIVE); Rapid Influenza A Negative (Negative); Rapid Influenza B Negative (Negative)
[2024-10-14] MEDS: cefTRIAXone 1GM/50ML D5W 50 ML IV SCH (21:44)
[2024-10-15] VITALS (8 sets, daily range): BP systolic 106–148; BP diastolic 61–88; PULSE 88–100; RESP 16–20; TEMP 97.7–98.9; O2SAT 92–98
[2024-10-15 08:13] LABS: Eosinophils # (auto) 0.1 10 ^3/uL (0-0.8); Lymphocytes # (auto) 3.1 10 ^3/uL (0.4-5.4); Monocytes # (auto) 0.6 10 ^3/uL (0-1.3); Monocytes % (auto) 8.5 % (0.0-12.0); Neutrophils # (auto) 2.9 10 ^3/uL (1.6-8.6); Nucleated Red Blood Cells % 0.1 %; Platelet Count (auto) 136 10^3/uL (140-450); White Blood Cell 6.8 10^3/uL (4.4-10.8)
[2024-10-15 08:15] LABS: Basophils # (auto) 0.1 10 ^3/uL (0-0.2); Basophils % (auto) 0.8 % (0.0-2.0); Eosinophils % (auto) 1.9 % (0.0-7.0); Hematocrit 34.3 % (41.0-53.0); Hemoglobin 11.5 g/dL (13.5-17.5); Lymphocytes % (auto) 45.4 % (10.0-50.0); Mean Corpuscular Hemoglobin 33.5 pg (28.0-32.0); Mean Corpuscular Hgb Conc. 33.5 g/dL (32.0-36.0); Neutrophils % (auto) 43.4 % (37.0-80.0); Red Blood Cells 3.43 10^6/uL (4.5-5.90); Red Cell Distribution Width 14.5 % (11.8-14.3)
[2024-10-15 08:21] LABS: Alkaline Phosphatase 82 U/L (46-116); Anion Gap 10 (5-15); Aspartate Aminotransferase 14 U/L (13-40); BUN/Creatinine Ratio 16.1 (10.0-20.0); Blood Urea Nitrogen 19 mg/dL (9-23); Calcium 9.9 mg/dL (8.7-10.4); Carbon Dioxide 25 mmol/L (20-31); Chloride 105 mmol/L (98-107); Glucose 97 mg/dL (74-106); Potassium 3.5 mmol/L (3.5-5.1); Sodium 140 mmol/L (136-145)
[2024-10-15 08:22] LABS: Albumin 3.8 g/dL (3.2-4.8); Total Protein 7.3 g/dL (5.7-8.2)
--- NOTE | 2024-10-15 08:33 | DVH ---
INDICATION: h/o liver disease TECHNIQUE: Multiple real-time sonographic images were obtained of the right upper quadrant. COMPARISON: None FINDINGS: The liver demonstrates coarsened echotexture without focal mass lesions. The liver measures 15 cm. There is no intrahepatic or extrahepatic ductal dilatation. The common duct measures 4 mm. Gallbladder is surgically absent. The right kidney measures 8.1 cm. Right kidney is small in with increased echogenicity. There is a r ight renal cyst measuring 1 cm. The pancreas is not well visualized due to overlying bowel gas. IMPRESSION: Findings suggestive of hepatic cirrhosis. Echogenic small right kidney suggestive chronic medical renal disease. No hydronephrosis.
[2024-10-15 08:37] LABS: Alanine Aminotransferase < 9 U/L (7-40); Bilirubin, Total 0.2 mg/dL (0.2-1.0)
[2024-10-15] MEDS: PANTOPRAZOLE 40 MG/10 ML VIAL INJ IV SCH (08:59)
[2024-10-15] MEDS: HYDROmorphone HCL 2 MG TAB PO SCH (11:19)
--- NOTE | 2024-10-15 13:13 | DVHPNRES ---
Progress Note Date Seen: Oct 15, 2024 Resident Creating Document: BEATRIZ NULL RESIDENT Has the PT tested + for MRSA If YES, has PT been informed?: No Medical Necessity Reason Pt with a Central, PICC or Fol: No Subjective Review of Systems 69-year-old male with past medical history of throat cancer in remission AML seizure disorder hypothyroidism anemia, liver disease? Who came for altered mental status since October 10, per patient is being having dysarthria and since october 17 patient is been more combative than usual Home meds: vigebron venlafaxine testosterone primidone omeprazole methadone levothyroxine fludrocortisone divalproex, alprazolam Dilaudid Objective vital signs Vital Sign Date Time Temp Pulse Resp B/P (MAP) Pulse Ox O2 Delivery O2 Flow Rate FiO2 10/15/24 09:07 98.1 97 17 124/77 (93) 92 98.1 10/14/24 20:00 Room Air* 0 21 Total Intake and Output 10/14/24 10/14/24 10/15/24 15:00 23:00 07:00 Intake Total 830 ml 300 ml Output Total 4 ml 400 ml Balance 826 ml -100 ml medications Current Medications Medications Dose Ordered Sig/Praneeth Route Start Time Stop Time Status Last Admin Dose Admin Ceftriaxone Sodium 50 ml @ 100 mls/hr DAILY@2000 IV 10/14/24 20:00 10/14/24 21:44 100 MLS/HR Divalproex Sodium 500 mg BID PO 10/13/24 22:00 10/15/24 09:00 500 MG Levothyroxine Sodium 125 mcg QAM@0600 PO 10/14/24 06:00 10/15/24 05:04 125 MCG Venlafaxine HCl 75 mg DAILY PO 10/14/24 10:00 10/15/24 08:59 75 MG Ondansetron HCl 4 mg Q4HP PRN IV 10/13/24 21:00 Enoxaparin Sodium 40 mg DAILY SC 10/14/24 10:00 10/15/24 09:00 40 MG Acetaminophen 650 mg Q6HP PRN PO 10/13/24 21:00 Diagnostic Test (Pha) 1 strip ACHS 10/13/24 22:00 10/15/24 11:26 1 STRIP Dextrose 50 ml UD PRN IV 10/13/24 21:00 Midodrine 5 mg BID PO 10/14/24 10:00 10/15/24 09:00 5 MG Doxycycline Hyclate 100 ml @ 50 mls/hr Q12H IV 10/14/24 15:00 10/15/24 02:15 50 MLS/HR Pantoprazole Sodium 40 mg DAILY IV 10/15/24 10:00 10/15/24 08:59 40 MG Hydromorphone HCl 2 mg Q12HR PO 10/15/24 10:00 10/15/24 11:19 2 MG Examination Gen: 69-year-old male in mild distress Skin: Warm, dry, normal color and texture, no rash. HEENT: Normocephalic atraumatic, mucous membranes moist and pink. Neck: Cervical and supraclavicular nodes normal without enlargement, trachea is midline, thyroid gland is normal without masses. Pulmonary: Clear to auscultation and percussion bilaterally. Cardiac: Regular rate and rhythm. No murmur Abdomen: Soft, nontender, nondistended, bowel sounds present all 4 quadrants, no guarding, no rigidity, no organomegaly. Extremities: No cyanosis, clubbing, no edema Neuro: Pteu-sy-lchzzst, no dysarthria on examination, no focal deficit laboratory and microbiology Laboratory Tests 10/15/24 06:57 Test 10/15/24 06:57 Range/Units Serum Glucose 97 74-106 mg/dL Microbiology Date/Time Source Procedure Growth Status 10/13/24 15:49 Blood Blood Culture - Preliminary NO GROWTH AFTER 24 HOURS OF INCUBATION. Resulted Problem List/Assessment/Plan Problem List/Assessment/Plan #Acute metabolic encephalopathy due to probably sepsis #Early dementia? #Sepsis due to probably aspiration pneumonia #H/o throat cancer in remission s/p chemotherapy and radiotherapy #Radiation induced esophageal strictures # H/o AML s/p chemotherapy #Peripheral neuropathy due to chemotherapy #Compensated liver cirrhosis #Hyperammonemia #Hypothyroidism #Thrombocytopenia #AGATHA due to VMN resolved on CKD stage 2 #Mild macrocytic anemia #Depression #Emphysema #Bilateral renal cysts Cardiac diet Aspiration precautions No need of O2 AB: ceftriaxone and doxycicline Normal valproate levels Keep levothyroxine 125 mg: due to sepsis TSH can be supressed normal T4 Pt is seeing Dr Carina WEI as outpatient, due to probably Radiation induced esophageal strictures, EDS was planned on Monday, GI consult was placed and Dr Lim is aware: probably EDS as inpatient Hyperammonemia: Liver US showed liver cirrhosis: lipid panel, acute hepatitis panel and coags are ordered No need of insulin, normal hba1c Protonix IV Normal head ct scan: no focal deficit at exam Case discussed with Dr Ewing Time spent on care 23 min Plan discussed with: Patient, Other (rn) My Orders My Orders Orders - BEATRIZ NULL Procedure Category Date Status Time Doxycycline PHA 10/14/24 In Process 100mg/100ml 15:00 * Gi D[facility] Academic Support Specialist CONS 10/14/24 Transmitted 14:54 LIVER US 10/15/24 Resulted 08:00 Strict Aspiration KEON 10/14/24 In Process Precautions 18:49 Pantoprazole PHA 10/15/24 In Process (Protonix) 10:00 Mrsa Screen ALEXSANDER 10/14/24 In Process 12:00 Dietary Evaluation Review Comments: 1) Continue to monitor pt PO intake to meet at least 75% of meals 2) If pt appetite remains poor consider Ensure Enlive BID 3) Continue current plan of care Expected Outcomes/Goals: 1) Pt appetite to improve 2) F/U in 3-5 days Date of Service: Oct 15, 2024 Billing Provider: ANURADHA EWING MD Common Visit Codes: [id number] INP/OBS CARE(HIGH) BEATRIZ NULL RESIDENT Oct 15, 2024 13:13 ANURADHA EWING MD Oct 16, 2024 17:11
--- NOTE | 2024-10-15 17:22 | DVHINCON2 ---
Date of service: Oct 15, [address] Pitts Reason for Consultation Abdominal pain dysphagia History of Present Illness This 69-year-old male presented with complaints of weakness tiredness in the altered mental status patient has got also complaints of confusion and disori entation patient has been recently treated for UTI. Patient is has history of throat cancer with complaints of dysphagia patient had throat surgery as well as lung biopsy and spinal stimulator also found to be anemic No gross GI bleed Patient was scheduled for an outpatient GI endoscopy with possible dilation for because of the stricture because of dysphagia Had an upper barium swallow as well as CT scan which was which were unremarkable Past Medical History Throat cancer diabetes liver problems anemia Past Surgical History None except for throat surgery and spinal stimulator Family History: Patient reports no known family medical history. Family History Noncontributory Social History Denies smoking or Allergies: Coded Allergies: Caffeine (Verified Allergy, Mild, 10/17/13) PER CAFFEINE IS CONTRAINDICATED TO PT DUE TO PARKINSONS DISEASE Azithromycin (Verified Allergy, Unknown, 09/16/24) Codeine (Verified Allergy, Unknown, 08/15/24) Doripenem (Verified Allergy, Unknown, 08/15/24) Metoclopramide (Verified Allergy, Unknown, 08/15/24) Metolazone (Verified Allergy, Unknown, 08/15/24) HISTORY OF PRESENT ILLNESS: The patient was recently started on to a new diuretic medication of metolazone. When he took his second dose last evening, he became dizzy, agitated, developed itching of the skin, and sensation of his throat closing up. Home Meds Active Scripts Amoxicillin & Pot Clavulanate (AUGMENTIN TABLET) 875 Mg Tb, 875 MG PO BID for 5 Days, #10 TAB Prov:AYSHA GARCES RESIDENT 09/19/24 Reported Medications Alprazolam (Alprazolam) 0.5 Mg Tab, 0.5 MG PO Q8HPRN PRN for ANXIETY, TAB 09/16/24 Primidone (Primidone) 125 Mg Tab, 50 MG PO BID, TAB 09/16/24 Levothyroxine Sodium (Levothyroxine Sodium) 125 Mcg Tab, 1 TAB PO DAILY 09/16/24 Hydromorphone Hcl (Hydromorphone Hcl) 2 Mg Tab, 1 TAB PO Q8HR 09/16/24 Divalproex Sodium (Divalproex Sodium Dr) 500 Mg Tab, 250 MG PO BID for 90 Days, #180 09/16/24 Venlafaxine Hcl (Venlafaxine Hcl Er) 75 Mg Cap, 1 CAP PO DAILY 09/16/24 Venlafaxine Hcl (Venlafaxine Hcl Er) 150 Mg Cap, 1 CAP PO DAILY 09/16/24 Omeprazole (Omeprazole Dr) 20 Mg Cap, 1 CAP PO DAILY 09/16/24 Lubiprostone (Lubiprostone) 24 Mcg Cap, 2 CAP PO DAILY 09/16/24 Midodrine HCl (Midodrine Hydrochloride) Unknown Strength Tab, PO BID MIDODRINE 5 MG BID: 10 MG IN PM / 15 MG IN AM 09/16/24 Fludrocortisone Acetate (Fludrocortisone Acetate) 0.1 Mg Tab, 1 TAB PO BID for 90 Days, #180 08/16/24 Vibegron (Gemtesa) 75 Mg Tab, 75 MG PO HS, TAB 08/16/24 Testosterone Cypionate (Depo-Testosterone) 100 Mg/Ml Inj, 0.5 ML IM ONCE EVERY OTHER WEEK for 180 Days, #10 10/15/13 Current Medications Current Medications Medications (Trade) Dose Ordered Sig/Praneeth Route PRN Reason Start Time Stop Time Status Last Admin Ceftriaxone Sodium 50 ml @ 100 mls/hr DAILY@1999 IV 10/14/24 20:00 10/14/24 21:44 Pantoprazole Sodium (Protonix) 40 mg DAILY IV 10/15/24 10:00 10/15/24 08:59 Hydromorphone HCl (Dilaudid Tablet) 2 mg Q12HR PO 10/15/24 10:00 10/15/24 11:19 Enoxaparin Sodium (Lovenox) 40 mg DAILY SC 10/16/24 10:00 Review of Systems Noncontributory Vital Signs Vital Signs Date Time Temp Pulse Resp B/P (MAP) Pulse Ox O2 Delivery O2 Flow Rate FiO2 10/15/24 17:01 97.7 94 16 107/61 (76) 95 97.7 10/15/24 08:00 Room Air* 0 21 Physical Exam Originally built and nourished male in no acute distress HEENT examination no pallor no icterus Neck is supple no lymphadenopathy no thyroid Chest was bilaterally symmetrical lungs clear Cardiovascular unremarkable Abdomen is soft nontender no masses Extremities no edema Labs/Diagnostic Data Labs Test 10/15/24 16:42 10/15/24 11:22 10/15/24 06:57 10/14/24 15:32 Range/Units POC Glucose 119 H 70-106 mg/dl White Blood Count 6.8 4.4-10.8 10^3/uL Red Blood Count 3.43 L 4.5-5.90 10^6/uL Hemoglobin 11.5 L 13.5-17.5 g/dL Hematocrit 34.3 L 41.0-53.0 % Mean Corpuscular Volume 100.0 80.0-100.0 fL Mean Corpuscular Hemoglobin 33.5 H 28.0-32.0 pg Mean Corpuscular Hemoglobin Concent 33.5 32.0-36.0 g/dL Red Cell Distribution Width 14.5 H 11.8-14.3 % Platelet Count 136 L 140-450 10^3/uL Mean Platelet Volume 8.6 6.9-10.8 fL Neutrophils (%) (Auto) 43.4 37.0-80.0 % Lymphocytes (%) (Auto) 45.4 10.0-50.0 % Monocytes (%) (Auto) 8.5 0.0-12.0 % Eosinophils (%) (Auto) 1.9 0.0-7.0 % Basophils (%) (Auto) 0.8 0.0-2.0 % Neutrophils # (Auto) 2.9 1.6-8.6 10 ^3/uL Lymphocytes # (Auto) 3.1 0.4-5.4 10 ^3/uL Monocytes # (Auto) 0.6 0-1.3 10 ^3/uL Eosinophils # (Auto) 0.1 0-0.8 10 ^3/uL Basophils # (Auto) 0.1 0-0.2 10 ^3/uL Nucleated Red Blood Cells 0.1 % Sodium Level 140 136-145 mmol/L Potassium Level 3.5 3.5-5.1 mmol/L Chloride Level 105 98-107 mmol/L Carbon Dioxide Level 25 20-31 mmol/L Anion Gap 10 5-15 Blood Urea Nitrogen 19 9-23 mg/dL Creatinine 1.18 0.700-1.30 mg/dL Glomerular Filtration Rate Calc 66 >90 mL/min BUN/Creatinine Ratio 16.1 10.0-20.0 Serum Glucose 97 74-106 mg/dL Calcium Level 9.9 8.7-10.4 mg/dL Total Bilirubin 0.2 0.2-1.0 mg/dL Aspartate Amino Transferase (AST) 14 13-40 U/L Alanine Aminotransferase (ALT) < 9 7-40 U/L Alkaline Phosphatase 82 46-116 U/L Total Protein 7.3 5.7-8.2 g/dL Albumin 3.8 3.2-4.8 g/dL Iron Level 53 L 65-175 ug/dL Total Iron Binding Capacity 257 250-425 ug/dL Percent Iron Saturation 20.6 20-55 % Ferritin 215.3 22-322 ng/mL Ammonia 53 H 11-32 umol/L Free Thyroxine (T4) Calculated 1.13 0.89-1.76 ng/dL Test 10/14/24 15:05 10/14/24 06:13 10/13/24 20:10 10/13/24 15:49 Range/Units Influenza Type A Antigen Negative Negative Influenza Type B Antigen Negative Negative SARS-CoV-2 Antigen (Rapid) Negative NEGATIVE B-Type Natriuretic Peptide 242.39 0-100 pg/mL Thyroid Stimulating Hormone (TSH) 0.12 L 0.55-4.78 uIU/mL Urine Color Yellow Yellow Urine Clarity Clear Clear Urine pH 6.5 5.0-9.0 Urine Specific [place] 1.016 1.001-1.035 Urine Protein Trace H Negative Urine Ketones Negative Negative Urine Blood Negative Negative /uL Urine Nitrite Negative Negative Urine Bilirubin Negative Negative Urine Urobilinogen Normal Negative mg/dL Urine Leukocyte Esterase Negative Negative /uL Urine RBC <1 0 - 3 /hpf Urine WBC 2 0 - 3 /hpf Urine Squamous Epithelial Cells Few <5 /hpf Urine Bacteria None seen None Seen /hpf Urine Glucose Trace Normal mg/dL Urine Opiates Screen Neg NEGATIVE Urine Fentanyl Screen Neg NEGATIVE Urine Barbiturates Screen Pos NEGATIVE Urine Phencyclidine Screen Neg NEGATIVE Urine Amphetamines Screen Neg NEGATIVE Urine Benzodiazepines Screen Neg NEGATIVE Urine Cocaine Screen Neg NEGATIVE Urine Cannabinoids Screen Neg NEGATIVE Lactic Acid Level 1.8 0.4-2.0 mmol/L Microbiology Date/Time Source Procedure Growth Status 10/14/24 12:00 Nose MRSA Screen - Final Complete 10/13/24 15:49 Blood Blood Culture - Preliminary NO GROWTH AFTER 48 HOURS OF INCUBATION. Resulted Assessment Patient is a 68-year-old with complaints of dysphagia altered level of consciousness now with a history UTI patient has history of throat cancer if problems with dysphagia at clinical impression is dysphagia rule out stricture acute diabetes mellitus hypertension electrolyte imbalance and UTI and slight confusion. Suggestions the patient does better now patient was scheduled for an outpatient EGD and the family wants to have the EGD with possible dilatation if necessary done Plan/Recommendation will arrange to have the EGD and dilatation done as inpatient as wanted by the family Procedure risks increased benefits were were all discussed with the and agreeable for the same Thank you Dr. Lim Plan discussed with: Spouse RON LIM MD Oct 15, 2024 17:22
[2024-10-15 17:37] LABS: INR 1.01 (0.9-1.15); Partial Thromboplastin Time 27.3 SEC (24.5-34.5); Prothrombin Time 10.7 sec (9.3-11.8)
[2024-10-15 19:47] LABS: Urine Bacteria None Seen /hpf (None Seen)
[2024-10-15 20:41] LABS: Urine Blood Negative /uL (Negative); Urine Clarity Clear (Clear); Urine Color Yellow (Yellow); Urine Hyaline Cast FEW /lpf (0 - 2); Urine Mucus FEW (None Seen); Urine Protein, UAD TRACE (Negative); Urine Specific Gravity 1.018 (1.001-1.035); Urine Squamous Epithelial Cell FEW /hpf (<5); Urine Urobilinogen Normal (Negative); Urine WBC 7 /hpf (0 - 3)
[2024-10-16] MEDS ORDERED: SODIUM CHLORIDE LOCK 10 ML ONE (08:27)
[2024-10-16] MEDS ORDERED: FLUMAZENIL 0.1 MG/ML INJ 10ML MDV IV ONE (08:27)
[2024-10-16] MEDS ORDERED: diphenhdrAMINE HCL 50 MG/1 ML VL ONE (08:27)
[2024-10-16] MEDS ORDERED: LIDOCAINE VISCOUS 2% 15ML UD ONE (08:27)
[2024-10-16] MEDS ORDERED: NALOXONE HCL 0.4 MG/ML VIAL ONE (08:27)
[2024-10-16 09:00] VITALS: BP 111/65; PULSE 82; RESP 17; TEMP 97; O2SAT 94
[2024-10-16] MEDS: MIDAZOLAM HCL 5 MG/ML-1ML VIAL ONE (09:41)
[2024-10-16] MEDS: fentaNYL CITRATE 100 MCG/2 ML VL ONE (09:41)
[2024-10-16 09:54] VITALS: PULSE 81; RESP 14; O2SAT 98
--- NOTE | 2024-10-16 10:02 | DVHOP2 ---
Operative Report DATE OF PROCEDURE: 10/16/24 INDICATIONS FOR THE PROCEDURE: Abdominal pain dysphagia history of throat cancer inability to eat properly PROCEDURE PERFORMED: 1. Esophagogastroduodenoscopy and biopsy POSTOPERATIVE DIAGNOSIS: Mild esophagitis in the distal esophagus biopsies taken Gastric stasis mild in the body Mild gastritis No evidence of any gross tumors in the oropharynx No stricture seen INFORMED CONSENT: The risks and benefits and alternatives were explained to the patient and informed consent was obtained. PROCEDURE IN DETAIL: The patient was kept NPO after midnight. In the endoscopy room, he was given IV fentanyl 25 mcg and Versed, 1 mg titrated slowly to get him sedated. Olympus gastroscope was passed through the oropharynx into the stomach and the duodenum, and the findings were as follows. Vocal cords within normal limits No obvious lesions seen in the in the oropharyngeal area though there were some thick secretions for a very optimal exam of the area Esophagus mild esophagitis in the distal esophagus LA classification B no ulcers no strictures no mass lesions seen Stomach: Fundus retroflexed and visualized normal, the body some gastric stasis possibly from hypomotility of the stomach Mild antral gastritis biopsies taken to ensure there was no H pylori or other pathology, this also could be from the mild stasis Pylorus normal Duodenum unremarkable Endoscopic impression Mild esophagitis Mild gastric stasis Very mild gastritis No mass lesions seen No esophageal stricture No pyloric obstruction Suggestions Await the biopsy results Aggressive treatment with Pepcid If symptoms persist may need further evaluations including ENT evaluation if necessary and other workup Thank you for asking me to take part in the care of this pleasant patient RON Tristan MD Oct 16, 2024 10:02
[2024-10-16] MEDS: ENOXAPARIN SOD 40 MG/0.4 ML SYRINGE SC SCH (11:22)
[2024-10-16 12:44] LABS: Triglycerides 65 mg/dL (< 150)
[2024-10-16 12:46] LABS: Cholesterol 181 mg/dL (< 200); HDL Cholesterol 49 mg/dL (40-59); LDL Cholesterol 116 mg/dL (< 100)
[2024-10-16 13:00] VITALS: BP 139/79; PULSE 87; RESP 16; TEMP 97.4; O2SAT 100
[2024-10-16] MEDS ORDERED: AZIT500T66 PO (14:23)
[2024-10-16] MEDS ORDERED: AUG875T PO (14:25)
--- NOTE | 2024-10-16 15:33 | DVHDSRES ---
Discharge Summary Date of Admission Resident Creating Document: BEATRIZ NULL RESIDENT Oct 13, 2024 at 20:48 Date of Discharge: Oct 16, 2024 Admitting Diagnosis acute metabolic encephalopathy Labs/Diagnostic Data: Laboratory Results Test 10/16/24 11:31 10/15/24 19:15 10/15/24 16:42 10/15/24 11:22 Triglycerides Level 65 mg/dL (< 150) Cholesterol Level 181 mg/dL (< 200) LDL Cholesterol 116 mg/dL (< 100) HDL Cholesterol 49 mg/dL (40-59) Urine Color Yellow (Yellow) Urine Clarity Clear (Clear) Urine pH 6.0 (5.0-9.0) Urine Specific [place] 1.018 (1.001-1.035) Urine Protein Trace (Negative) Urine Ketones Negative (Negative) Urine Blood Negative /uL (Negative) Urine Nitrite Negative (Negative) Urine Bilirubin Negative (Negative) Urine Urobilinogen Normal mg/dL (Negative) Urine Leukocyte Esterase Negative /uL (Negative) Urine RBC 1 /hpf (0 - 3) Urine WBC 7 /hpf (0 - 3) Urine Squamous Epithelial Cells Few /hpf (<5) Urine Calcium Oxalate Crystals Few (None Seen) Urine Bacteria None seen /hpf (None Seen) Urine Hyaline Casts Few /lpf (0 - 2) Urine Mucus Few (None Seen) Urine Glucose Normal mg/dL (Normal) Prothrombin Time 10.7 sec (9.3-11.8) Prothrombin Time INR 1.01 (0.9-1.15) Activated Partial Thromboplast Time 27.3 SEC (24.5-34.5) POC Glucose 119 mg/dl (70-106) Test 10/15/24 06:57 10/14/24 15:32 10/14/24 15:05 10/14/24 06:13 White Blood Count 6.8 10^3/uL (4.4-10.8) Red Blood Count 3.43 10^6/uL (4.5-5.90) Hemoglobin 11.5 g/dL (13.5-17.5) Hematocrit 34.3 % (41.0-53.0) Mean Corpuscular Volume 100.0 fL (80.0-100.0) Mean Corpuscular Hemoglobin 33.5 pg (28.0-32.0) Mean Corpuscular Hemoglobin Concent 33.5 g/dL (32.0-36.0) Red Cell Distribution Width 14.5 % (11.8-14.3) Platelet Count 136 10^3/uL (140-450) Mean Platelet Volume 8.6 fL (6.9-10.8) Neutrophils (%) (Auto) 43.4 % (37.0-80.0) Lymphocytes (%) (Auto) 45.4 % (10.0-50.0) Monocytes (%) (Auto) 8.5 % (0.0-12.0) Eosinophils (%) (Auto) 1.9 % (0.0-7.0) Basophils (%) (Auto) 0.8 % (0.0-2.0) Neutrophils # (Auto) 2.9 10 ^3/uL (1.6-8.6) Lymphocytes # (Auto) 3.1 10 ^3/uL (0.4-5.4) Monocytes # (Auto) 0.6 10 ^3/uL (0-1.3) Eosinophils # (Auto) 0.1 10 ^3/uL (0-0.8) Basophils # (Auto) 0.1 10 ^3/uL (0-0.2) Nucleated Red Blood Cells 0.1 % Sodium Level 140 mmol/L (136-145) Potassium Level 3.5 mmol/L (3.5-5.1) Chloride Level 105 mmol/L (98-107) Carbon Dioxide Level 25 mmol/L (20-31) Anion Gap 10 (5-15) Blood Urea Nitrogen 19 mg/dL (9-23) Creatinine 1.18 mg/dL (0.700-1.30) Glomerular Filtration Rate Calc 66 mL/min (>90) BUN/Creatinine Ratio 16.1 (10.0-20.0) Serum Glucose 97 mg/dL (74-106) Calcium Level 9.9 mg/dL (8.7-10.4) Total Bilirubin 0.2 mg/dL (0.2-1.0) Aspartate Amino Transferase (AST) 14 U/L (13-40) Alanine Aminotransferase (ALT) < 9 U/L (7-40) Alkaline Phosphatase 82 U/L (46-116) Total Protein 7.3 g/dL (5.7-8.2) Albumin 3.8 g/dL (3.2-4.8) Iron Level 53 ug/dL (65-175) Total Iron Binding Capacity 257 ug/dL (250-425) Percent Iron Saturation 20.6 % (20-55) Ferritin 215.3 ng/mL (22-322) Ammonia 53 umol/L (11-32) Free Thyroxine (T4) Calculated 1.13 ng/dL (0.89-1.76) Influenza Type A Antigen Negative (Negative) Influenza Type B Antigen Negative (Negative) SARS-CoV-2 Antigen (Rapid) Negative (NEGATIVE) B-Type Natriuretic Peptide 242.39 pg/mL (0-100) Thyroid Stimulating Hormone (TSH) 0.12 uIU/mL (0.55-4.78) Test 10/13/24 20:10 10/13/24 15:49 Urine Opiates Screen Neg (NEGATIVE) Urine Fentanyl Screen Neg (NEGATIVE) Urine Barbiturates Screen Pos (NEGATIVE) Urine Phencyclidine Screen Neg (NEGATIVE) Urine Amphetamines Screen Neg (NEGATIVE) Urine Benzodiazepines Screen Neg (NEGATIVE) Urine Cocaine Screen Neg (NEGATIVE) Urine Cannabinoids Screen Neg (NEGATIVE) Lactic Acid Level 1.8 mmol/L (0.4-2.0) Other Laboratory Tests 10/15/24 06:57 Brief Hx & Hospital Course: 69-year-old male with a past medical history of throat cancer in remission, AML (acute myeloid leukemia) s/p chemotherapy, seizure disorder, hypothyroidism, anemia, compensated liver cirrhosis, and radiation-induced esophageal strictures. The patient was admitted for altered mental status that began on October 10. the patient had dysarthria and increased combativeness. Evaluation revealed acute metabolic encephalopathy likely secondary to sepsis, which was suspected to be due to pneumonia. Hyperammonemia was noted and attributed to underlying compensated liver cirrhosis. Head ct scan normal and no focal deficit was found during physical exam The patient underwent an esophagogastroduodenoscopy (EGD) on October 16, revealing mild esophagitis and mild gastritis without evidence of obstruction, strictures, or mass lesions. Biopsies were taken, and results are pending. No significant findings were noted in the duodenum. Treatment included antibiotics (ceftriaxone and doxycycline) for pneumonia, supportive care with protonix IV for gastritis, and aspiration precautions. Thyroid hormone (levothyroxine 125 mcg) was continued. the patients mental status improved and was discharged on AB and f/u with pcp and Gi Gen: 69-year-old male Skin: Warm, , normal color and texture, no rash. HEENT: Normocephalic atraumatic, mucous membranes moist and pink. Neck: Cervical and supraclavicular nodes normal without enlargement, trachea is midline, thyroid gland is normal without masses. Pulmonary: Clear to auscultation and percussion bilaterally. Cardiac: Regular rate and rhythm. No murmur Abdomen: Soft, nontender, nondistended, bowel sounds present all 4 quadrants, no guarding, no rigidity, no organomegaly. Extremities: No cyanosis, clubbing, no edema Neuro: [id number], no dysarthria on examination, no focal deficit Case discussed with Dr Ewing Time spent on care 23 min Consults/Reason for consult gi to rule out esophageal obstruction Operations or Procedures DATE OF PROCEDURE: 10/16/24 INDICATIONS FOR THE PROCEDURE: Abdominal pain dysphagia history of throat cancer inability to eat properly PROCEDURE PERFORMED: 1. Esophagogastroduodenoscopy and biopsy POSTOPERATIVE DIAGNOSIS: Mild esophagitis in the distal esophagus biopsies taken Gastric stasis mild in the body Mild gastritis No evidence of any gross tumors in the oropharynx No stricture seen INFORMED CONSENT: The risks and benefits and alternatives were explained to the patient and informed consent was obtained. PROCEDURE IN DETAIL: The patient was kept NPO after midnight. In the endoscopy room, he was given IV fentanyl 25 mcg and Versed, 1 mg titrated slowly to get him sedated. Olympus gastroscope was passed through the oropharynx into the stomach and the duodenum, and the findings were as follows. Vocal cords within normal limits No obvious lesions seen in the in the oropharyngeal area though there were some thick secretions for a very optimal exam of the area Esophagus mild esophagitis in the distal esophagus LA classification B no ulcers no strictures no mass lesions seen Stomach: Fundus retroflexed and visualized normal, the body some gastric stasis possibly from hypomotility of the stomach Mild antral gastritis biopsies taken to ensure there was no H pylori or other pathology, this also could be from the mild stasis Pylorus normal Duodenum unremarkable Endoscopic impression Mild esophagitis Mild gastric stasis Very mild gastritis No mass lesions seen No esophageal stricture No pyloric obstruction Suggestions Await the biopsy results Aggressive treatment with Pepcid If symptoms persist may need further evaluations including ENT evaluation if necessary and other workup Thank you for asking me to take part in the care of this pleasant patient RON Tristan MD Oct 16, 2024 10:02 DICTATED BY:RON MENDENHALL MD DICTATED DATE/TIME:10/16/24 1002 ELECTRONICALLY SIGNED BY:RON MENDENHALL MD 10/16/24 1002 ELECTRONICALLY CO-SIGNED BY: Condition at Discharge: Stable Final Diagnosis/Problems List #Acute metabolic encephalopathy due to sepsis resolved #Early dementia? #Sepsis due to pneumonia gram +/ gram neg #H/o throat cancer in remission s/p chemotherapy and radiotherapy # H/o AML s/p chemotherapy #Peripheral neuropathy due to chemotherapy #Compensated liver cirrhosis #Hyperammonemia #Hypothyroidism #Thrombocytopenia #AGATHA hemodinamically mediated (VMN) resolved on CKD stage 2 #Mild macrocytic anemia #Depression #Emphysema #Bilateral renal cysts Discharge Disposition: Home Discharge Instruct/Medications Diet: Consistent carbohydrate, Cardiac 2g Na,low cholest, Renal Activity: No Restrictions, As Tolerated Follow Up/Referral: f/u with GI, f/u with pcp Medications: resume home meds+ antibiotics Discharge Statement: "Patient was advised to return to the ER or call 911 if any headaches, dizziness, shortness of breath, chest pain, abdominal pain, bleeding, fevers, or worsening of medical condition. Patient was counseled about treatment plan, medications, possible side effects, patientverbalized understanding. All questions were answered to the best of my ability. This discharge took greater then 30 minutes in planning, reviewing documentation, counseling the patient, and discussing with other team members." ASSESSMENT ASSESSMENT Assessment aspiration pneumonia Date of Service: Oct 16, 2024 Billing Provider: ANURADHA EWING MD Common Visit Codes: 30275-YAS/OBS DISCH DAY >30min BEATRIZ NULL RESIDENT Oct 16, 2024 15:33 ANURADHA EWING MD Oct 18, 2024 14:51
[2024-10-16 15:52] VITALS: TEMP 37.1
[2024-10-17 10:42] LABS: Hepatitis A Ab IgM Negative; Hepatitis B Core IgM Negative (Negative); Hepatitis B Surface Antigen Negative (Negative); Hepatitis C Antibody Positive (Negative)
== END 2024-10-16 17:05 | disposition home health service (06) | DRG 871 ==
LOC: ER 15:19 → EDBD 15:19 → OVERFLOW 20:48 → CENTRAL 22:46
PROVIDERS: ADMIT Student in an Organized Health Care Education/Training Program; ATTEND Student in an Organized Health Care Education/Training Program
PROC: 0DB68ZX Excision of Stomach, Via Natural or Artificial Opening Endoscopic, Diagnostic (ICD-10-PCS; 2024-10-16)
PROC: 0DB58ZX Excision of Esophagus, Via Natural or Artificial Opening Endoscopic, Diagnostic (ICD-10-PCS; principal; 2024-10-16 09:29)
DX: A41.50 Gram-negative sepsis, unspecified (principal); G93.41 Metabolic encephalopathy; J15.69 Pneumonia due to other Gram-negative bacteria; J69.0 Pneumonitis due to inhalation of food and vomit; N17.0 Acute kidney failure with tubular necrosis; J15.9 Unspecified bacterial pneumonia; J90 Pleural effusion, not elsewhere classified; N39.0 Urinary tract infection, site not specified; E72.20 Disorder of urea cycle metabolism, unspecified; E11.22 Type 2 diabetes mellitus with diabetic chronic kidney disease; Z20.822 Contact with and (suspected) exposure to COVID-19; R13.10 Dysphagia, unspecified; E87.6 Hypokalemia; G20.A1 Parkinson's disease without dyskinesia, without mention of fluctuations; I12.9 Hypertensive chronic kidney disease with stage 1 through stage 4 chronic kidney disease, or unspecified chronic kidney disease; K20.90 Esophagitis, unspecified without bleeding; K29.70 Gastritis, unspecified, without bleeding; G90.89 Other disorders of autonomic nervous system; G62.0 Drug-induced polyneuropathy; T45.1X5A Adverse effect of antineoplastic and immunosuppressive drugs, initial encounter; E03.9 Hypothyroidism, unspecified; D53.9 Nutritional anemia, unspecified; D69.6 Thrombocytopenia, unspecified; J43.9 Emphysema, unspecified; N28.1 Cyst of kidney, acquired; G40.909 Epilepsy, unspecified, not intractable, without status epilepticus; N18.2 Chronic kidney disease, stage 2 (mild); F32.A Depression, unspecified; Z88.5 Allergy status to narcotic agent; Z79.899 Other long term (current) drug therapy; Z90.49 Acquired absence of other specified parts of digestive tract; Z85.819 Personal history of malignant neoplasm of unspecified site of lip, oral cavity, and pharynx; Z85.6 Personal history of leukemia; Z88.1 Allergy status to other antibiotic agents; Y92.89 Other specified places as the place of occurrence of the external cause
CPT/HCPCS: 36415; 43239; 70450; 71045; 71250; 76705; 80048; 80053; 80061; 80074; 80307; 81001; 82140; 82728; 82962; 83540; 83550; 83605; 83880; 84439; 84443; 85025; 85610; 85730; 87040; 87081; 87086; 87426; 87804; 93005; 99291; G0378; J1815; J2250; J2470

== ENCOUNTER 2025-04-08 14:47 | Inpatient (IN) | payer MEDICARE, MEDICAID ==
[~2025-04-08] VITALS: Ht 195.6 cm; Wt 77.6 kg
[~2025-04-08 14:47] MED LIST changes: +ERGO1CAP12 PO; +MIDO5TAB4 PO; +PRIM50TA5 PO
--- NOTE | 2025-04-08 15:04 | ED.PDOC ---
Altered Mental Status HPI Comments This is a 70 year old male BIBA presenting to the ED with chief complaint of ALOC. EMS reports that the patient has not been eating or drinking well over the past few days, however, after having a nap earlier today, family noticed patient to be more altered than baseline. EMS relays that the patient had not been answering many questions on route to the ED, but was able to remember what his name is. Patient states in the ED that he is currently experiencing chest pain, headache, and right knee pain. EMS notes that the patient has been having frequent falls according to family. Patient denies any SOB, N/V, syncope, or dizziness. 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 When he took his second dose last evening, he became dizzy, agitated, developed itching of the skin, and sensation of his throat closing up. Home Meds Active Scripts Amoxicillin & Pot Clavulanate (AUGMENTIN TABLET) 875 Mg Tb, 875 MG PO BID for 3 Days, #6 TAB Prov:BEATRIZ NULL RESIDENT 10/16/24 Amoxicillin & Pot Clavulanate (AUGMENTIN TABLET) 875 Mg Tb, 875 MG PO BID for 5 Days, #10 TAB Prov:AYSHA GARCES RESIDENT 09/19/24 Reported Medications Divalproex Sodium (Divalproex Sodium Dr) 500 Mg Tab, 1 TAB PO BID 03/13/25 Ergocalciferol (Vitamin D) 50,000 Unit Cap, 1 CAP PO QWEEKLY 03/13/25 Lubiprostone (Lubiprostone) 24 Mcg Cap, CAP PO 03/13/25 Levothyroxine Sodium (Levothyroxine Sodium) 125 Mcg Tab, 1 TAB PO DAILY 03/13/25 Primidone (MYSOLINE TABLET) 50 Mg Tb, TAB PO 03/13/25 Midodrine Hcl (Midodrine Hcl) 5 Mg Tab, 3 TAB PO BID 03/13/25 Venlafaxine Hcl (Venlafaxine Hcl Er) 75 Mg Cap, 1 CAP PO DAILY 03/13/25 Vibegron (Gemtesa) 75 Mg Tab, 1 TAB PO DAILY 03/13/25 Omeprazole (Omeprazole Dr) 20 Mg Cap, 1 CAP PO QAM 03/13/25 Alprazolam (Alprazolam) 0.5 Mg Tab, 0.5 MG PO Q8HPRN PRN for ANXIETY, TAB 09/16/24 Primidone (Primidone) 125 Mg Tab, 50 MG PO BID, TAB 09/16/24 Levothyroxine Sodium (Levothyroxine Sodium) 125 Mcg Tab, 1 TAB PO DAILY 09/16/24 Hydromorphone Hcl (Hydromorphone Hcl) 2 Mg Tab, 1 TAB PO Q8HR 09/16/24 Divalproex Sodium (Divalproex Sodium Dr) 500 Mg Tab, 250 MG PO BID for 90 Days, #180 09/16/24 Venlafaxine Hcl (Venlafaxine Hcl Er) 75 Mg Cap, 1 CAP PO DAILY 09/16/24 Venlafaxine Hcl (Venlafaxine Hcl Er) 150 Mg Cap, 1 CAP PO DAILY 09/16/24 Omeprazole (Omeprazole Dr) 20 Mg Cap, 1 CAP PO DAILY 09/16/24 Lubiprostone (Lubiprostone) 24 Mcg Cap, 2 CAP PO DAILY 09/16/24 Midodrine HCl (Midodrine Hydrochloride) Unknown Strength Tab, PO BID MIDODRINE 5 MG BID: 10 MG IN PM / 15 MG IN AM 09/16/24 Fludrocortisone Acetate (Fludrocortisone Acetate) 0.1 Mg Tab, 1 TAB PO BID for 90 Days, #180 08/16/24 Vibegron (Gemtesa) 75 Mg Tab, 75 MG PO HS, TAB 08/16/24 Testosterone Cypionate (Depo-Testosterone) 100 Mg/Ml Inj, 0.5 ML IM ONCE EVERY OTHER WEEK for 180 Days, #10 10/15/13 Information Source: Patient, Emergency Med Personnel Mode of Arrival: EMS Severity: Moderate Timing: Hours Duration: Since onset Prehospital treatment: None Quality: Decreased Alertness, Change in Behavior, Not Eating Recent: None History of: Dementia Past Medical History PAST MEDICAL HISTORY: Anemia, Cancer, COPD, Dementia, DM, Liver, Seizures, Thyroid, UTI'S Surgical History: Cholecystectomy Surgical History (Other): Back surgery, implanted stimulators Family History Family History: Reviewed,noncontributory to illness, No family hx of Cancer Social History Smoker: Pipe Alcohol: Denies ETOH Use Drugs: Denies Drug Use Lives In: Home Constitutional: denies: chills, diaphoresis, fatigue, fever, malaise, sweats, weakness, others EENTM: denies: blurred vision, double vision, ear bleeding, ear discharge, ear drainage, ear pain, ear ringing, eye pain, eye redness, hearing loss, mouth pain, mouth swelling, nasal discharge, nose bleeding, nose congestion, nose pain, photophobia, tearing, throat pain, throat swelling, voice changes, others Respiratory: reports: cough; denies: hemoptysis, orthopnea, SOB at rest, shortness of breath, SOB with excertion, stridor, wheezing, others Cardiovascular: reports: chest pain; denies: dizzy spells, diaphoresis, Dyspnea on exertion, edema, irregular heart beat, left arm pain, lightheadedness, palpitations, PND, syncope, others Gastrointestinal: denies: abdomen distended, abdominal pain, blood streaked bowels, constipated, diarrhea, dysphagia, difficulty swallowing, hematemesis, melena, nausea, poor appetite, poor fluid intake, rectal bleeding, rectal pain, vomiting, others Genitourinary: denies: burning, dysuria, flank pain, frequency, hematuria, incontinence, penile discharge, penile sore, pain, testicle pain, testicle swelling, urgency, others Neurological: reports: headache; denies: dizziness, fainting, left sided numbness, left sided weakness, numbness, paresthesia, pre-existing deficit, right sided numbness, right sided weakness, seizure, speech problems, tingling, tremors, weakness, others Musculoskeletal: reports: others (Rt knee pain); denies: back pain, gout, joint pain, joint swelling, muscle pain, muscle stiffness, neck pain Integumetry: denies: bruises, change in color, change in hair/nails, dryness, laceration, lesions, lumps, rash, wounds, others Allergic/Immunocompromised: denies: Difficulty Healing, Frequent Infections, Hives, Itching, others Hematologic/Lymphatic: denies: anemia, blood clots, easy bleeding, easy bruising, swollen glands, others Endocrine: denies: excessive hunger, excessive sweating, excessive thirst, excessive urination, flushing, intolerance to cold, intolerance to heat, unexplained weight gain, unexplained weight loss, others Psychiatric: denies: anxiety, bipolar disorder, depression, hopeless, panic d isorder, schizophrenia, sleepless, suicidal, others All Other Systems: Reviewed and Negative Physical Exam General Appearance: Moderate Distress HEENT: Normal ENT Inspection, Pharynx Normal, TMs Normal Neck: Full Range of Motion, Non-Tender, Normal, Normal Inspection Respiratory: Chest Non-Tender, Lungs Clear, No Accessory Muscle Use, No Respiratory Distress, Normal Breath Sounds Cardiovascular: No Edema, No JVD, No Murmur, No Gallop, Normal Peripheral Pulses, Regular Rate/Rhythm Breast Exam: Deferred Gastrointestinal: No Organomegaly, No Pulsatile Mass, Normal Bowel Sounds, Soft, Suprapubic, Tenderness Genitalia: Deferred Pelvic: Deferred Rectal: Deferred Extremities: No calf tenderness, Normal capillary refill, No pedal edema Musculoskeletal : Apperance: Normal 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 Was a procedure done?: No Differential Diagnosis (ALOC) Differential Diagnosis: Dehydration, Encephalopathy, Seizure, CVA X-Ray, Labs, Meds, VS Vital Signs Date Time Temp Pulse Resp B/P (MAP) Pulse Ox O2 Delivery O2 Flow Rate FiO2 04/08/25 17:04 98 22 95 Nasal Cannula* 2 28 04/08/25 17:04 98.6 98 22 116/64 (81) 95 98.6 04/08/25 15:01 99 04/08/25 14:52 98.3 100 16 101/53 (69) 91 98.3 Lab Test 04/08/25 17:00 04/08/25 15:21 Range/Units Urine Color Yellow Yellow Urine Clarity Clear Clear Urine pH 5.5 5.0-9.0 Urine Specific [place] 1.020 1.001-1.035 Urine Protein Trace H Negative Urine Ketones Negative Negative Urine Blood Trace H Negative /uL Urine Nitrite Negative Negative Urine Bilirubin Negative Negative Urine Urobilinogen Normal Negative mg/dL Urine Leukocyte Esterase 2+ Negative /uL Urine RBC 2 0 - 3 /hpf Urine Microscopic WBC 51 H 0-3 /HPF Urine Squamous Epithelial Cells Few <5 /hpf Urine Bacteria None seen None Seen /hpf Urine Glucose Normal Normal mg/dL White Blood Count 9.4 4.4-10.8 10^3/uL Red Blood Count 3.37 L 4.5-5.90 10^6/uL Hemoglobin 10.9 L 13.5-17.5 g/dL Hematocrit 32.3 L 41.0-53.0 % Mean Corpuscular Volume 95.8 80.0-100.0 fL Mean Corpuscular Hemoglobin 32.3 H 28.0-32.0 pg Mean Corpuscular Hemoglobin Concent 33.7 32.0-36.0 g/dL Red Cell Distribution Width 13.7 11.8-14.3 % Platelet Count 284 140-450 10^3/uL Mean Platelet Volume 8.2 6.9-10.8 fL Neutrophils (%) (Auto) 66.7 37.0-80.0 % Lymphocytes (%) (Auto) 20.8 10.0-50.0 % Monocytes (%) (Auto) 9.1 0.0-12.0 % Eosinophils (%) (Auto) 2.6 0.0-7.0 % Basophils (%) (Auto) 0.8 0.0-2.0 % Neutrophils # (Auto) 6.2 1.6-8.6 10 ^3/uL Lymphocytes # (Auto) 1.9 0.4-5.4 10 ^3/uL Monocytes # (Auto) 0.9 0-1.3 10 ^3/uL Eosinophils # (Auto) 0.2 0-0.8 10 ^3/uL Basophils # (Auto) 0.1 0-0.2 10 ^3/uL Nucleated Red Blood Cells 0.0 % Sodium Level 139 136-145 mmol/L Potassium Level 3.7 3.5-5.1 mmol/L Chloride Level 102 98-107 mmol/L Carbon Dioxide Level 29 20-31 mmol/L Anion Gap 8 5-15 Blood Urea Nitrogen 29 H 9-23 mg/dL Creatinine 1.24 0.700-1.30 mg/dL Glomerular Filtration Rate Calc 62 >90 mL/min BUN/Creatinine Ratio 23.4 H 10.0-20.0 Serum Glucose 115 H 74-106 mg/dL Lactic Acid Level 1.5 0.4-2.0 mmol/L Calcium Level 10.6 H 8.7-10.4 mg/dL Thyroid Stimulating Hormone (TSH) 1.67 0.55-4.78 uIU/mL Plasma/Serum Blood Alcohol < 3.0 <10 mg/dL Current Medications Medications (Trade) Dose Ordered Sig/Praneeth Route Start Time Stop Time Status Last Admin Sodium Chloride 1,000 ml @ 60 mls/hr [id number] IV 04/08/25 16:45 04/08/25 16:45 The chest x-ray showed a possible mass to the left upper lung area. The recommendation was to get a CAT scan of the chest so we did a CAT scan of the chest which shows: IMPRESSION: There are 2 large left upper lobe masses measuring 10.1 cm and 11.6 cm as described above most consistent with neoplasm /malignancy. Recommend oncology and pulmonology consultation for further management. 11.6 cm left upper lobe mass likely extends into the left supraclavicular region. Mediastinal lymphadenopathy consistent with silvia spread of disease. New right adrenal mass measuring 4.3 cm consistent with metastatic disease. Bilateral pulmonary tree-in-bud nodularity which can be secondary to miliary spread carcinoma, atypical infection, bronchiolitis. Right lower lobe pulmonary nodules up to 9 mm likely representing metastatic disease. Small bilateral pleural effusions. Right pleural calcifications which may represent sequela previous trauma/ infection, asbestos exposure. The urine test is positive for UTI The lactic acid level is within normal limits The patient's CBC is within normal limits except for anemia with a hemoglobin of 10.9 At this time, the patient is being admitted to the hospitalist Images Reviewed?: Images reviewed and evaluated by me Time of 1ST Reevaluation: 18:09 Reevaluation 1ST: Unchanged Patient Education/Counseling: Other (The patient is confused) Family Education/Counseling: Diagnosis, Treatment, Prognosis Additional Information Reviewed patient's previous visit(s): 03/13/25 for bilateral hip pain The following tests were ordered, and results were reviewed by me: CBC, BMP, Lactic, Troponin, UA, Blood ETOH, Blood Culture, EKG, Head CT, Chest XR Additional information was gathered from interviewing the following independent historian: EMS I reviewed and agreed with the following test results read by other provider: Head CT, Chest XR I discussed treatments and results with medical personnel and: Patient Comprehensive systems review obtained and negative except for what is stated in the HPI. SEPSIS Sepsis Screen Physician Orders Chest Portable (04/08/25 14:55) Head Without Contrast (04/08/25 14:55) Knuckler (04/08/25 14:55) Pulse Oximetry (04/08/25 14:55) Blood Pressure (04/08/25 14:55) Heplock Iv (04/08/25 14:55) Blood Culture (04/08/25 14:55) Electrocardigram (04/08/25 14:55) Knuckler (04/08/25 16:26) Pal Catheters (04/08/25 ) Chest Without Contrast (04/08/25 16:26) Famotidine Injection (Pepcid Injection) (04/09/25 10:00) Divalproex Dr Tablet (Depakote "Dr" Tabl (04/08/25 22:00) Midodrine Tablet (Proamatine Tablet) (04/08/25 18:00) Levothyroxine Tablet (Synthroid Tablet) (04/09/25 06:00) Alprazolam Tablet (Xanax Tablet) (04/08/25 16:45) Albuterol Medneb (Ventolin Medneb) (04/08/25 16:45) Allergies (04/08/25 16:44) Code Status (04/08/25 16:44) Sodium Chloride 0.9% (04/08/25 16:45) Oxygen Per Hour (04/08/25 16:44) Hydrocodone-Acet 5/325mg Tab ([place] 5/32 (04/08/25 16:45) Ondansetron Hcl (Zofran) (04/08/25 16:45) Docusate Sodium Capsule (Colace Capsule) (04/08/25 16:45) Fall Risk Precautions In Place QSHIFT (04/08/25 16:44) Complete Blood Count (04/09/25 04:00) Comprehensive Metabolic Panel (04/09/25 04:00) Cardiac Diet-2gna,Lofat,Lochol (04/08/25 Dinner) Condition: Serious (04/08/25 16:44) Acetaminophen Tablet (Tylenol Tablet) (04/08/25 16:45) Maintain Bed Rest (04/08/25 16:44) Sequential Compression Device (04/08/25 ) Ceftriaxone 1gm/50ml D5w (Rocephin) (04/08/25 18:15) Vital Signs Date Time Temp Pulse Resp B/P (MAP) Pulse Ox O2 Delivery O2 Flow Rate FiO2 04/08/25 17:04 98 22 95 Nasal Cannula* 2 28 04/08/25 17:04 98.6 98 22 116/64 (81) 95 98.6 04/08/25 15:01 99 04/08/25 14:52 98.3 100 16 101/53 (69) 91 98.3 Laboratory Tests Test 04/08/25 15:21 Lactic Acid Level 1.5 mmol/L (0.4-2.0) White Blood Count 9.4 10^3/uL (4.4-10.8) Medications Medications Dose Ordered Sig/Praneeth Route Start Time Stop Time Status Last Admin Dose Admin Sodium Chloride 1,000 ml @ 60 mls/hr [id number] IV 04/08/25 16:45 04/08/25 16:45 Departure 1 Departure Time of Disposition: 18:09 Impression: Primary Impression: AMS (altered mental status) Qualified Codes: R41.82 - Altered mental status, unspecified Additional Impression: UTI (urinary tract infection) Qualified Codes: N30.00 - Acute cystitis without hematuria Disposition: ADMITTED INPATIENT Admit to: Tele Condition: Fair Critical Care Note Critical Care Time?: Yes (45 min-critical care time only) Stability Stability form required: Yes Unstable for transfer: Telemetry monitoring (Telemetry monitoring required), ED Physician Assesment (Clinical assesment) Heart Score Heart Score: Heart Score Response (Comments) Value History N/A 0 EKG N/A 0 Age N/A 0 Risk Factors N/A 0 Troponin N/A 0 Total 0 I personally scribed for PARK BARRIOS MD ([email or web address]) on 04/08/25 at 15:04. Electronically submitted by Rashel Duvall ([email or web address]). I personally scribed for PARK BARRIOS MD ([email or web address]) on 04/08/25 at 18:23. Electronically submitted by Rashel Duvall ([email or web address]). PARK BARRIOS MD Apr 08, 2025 15:04
[2025-04-08 15:39] LABS: Hematocrit 32.3 % (41.0-53.0); Hemoglobin 10.9 g/dL (13.5-17.5); Mean Corpuscular Hemoglobin 32.3 pg (28.0-32.0); Mean Corpuscular Volume 95.8 fL (80.0-100.0); Nucleated Red Blood Cells % 0.0 %
[2025-04-08 15:47] LABS: Chloride 102 mmol/L (98-107); Potassium 3.7 mmol/L (3.5-5.1); Sodium 139 mmol/L (136-145)
[2025-04-08 15:48] LABS: Anion Gap 8 (5-15); Carbon Dioxide 29 mmol/L (20-31)
[2025-04-08 15:50] LABS: Calcium 10.6 mg/dL (8.7-10.4)
[2025-04-08 15:53] LABS: BUN/Creatinine Ratio 23.4 (10.0-20.0)
[2025-04-08 15:54] LABS: Blood Urea Nitrogen 29 mg/dL (9-23); Glucose 115 mg/dL (74-106)
--- NOTE | 2025-04-08 16:16 | DVH ---
EXAM: CT HEAD WITHOUT CONTRAST INDICATION: ALOC TECHNIQUE: CT of the head without intravenous contrast. Radiation Dose Information: CT Dose: CTDI volume is 56.84 mGy. Dose-length product is 1006.4 mGy*cm The dose indicators for CT are the volume Computed Tomography (CT) Dose Index (CTDIvol) and the Dose Length Product (DLP), and are measured in units of mGy and mGy-cm, respectively. These indicators are not patient dose, but values generated from the CT scanner acquisition factors. The report includes radiation exposure data for exposures received during this examination. COMPARISON: CT HEAD WITHOUT CONTRAST on DOS: 10/14/24, CT HEAD WITHOUT CONTRAST on DOS: 09/16/24, CT H EAD WITHOUT CONTRAST on DOS: 08/15/24. FINDINGS: There is no evidence of acute intracranial hemorrhage, extra-axial collection, mass effect, midline s hift, herniation or hydrocephalus. The ventricles, sulci and cisterns are age appropriate. The peña-white differentiation is intact. Patchy periventricular and subcortical white matter hypoattenuation is nonspecific but may be related to small vessel ischemic disease. The visualized paranasal sinuses and mastoid air cells are clear. The surrounding soft tissues and osseous structures are unremarkable. IMPRESSION: 1. No acute intracranial abnormality.
--- NOTE | 2025-04-08 16:17 | DVH ---
CHEST RADIOGRAPH Indication: cough Technique: Single frontal view of the chest was obtained Comparison: 10/14/2024 FINDINGS: The cardiac silhouette is unremarkable. The lungs demonstrate large left upper lobe mass measuring 9. 4 x 5.0 cm. Extensive consolidation of the left upper lobe. The pulmonary vasculature is prominent. S mall right pleural effusion. There is no pneumothorax. IMPRESSION: Large left upper lobe mass measuring 9.4 x 5 cm concerning for neoplasm. Recommend CT chest with con trast. Extensive left upper lobe airspace consolidation. Small right pleural effusion. Pulmonary vascular congestion.
[2025-04-08] MEDS: SODIUM CHLORIDE 0.9% 1,000 ML IV SCH (16:45)
[2025-04-08] MEDS ORDERED: DOCUSATE SOD 100 MG CAP PO PRN (16:45)
[2025-04-08 17:04] VITALS: PULSE 98; RESP 22; O2SAT 95
[2025-04-08] MEDS ORDERED: DEXTROSE (50%) 50ML SYRG IV PRN (17:15)
[2025-04-08 17:22] LABS: Urine Protein, UAD TRACE (Negative)
--- NOTE | 2025-04-08 17:54 | DVH ---
Indication: left chest mass Technique: CT axial images of the chest are obtained without contrast. Coronal and sagittal reformats were obtained. Radiation Dose Information: CTDI volume is 13.45 mGy. Dose-length product is 535.79 mGy*cm Comparison: CT CHEST WITHOUT CONTRAST on DOS: 10/14/24, chest radiograph from today FINDINGS: Trachea patent. No pneumothorax. Left upper lobe pulmonary mass extending to the left suprahilar region measuring 10.1 x 6.9 by 7.8 cm . There is a another left upper lobe mass measuring 10.8 x 6.1 by 11.6 cm likely with extrapleural, s upraclavicular extension. The trachea is patent. There is no pneumothorax. Right lower lobe pulmonary nodules measuring 9 mm, 6 mm, 6 mm. Right lower lobe tree-in-bud nodularity. Left lower lobe tree-in-bud nodularity. Heart normal in size. Mediastinum lymphadenopathy which includes left paratracheal mass measuring 2.7 cm, pretracheal lymph nodes up to 11 mm, subcarinal lymph node measuring 11 mm. No supraclavicular, axillary lymphadenopathy. Small bilateral pleural effusions. m right renal hemorrhagic / proteinaceous cyst measuring 2.3 cm. Left renal hemorrhagic / proteinace ous cyst measuring measuring 13 mm. Nonobstructing left renal calculus measuring 3 mm. There is a new right adrenal mass measuring 4.3 cm. Liver capsule nodular morphology. Right pleural calcifications. Thoracic neurostimulator leads. Gynecomastia. IMPRESSION: There are 2 large left upper lobe masses measuring 10.1 cm and 11.6 cm as described above most consis tent with neoplasm /malignancy. Recommend oncology and pulmonology consultation for further manageme nt. 11.6 cm left upper lobe mass likely extends into the left supraclavicular region. Mediastinal lymphadenopathy consistent with silvia spread of disease. New right adrenal mass measuring 4.3 cm consistent with metastatic disease. Bilateral pulmonary tree-in-bud nodularity which can be secondary to miliary spread carcinoma, atypic al infection, bronchiolitis. Right lower lobe pulmonary nodules up to 9 mm likely representing metastatic disease. Small bilateral pleural effusions. Right pleural calcifications which may represent sequela previous trauma/ infection, asbestos exposur e. Other findings as described.
--- NOTE | 2025-04-08 18:12 | DVHHP2 ---
History of Present Illness Reason for Visit: Generalized weakness History of Present Illness The patient is a 70-year-old male with multiple past medical history including COPD, dementia, seizures, and UTIs who presented to [facility] ED for evaluation of altered level of consciousness. As reported by , patient has not been eating or drinking well over the past few days, noticed patient to be more altered than baseline, associated frequent falls at home, getting worse that prompted this visit. Patient was seen and evaluated in the ED with complaint of chest pain, headache, and right knee pain. Laboratory data shows WBC 9.4, hemoglobin 10.9, hematocrit 32.3, platelets 284, sodium 139, potassium 3.7, BUN 29, creatinine 1.24, glucose 115, calcium 10.6, lactic acid 1.5, blood pressure 101/55, heart rate 99, temperature 98.3 F, O2 saturation 92% on oxygen. Chest CT revealing to large left upper lobe masses measuring 10.1 cm and 11.6 cm consistent with neoplasm/malignancy, please see imaging reports. Urinalysis positive for urinary tract infection. Patient was started on IV antibiotic regimen Rocephin, please see medication orders section in the computer. On my assessment, at bedside, patient denied chest pain, no headache, no dizziness, no diaphoresis, currently on oxygen, no nausea, no vomiting, no fever, no chills. Patient was admitted for further evaluation and medical management. Past Medical History Anemia, Cancer, COPD, Dementia, Liver, Seizures, Thyroid, UTI'S Past Surgical History Cholecystectomy, Back surgery, implanted stimulators Family History Reviewed, noncontributory to the management of this case. Past Social History The patient lives at home, denies smoking, alcohol or illicit drugs abuse. Review of Systems Constitutional: Yes: Weakness; No: Fever, Chills, Sweats, Malaise, Other Eyes: No: Pain, Vision change, Conjunctivae inflammation, Eyelid inflammation, Other, Redness ENT: No: Ear pain, Ear discharge, Nose pain, Nose discharge, Nose congestion, Mouth pain, Mouth swelling, Throat pain, Throat swelling, Other Respiratory: Cough; No: Dry, Shortness of breath, SOB with excertion, Wheezing, Hemoptysis, Pleuritic Pain, Sputum, Wheezing, Other Cardiovascular: Chest Pain; No: Palpitations, Orthopnea, Paroxysmal Noc. Dyspnea, Edema, Lt Headedness, Other Gastrointestinal: No: Nausea, Vomiting, Abdominal Pain, Diarrhea, Constipation, Melena, Hematochezia, Other Genitourinary: No Dysuria, No Frequency, No Incontinence, No Hematuria, No Retention, No Other Musculoskeletal: other (Rt knee pain); No: neck pain, shoulder pain, arm pain, back pain, hand pain, leg pain, foot pain Skin: No: Rash, Lesions, Jaundice, Bruising, Other Neurological: Other (Altered level of consciousness, headache.); No: Weakness, Numbness, Incoordination, Change in speech, Confusion, Seizures Allergies: Coded Allergies: Caffeine (Verified Allergy, Mild, 10/17/13) PER CAFFEINE IS CONTRAINDICATED TO PT DUE TO PARKINSONS DISEASE Azithromycin (Verified Allergy, Unknown, 09/16/24) Codeine (Verified Allergy, Unknown, 08/15/24) Doripenem (Verified Allergy, Unknown, 08/15/24) Metoclopramide (Verified Allergy, Unknown, 08/15/24) Metolazone (Verified Allergy, Unknown, 08/15/24) HISTORY OF PRESENT ILLNESS: The patient was recently started on to a new diuretic medication of metolazone. When he took his second dose last evening, he became dizzy, agitated, developed itching of the skin, and sensation of his throat closing up. Medications Current Medications Medications Dose Ordered Sig/Praneeth Route Start Time Stop Time Status Last Admin Dose Admin Famotidine 20 mg DAILY IV 04/09/25 10:00 UNV Divalproex Sodium 500 mg BID PO 04/08/25 22:00 UNV Midodrine 10 mg TID@0600,1200,1800 PO 04/08/25 18:00 UNV Levothyroxine Sodium 125 mcg QAM@0600 PO 04/09/25 06:00 UNV Alprazolam 0.5 mg Q8HPRN PRN PO 04/08/25 16:45 UNV Albuterol 2.5 mg Q4HPRN PRN NEB 04/08/25 16:45 Sodium Chloride 1,000 ml @ 60 mls/hr [id number] IV 04/08/25 16:45 04/08/25 16:45 60 MLS/HR Acetaminophen/ Hydrocodone Bitart 1 tab Q4HP PRN PO 04/08/25 16:45 UNV Ondansetron HCl 4 mg Q4HP PRN IV 04/08/25 16:45 Docusate Sodium 100 mg BIDPRN PRN PO 04/08/25 16:45 Acetaminophen 650 mg Q6HP PRN PO 04/08/25 16:45 UNV Exam Vital Signs Vital Signs Date Time Temp Pulse Resp B/P (MAP) Pulse Ox O2 Delivery O2 Flow Rate FiO2 04/08/25 17:04 98 22 95 Nasal Cannula* 2 28 04/08/25 17:04 98.6 116/64 (81) 98.6 General Appearance: Alert, Oriented X3, Cooperative, No acute distress HEENT: Atraumatic, PERRLA, EOMI, Mucous membr. moist/pink Respiratory: Normal air movement Cardiovascular: Regular rate, Normal S1, Normal S2, No murmurs Abdominal: Normal bowel sounds, Soft, No tenderness, No hepatospenomegaly, No masses Extremities: No clubbing, No cyanosis, No edema, Normal pulses, Other (Right knee pain) Skin: No rashes, No significant lesion Neuro: Normal speech, Normal tone, Sensation intact, Cranial nerves 3-12 NL, Reflexes 2+, Other (Generalized weakness) Psych/Mental Status: Mood NL, Other (Altered mental status) Labs/Xrays Labs Test 04/08/25 17:00 04/08/25 15:21 Range/Units Urine Color Yellow Yellow Urine Clarity Clear Clear Urine pH 5.5 5.0-9.0 Urine Specific [place] 1.020 1.001-1.035 Urine Protein Trace H Negative Urine Ketones Negative Negative Urine Blood Trace H Negative /uL Urine Nitrite Negative Negative Urine Bilirubin Negative Negative Urine Urobilinogen Normal Negative mg/dL Urine Leukocyte Esterase 2+ Negative /uL Urine RBC 2 0 - 3 /hpf Urine Microscopic WBC 51 H 0-3 /HPF Urine Squamous Epithelial Cells Few <5 /hpf Urine Bacteria None seen None Seen /hpf Urine Glucose Normal Normal mg/dL White Blood Count 9.4 4.4-10.8 10^3/uL Red Blood Count 3.37 L 4.5-5.90 10^6/uL Hemoglobin 10.9 L 13.5-17.5 g/dL Hematocrit 32.3 L 41.0-53.0 % Mean Corpuscular Volume 95.8 80.0-100.0 fL Mean Corpuscular Hemoglobin 32.3 H 28.0-32.0 pg Mean Corpuscular Hemoglobin Concent 33.7 32.0-36.0 g/dL Red Cell Distribution Width 13.7 11.8-14.3 % Platelet Count 284 140-450 10^3/uL Mean Platelet Volume 8.2 6.9-10.8 fL Neutrophils (%) (Auto) 66.7 37.0-80.0 % Lymphocytes (%) (Auto) 20.8 10.0-50.0 % Monocytes (%) (Auto) 9.1 0.0-12.0 % Eosinophils (%) (Auto) 2.6 0.0-7.0 % Basophils (%) (Auto) 0.8 0.0-2.0 % Neutrophils # (Auto) 6.2 1.6-8.6 10 ^3/uL Lymphocytes # (Auto) 1.9 0.4-5.4 10 ^3/uL Monocytes # (Auto) 0.9 0-1.3 10 ^3/uL Eosinophils # (Auto) 0.2 0-0.8 10 ^3/uL Basophils # (Auto) 0.1 0-0.2 10 ^3/uL Nucleated Red Blood Cells 0.0 % Sodium Level 139 136-145 mmol/L Potassium Level 3.7 3.5-5.1 mmol/L Chloride Level 102 98-107 mmol/L Carbon Dioxide Level 29 20-31 mmol/L Anion Gap 8 5-15 Blood Urea Nitrogen 29 H 9-23 mg/dL Creatinine 1.24 0.700-1.30 mg/dL Glomerular Filtration Rate Calc 62 >90 mL/min BUN/Creatinine Ratio 23.4 H 10.0-20.0 Serum Glucose 115 H 74-106 mg/dL Lactic Acid Level 1.5 0.4-2.0 mmol/L Calcium Level 10.6 H 8.7-10.4 mg/dL Plasma/Serum Blood Alcohol < 3.0 <10 mg/dL PATIENT: NICHOLE NIELSON ACCT: [id number] UNIT: [id number] : 1955 LOC: ER ROOM / BED: / AGE / SEX: 70 / M ADM STATUS: REG ER SERVICE [id number] ORDERING PHYSICIAN: PARK BARRIOS MD PROCEDURE(s): CXRP - CHEST PORTABLE REASON: cough ORDER NUMBER(s): [id number], ACCESSION NUMBER(s): [id number] CHEST RADIOGRAPH Indication: cough Technique: Single frontal view of the chest was obtained Comparison: 10/14/2024 FINDINGS: The cardiac silhouette is unremarkable. The lungs demonstrate large left upper lobe mass measuring 9.4 x 5.0 cm. Extensive consolidation of the left upper lobe. The pulmonary vasculature is prominent. Small right pleural effusion. There is no pneumothorax. IMPRESSION: Large left upper lobe mass measuring 9.4 x 5 cm concerning for neoplasm. Recommend CT chest with contrast. Extensive left upper lobe airspace consolidation. Small right pleural effusion. Pulmonary vascular congestion. ORDERING PHYSICIAN: PARK BARRIOS MD PROCEDURE(s): HWOCT - HEAD WITHOUT CONTRAST REASON: aloc ORDER NUMBER(s): [id number], ACCESSION NUMBER(s): [id number] EXAM: CT HEAD WITHOUT CONTRAST INDICATION: ALOC TECHNIQUE: CT of the head without intravenous contrast. Radiation Dose Information: CT Dose: CTDI volume is 56.84 mGy. Dose-length product is 1006.4 mGy*cm The dose indicators for CT are the volume Computed Tomography (CT) Dose Index (CTDIvol) and the Dose Length Product (DLP), and are measured in units of mGy and mGy-cm, respectively. These indicators are not patient dose, but values generated from the CT scanner acquisition factors. The report includes radiation exposure data for exposures received during this examination. COMPARISON: CT HEAD WITHOUT CONTRAST on DOS: 10/14/24, CT HEAD WITHOUT CONTRAST on DOS: 09/16/24, CT HEAD WITHOUT CONTRAST on DOS: 08/15/24. FINDINGS: There is no evidence of acute intracranial hemorrhage, extra-axial collection, mass effect, midline shift, herniation or hydrocephalus. The ventricles, sulci and cisterns are age appropriate. The peña-white differentiation is intact. Patchy periventricular and subcortical white matter hypoattenuation is nonspecific but may be related to small vessel ischemic disease. The visualized paranasal sinuses and mastoid air cells are clear. The surrounding soft tissues and osseous structures are unremarkable. IMPRESSION: 1. No acute intracranial abnormality. ORDERING PHYSICIAN: PARK BARRIOS MD PROCEDURE(s): CX2CT - CHEST WITHOUT CONTRAST REASON: left chest mass ORDER NUMBER(s): [id number], ACCESSION NUMBER(s): [id number] Indication: left chest mass Technique: CT axial images of the chest are obtained without contrast. Coronal and sagittal reformats were obtained. Radiation Dose Information: CTDI volume is 13.45 mGy. Dose-length product is 535.79 mGy*cm Comparison: CT CHEST WITHOUT CONTRAST on DOS: 10/14/24, chest radiograph from today FINDINGS: Trachea patent. No pneumothorax. Left upper lobe pulmonary mass extending to the left suprahilar region measuring 10.1 x 6.9 by 7.8 cm. There is a another left upper lobe mass measuring 10.8 x 6.1 by 11.6 cm likely with extrapleural, supraclavicular extension. The trachea is patent. There is no pneumothorax. Right lower lobe pulmonary nodules measuring 9 mm, 6 mm, 6 mm. Right lower lobe tree-in-bud nodularity. Left lower lobe tree-in-bud nodularity. Heart normal in size. Mediastinum lymphadenopathy which includes left paratracheal mass measuring 2.7 cm, pretracheal lymph nodes up to 11 mm, subcarinal lymph node measuring 11 mm. No supraclavicular, axillary lymphadenopathy. Small bilateral pleural effusions. m right renal hemorrhagic / proteinaceous cyst measuring 2.3 cm. Left renal hemorrhagic/proteinaceous cyst measuring measuring 13 mm. Nonobstructing left renal calculus measuring 3 mm. There is a new right adrenal mass measuring 4.3 cm. Liver capsule nodular morphology. Right pleural calcifications. Thoracic neurostimulator leads. Gynecomastia. IMPRESSION: There are 2 large left upper lobe masses measuring 10.1 cm and 11.6 cm as jeannie cribed above most consistent with neoplasm /malignancy. Recommend oncology and pulmonology consultation for further management. 11.6 cm left upper lobe mass likely extends into the left supraclavicular region. Mediastinal lymphadenopathy consistent with silvia spread of disease. New right adrenal mass measuring 4.3 cm consistent with metastatic disease. Bilateral pulmonary tree-in-bud nodularity which can be secondary to miliary spread carcinoma, atypical infection, bronchiolitis. Right lower lobe pulmonary nodules up to 9 mm likely representing metastatic disease. Small bilateral pleural effusions. Right pleural calcifications which may represent sequela previous trauma/infection, asbestos exposure. Other findings as described. Assessment/Plan Assessment/Plan AMS (altered mental status) Chronic hip pain Altered mental status, unspecified UTI (urinary tract infection) Generalized weakness Acute cystitis without hematuria Plan 1. Admit to telemetry unit 2. Breathing treatment 3. Pain control management 4. IV antibiotic management 5. Management of fluids and electrolytes 6. Consultation for hospitalist 7. Diagnostic test chest CT 8. DVT prophylaxis-on aspirin 9. Repeat labs CBC, CMP in a.m. 10. Home medication reviewed and reconciled 11. Continue with current medical management 12. Treatment plan discussed with patient and RN. Patient/ verbalized understanding. Plan discussed with: Patient, Other (RN) My Orders Orders - NERIS KULKARNI DNP Procedure Category Date Status Time Famotidine Injection PHA 04/09/25 Logged (Pepcid Injection) 10:[address] Tablet PHA 04/08/25 Logged (Depakote "Dr" Tabl 22:00 Midodrine Tablet PHA 04/08/25 Logged (Proamatine Tablet) 18:00 Levothyroxine Tablet PHA 04/09/25 Logged (Synthroid Tablet) 06:00 Thyroid Stimulating LAB 04/08/25 In Process Hormone 16:44 Alprazolam Tablet PHA 04/08/25 Logged (Xanax Tablet) 16:45 Albuterol Medneb PHA 04/08/25 In Process (Ventolin Medneb) 16:45 Allergies KEON 04/08/25 In Process 16:44 Code Status CODE 04/08/25 Transmitted 16:44 Sodium Chloride 0.9% PHA 04/08/25 In Process 16:45 Oxygen Per Hour RT 04/08/25 Transmitted 16:44 Hydrocodone-Acet PHA 04/08/25 Logged 5/325mg Tab ([place] 16:45 Ondansetron Hcl PHA 04/08/25 In Process (Zofran) 16:45 Docusate Sodium PHA 04/08/25 In Process Capsule (Colace 16:45 Fall Risk Precautions KEON 04/08/[address] 16:44 Complete Blood Count LAB 04/09/25 Verified 04:00 Comprehensive LAB 04/09/25 Verified Metabolic Panel 04:00 Cardiac DIET 04/08/25 Transmitted Diet-2gna,Lofat,Lochol Dinner Condition: Serious KEON 04/08/25 In Process 16:44 Acetaminophen Tablet PHA 04/08/25 Logged (Tylenol Tablet) 16:45 Maintain Bed Rest [facility] 04/08/25 In Process 16:44 Sequential [facility] 04/08/25 In Process Compression Device Admit ADMIT 04/08/25 Verified 18:10 Nitroglycerin [facility] 04/08/25 Verified Sublingual (Ntrostat 18:15 Morphine Sulfate [facility] 04/08/25 Verified Injection 18:15 Stat Ekg For Chest [facility] 04/08/25 Verified Pain 18:10 Notify Md Of Changes [facility] 04/08/25 Verified From Base 18:10 Employee Benefits Coordinator For [facility] 04/08/25 Verified 24 Hours 18:10 Emergency Dysrhythmia [facility] 04/08/25 Verified Protocol 18:10 Rhythm Strips Once [facility] 04/08/25 Verified Every Shift 18:10 Oxygen By Nasal 04/08/25 Verified Cannula 18:10 Hydromorphone [facility] 04/08/25 Verified Injection (Dilaudid 18:15 Problem List: (1) AMS (altered mental status) (2) UTI (urinary tract infection) (3) Chronic hip pain (4) Altered mental status, unspecified (5) Generalized weakness (6) Acute cystitis without hematuria Date of Service: Apr 08, 2025 Billing Provider: NERIS KULKARNI DNP Common Visit Codes: [id number] INP/OBS CARE (HIGH) NERIS KULKARNI DNP Apr 08, 2025 18:12
[2025-04-08] MEDS ORDERED: MORPHINE SULFATE INJ 2 MG/ml SYRG IV PRN (18:15)
[2025-04-08] MEDS ORDERED: NITROGLYCERIN 0.4 MG SL TAB SL PRN (18:15)
[2025-04-08] MEDS: cefTRIAXone 1GM/50ML D5W 50 ML IV ONE (18:23)
[2025-04-08] MEDS: MIDODRINE HCL 10 MG TAB PO SCH (18:52)
[2025-04-08] MEDS ORDERED: FLUD0.1T2 PO (18:55)
[2025-04-08] MEDS ORDERED: PRIM50TA5 GT (18:55)
--- NOTE | 2025-04-08 19:10 | ECG ---
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
[2025-04-08 19:40] VITALS: PULSE 93; RESP 18; O2SAT 97
[2025-04-08] MEDS ORDERED: ACCU-CHEK COMFORT CURVE STRIP VI SCH (22:00)
[2025-04-08] MEDS ORDERED: InsuLIN REG 1unit/0.01ml Soln (100units/ml) SC SCH (22:00)
[2025-04-08 22:50] VITALS: BP 117/57; PULSE 106; RESP 24; TEMP 98.2; O2SAT 94
[2025-04-08] MEDS: ALBUTEROL SULF 2.5 MG/0.5ML(0.5%) NEB SOLN NEB PRN (23:02)
[2025-04-08 23:03] VITALS: PULSE 103; RESP 20; O2SAT 94
[2025-04-08 23:06] VITALS: BP 128/69; PULSE 93; RESP 18; TEMP 98.1; O2SAT 94
[2025-04-08] MEDS ORDERED: LEVO112T4 PO (23:11)
[2025-04-08] MEDS ORDERED: DIVA1TAB58 PO (23:11)
[2025-04-08 23:13] VITALS: PULSE 103; PULSE 106; RESP 19; RESP 20; O2SAT 94; O2SAT 97
[2025-04-08] MEDS: ACETAMINOPHEN 325 MG TAB PO PRN (23:41)
[2025-04-09] VITALS (15 sets, daily range): BP systolic 122–139; BP diastolic 68–86; PULSE 96–107; RESP 16–20; TEMP 97.9–99; O2SAT 92–99
[2025-04-09] MEDS: HYDROmorphone HCL 2 MG/ML VL/or syr IV PRN (05:22)
[2025-04-09] MEDS: LEVOTHYROXINE SODIUM 50 MCG TAB PO SCH (05:56)
--- NOTE | 2025-04-09 06:53 | DVH ---
CHEST RADIOGRAPH Indication: sob Technique: Single frontal view of the chest was obtained COMPARISON: XY CHEST PORTABLE on DOS: 04/08/25, XY CHEST PORTABLE on DOS: 10/13/24, XY CHEST PORTABLE on DOS: 09/16/24, XY CHEST PORTABLE on DOS: 08/16/24 FINDINGS: Lines and Tubes: None Lungs: Stable appearing left upper lobe opacity consistent with pulmonary mass versus masses. This fi nding is superimposed on otherwise stable chronic appearing bilateral interstitial pulmonary markings . Probable small bilateral pleural effusions. No pneumothorax. Cardiomediastinal contours: Unremarkable Bones: Unremarkable IMPRESSION: 1. Stable appearing left upper lobe opacification consistent with mass or multiple masses. 2. Chronic appearing bilateral interstitial pulmonary markings and small bilateral pleural effusions.
[2025-04-09 07:07] LABS: Hematocrit 31.7 % (41.0-53.0); Hemoglobin 10.7 g/dL (13.5-17.5); Mean Corpuscular Hemoglobin 32.2 pg (28.0-32.0); Mean Corpuscular Volume 95.4 fL (80.0-100.0); Nucleated Red Blood Cells % 0.1 %
[2025-04-09 07:18] LABS: Alanine Aminotransferase 12 U/L (7-40); Albumin 3.9 g/dL (3.2-4.8); Alkaline Phosphatase 93 U/L (46-116); Anion Gap 9 (5-15); BUN/Creatinine Ratio 22.3 (10.0-20.0); Carbon Dioxide 29 mmol/L (20-31); Chloride 101 mmol/L (98-107); Glucose 88 mg/dL (74-106); Potassium 4.1 mmol/L (3.5-5.1); Sodium 139 mmol/L (136-145); Total Protein 7.1 g/dL (5.7-8.2)
[2025-04-09 07:22] LABS: Bilirubin, Total 0.2 mg/dL (0.2-1.0); Blood Urea Nitrogen 25 mg/dL (9-23); Calcium 10.6 mg/dL (8.7-10.4)
[2025-04-09] MEDS: FAMOTIDINE (10MG/ML) 2ML VL IV SCH (08:55)
[2025-04-09] MEDS: ALPRAZolam 0.5 MG TAB PO PRN (14:17)
[2025-04-09] MEDS ORDERED: VANCOMYCIN PER PHARMACY 0 MG IV SCH (15:15)
--- NOTE | 2025-04-09 15:23 | DVHPN2 ---
Progress Note Date Seen: Apr 09, 2025 Medical Necessity Reason Pt with a Central, PICC or Fol: Yes The following are medically ne: Aceves Catheter Reason for aceves catheter: Strict I&O Subjective Patient reports: No new complaints Review of Systems: HEENT:Normal, CVS:Normal, RESPIRATORY:Normal, GI:Normal, :Normal, MSK:Normal, NEURO:Normal Objective vital signs Vital Sign Date Time Temp Pulse Resp B/P (MAP) Pulse Ox O2 Delivery O2 Flow Rate FiO2 04/09/25 12:10 105 20 99 04/09/25 12:04 Nasal Cannula* 2 28 04/09/25 11:50 99.0 126/68 (87) 99.0 Total Intake and Output 04/08/25 04/08/25 04/09/25 15:00 23:00 07:00 Intake Total 150 ml Output Total 500 ml Balance -350 ml medications Current Medications Medications Dose Ordered Sig/Praneeth Route Start Time Stop Time Status Last Admin Dose Admin Famotidine 20 mg DAILY IV 04/09/25 10:00 04/09/25 08:55 20 MG Divalproex Sodium 500 mg BID PO 04/08/25 22:00 04/09/25 08:55 500 MG Midodrine 10 mg TID@0600,1200,1800 PO 04/08/25 18:00 04/09/25 11:42 10 MG Levothyroxine Sodium 125 mcg QAM@0600 PO 04/09/25 06:00 04/09/25 05:56 125 MCG Alprazolam 0.5 mg Q8HPRN PRN PO 04/08/25 16:45 04/09/25 14:17 0.5 MG Albuterol 2.5 mg Q4HPRN PRN NEB 04/08/25 16:45 04/09/25 12:04 2.5 MG Sodium Chloride 1,000 ml @ 60 mls/hr [id number] IV 04/08/25 16:45 04/08/25 16:45 60 MLS/HR Acetaminophen/ Hydrocodone Bitart 1 tab Q4HP PRN PO 04/08/25 16:45 Ondansetron HCl 4 mg Q4HP PRN IV 04/08/25 16:45 Docusate Sodium 100 mg BIDPRN PRN PO 04/08/25 16:45 Acetaminophen 650 mg Q6HP PRN PO 04/08/25 16:45 04/08/25 23:41 650 MG Nitroglycerin 0.4 mg Q5MINP PRN SL 04/08/25 18:15 Morphine Sulfate 2 mg Q30M PRN IV 04/08/25 18:15 Hydromorphone HCl 0.5 mg Q4HPRN PRN IV 04/08/25 18:15 Fluconazole 100 ml @ 100 mls/hr DAILY IV 04/10/25 10:00 UNV Albuterol 2.5 mg Q4HWA NEB 04/09/25 18:00 UNV Ipratropium [place] 0.5 mg Q4HWA NEB 04/09/25 18:00 UNV Piperacillin Sod/ Tazobactam Sod 100 ml @ 25 mls/hr Q8HR IV 04/09/25 22:00 UNV Vancomycin HCl 0 ml @ 0 mls/hr UD IV 04/09/25 15:15 UNV Examination: GENERAL:Normal, HEENT:Normal, NECK:Normal, LUNGS:Normal, LUNGS:Abnormal (on oxygen, rales left side), CVS:Normal, ABDOMEN:Normal, MSK:Normal, SKIN:Normal, NEURO:Normal, :Normal laboratory and microbiology Laboratory Tests 04/09/25 06:21 Test 04/09/25 06:21 Range/Units Serum Glucose 88 74-106 mg/dL Problem List/Assessment/Plan Problem List/Assessment/Plan #1 acute resp failure: cont oxygen #2 left lung pneumonia- gram positive/neg: iv antibiotics #3 uti #4 left lung mass ? malignant: pulm consult, biopsy #5 copd #6 h/o throat cancer #7 h/o AML #8 delirium/encephalopathy- metabolic #8 chronic pain #9 depression #10 anemia #11 hypothyroidism #12 seizure disorder #13 orthostatic hypotension Plan discussed with: Patient, Spouse My Orders My Orders Orders - NARCISA CANTU MD Procedure Category Date Status Time Npo Except For KEON 04/09/25 In Process Medications 15:06 Npo (Nothing By DIET 04/09/25 Transmitted Mouth) Diet Dinner * Radiologist Consult CONS 04/09/25 Transmitted 15:06 *Consult CONS 04/09/25 Transmitted / 15:06 Fluconazole PHA 04/10/25 Logged 200mg/100ml (Diflucan 10:00 Fluconazole PHA 04/09/25 Logged 200mg/100ml (Diflucan 15:15 Albuterol Medneb PHA 04/09/25 Transmitted (Ventolin Medneb) 18:00 Ipratropium Medneb PHA 04/09/25 Transmitted (Atrovent Medneb) 18:00 Zosyn Extended PHA 04/09/25 Transmitted Infusion 15:15 Zosyn Extended PHA 04/09/25 Transmitted Infusion 22:00 Vancomycin Per PHA 04/09/25 Transmitted Pharmacy 15:15 Insert/Manage Urinary KEON 04/09/25 In Process Catheter 15:06 Urine Bacterial ALEXSANDER 04/09/25 Logged Culture 15:06 Pt Request For Service PT 04/09/25 Logged 15:06 Echo 2d Mode Cardiac US 04/09/25 Logged DOP 15:06 Basic Metabolic Panel LAB 04/10/25 Verified 06:00 Complete Blood Count LAB 04/10/25 Verified 06:00 Critical Care Time (mins): 38 (critical care time 38 mins) Date of Service: Apr 09, 2025 Billing Provider: NARCISA CANTU MD Common Visit Codes: [id number] CARE 30-74 MIN NARCISA CANTU MD Apr 09, 2025 15:23
[2025-04-09] MEDS ORDERED: CLINIMIX PER PHARMACY 0 ML IV SCH (15:30)
[2025-04-09] MEDS ORDERED: DEXTROSE (50%) 50ML SYRG IV SCH (15:45)
[2025-04-09] MEDS: PIPERACILLIN-TAZOB 3.375GM 100 ML IV ONE (15:58)
[2025-04-09] MEDS: FLUCONAZOLE 200MG/100ML 100 ML IV ONE (15:59)
[2025-04-09 16:10] LABS: Magnesium 2.1 mg/dL (1.6-2.6); Triglycerides 88.0 mg/dL (< 150)
[2025-04-09 16:54] LABS: INR 0.97 (0.9-1.15); Partial Thromboplastin Time 29.3 SEC (24.5-34.5); Prothrombin Time 10.3 sec (9.3-11.8)
[2025-04-09] MEDS: ACCU-CHEK COMFORT CURVE STRIP VI SCH (17:22)
[2025-04-09] MEDS: InsuLIN REG 1unit/0.01ml Soln (100units/ml) SC SCH (17:22)
[2025-04-09] MEDS: VENLAFAXINE HCL 37.5mg XR cap PO ONE (17:41)
[2025-04-09] MEDS: VANCOMYCIN 1GM/200ML PM 250 ML IV SCH (17:41)
[2025-04-09] MEDS: IPRATROPIUM BROM 0.5 MG/2.5ML INH SOL NEB SCH (18:53)
[2025-04-09] MEDS: ALBUTEROL SULF 2.5 MG/0.5ML(0.5%) NEB SOLN NEB SCH (18:53)
--- NOTE | 2025-04-09 20:20 | DVHINCON2 ---
Date of service: Apr 09, 2025 Referring Physician Kenny Crystal MD Reason for Consultation Acute hypoxic respiratory failure, left upper lobe mass, atypical pneumonia and bilateral pleural effusions. History of Present Illness A 70-year-old man with multiple past medical history including COPD, dementia, seizures, and UTIs who presented to ED on 04/08/25 for evaluation of altered level of consciousness. Per , patient has not been eating or drinking well over the past few days, noticed patient to be more altered than baseline, associated with frequent falls at home. Patient c/o chest pain, headache, and right knee pain. ED workup shows WBC 9.4, hemoglobin 10.9, hematocrit 32.3, platelets 284, sodium 139, potassium 3.7, BUN 29, creatinine 1.24, glucose 115, calcium 10.6, lactic acid 1.5. Blood pressure was 101/55, heart rate 99, temperature 98.3 F, O2 saturation 92% on oxygen. Chest CT revealing 2 large left upper lobe masses measuring 10.1 cm and 11.6 cm consistent with neoplasm/malignancy. UA positive for urinary tract infection. Patient was admitted for further care. Pulmonary consultation is requested for evaluation and management of acute hypoxic respiratory failure, left upper lobe mass, atypical pneumonia and bilateral pleural effusions. Review of Systems: 14-point review of systems negative unless otherwise noted above. Past Medical History Anemia, Cancer, COPD, Dementia, Liver, Seizures, Thyroid, UTI'S Past Surgical History Cholecystectomy, Back surgery, implanted stimulators Medications: Reviewed. Allergies: Caffeine Azithromycin Codeine Doripenem Metoclopramide Metolazone. Family History: Breast cancer. Social History: Nonsmoker. No alcohol or illicit drug use. Family History: FH: breast cancer G8 MOTHER Allergies: Coded Allergies: Caffeine (Verified Allergy, Mild, 10/17/13) PER CAFFEINE IS CONTRAINDICATED TO PT DUE TO PARKINSONS DISEASE Azithromycin (Verified Allergy, Unknown, 09/16/24) Codeine (Verified Allergy, Unknown, 08/15/24) Doripenem (Verified Allergy, Unknown, 08/15/24) Metoclopramide (Verified Allergy, Unknown, 08/15/24) Metolazone (Verified Allergy, Unknown, 08/15/24) HISTORY OF PRESENT ILLNESS: The patient was recently started on to a new diuretic medication of metolazone. When he took his second dose last evening, he became dizzy, agitated, developed itching of the skin, and sensation of his throat closing up. Home Meds Reported Medications Levothyroxine Sodium (Levothyroxine Sodium) 112 Mcg Tab, 100 MCG PO, TAB 04/08/25 Divalproex Sodium (Divalproex Sodium Dr) 250 Mg Tab, 250 MG PO, TAB 04/08/25 Ergocalciferol (Vitamin D) 50,000 Unit Cap, 1 CAP PO QWEEKLY 03/13/25 Primidone (MYSOLINE TABLET) 50 Mg Tb, TAB PO 03/13/25 Midodrine Hcl (Midodrine Hcl) 5 Mg Tab, 3 TAB PO BID 03/13/25 Alprazolam (Alprazolam) 0.5 Mg Tab, 0.5 MG PO Q8HPRN PRN for ANXIETY, TAB 09/16/24 Hydromorphone Hcl (Hydromorphone Hcl) 2 Mg Tab, 1 TAB PO Q8HR 09/16/24 Venlafaxine Hcl (Venlafaxine Hcl Er) 75 Mg Cap, 1 CAP PO DAILY 09/16/24 Venlafaxine Hcl (Venlafaxine Hcl Er) 150 Mg Cap, 1 CAP PO DAILY 09/16/24 Omeprazole (Omeprazole Dr) 20 Mg Cap, 1 CAP PO DAILY 09/16/24 Lubiprostone (Lubiprostone) 24 Mcg Cap, 2 CAP PO DAILY 09/16/24 Midodrine HCl (Midodrine Hydrochloride) Unknown Strength Tab, PO BID MIDODRINE 5 MG BID: 10 MG IN PM / 15 MG IN AM 09/16/24 Fludrocortisone Acetate (Fludrocortisone Acetate) 0.1 Mg Tab, 1 TAB PO BID for 90 Days, #180 08/16/24 Vibegron (Gemtesa) 75 Mg Tab, 75 MG PO HS, TAB 08/16/24 Testosterone Cypionate (Depo-Testosterone) 100 Mg/Ml Inj, 0.5 ML IM ONCE EVERY OTHER WEEK for 180 Days, #10 10/15/13 Current Medications Current Medications Medications (Trade) Dose Ordered Sig/Praneeth Route PRN Reason Start Time Stop Time Status Last Admin Famotidine (Pepcid Injection) 20 mg DAILY IV 04/09/25 10:00 04/09/25 08:55 Divalproex Sodium (Depakote "Dr" Tablet) 500 mg BID PO 04/08/25 22:00 04/09/25 08:55 Levothyroxine Sodium (Synthroid Tablet) 125 mcg QAM@0600 PO 04/09/25 06:00 04/09/25 05:56 Diagnostic Test (Pha) (Accu-Chek Comfort Curve T) 1 strip ACHS 04/08/25 22:00 04/08/25 18:10 DC Insulin Human Regular (InsuLIN R) ACHS SC 04/08/25 22:00 04/08/25 18:10 DC Ceftriaxone Sodium 50 ml @ 100 mls/hr DAILY@2100 IV 04/09/25 21:00 04/09/25 15:17 DC Fluconazole 100 ml @ 100 mls/hr DAILY IV 04/10/25 10:00 Albuterol (Ventolin Medneb) 2.5 mg Q4HWA [facility] 04/09/25 18:00 04/09/25 18:53 Ipratropium [place] (Atrovent Medneb) 0.5 mg Q4HWA [facility] 04/09/25 18:00 04/09/25 18:53 Piperacillin Sod/ Tazobactam Sod 100 ml @ 25 mls/hr Q8H IV 04/10/25 00:00 Vancomycin HCl 0 ml @ 0 mls/hr UD IV 04/09/25 15:15 Venlafaxine HCl (Effexor Xr) 37.5 mg BID PO 04/09/25 22:00 Amino Acids 0 ml @ 0 mls/hr PER PHARMACY IV 04/09/25 15:30 Vancomycin HCl 250 ml @ 250 mls/hr Q1H IV 04/09/25 15:45 04/09/25 17:44 DC 04/09/25 17:41 Diagnostic Test (Pha) (Accu-Chek Comfort Curve T) 1 strip Q6HR 04/09/25 18:00 04/09/25 17:22 Insulin Human Regular (InsuLIN R) FOLLOW SLIDING SCALE Q6HR SC 04/09/25 18:00 Dextrose 50 ml UD IV 04/09/25 15:45 Amino Acids 1,000 ml @ 41 mls/hr DAILY@2200 IV 04/09/25 22:00 Vital Signs Vital Signs Date Time Temp Pulse Resp B/P (MAP) Pulse Ox O2 Delivery O2 Flow Rate FiO2 04/09/25 18:59 101 16 96 04/09/25 18:53 Nasal Cannula* 1 24 04/09/25 18:11 128/86 04/09/25 17:00 98.9 98.9 Physical Exam Gen.: Patient lying in bed in no apparent distress. On supplemental oxygen. Head: Normocephalic, atraumatic. Eyes: EOMI/PERRLA. Ears: Normal hearing. Normal anatomy. Neck/trachea: Trachea midline, supple. Nose: Normal external anatomy. Mouth: Moist mucous membranes. Chest: Decreased air entry bilaterally. No wheezing or rhonchi. Cardiovascular: Positive S1, positive S2. Regular rate and rhythm. Abdomen: Positive bowel sounds in all 4 quadrants. Soft, non-tender, non- distended. : Deferred. Rectal: Deferred. Skin: Warm, dry. Intact. Extremities: 2+ radial pulses bilaterally. No lower extremity edema. Neuro: Awake, alert, oriented x3. No gross motor or sensory deficits. Cranial nerves II through XII intact. Gait not assessed. Labs/Diagnostic Data Labs Test 04/09/25 17:19 04/09/25 16:25 04/09/25 06:21 04/08/25 17:00 Range/Units POC Glucose 113 H 70-106 mg/dl Prothrombin Time 10.3 9.3-11.8 sec Prothrombin Time INR 0.97 0.9-1.15 Activated Partial Thromboplast Time 29.3 24.5-34.5 SEC White Blood Count 9.1 4.4-10.8 10^3/uL Red Blood Count 3.32 L 4.5-5.90 10^6/uL Hemoglobin 10.7 L 13.5-17.5 g/dL Hematocrit 31.7 L 41.0-53.0 % Mean Corpuscular Volume 95.4 80.0-100.0 fL Mean Corpuscular Hemoglobin 32.2 H 28.0-32.0 pg Mean Corpuscular Hemoglobin Concent 33.8 32.0-36.0 g/dL Red Cell Distribution Width 13.6 11.8-14.3 % Platelet Count 259 140-450 10^3/uL Mean Platelet Volume 8.3 6.9-10.8 fL Neutrophils (%) (Auto) 57.5 37.0-80.0 % Lymphocytes (%) (Auto) 28.7 10.0-50.0 % Monocytes (%) (Auto) 10.6 0.0-12.0 % Eosinophils (%) (Auto) 2.2 0.0-7.0 % Basophils (%) (Auto) 1.0 0.0-2.0 % Neutrophils # (Auto) 5.2 1.6-8.6 10 ^3/uL Lymphocytes # (Auto) 2.6 0.4-5.4 10 ^3/uL Monocytes # (Auto) 1.0 0-1.3 10 ^3/uL Eosinophils # (Auto) 0.2 0-0.8 10 ^3/uL Basophils # (Auto) 0.1 0-0.2 10 ^3/uL Nucleated Red Blood Cells 0.1 % Sodium Level 139 136-145 mmol/L Potassium Level 4.1 3.5-5.1 mmol/L Chloride Level 101 98-107 mmol/L Carbon Dioxide Level 29 20-31 mmol/L Anion Gap 9 5-15 Blood Urea Nitrogen 25 H 9-23 mg/dL Creatinine 1.12 0.700-1.30 mg/dL Glomerular Filtration Rate Calc 70 >90 mL/min BUN/Creatinine Ratio 22.3 H 10.0-20.0 Serum Glucose 88 74-106 mg/dL Calcium Level 10.6 H 8.7-10.4 mg/dL Phosphorus Level 3.4 2.4-5.1 mg/dL Magnesium Level 2.1 1.6-2.6 mg/dL Total Bilirubin 0.2 0.2-1.0 mg/dL Aspartate Amino Transferase (AST) 33 13-40 U/L Alanine Aminotransferase (ALT) 12 7-40 U/L Alkaline Phosphatase 93 46-116 U/L Total Protein 7.1 5.7-8.2 g/dL Albumin 3.9 3.2-4.8 g/dL Triglycerides Level 88 < 150 mg/dL Urine Color Yellow Yellow Urine Clarity Clear Clear Urine pH 5.5 5.0-9.0 Urine Specific [place] 1.020 1.001-1.035 Urine Protein Trace H Negative Urine Ketones Negative Negative Urine Blood Trace H Negative /uL Urine Nitrite Negative Negative Urine Bilirubin Negative Negative Urine Urobilinogen Normal Negative mg/dL Urine Leukocyte Esterase 2+ Negative /uL Urine RBC 2 0 - 3 /hpf Urine Microscopic WBC 51 H 0-3 /HPF Urine Squamous Epithelial Cells Few <5 /hpf Urine Bacteria None seen None Seen /hpf Urine Glucose Normal Normal mg/dL Test 04/08/25 15:21 Range/Units Lactic Acid Level 1.5 0.4-2.0 mmol/L Thyroid Stimulating Hormone (TSH) 1.67 0.55-4.78 uIU/mL Plasma/Serum Blood Alcohol < 3.0 <10 mg/dL Microbiology Date/Time Source Procedure Growth Status 04/08/25 15:29 Blood Blood Culture - Preliminary NO GROWTH AFTER 24 HOURS OF INCUBATION. Resulted Assessment Impression: Acute hypoxic respiratory failure Dependence on supplemental oxygen Left upper lobe mass Atypical pneumonia Bilateral pleural effusions, loculated right pleural effusion Atelectasis Mediastinal lymphadenopathy Plan: Supplemental oxygen Titrate to keep O2 sats above 92%. CXR done today, reviewed; stable appearing left upper lobe opacification consistent with mass or multiple masses. Chronic appearing bilateral interstitial pulmonary markings and small bilateral pleural effusions. CT chest on 04/08/25 revealed: Two large left upper lobe masses, 10.1 cm and 11.6 cm, most consistent with neoplasm /malignancy. A 11.6 cm left upper lobe mass likely extends into the left supraclavicular region. Mediastinal lymphadenopathy consistent with silvia spread of disease. New right adrenal mass measuring 4.3 cm consistent with metastatic disease. Bilateral pulmonary tree-in-bud nodularity which can be secondary to miliary spread carcinoma, atypical infection, bronchiolitis. Right lower lobe pulmonary nodules up to 9 mm, likely representing metastatic disease. Small bilateral pleural effusions. Right pleural calcifications which may represent sequela previous trauma/infection, asbestos exposure. Continue bronchodilators. Antibiotics/antifungal Incentive spirometry for atelectasis Pepcid for GI ppx Pain control Avoid oversedation Monitor renal function. Monitor electrolytes. Supplement as necessary. Monitor ins and outs. GI/DVT prophylaxis. Prognosis: Poor given patient's multiple co-morbidities. Rest of plan per hospitalist and other consultants. Thank you Dr. Crystal for allowing me to participate in this patient's care. Further recommendations will depend on the patient's clinical course. Please do not hesitate to contact me if you have any questions or concerns. This medical document was created using an electronic medical record system with [employer] dictation system. Although these documentations are being carefully reviewed, there may still be some phonetic and typographical changes. The errors are purely typographical, due to imperfection on the software program, and do not reflect any compromise in the patient's medical care. Plan discussed with: Patient, Spouse, Other (RN/Dr. Crystal) DAWSON AC MD Apr 09, 2025 20:20
[2025-04-09] MEDS ORDERED: cefTRIAXone 1GM/50ML D5W 50 ML IV SCH (21:00)
[2025-04-09] MEDS: AMINO ACID INFUSION IN D5W 1,000 ML IV SCH (22:03)
[2025-04-09] MEDS: VENLAFAXINE HCL 37.5mg XR cap PO SCH (22:19)
[2025-04-10] VITALS (17 sets, daily range): BP systolic 113–137; BP diastolic 67–79; PULSE 69–115; RESP 17–20; TEMP 97.4–99.7; O2SAT 91–100
[2025-04-10] MEDS: PIPERACILLIN-TAZOB 3.375GM 100 ML IV SCH (00:09)
[2025-04-10 05:57] LABS: Hematocrit 34.0 % (41.0-53.0); Hemoglobin 11.6 g/dL (13.5-17.5); Mean Corpuscular Hemoglobin 32.4 pg (28.0-32.0); Mean Corpuscular Volume 95.2 fL (80.0-100.0); Nucleated Red Blood Cells % 0.1 %
[2025-04-10 06:04] LABS: Alanine Aminotransferase 14 U/L (7-40); Albumin 3.6 g/dL (3.2-4.8); Alkaline Phosphatase 94 U/L (46-116); Anion Gap 11 (5-15); BUN/Creatinine Ratio 19.1 (10.0-20.0); Blood Urea Nitrogen 22 mg/dL (9-23); Calcium 10.2 mg/dL (8.7-10.4); Carbon Dioxide 27 mmol/L (20-31); Chloride 101 mmol/L (98-107); Glucose 103 mg/dL (74-106); Magnesium 1.9 mg/dL (1.6-2.6); Potassium 4.0 mmol/L (3.5-5.1); Sodium 139 mmol/L (136-145); Total Protein 6.6 g/dL (5.7-8.2)
[2025-04-10 06:13] LABS: Bilirubin, Total 0.2 mg/dL (0.2-1.0)
--- NOTE | 2025-04-10 11:47 | DVH ---
PROCEDURE: CT and ultrasound-guided biopsy Procedural Personnel Attending physician(s): Jt Lee Fellow physician(s): None Resident physician(s): None Advanced practice provider(s): None Procedure Date (//yyyy): 04/10/2025 Pre-procedure diagnosis: Left lung mass Post-procedure diagnosis: Same Indication: Histopathologic diagnosis Previous biopsy of same target: No Additional clinical history: None Complications: No immediate complications. IMPRESSION: CT and ultrasound-guided biopsy of left upper lobe lung mass. Plan: Specimen(s) sent for evaluation. PROCEDURE SUMMARY: - Percutaneous CT and ultrasound-guided coaxial core needle biopsy - Additional procedure(s): None PROCEDURE DETAILS: Pre-procedure Reference imaging for biopsy target: CT chest 04/08/2025 Consent: Informed consent for the procedure including risks, benefits and alternatives was obtained a nd time-out was performed prior to the procedure. Preparation: The site was prepared and draped using maximal sterile barrier technique including cutan eous antisepsis. Anesthesia/sedation Level of anesthesia/sedation: No sedation Anesthesia/sedation administered by: Not applicable Total intra-service sedation time (minutes): 0 Imaging prior to biopsy The patient was positioned supine. Initial imaging was performed using ultrasound. Biopsy target: - Organ or target location: Lung - Laterality: Left - Maximal diameter (cm): 7.8 Other findings: None Biopsy Local anesthesia was administered. Under CT and US guidance, the biopsy needle was advanced to the ta rget and biopsy was performed. Coaxial needle: 17 gauge Core needle biopsy device: PollitoIngles Core needle size: 18 gauge Number of core specimens: 3 Fine needle aspiration device: NA Fine needle size: Not applicable Number of FNA specimens: Not applicable On-site assessment of biopsy adequacy: No Additional sampling recommendations: None Preliminary assessment of sample adequacy: Not applicable Needle removal The biopsy needle was removed and a sterile dressing was applied. Tract embolization: None Imaging following biopsy Immediate post-biopsy imaging was performed using noncontrast CT. Post-biopsy imaging findings: No significant hemorrhage or pneumothorax Contrast Contrast agent: None Contrast volume (mL): [address] dose length product (mGy-cm): 472.95 Not Used Additional Details Additional description of procedure: None Registry event: V/3/g Device used: None Equipment details: None Unique Device Identifiers: Not available Specimens removed: Biopsy samples as detailed above Estimated blood loss (mL): Less than 10 Standardized report: [email or web address] Attestation Signer name: Jt Lee I attest that I was present for the entire procedure. I reviewed the stored images and agree with the report as written.
[2025-04-10] MEDS: FLUCONAZOLE 200MG/100ML 100 ML IV SCH (13:35)
--- NOTE | 2025-04-10 15:28 | DVHPN2 ---
Progress Note Date Seen: Apr 10, 2025 Medical Necessity Reason Pt with a Central, PICC or Fol: Yes The following are medically ne: Aceves Catheter Reason for aceves catheter: Strict I&O Subjective Patient reports: No new complaints Review of Systems: HEENT:Normal, CVS:Normal, RESPIRATORY:Normal, GI:Normal, :Normal, MSK:Normal, NEURO:Normal Objective vital signs Vital Sign Date Time Temp Pulse Resp B/P (MAP) Pulse Ox O2 Delivery O2 Flow Rate FiO2 04/10/25 14:24 107 18 99 04/10/25 14:15 Room Air 0.0 04/10/25 14:15 21 04/10/25 13:59 120/70 04/10/25 13:00 97.4 97.4 Total Intake and Output 04/09/25 04/09/25 04/10/25 15:00 23:00 07:00 Intake Total 718 ml 500 ml Output Total 800 ml 540 ml Balance -82 ml -40 ml medications Current Medications Medications Dose Ordered Sig/Praneeth Route Start Time Stop Time Status Last Admin Dose Admin Famotidine 20 mg DAILY IV 04/09/25 10:00 04/09/25 08:55 20 MG Divalproex Sodium 500 mg BID PO 04/08/25 22:00 04/09/25 22:20 500 MG Midodrine 10 mg TID@0600,1200,1800 PO 04/08/25 18:00 04/10/25 06:02 10 MG Levothyroxine Sodium 125 mcg QAM@0600 PO 04/09/25 06:00 04/10/25 06:06 125 MCG Alprazolam 0.5 mg Q8HPRN PRN PO 04/08/25 16:45 04/09/25 14:17 0.5 MG Albuterol 2.5 mg Q4HPRN PRN NEB 04/08/25 16:45 04/09/25 12:04 2.5 MG Sodium Chloride 1,000 ml @ 60 mls/hr [id number] IV 04/08/25 16:45 04/10/25 02:05 60 MLS/HR Acetaminophen/ Hydrocodone Bitart 1 tab Q4HP PRN PO 04/08/25 16:45 Ondansetron HCl 4 mg Q4HP PRN IV 04/08/25 16:45 Docusate Sodium 100 mg BIDPRN PRN PO 04/08/25 16:45 Acetaminophen 650 mg Q6HP PRN PO 04/08/25 16:45 04/08/25 23:41 650 MG Nitroglycerin 0.4 mg Q5MINP PRN SL 04/08/25 18:15 Morphine Sulfate 2 mg Q30M PRN IV 04/08/25 18:15 Hydromorphone HCl 0.5 mg Q4HPRN PRN IV 04/08/25 18:15 04/10/25 13:59 0.5 MG Fluconazole 100 ml @ 100 mls/hr DAILY IV 04/10/25 10:00 04/10/25 13:35 100 MLS/HR Albuterol 2.5 mg Q4HWA NEB 04/09/25 18:00 04/10/25 14:15 2.5 MG Ipratropium [place] 0.5 mg Q4HWA NEB 04/09/25 18:00 04/10/25 14:15 0.5 MG Piperacillin Sod/ Tazobactam Sod 100 ml @ 25 mls/hr Q8H IV 04/10/25 00:00 04/10/25 08:32 25 MLS/HR Vancomycin HCl 0 ml @ 0 mls/hr UD IV 04/09/25 15:15 Venlafaxine HCl 37.5 mg BID PO 04/09/25 22:00 04/09/25 22:19 37.5 MG Amino Acids 0 ml @ 0 mls/hr PER PHARMACY IV 04/09/25 15:30 Diagnostic Test (Pha) 1 strip Q6HR 04/09/25 18:00 04/10/25 11:26 1 STRIP Insulin Human Regular FOLLOW SLIDING SCALE Q6HR SC 04/09/25 18:00 Dextrose 50 ml UD IV 04/09/25 15:45 Amino Acids 1,000 ml @ 41 mls/hr DAILY@2200 IV 04/09/25 22:00 04/09/25 22:03 41 MLS/HR Examination: GENERAL:Normal, HEENT:Normal, NECK:Normal, LUNGS:Normal, LUNGS:Abnormal (ON OXYGEN), CVS:Normal, ABDOMEN:Normal, MSK:Normal, SKIN:Normal, NEURO:Normal, :Normal laboratory and microbiology Laboratory Tests 04/10/25 05:08 Test 04/10/25 05:08 Range/Units Serum Glucose 103 74-106 mg/dL Microbiology Date/Time Source Procedure Growth Status 04/09/25 15:25 Urine - Aceves Port Urine Culture - Preliminary Resulted 04/08/25 15:29 Blood Blood Culture - Preliminary NO GROWTH AFTER 24 HOURS OF INCUBATION. Resulted Problem List/Assessment/Plan Problem List/Assessment/Plan #1 acute resp failure: cont oxygen #2 left lung pneumonia- gram positive/neg: iv antibiotics #3 uti #4 left lung mass ? malignant: pulm consult, S/P biopsy #5 copd #6 h/o throat cancer #7 h/o AML #8 delirium/encephalopathy- metabolic #8 chronic pain #9 depression #10 anemia #11 hypothyroidism #12 seizure disorder #13 orthostatic hypotension #14 left hip pain Plan discussed with: Patient, Spouse My Orders My Orders Orders - NARCISA CANTU MD Procedure Category Date Status Time Clinimix Per Pharmacy PHA 04/09/25 In Process 15:30 * Swallow Request ST 04/09/25 Transmitted 15:17 Glucose Blood PHA 04/09/25 In Process (Accu-Chek Comfort 18:00 Insulin R (Human) PHA 04/09/25 In Process (Insulin R) 18:00 Dextrose 50% Syringe PHA 04/09/25 In Process 15:45 Amino Acid Infusion PHA 04/09/25 In Process In D5w (Clinimix 4.2 22:00 Clinimix Per Pharmacy [facility] 04/09/25 In Process 22:00 Vancomycin,Random LAB 04/10/25 Logged 17:00 Comprehensive LAB 04/11/25 Verified Metabolic Panel 04:00 Magnesium LAB 04/11/25 Verified 04:00 Phosphorus LAB 04/11/25 Verified 04:00 Clinimix Per Pharmacy [facility] 04/10/25 In Process 22:00 * Swallow Request ST 04/10/25 Verified 15:14 Dietary Evaluation Review Comments: TPN per pharmacy to meet at least 75% of his needs TF glucerna @60ml/hr will meet 90% of pt's protein and energy requirements PO diet CCHO-75, plus glucerna PO supplements as needed. Expected Outcomes/Goals: avoid catabolism, gradual weight gain, improved nutrition status. Date of Service: Apr 10, 2025 Billing Provider: NARCISA CANTU MD Common Visit Codes: 59518-[id number] INP/OBS CARE(HIGH) NARCISA CANTU MD Apr 10, 2025 15:28
--- NOTE | 2025-04-10 16:24 | DVHSR ---
APPROVED REPORT EXAM: Two-dimensional and M-mode echocardiogram with Doppler and color Doppler. Blood Pressure: 126/68 mmHg INDICATION CHF RISK FACTORS Height: 75, Weight: 175 DIMENSIONS LVDd3.5 (3.8-5.7cm)LA (2D) (1.9-4.0cm)Aortic Root (2.0-3.7cm) LVDs2.6 (2.5-4.0cm)LA (MM) (1.9-4.0cm)Aortic Cusp Exc (1.5-2.0cm) EF (%) 54.0 (55-70%)Rt. Atrium (1.9-4.0cm)Asc. Aorta cm Mitral Valve MitralMitral Stenosis A wavem/sMV Peak GR.85mmHg E/A ratio0.02D MVAcm2 Tricuspid Valve TR Velocity2.37m/s [id number] Other Information Technically limited study due to body habitus, patient position and patient is ALOC Conclusion Technically good study. Difficult acoustic windows. Limited views. There appears to be no significant chamber abnormalities based on subcostal views obtained. Mild concentric LVH. Mild mitral annular calcification. Left ventricular function appears preserved. EF of 60% with normal RV function. Mild TR. No pericardial effusion masses or vegetations discernible.
[2025-04-10] MEDS: VANCOMYCIN 1GM/200ML PM 200 ML IV SCH (22:56)
--- NOTE | 2025-04-10 23:48 | DVHPN2 ---
Progress Note - Dictate Date Seen: Apr 10, 2025 Medical Necessity Reason Pt with a Central, PICC or Fol: Yes The following are medically ne: Aceves Catheter Reason for aceves catheter: Strict I&O Subjective Patient seen and examined at bedside. Remains on supplemental oxygen Overnight events reviewed. vital signs Vital Sign Date Time Temp Pulse Resp B/P (MAP) Pulse Ox O2 Delivery O2 Flow Rate FiO2 04/10/25 22:14 69 18 99 04/10/25 22:06 Nasal Cannula* 2 28 04/10/25 21:05 98.8 113/67 (82) 98.8 Total Intake and Output 04/09/25 04/09/25 04/10/25 15:00 23:00 07:00 Intake Total 718 ml 500 ml Output Total 800 ml 540 ml Balance -82 ml -40 ml medications Current Medications Medications Dose Ordered Sig/Praneeth Route Start Time Stop Time Status Last Admin Dose Admin Famotidine 20 mg DAILY IV 04/09/25 10:00 04/09/25 08:55 20 MG Divalproex Sodium 500 mg BID PO 04/08/25 22:00 04/09/25 22:20 500 MG Midodrine 10 mg TID@0600,1200,1800 PO 04/08/25 18:00 04/10/25 06:02 10 MG Levothyroxine Sodium 125 mcg QAM@0600 PO 04/09/25 06:00 04/10/25 06:06 125 MCG Alprazolam 0.5 mg Q8HPRN PRN PO 04/08/25 16:45 04/09/25 14:17 0.5 MG Albuterol 2.5 mg Q4HPRN PRN NEB 04/08/25 16:45 04/09/25 12:04 2.5 MG Sodium Chloride 1,000 ml @ 60 mls/hr [id number] IV 04/08/25 16:45 04/10/25 02:05 60 MLS/HR Acetaminophen/ Hydrocodone Bitart 1 tab Q4HP PRN PO 04/08/25 16:45 Ondansetron HCl 4 mg Q4HP PRN IV 04/08/25 16:45 Docusate Sodium 100 mg BIDPRN PRN PO 04/08/25 16:45 Acetaminophen 650 mg Q6HP PRN PO 04/08/25 16:45 04/08/25 23:41 650 MG Nitroglycerin 0.4 mg Q5MINP PRN SL 04/08/25 18:15 Morphine Sulfate 2 mg Q30M PRN IV 04/08/25 18:15 Hydromorphone HCl 0.5 mg Q4HPRN PRN IV 04/08/25 18:15 04/10/25 13:59 0.5 MG Fluconazole 100 ml @ 100 mls/hr DAILY IV 04/10/25 10:00 04/10/25 13:35 100 MLS/HR Albuterol 2.5 mg Q4HWA [facility] 04/09/25 18:00 04/10/25 22:06 2.5 MG Ipratropium [place] 0.5 mg Q4HWA [facility] 04/09/25 18:00 04/10/25 22:06 0.5 MG Piperacillin Sod/ Tazobactam Sod 100 ml @ 25 mls/hr Q8H IV 04/10/25 00:00 04/10/25 15:59 25 MLS/HR Vancomycin HCl 0 ml @ 0 mls/hr UD IV 04/09/25 15:15 Venlafaxine HCl 37.5 mg BID PO 04/09/25 22:00 04/09/25 22:19 37.5 MG Amino Acids 0 ml @ 0 mls/hr PER PHARMACY IV 04/09/25 15:30 Diagnostic Test (Pha) 1 strip Q6HR 04/09/25 18:00 04/10/25 17:41 1 STRIP Insulin Human Regular FOLLOW SLIDING SCALE Q6HR SC 04/09/25 18:00 Dextrose 50 ml UD IV 04/09/25 15:45 Amino Acids 1,000 ml @ 41 mls/hr DAILY@2200 IV 04/09/25 22:00 04/10/25 22:58 41 MLS/HR Vancomycin HCl 200 ml @ 200 mls/hr Q12H IV 04/10/25 20:00 04/10/25 22:56 200 MLS/HR objective Gen.: Patient lying in bed in no apparent distress. On supplemental oxygen. Head: Normocephalic, atraumatic. Eyes: EOMI/PERRLA. Ears: Normal hearing. Normal anatomy. Neck/trachea: Trachea midline, supple. Nose: Normal external anatomy. Mouth: Moist mucous membranes. Chest: Decreased air entry bilaterally. No wheezing or rhonchi. Cardiovascular: Positive S1, positive S2. Regular rate and rhythm. Abdomen: Positive bowel sounds in all 4 quadrants. Soft, non-tender, non- distended. : Deferred. Rectal: Deferred. Skin: Warm, dry. Intact. Extremities: 2+ radial pulses bilaterally. No lower extremity edema. Neuro: Awake, alert, oriented x3. No gross motor or sensory deficits. Cranial nerves II through XII intact. Gait not assessed. laboratory and microbiology Laboratory Tests 04/10/25 05:08 Test 04/10/25 05:08 Range/Units Serum Glucose 103 74-106 mg/dL Assessment/Plan Impression: Acute hypoxic respiratory failure Dependence on supplemental oxygen Left upper lobe mass Atypical pneumonia Bilateral pleural effusions Atelectasis Mediastinal lymphadenopathy Events: Remains on supplemental oxygen, 2 LPM NC Taper O2 as tolerated Plan for bronchoscopy with BAL in the AM. Continue bronchodilators Continue antibiotics/antifungals Incentive spirometry Patient to be NPO at midnight. S/p CT guided biopsy of left upper lobe lung mass. Follow up biopsy results. Labs and imaging reviewed. Rest of plan as noted below. Plan: Supplemental oxygen Titrate to keep O2 sats above 92%. CXR on 04/08/25 revealed stable appearing left upper lobe opacification consistent with mass or multiple masses. Chronic appearing bilateral interstitial pulmonary markings and small bilateral pleural effusions. CT chest on 04/08/25 revealed: Two large left upper lobe masses, 10.1 cm and 11.6 cm, most consistent with neoplasm /malignancy. A 11.6 cm left upper lobe mass likely extends into the left supraclavicular region. Mediastinal lymphadenopathy consistent with silvia spread of disease. New right adrenal mass measuring 4.3 cm consistent with metastatic disease. Bilateral pulmonary tree-in-bud nodularity which can be secondary to miliary spread carcinoma, atypical infection, bronchiolitis. Right lower lobe pulmonary nodules up to 9 mm, likely representing metastatic disease. Small bilateral pleural effusions. Right pleural calcifications which may represent sequela previous trauma/infection, asbestos exposure. Continue bronchodilators. Antibiotics/antifungal Incentive spirometry for atelectasis Pepcid for GI ppx Pain control Avoid oversedation Monitor renal function. Monitor electrolytes. Supplement as necessary. Monitor ins and outs. GI/DVT prophylaxis. Prognosis: Poor given patient's multiple co-morbidities. Rest of plan per hospitalist and other consultants. Thank you Dr. Crystal for allowing me to participate in this patient's care. Further recommendations will depend on the patient's clinical course. Please do not hesitate to contact me if you have any questions or concerns. This medical document was created using an electronic medical record system with [employer] dictation system. Although these documentations are being carefully reviewed, there may still be some phonetic and typographical changes. The errors are purely typographical, due to imperfection on the software program, and do not reflect any compromise in the patient's medical care. Dietary Evaluation Review Comments: TPN per pharmacy to meet at least 75% of his needs TF glucerna @60ml/hr will meet 90% of pt's protein and energy requirements PO diet CCHO-75, plus glucerna PO supplements as needed. Expected Outcomes/Goals: avoid catabolism, gradual weight gain, improved nutrition status. Plan discussed with: Patient, Other (DANAE Marie) DAWSON AC MD Apr 10, 2025 23:48
[2025-04-11] VITALS (15 sets, daily range): BP systolic 113–127; BP diastolic 60–74; PULSE 102–121; RESP 15–30; TEMP 97.9–99; O2SAT 91–100
[2025-04-11 07:41] LABS: Alanine Aminotransferase 11 U/L (7-40); Albumin 3.6 g/dL (3.2-4.8); Alkaline Phosphatase 83 U/L (46-116); Anion Gap 10 (5-15); BUN/Creatinine Ratio 18.0 (10.0-20.0); Bilirubin, Total 0.3 mg/dL (0.2-1.0); Blood Urea Nitrogen 18 mg/dL (9-23); Calcium 9.0 mg/dL (8.7-10.4); Carbon Dioxide 24 mmol/L (20-31); Chloride 105 mmol/L (98-107); Glucose 86 mg/dL (74-106); Magnesium 1.7 mg/dL (1.6-2.6); Sodium 139 mmol/L (136-145); Total Protein 6.6 g/dL (5.7-8.2)
[2025-04-11 07:43] LABS: Potassium 3.5 mmol/L (3.5-5.1)
[2025-04-11 07:46] LABS: Hematocrit 31.8 % (41.0-53.0); Hemoglobin 10.5 g/dL (13.5-17.5); Mean Corpuscular Hemoglobin 31.6 pg (28.0-32.0); Mean Corpuscular Volume 95.8 fL (80.0-100.0)
[2025-04-11] MEDS ORDERED: LIDOCAINE 2% JELLY 11ml (GLYDO) ONE (08:05)
[2025-04-11] MEDS ORDERED: EPINEPHrine HCL 1 MG/10 ML SYRG ONE (08:05)
[2025-04-11] MEDS ORDERED: FLUMAZENIL 0.1 MG/ML INJ 10ML MDV IV ONE (08:05)
[2025-04-11] MEDS ORDERED: NALOXONE HCL 0.4 MG/ML VIAL ONE (08:05)
[2025-04-11] MEDS ORDERED: LIDOCAINE 2%HCL (LOCAL ANESTH.) INJ 20ML MDV ONE (08:06)
[2025-04-11] MEDS: GLYCOPYRROLATE 0.2 MG/ML 1ML VIAL ONE (08:49)
[2025-04-11] MEDS: MIDAZOLAM HCL 5 MG/ML-1ML VIAL ONE (08:49)
[2025-04-11] MEDS: diphenhdrAMINE HCL 50 MG/1 ML VL ONE (08:50)
[2025-04-11] MEDS: fentaNYL CITRATE 100 MCG/2 ML VL ONE (08:50)
[2025-04-11 09:25] LABS: Total Cells Counted 100.0 (100)
[2025-04-11 09:26] LABS: RBC Morphology Normal
--- NOTE | 2025-04-11 09:46 | DVH ---
EXAM: XY CHEST XRAY 1 VIEW HISTORY: s/p DIXIE lung biopsy r/o COMPARISON: XY CHEST XRAY 1 VIEW on DOS: 04/09/25, XY CHEST PORTABLE on DOS: 04/08/25, XY CHEST PORTABLE on DOS: 10/13/24, XY CHEST PORTABLE on DOS: 09/16/24, XY CHEST PORTABLE on DOS: 08/16/24, CT scan of t he chest dated 04/10/2025. TECHNIQUE: Portable upright AP view of the chest was performed. FINDINGS: No pneumothorax status post left upper lobe biopsy. Left upper lobe masses re-identified. Emphysemato us changes are better characterized on prior CT scan. There is a small left pleural effusion. The he art is not enlarged. IMPRESSION: 1. No evidence of pneumothorax status post biopsy of the large left upper lobe mass. 2. Emphysema. 3. Small left pleural effusion.
--- NOTE | 2025-04-11 09:52 | DVHNC2 ---
Procedure - Bronchoscopy procedure note: Indications: Right lower lobe atelectasis, Possible mucous plugging. Left upper lobe consolidation possible mass Medicines: Versed 2 mg, Fentanyl 25 mcg, Glycopyrrolate 0.2 mg and Benadryl 50 mg Complications: None Procedure: Patient medications and allergies reviewed. The risks and benefits of the procedure and the sedation options and risk were discussed with the patient's healthcare proxy. All questions were answered and informed consent was obtained. Patient identification and proposed procedure were verified prior to the procedure by the physician, and a nurse, and the respiratory therapist in ICU room. The heart rate, respiratory rate, oxygen saturations, blood pressure, adequacy of pulmonary ventilation, and response to care were monitored throughout the procedure. The physical status of the patient was reassessed after the procedure. After obtaining informed consent, the bronchoscope was introduced through the endotracheal tube and advanced into the trachea bronchial tree of both lungs. The procedure was accomplished without difficulty. The patient tolerated the procedure well. Findings: The trachea is in normal caliber. The eduardo is sharp. The tracheobronchial tree of the right lung was examined to at least the first subsegmental level. The bronchial mucosa and anatomy in the right lung are normal. There are no endobronchial lesions. There was copious whitish secretions from right main stem bronchus onward throughout R4-R10. Right middle lobe (RML) Bronchoalveolar lavage (BAL) obtained. RML BAL sent for gram stain and culture, viral culture, fungal culture, and AFB smear and culture. The left upper lobe, lingula, and left lower lobe were examined to at least the first subsegmental level. Bronchial mucosa and anatomy in the left upper lobe and lingula are normal, except the Left upper lobe bronchus. DIXIE has extrinsic compression with almost complete occlusion. There was no secretions. Left upper lobe (DIXIE) Bronchoalveolar lavage (BAL) obtained. DIXIE BAL sent for gram stain and culture, viral culture, fungal culture, and AFB smear and culture. Left upper lobe brushings were obtained and sent to pathology/cytology. Left upper lobe biopsy was obtained and sent to pathology/cytology. There was no active bleeding at the completion of the procedure. Estimated blood loss: Less than 5 mL. Impression: Right middle/lower lobe atelectasis due to mucous plugging Mucous plugging from R4-R10 RML BAL performed DIXIE BAL performed DIXIE brushings and biopsy performed Recommendation: Follow-up RML and DIXIE BAL, DIXIE brushings and DIXIE biopsy results. Procedure codes: 16340, bronchoscopy, rigid and flexible, including fluoroscopic guidance, one performed; with bronchial endobronchial broncho-alveolar lavage, single or multiple sites DAWSON AC MD Apr 11, 2025 09:52
--- NOTE | 2025-04-11 13:11 | DVHPN2 ---
Progress Note - Dictate Date Seen: Apr 11, 2025 Medical Necessity Reason Pt with a Central, PICC or Fol: Yes The following are medically ne: Aceves Catheter Reason for aceves catheter: Strict I&O vital signs Vital Sign Date Time Temp Pulse Resp B/P (MAP) Pulse Ox O2 Delivery O2 Flow Rate FiO2 04/11/25 12:26 98.1 04/11/25 10:55 110 27 120/67 (84) 97 04/11/25 09:18 Nasal Cannula 2.0 04/11/25 09:18 97 Total Intake and Output 04/10/25 04/10/25 04/11/25 15:00 23:00 07:00 Intake Total 200 ml 500 ml 200 ml Output Total 500 ml 1650 ml Balance 200 ml 0 ml -1450 ml medications Current Medications Medications Dose Ordered Sig/Praneeth Route Start Time Stop Time Status Last Admin Dose Admin Famotidine 20 mg DAILY IV 04/09/25 10:00 04/11/25 11:23 20 MG Divalproex Sodium 500 mg BID PO 04/08/25 22:00 04/11/25 11:24 500 MG Midodrine 10 mg TID@0600,1200,1800 PO 04/08/25 18:00 04/11/25 11:25 10 MG Levothyroxine Sodium 125 mcg QAM@0600 PO 04/09/25 06:00 04/10/25 06:06 125 MCG Alprazolam 0.5 mg Q8HPRN PRN PO 04/08/25 16:45 04/09/25 14:17 0.5 MG Albuterol 2.5 mg Q4HPRN PRN NEB 04/08/25 16:45 04/09/25 12:04 2.5 MG Sodium Chloride 1,000 ml @ 60 mls/hr [id number] IV 04/08/25 16:45 04/10/25 02:05 60 MLS/HR Acetaminophen/ Hydrocodone Bitart 1 tab Q4HP PRN PO 04/08/25 16:45 Ondansetron HCl 4 mg Q4HP PRN IV 04/08/25 16:45 Docusate Sodium 100 mg BIDPRN PRN PO 04/08/25 16:45 Acetaminophen 650 mg Q6HP PRN PO 04/08/25 16:45 04/11/25 12:26 650 MG Nitroglycerin 0.4 mg Q5MINP PRN SL 04/08/25 18:15 Morphine Sulfate 2 mg Q30M PRN IV 04/08/25 18:15 Hydromorphone HCl 0.5 mg Q4HPRN PRN IV 04/08/25 18:15 04/11/25 00:48 0.5 MG Fluconazole 100 ml @ 100 mls/hr DAILY IV 04/10/25 10:00 04/11/25 11:23 100 MLS/HR Albuterol 2.5 mg Q4HWA [facility] 04/09/25 18:00 04/11/25 07:16 2.5 MG Ipratropium [place] 0.5 mg Q4HWA [facility] 04/09/25 18:00 04/11/25 07:16 0.5 MG Piperacillin Sod/ Tazobactam Sod 100 ml @ 25 mls/hr Q8H IV 04/10/25 00:00 04/11/25 00:07 25 MLS/HR Vancomycin HCl 0 ml @ 0 mls/hr UD IV 04/09/25 15:15 Venlafaxine HCl 37.5 mg BID PO 04/09/25 22:00 04/11/25 11:24 37.5 MG Amino Acids 0 ml @ 0 mls/hr PER PHARMACY IV 04/09/25 15:30 Diagnostic Test (Pha) 1 strip Q6HR 04/09/25 18:00 04/11/25 06:24 1 STRIP Insulin Human Regular FOLLOW SLIDING SCALE Q6HR SC 04/09/25 18:00 Dextrose 50 ml UD IV 04/09/25 15:45 Amino Acids 1,000 ml @ 41 mls/hr DAILY@2200 IV 04/09/25 22:00 04/10/25 22:58 41 MLS/HR Vancomycin HCl 200 ml @ 200 mls/hr Q12H IV 04/10/25 20:00 04/10/25 22:56 200 MLS/HR laboratory and microbiology Laboratory Tests 04/11/25 05:45 Test 04/11/25 05:45 Range/Units Serum Glucose 86 74-106 mg/dL Assessment/Plan Impression: Acute hypoxic respiratory failure Dependence on supplemental oxygen Left upper lobe mass Atypical pneumonia Bilateral pleural effusions Atelectasis Mediastinal lymphadenopathy Events: s/p bronch s/p DIXIE mass CT guided bx results pending Continue bronchodilators Continue antibiotics/antifungals Incentive spirometry ok to start diet Dietary Evaluation Review Comments: TPN per pharmacy to meet at least 75% of his needs TF glucerna @60ml/hr will meet 90% of pt's protein and energy requirements PO diet CCHO-75, plus glucerna PO supplements as needed. Expected Outcomes/Goals: avoid catabolism, gradual weight gain, improved nutrition status. Plan discussed with: Patient, Spouse DYLAN SHAY MD Apr 11, 2025 13:11
--- NOTE | 2025-04-11 14:35 | DVHPN2 ---
Subjective Patient denies any symptoms Reviewed: Care Plan, H&P, Labs, Medications Changes from previous H/P or p: No Changes General: Per HPI Eyes: No Pain, No Vision change, No Conjunctivae inflammation, No Eyelid inflammation, No Other, No Redness ENT: No Ear pain, No Ear discharge, No Nose pain, No Nose discharge, No Nose congestion, No Mouth pain, No Mouth swelling, No Throat pain, No Throat swelling, No Other Cardiovascular: Chest Pain; No Palpitations, No Orthopnea, No Paroxysmal Noc. Dyspnea, No Edema, No Lt Headedness, No Other Respiratory: Cough; No Dry, No Shortness of breath, No SOB with excertion, No Wheezing, No Hemoptysis, No Pleuritic Pain, No Sputum, No Other Gastrointestinal: No Nausea, No Vomiting, No Abdominal Pain, No Diarrhea, No Constipation, No Melena, No Hematochezia, No Other Genitourinary: No Dysuria, No Frequency, No Incontinence, No Hematuria, No Retention, No Other Musculoskeletal: other (Rt knee pain); No neck pain, No shoulder pain, No arm pain, No back pain, No hand pain, No leg pain, No foot pain Skin: No Rash, No Lesions, No Jaundice, No Bruising, No Other Objective Vitals Vital Signs Date Time Temp Pulse Resp B/P (MAP) Pulse Ox O2 Delivery O2 Flow Rate FiO2 04/11/25 13:00 97.9 118 15 118/74 (89) 92 97.9 04/11/25 09:18 Nasal Cannula 2.0 04/11/25 09:18 97 Intake/Output Intake and Output 04/11/25 06:59 Intake Total 900 ml Output Total 2150 ml Balance -1250 ml Intake Oral 500 ml IV Total 400 ml Output Urine Total 2150 ml # Bowel Movements 5 General Appearance: Alert, Oriented X3, Cooperative, mild distress HEENT: Atraumatic, PERRLA Lungs: Other (Rhonchi in right lobe. Absent breath sounds in the left upper lobe) Cardiovascular: Normal S1, Normal S2 Abdomen: Normal bowel sounds, No tenderness, No hepatospenomegaly Neuro: Normal gait, Normal speech Skin: Dry, Intact Psych/Mental Status: Mental status NL, Mood NL Medications Current Medications Medications Dose Ordered Sig/Praneeth Route Start Time Stop Time Status Last Admin Dose Admin Famotidine 20 mg DAILY IV 04/09/25 10:00 04/11/25 11:23 20 MG Divalproex Sodium 500 mg BID PO 04/08/25 22:00 04/11/25 11:24 500 MG Midodrine 10 mg TID@0600,1200,1800 PO 04/08/25 18:00 04/11/25 11:25 10 MG Levothyroxine Sodium 125 mcg QAM@0600 PO 04/09/25 06:00 04/10/25 06:06 125 MCG Alprazolam 0.5 mg Q8HPRN PRN PO 04/08/25 16:45 04/09/25 14:17 0.5 MG Albuterol 2.5 mg Q4HPRN PRN NEB 04/08/25 16:45 04/09/25 12:04 2.5 MG Sodium Chloride 1,000 ml @ 60 mls/hr [id number] IV 04/08/25 16:45 04/10/25 02:05 60 MLS/HR Acetaminophen/ Hydrocodone Bitart 1 tab Q4HP PRN PO 04/08/25 16:45 Ondansetron HCl 4 mg Q4HP PRN IV 04/08/25 16:45 Docusate Sodium 100 mg BIDPRN PRN PO 04/08/25 16:45 Acetaminophen 650 mg Q6HP PRN PO 04/08/25 16:45 04/11/25 12:26 650 MG Nitroglycerin 0.4 mg Q5MINP PRN SL 04/08/25 18:15 Morphine Sulfate 2 mg Q30M PRN IV 04/08/25 18:15 Hydromorphone HCl 0.5 mg Q4HPRN PRN IV 04/08/25 18:15 04/11/25 00:48 0.5 MG Fluconazole 100 ml @ 100 mls/hr DAILY IV 04/10/25 10:00 04/11/25 11:23 100 MLS/HR Albuterol 2.5 mg Q4HWA NEB 04/09/25 18:00 04/11/25 07:16 2.5 MG Ipratropium [place] 0.5 mg Q4HWA NEB 04/09/25 18:00 04/11/25 07:16 0.5 MG Piperacillin Sod/ Tazobactam Sod 100 ml @ 25 mls/hr Q8H IV 04/10/25 00:00 04/11/25 00:07 25 MLS/HR Vancomycin HCl 0 ml @ 0 mls/hr UD IV 04/09/25 15:15 Venlafaxine HCl 37.5 mg BID PO 04/09/25 22:00 04/11/25 11:24 37.5 MG Amino Acids 0 ml @ 0 mls/hr PER PHARMACY IV 04/09/25 15:30 Diagnostic Test (Pha) 1 strip Q6HR 04/09/25 18:00 04/11/25 12:00 1 STRIP Insulin Human Regular FOLLOW SLIDING SCALE Q6HR SC 04/09/25 18:00 Dextrose 50 ml UD IV 04/09/25 15:45 Amino Acids 1,000 ml @ 41 mls/hr DAILY@2200 IV 04/09/25 22:00 04/10/25 22:58 41 MLS/HR Vancomycin HCl 200 ml @ 200 mls/hr Q12H IV 04/10/25 20:00 04/10/25 22:56 200 MLS/HR Laboratory Results Laboratory Tests 04/11/25 05:45 Chemistry Test 04/11/25 05:45 Albumin 3.6 g/dL (3.2-4.8) Calcium Level 9.0 mg/dL (8.7-10.4) Magnesium Level 1.7 mg/dL (1.6-2.6) Phosphorus Level 2.9 mg/dL (2.4-5.1) Total Protein 6.6 g/dL (5.7-8.2) LFT Test 04/11/25 05:45 Alanine Aminotransferase (ALT) 11 U/L (7-40) Alkaline Phosphatase 83 U/L (46-116) Aspartate Amino Transferase (AST) 30 U/L (13-40) Total Bilirubin 0.3 mg/dL (0.2-1.0) Urinalysis Test 04/08/25 17:00 Urine Color Yellow (Yellow) Urine Clarity Clear (Clear) Urine pH 5.5 (5.0-9.0) Urine Specific [place] 1.020 (1.001-1.035) Urine Protein Trace (Negative) H Urine Ketones Negative (Negative) Urine Blood Trace /uL (Negative) H Urine Nitrite Negative (Negative) Urine Bilirubin Negative (Negative) Urine Urobilinogen Normal mg/dL (Negative) Urine Leukocyte Esterase 2+ /uL (Negative) Urine RBC 2 /hpf (0 - 3) Urine Microscopic WBC 51 /HPF (0-3) H Urine Squamous Epithelial Cells Few /hpf (<5) Urine Bacteria None seen /hpf (None Seen) Urine Glucose Normal mg/dL (Normal) Microbiology Microbiology Date/Time Source Procedure Growth Status 04/11/25 08:57 Lung Pending Resulted 04/11/25 08:57 Lung Pending Resulted 04/11/25 08:57 Lung Pending Resulted 04/11/25 08:57 Lung Pending Resulted 04/11/25 08:57 Lung - Final See Separate Report... Resulted 04/09/25 15:25 Urine - Pal Port Urine Culture - Final Enterococcus faecalis Complete 04/08/25 15:29 Blood Blood Culture - Preliminary NO GROWTH AFTER 48 HOURS OF INCUBATION. Resulted Labs and/or images reviewed: Labs reviewed by me, Image(s) reviewed by me Assessment/Plan Assessment/Plan Impression: -acute hypoxic respiratory failure -left lung mass -probable aspiration pneumonia -complicated cystitis with Enterococcus faecalis -history of throat cancer, AML -metabolic encephalopathy -hypothyroidism -COPD -left hip pain -seizure disorder Plan: -status post bronchoscopy, left lung mass biopsy -recommend NPO status until swallow evaluation. Witnessed by myself, patient choking on food and thin liquids has been provided by patient's -antibiotic therapy: Continue Zosyn, stop vancomycin -bronchodilators -physical therapy -DC Pal catheter -repeat labs in a.m. Total time spent with patient discussing and formulating plan of care: 35 minutes. This medical document was created using an electronic medical record system with [employer] dictation system. Although this document has been carefully reviewed, there may still be some phonetic and typographical errors. These areas are purely typographical due to imperfections of the software programs, and do not reflect any compromise in the patient's medical care. Plan discussed with: Patient, Other (RN) Date of Service: Apr 11, 2025 Billing Provider: SOFIA NELSON NP Common Visit Codes: 29809-[id number] INP/OBS CARE(HIGH) SOFIA NELSON NP Apr 11, 2025 14:35
[2025-04-12] VITALS (13 sets, daily range): BP systolic 111–132; BP diastolic 63–80; PULSE 110–118; RESP 16–24; TEMP 97.3–98.9; O2SAT 90–100
[2025-04-12] MEDS: LIDOCAINE 2%HCL (LOCAL ANESTH.) INJ 10ml MDV ONE (01:07)
[2025-04-12 07:44] LABS: Hematocrit 32.7 % (41.0-53.0); Hemoglobin 10.7 g/dL (13.5-17.5); Mean Corpuscular Hemoglobin 31.4 pg (28.0-32.0); Mean Corpuscular Volume 95.6 fL (80.0-100.0); Nucleated Red Blood Cells % 0.0 %
[2025-04-12 07:47] LABS: Calcium 10.8 mg/dL (8.7-10.4); Chloride 102 mmol/L (98-107); Potassium 3.6 mmol/L (3.5-5.1); Sodium 136 mmol/L (136-145)
[2025-04-12 07:48] LABS: Anion Gap 11 (5-15); Anion Gap 13.0 (5-15); Carbon Dioxide 23 mmol/L (20-31); Carbon Dioxide 23.0 mmol/L (20-31); Chloride 102.0 mmol/L (98-107); Potassium 3.7 mmol/L (3.5-5.1); Sodium 138.0 mmol/L (136-145)
[2025-04-12 07:50] LABS: Calcium 10.3 mg/dL (8.7-10.4)
[2025-04-12 07:53] LABS: BUN/Creatinine Ratio 19.4 (10.0-20.0); Glucose 104 mg/dL (74-106)
[2025-04-12 07:54] LABS: BUN/Creatinine Ratio 19.5 (10.0-20.0); Glucose 104.0 mg/dL (74-106)
[2025-04-12 07:55] LABS: Albumin 3.8 g/dL (3.2-4.8); Blood Urea Nitrogen 25 mg/dL (9-23); Blood Urea Nitrogen 25.0 mg/dL (9-23); Magnesium 1.8 mg/dL (1.6-2.6)
--- NOTE | 2025-04-12 12:46 | DVHPN2 ---
Subjective Patient denies any symptoms Reviewed: Care Plan, H&P, Labs, Medications Changes from previous H/P or p: No Changes General: Per HPI Eyes: No Pain, No Vision change, No Conjunctivae inflammation, No Eyelid inflammation, No Other, No Redness ENT: No Ear pain, No Ear discharge, No Nose pain, No Nose discharge, No Nose congestion, No Mouth pain, No Mouth swelling, No Throat pain, No Throat swelling, No Other Cardiovascular: Chest Pain; No Palpitations, No Orthopnea, No Paroxysmal Noc. Dyspnea, No Edema, No Lt Headedness, No Other Respiratory: Cough; No Dry, No Shortness of breath, No SOB with excertion, No Wheezing, No Hemoptysis, No Pleuritic Pain, No Sputum, No Other Gastrointestinal: No Nausea, No Vomiting, No Abdominal Pain, No Diarrhea, No Constipation, No Melena, No Hematochezia, No Other Genitourinary: No Dysuria, No Frequency, No Incontinence, No Hematuria, No Retention, No Other Musculoskeletal: other (Rt knee pain); No neck pain, No shoulder pain, No arm pain, No back pain, No hand pain, No leg pain, No foot pain Skin: No Rash, No Lesions, No Jaundice, No Bruising, No Other Objective Vitals Vital Signs Date Time Temp Pulse Resp B/P (MAP) Pulse Ox O2 Delivery O2 Flow Rate FiO2 04/12/25 12:25 98.7 114 21 124/80 (95) 93 98.7 04/12/25 09:22 Room Air 0.0 04/12/25 09:22 21 Intake/Output Intake and Output 04/12/25 07:00 Intake Total 1610 ml Output Total 700 ml Balance 910 ml Intake Oral 700 ml IV Total 910 ml Output Urine Total 700 ml # Voids 4 # Bowel Movements 2 General Appearance: Alert, Oriented X3, Cooperative, mild distress HEENT: Atraumatic, PERRLA Lungs: Other (Rhonchi in right lobe. Absent breath sounds in the left upper lobe) Cardiovascular: Normal S1, Normal S2 Abdomen: Normal bowel sounds, No tenderness, No hepatospenomegaly Neuro: Normal gait, Normal speech Skin: Dry, Intact Psych/Mental Status: Mental status NL, Mood NL Medications Current Medications Medications Dose Ordered Sig/Praneeth Route Start Time Stop Time Status Last Admin Dose Admin Famotidine 20 mg DAILY IV 04/09/25 10:00 04/12/25 10:10 20 MG Divalproex Sodium 500 mg BID PO 04/08/25 22:00 04/12/25 10:11 500 MG Midodrine 10 mg TID@0600,1200,1800 PO 04/08/25 18:00 04/12/25 11:00 10 MG Levothyroxine Sodium 125 mcg QAM@0600 PO 04/09/25 06:00 04/12/25 06:34 125 MCG Alprazolam 0.5 mg Q8HPRN PRN PO 04/08/25 16:45 04/09/25 14:17 0.5 MG Albuterol 2.5 mg Q4HPRN PRN NEB 04/08/25 16:45 04/09/25 12:04 2.5 MG Sodium Chloride 1,000 ml @ 60 mls/hr [id number] IV 04/08/25 16:45 04/12/25 06:15 60 MLS/HR Acetaminophen/ Hydrocodone Bitart 1 tab Q4HP PRN PO 04/08/25 16:45 Ondansetron HCl 4 mg Q4HP PRN IV 04/08/25 16:45 Docusate Sodium 100 mg BIDPRN PRN PO 04/08/25 16:45 Acetaminophen 650 mg Q6HP PRN PO 04/08/25 16:45 04/11/25 12:26 650 MG Nitroglycerin 0.4 mg Q5MINP PRN SL 04/08/25 18:15 Morphine Sulfate 2 mg Q30M PRN IV 04/08/25 18:15 Hydromorphone HCl 0.5 mg Q4HPRN PRN IV 04/08/25 18:15 04/12/25 06:22 0.5 MG Fluconazole 100 ml @ 100 mls/hr DAILY IV 04/10/25 10:00 04/12/25 11:35 100 MLS/HR Albuterol 2.5 mg Q4HWA NEB 04/09/25 18:00 04/12/25 09:22 2.5 MG Ipratropium [place] 0.5 mg Q4HWA NEB 04/09/25 18:00 04/12/25 09:22 0.5 MG Piperacillin Sod/ Tazobactam Sod 100 ml @ 25 mls/hr Q8H IV 04/10/25 00:00 04/12/25 00:54 25 MLS/HR Venlafaxine HCl 37.5 mg BID PO 04/09/25 22:00 04/12/25 10:11 37.5 MG Amino Acids 0 ml @ 0 mls/hr PER PHARMACY IV 04/09/25 15:30 Diagnostic Test (Pha) 1 strip Q6HR 04/09/25 18:00 04/12/25 11:20 1 STRIP Insulin Human Regular FOLLOW SLIDING SCALE Q6HR SC 04/09/25 18:00 Dextrose 50 ml UD IV 04/09/25 15:45 Amino Acids 1,000 ml @ 41 mls/hr DAILY@2200 IV 04/09/25 22:00 04/11/25 21:43 41 MLS/HR Vancomycin HCl 200 ml @ 200 mls/hr Q12H IV 04/10/25 20:00 04/12/25 10:10 200 MLS/HR Laboratory Results Laboratory Tests 04/12/25 07:00 Chemistry Test 04/12/25 07:00 Albumin 3.8 g/dL (3.2-4.8) Calcium Level 10.8 mg/dL (8.7-10.4) H Magnesium Level 1.8 mg/dL (1.6-2.6) Phosphorus Level 2.9 mg/dL (2.4-5.1) Urinalysis Test 04/08/25 17:00 Urine Color Yellow (Yellow) Urine Clarity Clear (Clear) Urine pH 5.5 (5.0-9.0) Urine Specific [place] 1.020 (1.001-1.035) Urine Protein Trace (Negative) H Urine Ketones Negative (Negative) Urine Blood Trace /uL (Negative) H Urine Nitrite Negative (Negative) Urine Bilirubin Negative (Negative) Urine Urobilinogen Normal mg/dL (Negative) Urine Leukocyte Esterase 2+ /uL (Negative) Urine RBC 2 /hpf (0 - 3) Urine Microscopic WBC 51 /HPF (0-3) H Urine Squamous Epithelial Cells Few /hpf (<5) Urine Bacteria None seen /hpf (None Seen) Urine Glucose Normal mg/dL (Normal) Microbiology Microbiology Date/Time Source Procedure Growth Status 04/11/25 08:57 Lung Pending Resulted 04/11/25 08:57 Lung Pending Resulted 04/11/25 08:57 Lung Pending Resulted 04/11/25 08:57 Lung Pending Resulted 04/11/25 08:57 Lung - Final See Separate Report... Resulted 04/09/25 15:25 Urine - Pal Port Urine Culture - Final Enterococcus faecalis Complete 04/08/25 15:29 Blood Blood Culture - Preliminary NO GROWTH AFTER 72 HOURS OF INCUBATION. Resulted Labs and/or images reviewed: Labs reviewed by me, Image(s) reviewed by me Assessment/Plan Assessment/Plan Impression: -acute hypoxic respiratory failure -left lung mass -probable aspiration pneumonia -complicated cystitis with Enterococcus faecalis -history of throat cancer, AML -metabolic encephalopathy -hypothyroidism -COPD -left hip pain -seizure disorder Plan: Events: No events overnight. Speech therapy performed swallow evaluation. Okay to have nectar thick and pureed diet. Patient tolerating approximately 50% of meals. Mucus plugging to right upper and middle lobes noted on bronchoscopy. Start mucolytics -continue bronchodilators, changed to q.6 hours while awake. Add Mucomyst. -antibiotic therapy: Continue Zosyn -PUD prophylaxis -awaiting biopsy results -physical therapy -repeat labs in a.m. Total time spent with patient discussing and formulating plan of care: 35 minutes. This medical document was created using an electronic medical record system with [email or web address] dictation system. Although this document has been carefully reviewed, there may still be some phonetic and typographical errors. These areas are purely typographical due to imperfections of the software programs, and do not reflect any compromise in the patient's medical care. Plan discussed with: Patient, Spouse, Other (RN) My Orders Orders - SOFIA NELSON NP Procedure Category Date Status Time Discontinue Pal KEON 04/11/25 In Process Catheter 14:29 Basic Metabolic Panel LAB 04/13/25 Verified 04:00 Complete Blood Count LAB 04/13/25 Verified 04:00 Albuterol Medneb PHA 04/12/25 Verified (Ventolin Medneb) 18:00 Ipratropium Medneb PHA 04/12/25 Verified (Atrovent Medneb) 18:00 Acetylcysteine PHA 04/12/25 Verified Inhalation 10% 18:00 Date of Service: Apr 12, 2025 Billing Provider: SOFIA NELSON NP Common Visit Codes: [id number] INP/OBS CARE(HIGH) SOFIA NELSON TECHNICAL EDITOR Apr 12, 2025 12:46
--- NOTE | 2025-04-12 13:16 | DVHPN2 ---
Progress Note - Dictate Date Seen: Apr 12, 2025 Medical Necessity Reason Pt with a Central, PICC or Fol: Yes The following are medically ne: Aceves Catheter Reason for aceves catheter: Strict I&O vital signs Vital Sign Date Time Temp Pulse Resp B/P (MAP) Pulse Ox O2 Delivery O2 Flow Rate FiO2 04/12/25 12:25 98.7 114 21 124/80 (95) 93 98.7 04/12/25 09:22 Room Air 0.0 04/12/25 09:22 21 Total Intake and Output 04/11/25 04/11/25 04/12/25 15:00 23:00 07:00 Intake Total 10 ml 900 ml 700 ml Output Total 700 ml Balance 10 ml 200 ml 700 ml medications Current Medications Medications Dose Ordered Sig/Praneeth Route Start Time Stop Time Status Last Admin Dose Admin Famotidine 20 mg DAILY IV 04/09/25 10:00 04/12/25 10:10 20 MG Divalproex Sodium 500 mg BID PO 04/08/25 22:00 04/12/25 10:11 500 MG Midodrine 10 mg TID@0600,1200,1800 PO 04/08/25 18:00 04/12/25 11:00 10 MG Levothyroxine Sodium 125 mcg QAM@0600 PO 04/09/25 06:00 04/12/25 06:34 125 MCG Alprazolam 0.5 mg Q8HPRN PRN PO 04/08/25 16:45 04/09/25 14:17 0.5 MG Albuterol 2.5 mg Q4HPRN PRN NEB 04/08/25 16:45 04/09/25 12:04 2.5 MG Acetaminophen/ Hydrocodone Bitart 1 tab Q4HP PRN PO 04/08/25 16:45 Ondansetron HCl 4 mg Q4HP PRN IV 04/08/25 16:45 Docusate Sodium 100 mg BIDPRN PRN PO 04/08/25 16:45 Acetaminophen 650 mg Q6HP PRN PO 04/08/25 16:45 04/11/25 12:26 650 MG Nitroglycerin 0.4 mg Q5MINP PRN SL 04/08/25 18:15 Morphine Sulfate 2 mg Q30M PRN IV 04/08/25 18:15 Hydromorphone HCl 0.5 mg Q4HPRN PRN IV 04/08/25 18:15 04/12/25 06:22 0.5 MG Fluconazole 100 ml @ 100 mls/hr DAILY IV 04/10/25 10:00 04/12/25 11:35 100 MLS/HR Piperacillin Sod/ Tazobactam Sod 100 ml @ 25 mls/hr Q8H IV 04/10/25 00:00 04/12/25 00:54 25 MLS/HR Venlafaxine HCl 37.5 mg BID PO 04/09/25 22:00 04/12/25 10:11 37.5 MG Amino Acids 0 ml @ 0 mls/hr PER PHARMACY IV 04/09/25 15:30 Diagnostic Test (Pha) 1 strip Q6HR 04/09/25 18:00 04/12/25 11:20 1 STRIP Insulin Human Regular FOLLOW SLIDING SCALE Q6HR SC 04/09/25 18:00 Dextrose 50 ml UD IV 04/09/25 15:45 Amino Acids 1,000 ml @ 41 mls/hr DAILY@2200 IV 04/09/25 22:00 04/11/25 21:43 41 MLS/HR Vancomycin HCl 200 ml @ 200 mls/hr Q12H IV 04/10/25 20:00 04/12/25 10:10 200 MLS/HR Albuterol 2.5 mg Q6HWA [facility] 04/12/25 18:00 UNV Ipratropium [place] 0.5 mg Q6HWA [facility] 04/12/25 18:00 UNV Acetylcysteine 100 mg Q6HWA [facility] 04/12/25 18:00 04/15/25 06:01 UNV laboratory and microbiology Laboratory Tests 04/12/25 07:00 Test 04/12/25 07:00 Range/Units Serum Glucose 104 74-106 mg/dL Assessment/Plan Impression: Acute hypoxic respiratory failure Dependence on supplemental oxygen Left upper lobe mass Atypical pneumonia Bilateral pleural effusions Atelectasis Mediastinal lymphadenopathy Patient seen and examined Events Low oxygen requirements On room air No distress s/p bronch s/p DIXIE mass CT guided bx results pending management Continue bronchodilators Continue antibiotics/antifungals Incentive spirometry Dietary Evaluation Review Comments: TPN per pharmacy to meet at least 75% of his needs TF glucerna @60ml/hr will meet 90% of pt's protein and energy requirements PO diet CCHO-75, plus glucerna PO supplements as needed. Expected Outcomes/Goals: avoid catabolism, gradual weight gain, improved nutrition status. Plan discussed with: Patient DYLAN SHAY MD Apr 12, 2025 13:16
[2025-04-12] MEDS ORDERED: ACETYLCYSTEINE 10 %(100MG/ML) SOL 4ML NEB SCH (18:00)
[2025-04-12] MEDS: ALBUTEROL SULF 2.5 MG/0.5ML(0.5%) NEB SOLN NEB SCH (18:44)
[2025-04-12] MEDS: ACETYLCYSTEINE 10 %(100MG/ML) SOL 4ML NEB SCH (18:45)
[2025-04-12] MEDS: IPRATROPIUM BROM 0.5 MG/2.5ML INH SOL NEB SCH (18:45)
[2025-04-13] VITALS (41 sets, daily range): BP systolic 25–134; BP diastolic 57–86; PULSE 100–117; RESP 9–45; TEMP 98–99.9; O2SAT 81–100
[2025-04-13 06:49] LABS: Hematocrit 35.5 % (41.0-53.0); Hemoglobin 11.8 g/dL (13.5-17.5); Mean Corpuscular Hemoglobin 31.7 pg (28.0-32.0); Mean Corpuscular Volume 95.1 fL (80.0-100.0); Nucleated Red Blood Cells % 0.0 %
[2025-04-13 07:10] LABS: Alanine Aminotransferase 29 U/L (7-40); Alkaline Phosphatase 104 U/L (46-116); Anion Gap 13 (5-15); Carbon Dioxide 24 mmol/L (20-31); Chloride 101 mmol/L (98-107); Glucose 92 mg/dL (74-106); Magnesium 2.0 mg/dL (1.6-2.6); Potassium 3.8 mmol/L (3.5-5.1); Sodium 138 mmol/L (136-145); Total Protein 7.3 g/dL (5.7-8.2)
[2025-04-13 07:11] LABS: Albumin 4.1 g/dL (3.2-4.8)
[2025-04-13 07:12] LABS: Bilirubin, Total 0.4 mg/dL (0.2-1.0)
[2025-04-13 07:16] LABS: Blood Urea Nitrogen 26 mg/dL (9-23); Calcium 10.8 mg/dL (8.7-10.4)
[2025-04-13 07:27] LABS: BUN/Creatinine Ratio 21.3 (10.0-20.0)
[2025-04-13 12:12] LABS: Base Excess -1.2 mmol/L (-2.0-3.0)
--- NOTE | 2025-04-13 12:51 | DVHPN2 ---
Progress Note - Dictate Date Seen: Apr 13, 2025 Medical Necessity Reason Pt with a Central, PICC or Fol: Yes The following are medically ne: Aceves Catheter Reason for aceves catheter: Strict I&O vital signs Vital Sign Date Time Temp Pulse Resp B/P (MAP) Pulse Ox O2 Delivery O2 Flow Rate FiO2 04/13/25 11:54 112 16 100 04/13/25 11:48 Nasal Cannula 1.0 04/13/25 11:48 24 04/13/25 06:47 118/71 04/13/25 04:59 98.8 98.8 Total Intake and Output 04/12/25 04/12/25 04/13/25 15:00 23:00 07:00 Intake Total 100 ml 1340 ml 250 ml Output Total 400 ml Balance 100 ml 940 ml 250 ml medications Current Medications Medications Dose Ordered Sig/Praneeth Route Start Time Stop Time Status Last Admin Dose Admin Famotidine 20 mg DAILY IV 04/09/25 10:00 04/13/25 11:26 20 MG Divalproex Sodium 500 mg BID PO 04/08/25 22:00 04/12/25 21:55 500 MG Midodrine 10 mg TID@0600,1200,1800 PO 04/08/25 18:00 04/13/25 05:41 10 MG Levothyroxine Sodium 125 mcg QAM@0600 PO 04/09/25 06:00 04/13/25 05:42 125 MCG Alprazolam 0.5 mg Q8HPRN PRN PO 04/08/25 16:45 04/12/25 22:09 0.5 MG Albuterol 2.5 mg Q4HPRN PRN NEB 04/08/25 16:45 04/09/25 12:04 2.5 MG Acetaminophen/ Hydrocodone Bitart 1 tab Q4HP PRN PO 04/08/25 16:45 Ondansetron HCl 4 mg Q4HP PRN IV 04/08/25 16:45 Docusate Sodium 100 mg BIDPRN PRN PO 04/08/25 16:45 Acetaminophen 650 mg Q6HP PRN PO 04/08/25 16:45 04/11/25 12:26 650 MG Nitroglycerin 0.4 mg Q5MINP PRN SL 04/08/25 18:15 Morphine Sulfate 2 mg Q30M PRN IV 04/08/25 18:15 Hydromorphone HCl 0.5 mg Q4HPRN PRN IV 04/08/25 18:15 04/13/25 05:41 0.5 MG Fluconazole 100 ml @ 100 mls/hr DAILY IV 04/10/25 10:00 04/12/25 11:35 100 MLS/HR Piperacillin Sod/ Tazobactam Sod 100 ml @ 25 mls/hr Q8H IV 04/10/25 00:00 04/13/25 11:24 25 MLS/HR Venlafaxine HCl 37.5 mg BID PO 04/09/25 22:00 04/12/25 21:55 37.5 MG Amino Acids 0 ml @ 0 mls/hr PER PHARMACY IV 04/09/25 15:30 Diagnostic Test (Pha) 1 strip Q6HR 04/09/25 18:00 04/13/25 12:06 1 STRIP Insulin Human Regular FOLLOW SLIDING SCALE Q6HR SC 04/09/25 18:00 Dextrose 50 ml UD IV 04/09/25 15:45 Amino Acids 1,000 ml @ 41 mls/hr DAILY@2200 IV 04/09/25 22:00 04/12/25 21:54 41 MLS/HR Albuterol 2.5 mg Q6HWA [facility] 04/12/25 18:00 04/13/25 11:48 2.5 MG Ipratropium [place] 0.5 mg Q6HWA [facility] 04/12/25 18:00 04/13/25 11:48 0.5 MG Acetylcysteine 100 mg Q6HWA [facility] 04/12/25 18:00 04/15/25 06:01 04/13/25 11:48 100 MG laboratory and microbiology Laboratory Tests 04/13/25 05:47 04/13/25 05:43 Test 04/13/25 05:43 Range/Units Serum Glucose 92 74-106 mg/dL Assessment/Plan Impression: Acute hypoxic respiratory failure Dependence on supplemental oxygen Left upper lobe mass Atypical pneumonia Bilateral pleural effusions Atelectasis Mediastinal lymphadenopathy Patient seen and examined Events Low oxygen requirements On room air No acute events s/p bronch s/p DIXIE mass CT guided bx results pending management Continue bronchodilators Continue antibiotics/antifungals Incentive spirometry await results Dietary Evaluation Review Comments: TPN per pharmacy to meet at least 75% of his needs TF glucerna @60ml/hr will meet 90% of pt's protein and energy requirements PO diet CCHO-75, plus glucerna PO supplements as needed. Expected Outcomes/Goals: avoid catabolism, gradual weight gain, improved nutrition status. Plan discussed with: Patient DYLAN SHAY MD Apr 13, 2025 12:51
--- NOTE | 2025-04-13 13:05 | DVHPN2 ---
Subjective Patient denies any symptoms Reviewed: Care Plan, H&P, Labs, Medications Changes from previous H/P or p: No Changes General: Per HPI Eyes: No Pain, No Vision change, No Conjunctivae inflammation, No Eyelid inflammation, No Other, No Redness ENT: No Ear pain, No Ear discharge, No Nose pain, No Nose discharge, No Nose congestion, No Mouth pain, No Mouth swelling, No Throat pain, No Throat swelling, No Other Cardiovascular: Chest Pain; No Palpitations, No Orthopnea, No Paroxysmal Noc. Dyspnea, No Edema, No Lt Headedness, No Other Respiratory: Cough; No Dry, No Shortness of breath, No SOB with excertion, No Wheezing, No Hemoptysis, No Pleuritic Pain, No Sputum, No Other Gastrointestinal: No Nausea, No Vomiting, No Abdominal Pain, No Diarrhea, No Constipation, No Melena, No Hematochezia, No Other Genitourinary: No Dysuria, No Frequency, No Incontinence, No Hematuria, No Retention, No Other Musculoskeletal: other (Rt knee pain); No neck pain, No shoulder pain, No arm pain, No back pain, No hand pain, No leg pain, No foot pain Skin: No Rash, No Lesions, No Jaundice, No Bruising, No Other Objective Vitals Vital Signs Date Time Temp Pulse Resp B/P (MAP) Pulse Ox O2 Delivery O2 Flow Rate FiO2 04/13/25 11:54 112 16 100 04/13/25 11:48 Nasal Cannula 1.0 04/13/25 11:48 24 04/13/25 06:47 118/71 04/13/25 04:59 98.8 98.8 Intake/Output Intake and Output 04/13/25 07:00 Intake Total 1690 ml Output Total 400 ml Balance 1290 ml Intake Oral 690 ml IV Total 1000 ml Output Urine Total 400 ml # Voids 3 General Appearance: moderate distress, Other (Patient found to be obtunded) HEENT: Atraumatic, PERRLA Lungs: Other (Rhonchi in right lobe. Absent breath sounds in the left upper lobe) Cardiovascular: Normal S1, Normal S2 Abdomen: Normal bowel sounds, No tenderness, No hepatospenomegaly Neuro: Normal gait, Normal speech Skin: Dry, Intact Psych/Mental Status: Mental status NL, Mood NL Medications Current Medications Medications Dose Ordered Sig/Praneeth Route Start Time Stop Time Status Last Admin Dose Admin Famotidine 20 mg DAILY IV 04/09/25 10:00 04/13/25 11:26 20 MG Divalproex Sodium 500 mg BID PO 04/08/25 22:00 04/12/25 21:55 500 MG Midodrine 10 mg TID@0600,1200,1800 PO 04/08/25 18:00 04/13/25 05:41 10 MG Levothyroxine Sodium 125 mcg QAM@0600 PO 04/09/25 06:00 04/13/25 05:42 125 MCG Alprazolam 0.5 mg Q8HPRN PRN PO 04/08/25 16:45 04/12/25 22:09 0.5 MG Albuterol 2.5 mg Q4HPRN PRN NEB 04/08/25 16:45 04/09/25 12:04 2.5 MG Acetaminophen/ Hydrocodone Bitart 1 tab Q4HP PRN PO 04/08/25 16:45 Ondansetron HCl 4 mg Q4HP PRN IV 04/08/25 16:45 Docusate Sodium 100 mg BIDPRN PRN PO 04/08/25 16:45 Acetaminophen 650 mg Q6HP PRN PO 04/08/25 16:45 04/11/25 12:26 650 MG Nitroglycerin 0.4 mg Q5MINP PRN SL 04/08/25 18:15 Morphine Sulfate 2 mg Q30M PRN IV 04/08/25 18:15 Hydromorphone HCl 0.5 mg Q4HPRN PRN IV 04/08/25 18:15 04/13/25 05:41 0.5 MG Fluconazole 100 ml @ 100 mls/hr DAILY IV 04/10/25 10:00 04/12/25 11:35 100 MLS/HR Piperacillin Sod/ Tazobactam Sod 100 ml @ 25 mls/hr Q8H IV 04/10/25 00:00 04/13/25 11:24 25 MLS/HR Venlafaxine HCl 37.5 mg BID PO 04/09/25 22:00 04/12/25 21:55 37.5 MG Amino Acids 0 ml @ 0 mls/hr PER PHARMACY IV 04/09/25 15:30 Diagnostic Test (Pha) 1 strip Q6HR 04/09/25 18:00 04/13/25 12:06 1 STRIP Insulin Human Regular FOLLOW SLIDING SCALE Q6HR SC 04/09/25 18:00 Dextrose 50 ml UD IV 04/09/25 15:45 Amino Acids 1,000 ml @ 41 mls/hr DAILY@2200 IV 04/09/25 22:00 04/12/25 21:54 41 MLS/HR Albuterol 2.5 mg Q6HWA [facility] 04/12/25 18:00 04/13/25 11:48 2.5 MG Ipratropium [place] 0.5 mg Q6HWA [facility] 04/12/25 18:00 04/13/25 11:48 0.5 MG Acetylcysteine 100 mg Q6HWA [facility] 04/12/25 18:00 04/15/25 06:01 04/13/25 11:48 100 MG Laboratory Results Laboratory Tests 04/13/25 05:43 04/13/25 05:47 Chemistry Test 04/13/25 05:43 Albumin 4.1 g/dL (3.2-4.8) Calcium Level 10.8 mg/dL (8.7-10.4) H Magnesium Level 2.0 mg/dL (1.6-2.6) Phosphorus Level 2.9 mg/dL (2.4-5.1) Total Protein 7.3 g/dL (5.7-8.2) LFT Test 04/13/25 05:43 Alanine Aminotransferase (ALT) 29 U/L (7-40) Alkaline Phosphatase 104 U/L (46-116) Aspartate Amino Transferase (AST) 63 U/L (13-40) H Total Bilirubin 0.4 mg/dL (0.2-1.0) Urinalysis Test 04/08/25 17:00 Urine Color Yellow (Yellow) Urine Clarity Clear (Clear) Urine pH 5.5 (5.0-9.0) Urine Specific [employer] 1.020 (1.001-1.035) Urine Protein Trace (Negative) H Urine Ketones Negative (Negative) Urine Blood Trace /uL (Negative) H Urine Nitrite Negative (Negative) Urine Bilirubin Negative (Negative) Urine Urobilinogen Normal mg/dL (Negative) Urine Leukocyte Esterase 2+ /uL (Negative) Urine RBC 2 /hpf (0 - 3) Urine Microscopic WBC 51 /HPF (0-3) H Urine Squamous Epithelial Cells Few /hpf (<5) Urine Bacteria None seen /hpf (None Seen) Urine Glucose Normal mg/dL (Normal) Blood Gas Results Test 04/13/25 12:06 Arterial Blood pH 7.463 (7.350-7.450) FiO2 % 24.0 Microbiology Microbiology Date/Time Source Procedure Growth Status 04/11/25 08:57 Lung Pending Resulted 04/11/25 08:57 Lung Pending Resulted 04/11/25 08:57 Lung Pending Resulted 04/11/25 08:57 Lung Pending Resulted 04/11/25 08:57 Lung - Final See Separate Report... Resulted 04/11/25 08:57 Bronchial Washings Gram Stain - Final Resulted 04/11/25 08:57 Bronchial Washings Respiratory Culture - Preliminary Resulted 04/09/25 15:25 Urine - Pal Port Urine Culture - Final Enterococcus faecalis Complete 04/08/25 15:29 Blood Blood Culture - Preliminary NO GROWTH AFTER 72 HOURS OF INCUBATION. Resulted Labs and/or images reviewed: Labs reviewed by me, Image(s) reviewed by me Assessment/Plan Assessment/Plan Impression: -acute hypoxic respiratory failure -left lung mass -probable aspiration pneumonia -complicated cystitis with Enterococcus faecalis -history of throat cancer, AML -metabolic encephalopathy -hypothyroidism -COPD -left hip pain -seizure disorder Plan: Events: Patient assessed to be less responsive this a.m.. Does respond to painful stimuli. Is not following any commands. Primary nurse states that patient did not receive any hypnotics or narcotics. Stat CT scan of the head. ABG. Transfer to step-down ICU for closer observation. -continue bronchodilators, changed to q.6 hours while awake. Add Mucomyst. -antibiotic therapy: Continue Zosyn -PUD prophylaxis -awaiting biopsy results -physical therapy -repeat labs in a.m. Critical care time spent with patient discussing and formulating plan of care: 40 minutes. This does not include time spent performing procedures. This medical document was created using an electronic medical record system with [employer] system. Although this document has been carefully reviewed, there may still be some phonetic and typographical errors. These areas are purely typographical due to imperfections of the software programs, and do not reflect any compromise in the patient's medical care. Plan discussed with: Patient, Other (RN) My Orders Orders - SOFIA NELSON NP Procedure Category Date Status Time Urine Bacterial ALEXSANDER 04/13/25 Logged Culture 11:06 Urinalysis LAB 04/13/25 Logged 11:[address] 04/13/25 Logged 11:49 Transfer Orders XFER 04/13/25 Transmitted 11:49 Abg W/ Co-Ox RT 04/13/25 Logged 11:52 Abg W/ Co-Ox RT 04/13/25 Logged 11:53 Chest Xray 1 View XY 04/13/25 Logged 11:49 Date of Service: Apr 13, 2025 Billing Provider: SOFIA NELSON NP Common Visit Codes: [id number] CARE 30-74 MIN SOFIA NELSON NP Apr 13, 2025 13:05
[2025-04-13] MEDS: HYDROmorphone HCL 2 MG/ML VL/or syr IV PRN (16:02)
--- NOTE | 2025-04-13 19:04 | DVH ---
EXAM: CT HEAD WITHOUT CONTRAST INDICATION: altered mental status TECHNIQUE: CT of the head without intravenous contrast. Radiation Dose Information: CT Dose: CTDI volume is 6.3 mGy. Dose-length product is 1655.3 mGy*cm The dose indicators for CT are the volume Computed Tomography (CT) Dose Index (CTDIvol) and the Dose Length Product (DLP), and are measured in units of mGy and mGy-cm, respectively. These indicators are not patient dose, but values generated from the CT scanner acquisition factors. The report includes radiation exposure data for exposures received during this examination. COMPARISON: CT HEAD WITHOUT CONTRAST on DOS: 04/08/25, CT HEAD WITHOUT CONTRAST on DOS: 10/14/24, CT HEA D WITHOUT CONTRAST on DOS: 09/16/24 FINDINGS: There is no evidence of acute intracranial hemorrhage, extra-axial collection, mass effect, midline s hift, herniation or hydrocephalus. The ventricles, sulci and cisterns are age appropriate. The peña-white differentiation is intact. Patchy periventricular and subcortical white matter hypoattenuation is nonspecific but may be related to small vessel ischemic disease. The visualized paranasal sinuses and mastoid air cells are clear. The surrounding soft tissues and osseous structures are unremarkable. IMPRESSION: 1. No acute intracranial abnormality.
--- NOTE | 2025-04-13 19:07 | DVH ---
CHEST RADIOGRAPH Indication: aspiration Technique: Single frontal view of the chest was obtained Comparison: XY CHEST XRAY 1 VIEW on DOS: 04/11/25, XY CHEST XRAY 1 VIEW on DOS: 04/09/25, XY CHEST LULA BLE on DOS: 04/08/25 FINDINGS: Lines and Tubes: None Lungs: Persistent left upper lobe mass. Unchanged from 04/11/2025. No significant change in the lung [place] from 04/11/2025 Pleura: No effusion. No pneumothorax. Cardiomediastinal contours: Unremarkable Bones: No acute osseous abnormality. IMPRESSION: 1. Stable left upper lobe mass 2. No findings of acute airspace disease at this time consider follow-up.
[2025-04-13] MEDS: HYDROcodone-ACET 5/325MG TAB PO PRN (22:49)
[2025-04-14] VITALS (79 sets, daily range): BP systolic 93–128; BP diastolic 51–86; PULSE 94–114; RESP 17–32; TEMP 97.5–99.1; O2SAT 88–100
[2025-04-14 04:30] LABS: Alanine Aminotransferase 20 U/L (7-40); Albumin 3.9 g/dL (3.2-4.8); Alkaline Phosphatase 92 U/L (46-116); Anion Gap 11 (5-15); BUN/Creatinine Ratio 19.0 (10.0-20.0); Blood Urea Nitrogen 20 mg/dL (9-23); Calcium 10.0 mg/dL (8.7-10.4); Carbon Dioxide 20 mmol/L (20-31); Chloride 103 mmol/L (98-107); Magnesium 2.2 mg/dL (1.6-2.6); Potassium 3.6 mmol/L (3.5-5.1); Total Protein 7.4 g/dL (5.7-8.2)
[2025-04-14 04:31] LABS: Bilirubin, Total 0.3 mg/dL (0.2-1.0)
[2025-04-14 04:40] LABS: Glucose 108 mg/dL (74-106); Sodium 134 mmol/L (136-145)
--- NOTE | 2025-04-14 13:06 | DVHPN2 ---
Progress Note Date Seen: Apr 14, 2025 Medical Necessity Reason Pt with a Central, PICC or Fol: Yes The following are medically ne: Aceves Catheter Reason for aceves catheter: Strict I&O Subjective Patient reports: No new complaints Review of Systems: HEENT:Normal, CVS:Normal, RESPIRATORY:Normal, GI:Normal, :Normal, MSK:Normal, NEURO:Normal Objective vital signs Vital Sign Date Time Temp Pulse Resp B/P (MAP) Pulse Ox O2 Delivery O2 Flow Rate FiO2 04/14/25 12:15 114 24 107/62 (77) 95 04/14/25 12:00 98.1 98.1 04/14/25 08:00 Nasal Cannula* 2 28 Total Intake and Output 04/13/25 04/13/25 04/14/25 15:00 23:00 07:00 Intake Total 282 ml 328 ml 528 ml Output Total 425 ml 550 ml Balance 282 ml -97 ml -22 ml medications Current Medications Medications Dose Ordered Sig/Praneeth Route Start Time Stop Time Status Last Admin Dose Admin Famotidine 20 mg DAILY IV 04/09/25 10:00 04/14/25 10:41 20 MG Divalproex Sodium 500 mg BID PO 04/08/25 22:00 04/14/25 10:41 500 MG Midodrine 10 mg TID@0600,1200,1800 PO 04/08/25 18:00 04/14/25 06:00 10 MG Levothyroxine Sodium 125 mcg QAM@0600 PO 04/09/25 06:00 04/14/25 06:00 125 MCG Albuterol 2.5 mg Q4HPRN PRN NEB 04/08/25 16:45 04/09/25 12:04 2.5 MG Acetaminophen/ Hydrocodone Bitart 1 tab Q4HP PRN PO 04/08/25 16:45 04/13/25 22:49 1 TAB Ondansetron HCl 4 mg Q4HP PRN IV 04/08/25 16:45 Docusate Sodium 100 mg BIDPRN PRN PO 04/08/25 16:45 Acetaminophen 650 mg Q6HP PRN PO 04/08/25 16:45 04/11/25 12:26 650 MG Nitroglycerin 0.4 mg Q5MINP PRN SL 04/08/25 18:15 Morphine Sulfate 2 mg Q30M PRN IV 04/08/25 18:15 Fluconazole 100 ml @ 100 mls/hr DAILY IV 04/10/25 10:00 04/14/25 10:41 100 MLS/HR Piperacillin Sod/ Tazobactam Sod 100 ml @ 25 mls/hr Q8H IV 04/10/25 00:00 04/14/25 08:11 25 MLS/HR Venlafaxine HCl 37.5 mg BID PO 04/09/25 22:00 04/13/25 22:50 37.5 MG Amino Acids 0 ml @ 0 mls/hr PER PHARMACY IV 04/09/25 15:30 Diagnostic Test (Pha) 1 strip Q6HR 04/09/25 18:00 04/14/25 12:12 1 STRIP Insulin Human Regular FOLLOW SLIDING SCALE Q6HR SC 04/09/25 18:00 04/14/25 12:14 2 UNITS Dextrose 50 ml UD IV 04/09/25 15:45 Amino Acids 1,000 ml @ 41 mls/hr DAILY@2200 IV 04/09/25 22:00 04/13/25 22:47 41 MLS/HR Albuterol 2.5 mg Q6HWA NEB 04/12/25 18:00 04/14/25 11:31 2.5 MG Ipratropium [place] 0.5 mg Q6HWA NEB 04/12/25 18:00 04/14/25 11:31 0.5 MG Acetylcysteine 100 mg Q6HWA NEB 04/12/25 18:00 04/15/25 06:01 04/14/25 11:31 100 MG Hydromorphone HCl 0.5 mg Q6HPRN PRN IV 04/13/25 15:30 04/13/25 16:02 0.5 MG Examination: GENERAL:Normal, HEENT:Normal, NECK:Normal, LUNGS:Normal, LUNGS:Abnormal (on oxygen), CVS:Normal, ABDOMEN:Normal, MSK:Normal, SKIN:Normal, NEURO:Normal, :Normal laboratory and microbiology Laboratory Tests 04/14/25 03:10 04/13/25 05:47 Test 04/14/25 03:10 Range/Units Serum Glucose 108 H 74-106 mg/dL Microbiology Date/Time Source Procedure Growth Status 04/11/25 08:57 Lung Pending Resulted 04/11/25 08:57 Lung Pending Resulted 04/11/25 08:57 Lung Pending Resulted 04/11/25 08:57 Lung Pending Resulted 04/11/25 08:57 Lung - Final See Separate Report... Resulted 04/11/25 08:57 Bronchial Washings Gram Stain - Final Resulted 04/11/25 08:57 Bronchial Washings Respiratory Culture - Preliminary Resulted 04/09/25 15:25 Urine - Aceves Port Urine Culture - Final Enterococcus faecalis Complete 04/08/25 15:29 Blood Blood Culture - Final NO GROWTH AFTER 5 DAYS OF INCUBATION. Complete Problem List/Assessment/Plan Problem List/Assessment/Plan #1 acute resp failure: cont oxygen #2 left lung pneumonia- gram positive/neg: iv antibiotics #3 uti #4 left lung mass ? malignant: pulm consult, S/P biopsy #5 copd #6 h/o throat cancer #7 h/o AML #8 delirium/encephalopathy- metabolic #8 chronic pain #9 depression #10 anemia #11 hypothyroidism #12 seizure disorder #13 orthostatic hypotension #14 left hip pain #15 uti: culture advance care planning- full code- time spent 19ins Plan discussed with: Patient, Spouse My Orders My Orders Orders - NARCISA CANTU MD Procedure Category Date Status Time Comprehensive LAB 04/15/25 Verified Metabolic Panel 04:00 Magnesium LAB 04/15/25 Verified 04:00 Phosphorus LAB 04/15/25 Verified 04:00 [facility]im[facility] Per [facility]acy [facility] 04/14/25 In Process 22:00 Dietary Evaluation Review Comments: TPN per pharmacy to meet at least 75% of his needs TF glucerna @60ml/hr will meet 90% of pt's protein and energy requirements PO diet CCHO-75, plus glucerna PO supplements as needed. Expected Outcomes/Goals: avoid catabolism, gradual weight gain, improved nutrition status. Date of Service: Apr 14, 2025 Billing Provider: NARCISA CANTU MD Common Visit Codes: [id number] INP/OBS CARE(HIGH) Secondary Visit Codes: [id number] CARE PLAN 30 MINUTES NARCISA CANTU MD Apr 14, 2025 13:06
[2025-04-14 17:01] LABS: Urine Budding Yeast OCCASIONAL /hpf (None Seen); Urine Protein, UAD 1+ (Negative)
[2025-04-14] MEDS: HYDROmorphone HCL 2 MG/ML VL/or syr IV PRN (17:34)
--- NOTE | 2025-04-14 18:56 | DVHPN2 ---
Progress Note - Dictate Date Seen: Apr 14, 2025 Medical Necessity Reason Pt with a Central, PICC or Fol: Yes The following are medically ne: Aceves Catheter Reason for aceves catheter: Strict I&O vital signs Vital Sign Date Time Temp Pulse Resp B/P (MAP) Pulse Ox O2 Delivery O2 Flow Rate FiO2 04/14/25 18:46 107 20 100 04/14/25 18:32 Nasal Cannula* 2 28 04/14/25 18:30 128/68 (88) 04/14/25 16:00 98.3 98.3 Total Intake and Output 04/13/25 04/13/25 04/14/25 15:00 23:00 07:00 Intake Total 282 ml 328 ml 528 ml Output Total 425 ml 550 ml Balance 282 ml -97 ml -22 ml medications Current Medications Medications Dose Ordered Sig/Praneeth Route Start Time Stop Time Status Last Admin Dose Admin Famotidine 20 mg DAILY IV 04/09/25 10:00 04/14/25 10:41 20 MG Divalproex Sodium 500 mg BID PO 04/08/25 22:00 04/14/25 10:41 500 MG Midodrine 10 mg TID@0600,1200,1800 PO 04/08/25 18:00 04/14/25 17:28 10 MG Levothyroxine Sodium 125 mcg QAM@0600 PO 04/09/25 06:00 04/14/25 06:00 125 MCG Albuterol 2.5 mg Q4HPRN PRN NEB 04/08/25 16:45 04/09/25 12:04 2.5 MG Acetaminophen/ Hydrocodone Bitart 1 tab Q4HP PRN PO 04/08/25 16:45 04/13/25 22:49 1 TAB Ondansetron HCl 4 mg Q4HP PRN IV 04/08/25 16:45 Docusate Sodium 100 mg BIDPRN PRN PO 04/08/25 16:45 Acetaminophen 650 mg Q6HP PRN PO 04/08/25 16:45 04/11/25 12:26 650 MG Nitroglycerin 0.4 mg Q5MINP PRN SL 04/08/25 18:15 Morphine Sulfate 2 mg Q30M PRN IV 04/08/25 18:15 Fluconazole 100 ml @ 100 mls/hr DAILY IV 04/10/25 10:00 04/14/25 10:41 100 MLS/HR Piperacillin Sod/ Tazobactam Sod 100 ml @ 25 mls/hr Q8H IV 04/10/25 00:00 04/14/25 16:00 25 MLS/HR Venlafaxine HCl 37.5 mg BID PO 04/09/25 22:00 04/13/25 22:50 37.5 MG Amino Acids 0 ml @ 0 mls/hr PER PHARMACY IV 04/09/25 15:30 Diagnostic Test (Pha) 1 strip Q6HR 04/09/25 18:00 04/14/25 17:28 1 STRIP Insulin Human Regular FOLLOW SLIDING SCALE Q6HR SC 04/09/25 18:00 04/14/25 12:14 2 UNITS Dextrose 50 ml UD IV 04/09/25 15:45 Amino Acids 1,000 ml @ 41 mls/hr DAILY@2200 IV 04/09/25 22:00 04/13/25 22:47 41 MLS/HR Albuterol 2.5 mg Q6HWA [facility] 04/12/25 18:00 04/14/25 18:31 2.5 MG Ipratropium [place] 0.5 mg Q6HWA [facility] 04/12/25 18:00 04/14/25 18:31 0.5 MG Acetylcysteine 100 mg Q6HWA [facility] 04/12/25 18:00 04/15/25 06:01 04/14/25 18:31 100 MG Hydromorphone HCl 0.25 mg Q6HPRN PRN IV 04/14/25 13:00 04/14/25 17:34 0.25 MG laboratory and microbiology Laboratory Tests 04/14/25 03:10 04/13/25 05:47 Test 04/14/25 03:10 Range/Units Serum Glucose 108 H 74-106 mg/dL Assessment/Plan Impression: Acute hypoxic respiratory failure Dependence on supplemental oxygen Left upper lobe mass Atypical pneumonia Bilateral pleural effusions Atelectasis Mediastinal lymphadenopathy Patient seen and examined Events Low oxygen requirements On room air No distress s/p bronch s/p DIXIE mass CT guided bx results pending management Continue bronchodilators Continue antibiotics/antifungals Incentive spirometry await results Dietary Evaluation Review Comments: TPN per pharmacy to meet at least 75% of his needs TF glucerna @60ml/hr will meet 90% of pt's protein and energy requirements PO diet CCHO-75, plus glucerna PO supplements as needed. Expected Outcomes/Goals: avoid catabolism, gradual weight gain, improved nutrition status. Plan discussed with: Patient DYLAN SHAY MD Apr 14, 2025 18:56
[2025-04-15] VITALS (13 sets, daily range): BP systolic 113–127; BP diastolic 60–68; PULSE 88–113; RESP 16–21; TEMP 98.1–100.7; O2SAT 93–100
[2025-04-15 07:45] LABS: Alanine Aminotransferase 25 U/L (7-40); Albumin 4.1 g/dL (3.2-4.8); Alkaline Phosphatase 96 U/L (46-116); Anion Gap 12 (5-15); BUN/Creatinine Ratio 22.0 (10.0-20.0); Bilirubin, Total 0.4 mg/dL (0.2-1.0); Carbon Dioxide 23 mmol/L (20-31); Chloride 102 mmol/L (98-107); Glucose 98 mg/dL (74-106); Magnesium 2.0 mg/dL (1.6-2.6); Sodium 137 mmol/L (136-145); Total Protein 7.4 g/dL (5.7-8.2)
[2025-04-15 07:46] LABS: Blood Urea Nitrogen 26 mg/dL (9-23); Calcium 11.4 mg/dL (8.7-10.4); Potassium 3.0 mmol/L (3.5-5.1)
[2025-04-15] MEDS: ONDANSETRON HCL 4 MG/2 ML VIAL IV PRN (08:42)
--- NOTE | 2025-04-15 12:07 | DVHPN2 ---
Progress Note Date Seen: Apr 15, 2025 Medical Necessity Reason Pt with a Central, PICC or Fol: Yes The following are medically ne: Aceves Catheter Reason for aceves catheter: Strict I&O Subjective Patient reports: No new complaints Review of Systems: HEENT:Normal, CVS:Normal, RESPIRATORY:Normal, GI:Normal, :Normal, MSK:Normal, NEURO:Normal Objective vital signs Vital Sign Date Time Temp Pulse Resp B/P (MAP) Pulse Ox O2 Delivery O2 Flow Rate FiO2 04/15/25 10:00 62 16 114/67 04/15/25 08:55 98.1 94 98.1 04/15/25 08:00 Nasal Cannula* 3 32 Total Intake and Output 04/14/25 04/14/25 04/15/25 15:00 23:00 07:00 Intake Total 537 ml 442 ml 525 ml Output Total 400 ml 625 ml Balance 537 ml 42 ml -100 ml medications Current Medications Medications Dose Ordered Sig/Praneeth Route Start Time Stop Time Status Last Admin Dose Admin Famotidine 20 mg DAILY IV 04/09/25 10:00 04/15/25 10:06 20 MG Divalproex Sodium 500 mg BID PO 04/08/25 22:00 04/15/25 10:07 500 MG Midodrine 10 mg TID@0600,1200,1800 PO 04/08/25 18:00 04/15/25 05:57 10 MG Levothyroxine Sodium 125 mcg QAM@0600 PO 04/09/25 06:00 04/15/25 05:57 125 MCG Albuterol 2.5 mg Q4HPRN PRN NEB 04/08/25 16:45 04/09/25 12:04 2.5 MG Acetaminophen/ Hydrocodone Bitart 1 tab Q4HP PRN PO 04/08/25 16:45 04/13/25 22:49 1 TAB Ondansetron HCl 4 mg Q4HP PRN IV 04/08/25 16:45 04/15/25 08:42 4 MG Docusate Sodium 100 mg BIDPRN PRN PO 04/08/25 16:45 Acetaminophen 650 mg Q6HP PRN PO 04/08/25 16:45 04/14/25 22:39 650 MG Nitroglycerin 0.4 mg Q5MINP PRN SL 04/08/25 18:15 Morphine Sulfate 2 mg Q30M PRN IV 04/08/25 18:15 Fluconazole 100 ml @ 100 mls/hr DAILY IV 04/10/25 10:00 04/15/25 10:06 100 MLS/HR Piperacillin Sod/ Tazobactam Sod 100 ml @ 25 mls/hr Q8H IV 04/10/25 00:00 04/15/25 08:19 25 MLS/HR Venlafaxine HCl 37.5 mg BID PO 04/09/25 22:00 04/15/25 10:07 37.5 MG Amino Acids 0 ml @ 0 mls/hr PER PHARMACY IV 04/09/25 15:30 Diagnostic Test (Pha) 1 strip Q6HR 04/09/25 18:00 04/15/25 11:16 1 STRIP Insulin Human Regular FOLLOW SLIDING SCALE Q6HR SC 04/09/25 18:00 04/14/25 12:14 2 UNITS Dextrose 50 ml UD IV 04/09/25 15:45 Amino Acids 1,000 ml @ 41 mls/hr DAILY@2200 IV 04/09/25 22:00 04/14/25 22:18 41 MLS/HR Albuterol 2.5 mg Q6HWA NEB 04/12/25 18:00 04/15/25 07:07 2.5 MG Ipratropium [place] 0.5 mg Q6HWA NEB 04/12/25 18:00 04/15/25 07:07 0.5 MG Hydromorphone HCl 0.25 mg Q6HPRN PRN IV 04/14/25 13:00 04/15/25 08:43 0.25 MG Examination: GENERAL:Normal, HEENT:Normal, NECK:Normal, LUNGS:Normal, LUNGS:Abnormal (on oxygen), CVS:Normal, ABDOMEN:Normal, MSK:Normal, SKIN:Normal, NEURO:Normal, :Normal laboratory and microbiology Laboratory Tests 04/15/25 06:48 04/13/25 05:47 Test 04/15/25 06:48 Range/Units Serum Glucose 98 74-106 mg/dL Microbiology Date/Time Source Procedure Growth Status 04/14/25 15:55 Urine - Aceves [place] Urine Culture - Preliminary Resulted 04/13/25 14:53 Nose MRSA Screen - Final Complete 04/11/25 08:57 Bronchial Washings Gram Stain - Final Complete 04/11/25 08:57 Respiratory Culture - Final Presumptive Malorie albicans Complete 04/08/25 15:29 Blood Blood Culture - Final NO GROWTH AFTER 5 DAYS OF INCUBATION. Complete Problem List/Assessment/Plan Problem List/Assessment/Plan #1 acute resp failure: cont oxygen #2 left lung pneumonia- gram positive/neg: iv antibiotics #3 uti #4 left lung mass ? malignant: pulm consult, S/P biopsy #5 copd #6 h/o throat cancer #7 h/o AML #8 delirium/encephalopathy- metabolic #8 chronic pain #9 depression #10 anemia #11 hypothyroidism #12 seizure disorder #13 orthostatic hypotension #14 left hip pain #15 uti: culture advance care planning- full code- time spent 19ins Plan discussed with: Patient, Spouse My Orders My Orders Orders - NARCISA CANTU MD Procedure Category Date Status Time [facility] Per Pharmacy [facility] 04/14/25 In Process 22:00 Hydromorphone PHA 04/14/25 In Process Injection (Dilaudid 13:00 Urine Bacterial ALEXSANDER 04/14/25 In Process Culture 13:00 Mechanical Soft Diet DIET 04/14/25 Transmitted Lunch Transfer Orders XFER 04/14/25 Transmitted 13:00 Sitter At Bedside ORDERS 04/14/25 Transmitted 13:00 Dietary Evaluation Review Comments: TPN per pharmacy to meet at least 75% of his needs TF glucerna @60ml/hr will meet 90% of pt's protein and energy requirements PO diet CCHO-75, plus glucerna PO supplements as needed. Expected Outcomes/Goals: avoid catabolism, gradual weight gain, improved nutrition status. Date of Service: Apr 15, 2025 Billing Provider: NARCISA CANTU MD Common Visit Codes: [id number] INP/OBS CARE(HIGH) NARCISA CANTU MD Apr 15, 2025 12:07
[2025-04-15] MEDS: POTASSIUM CHLORIDE 40 MEQ, LIDOCAINE 1% (LOCAL ANESTH.) 4 ML in SODIUM CHL 0.9% 250 ML IV ONE (13:18)
--- NOTE | 2025-04-15 18:23 | DVHPN2 ---
Progress Note - Dictate Date Seen: Apr 15, 2025 Medical Necessity Reason Pt with a Central, PICC or Fol: Yes The following are medically ne: Aceves Catheter Reason for aceves catheter: Strict I&O vital signs Vital Sign Date Time Temp Pulse Resp B/P (MAP) Pulse Ox O2 Delivery O2 Flow Rate FiO2 04/15/25 17:00 99.8 95 18 113/64 (80) 93 99.8 04/15/25 13:02 Nasal Cannula* 1 24 Total Intake and Output 04/14/25 04/14/25 04/15/25 15:00 23:00 07:00 Intake Total 537 ml 442 ml 525 ml Output Total 400 ml 625 ml Balance 537 ml 42 ml -100 ml medications Current Medications Medications Dose Ordered Sig/Praneeth Route Start Time Stop Time Status Last Admin Dose Admin Famotidine 20 mg DAILY IV 04/09/25 10:00 04/15/25 10:06 20 MG Divalproex Sodium 500 mg BID PO 04/08/25 22:00 04/15/25 10:07 500 MG Midodrine 10 mg TID@0600,1200,1800 PO 04/08/25 18:00 04/15/25 18:18 10 MG Levothyroxine Sodium 125 mcg QAM@0600 PO 04/09/25 06:00 04/15/25 05:57 125 MCG Albuterol 2.5 mg Q4HPRN PRN NEB 04/08/25 16:45 04/09/25 12:04 2.5 MG Acetaminophen/ Hydrocodone Bitart 1 tab Q4HP PRN PO 04/08/25 16:45 04/13/25 22:49 1 TAB Ondansetron HCl 4 mg Q4HP PRN IV 04/08/25 16:45 04/15/25 08:42 4 MG Docusate Sodium 100 mg BIDPRN PRN PO 04/08/25 16:45 Acetaminophen 650 mg Q6HP PRN PO 04/08/25 16:45 04/14/25 22:39 650 MG Nitroglycerin 0.4 mg Q5MINP PRN SL 04/08/25 18:15 Morphine Sulfate 2 mg Q30M PRN IV 04/08/25 18:15 Fluconazole 100 ml @ 100 mls/hr DAILY IV 04/10/25 10:00 04/15/25 10:06 100 MLS/HR Piperacillin Sod/ Tazobactam Sod 100 ml @ 25 mls/hr Q8H IV 04/10/25 00:00 04/15/25 18:19 25 MLS/HR Venlafaxine HCl 37.5 mg BID PO 04/09/25 22:00 04/15/25 10:07 37.5 MG Diagnostic Test (Pha) 1 strip Q6HR 04/09/25 18:00 04/15/25 11:16 1 STRIP Insulin Human Regular FOLLOW SLIDING SCALE Q6HR SC 04/09/25 18:00 04/14/25 12:14 2 UNITS Dextrose 50 ml UD IV 04/09/25 15:45 Albuterol 2.5 mg Q6HWA NEB 04/12/25 18:00 04/15/25 13:07 2.5 MG Ipratropium [place] 0.5 mg Q6HWA NEB 04/12/25 18:00 04/15/25 13:07 0.5 MG Hydromorphone HCl 0.25 mg Q6HPRN PRN IV 04/14/25 13:00 04/15/25 15:04 0.25 MG laboratory and microbiology Laboratory Tests 04/15/25 06:48 04/13/25 05:47 Test 04/15/25 06:48 Range/Units Serum Glucose 98 74-106 mg/dL Assessment/Plan Impression: Acute hypoxic respiratory failure Dependence on supplemental oxygen Left upper lobe mass Atypical pneumonia Bilateral pleural effusions Atelectasis Mediastinal lymphadenopathy Patient seen and examined Events Low oxygen requirements On room air No acute events s/p bronch s/p DIXIE mass CT findings consistent with neuroendocrine tumor management Continue bronchodilators Continue antibiotics/antifungals Incentive spirometry F/u oncology Dietary Evaluation Review Comments: TPN per pharmacy to meet at least 75% of his needs TF glucerna @60ml/hr will meet 90% of pt's protein and energy requirements PO diet CCHO-75, plus glucerna PO supplements as needed. Expected Outcomes/Goals: avoid catabolism, gradual weight gain, improved nutrition status. Plan discussed with: Patient DYLAN SHAY MD Apr 15, 2025 18:23
[2025-04-16] VITALS (14 sets, daily range): BP systolic 104–133; BP diastolic 64–76; PULSE 92–112; RESP 17–19; TEMP 37.2; O2SAT 88–100
[2025-04-16 11:31] LABS: Chloride 104 mmol/L (98-107); Potassium 3.6 mmol/L (3.5-5.1)
[2025-04-16 11:32] LABS: Anion Gap 8 (5-15); Calcium 10.7 mg/dL (8.7-10.4); Carbon Dioxide 24 mmol/L (20-31); Sodium 136 mmol/L (136-145)
[2025-04-16 11:37] LABS: BUN/Creatinine Ratio 22.0 (10.0-20.0); Glucose 103 mg/dL (74-106)
[2025-04-16 11:38] LABS: Blood Urea Nitrogen 24 mg/dL (9-23); Magnesium 2.0 mg/dL (1.6-2.6)
[2025-04-16] MEDS ORDERED: FLUC200T50 PO (11:51)
[2025-04-16] MEDS ORDERED: LEVO500T91 PO (11:51)
--- NOTE | 2025-04-16 12:04 | DVHDS ---
DATE OF DISCHARGE: 04/16/2025 The patient is a 70-year-old gentleman who was admitted with history of frequent falls and altered level of consciousness and has history of COPD, dementia, seizures, UTI, as well as previous cancer of the larynx and AML. HOSPITAL COURSE: The patient had a CT of the chest that showed two left upper lobe masses along with mediastinal adenopathy and new right adrenal mass. The patient underwent a CT-guided biopsy that showed high-grade neuroendocrine tumor. He also underwent a bronchoscopy by Dr. Licea and the biopsy also showed high-grade neuroendocrine tumor. Echocardiogram showed ejection fraction of 60%. The patient had a UTI that grew Enterococcus faecalis sensitive to Levaquin. Blood cultures were negative. The patient will now be discharged home after ABG is obtained on room air to resume his home medications as well as to be on Levaquin 500 mg daily for seven days along with fluconazole 200 mg daily for seven days. He will follow up with his primary in [facility]. FINAL DIAGNOSES: * Acute respiratory failure. * Left lung pneumonia gram-positive gram-negative. * UTI with enterococcus. 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 * COPD. * History of laryngeal cancer. * History of AML. * Encephalopathy metabolic. * Chronic pain. * Depression. * Anemia. * Hypothyroidism. * Seizure disorder. * Orthostatic hypotension. * Left hip pain. Time spent in discharge planning and review of plan with the patient, , and nursing was 41 minutes. MD LETTY Montalvo/JAMA TID: [id number] RECEIPT: [id number]
[2025-04-16 12:28] LABS: Base Excess -1.1 mmol/L (-2.0-3.0)
--- NOTE | 2025-04-16 21:06 | DVHPN2 ---
Progress Note - Dictate Date Seen: Apr 16, 2025 Medical Necessity Reason Pt with a Central, PICC or Fol: Yes The following are medically ne: Aceves Catheter Reason for aceves catheter: Strict I&O vital signs Vital Sign Date Time Temp Pulse Resp B/P (MAP) Pulse Ox O2 Delivery O2 Flow Rate FiO2 04/16/25 18:59 100 18 100 04/16/25 18:52 Nasal Cannula 2.0 04/16/25 18:52 28 04/16/25 16:36 98.6 119/69 (86) 98.6 Total Intake and Output 04/15/25 04/15/25 04/16/25 15:00 23:00 07:00 Intake Total 200 ml 1049 ml 200 ml Output Total 500 ml 675 ml Balance 200 ml 549 ml -475 ml laboratory and microbiology Laboratory Tests 04/16/25 10:47 04/13/25 05:47 Test 04/16/25 10:47 Range/Units Serum Glucose 103 74-106 mg/dL Assessment/Plan Impression: Acute hypoxic respiratory failure Dependence on supplemental oxygen Left upper lobe mass Atypical pneumonia Bilateral pleural effusions Atelectasis Mediastinal lymphadenopathy Patient seen and examined Events Low oxygen requirements On room air No acute events s/p bronch s/p DIXIE mass CT findings consistent with neuroendocrine tumor management Continue bronchodilators Continue antibiotics/antifungals Incentive spirometry F/u oncology Dietary Evaluation Review Comments: TPN per pharmacy to meet at least 75% of his needs TF glucerna @60ml/hr will meet 90% of pt's protein and energy requirements PO diet CCHO-75, plus glucerna PO supplements as needed. Expected Outcomes/Goals: avoid catabolism, gradual weight gain, improved nutrition status. Plan discussed with: Patient, Spouse DYLAN SHAY MD Apr 16, 2025 21:06
== END 2025-04-16 19:35 | disposition home health service (06) | DRG 70 ==
LOC: ER 14:47 → EDBD 14:47 → OVERFLOW 18:10 → TELE-WESTW 22:30 → TELE-CENTR 04-10 22:41 → ICU WEST 04-13 13:47 → TELE-WESTW 04-14 22:20
PROVIDERS: ADMIT Internal Medicine; ATTEND Internal Medicine
PROC: 0BBG3ZX Excision of Left Upper Lung Lobe, Percutaneous Approach, Diagnostic (ICD-10-PCS; 2025-04-10)
PROC: 0B9G8ZX Drainage of Left Upper Lung Lobe, Via Natural or Artificial Opening Endoscopic, Diagnostic (ICD-10-PCS; 2025-04-11)
PROC: 0BD88ZX Extraction of Left Upper Lobe Bronchus, Via Natural or Artificial Opening Endoscopic, Diagnostic (ICD-10-PCS; 2025-04-11)
PROC: 0B9D8ZX Drainage of Right Middle Lung Lobe, Via Natural or Artificial Opening Endoscopic, Diagnostic (ICD-10-PCS; principal; 2025-04-11 08:45)
DX: G93.41 Metabolic encephalopathy (principal); J15.69 Pneumonia due to other Gram-negative bacteria; J96.01 Acute respiratory failure with hypoxia; J15.9 Unspecified bacterial pneumonia; N30.00 Acute cystitis without hematuria; J44.0 Chronic obstructive pulmonary disease with (acute) lower respiratory infection; J90 Pleural effusion, not elsewhere classified; F02.83 Dementia in other diseases classified elsewhere, unspecified severity, with mood disturbance; C7A.1 Malignant poorly differentiated neuroendocrine tumors; D64.9 Anemia, unspecified; E03.9 Hypothyroidism, unspecified; F32.A Depression, unspecified; G40.909 Epilepsy, unspecified, not intractable, without status epilepticus; G89.29 Other chronic pain; I95.1 Orthostatic hypotension; R59.0 Localized enlarged lymph nodes; G20.A1 Parkinson's disease without dyskinesia, without mention of fluctuations; E11.9 Type 2 diabetes mellitus without complications; B95.2 Enterococcus as the cause of diseases classified elsewhere; Z88.1 Allergy status to other antibiotic agents; Z88.5 Allergy status to narcotic agent; Z99.81 Dependence on supplemental oxygen; Z79.899 Other long term (current) drug therapy; Z90.49 Acquired absence of other specified parts of digestive tract; Z80.3 Family history of malignant neoplasm of breast; Z85.21 Personal history of malignant neoplasm of larynx; Z85.6 Personal history of leukemia; Z85.819 Personal history of malignant neoplasm of unspecified site of lip, oral cavity, and pharynx
CPT/HCPCS: 10005; 31623; 31624; 36415; 36600; 70450; 71045; 71250; 76942; 77012; 80048; 80053; 80069; 80202; 80320; 81001; 82805; 82962; 83605; 83735; 84100; 84443; 84478; 85007; 85025; 85027; 85610; 85730; 87040; 87070; 87077; 87081; 87086; 87088; 87186; 87205; 92610; 93005; 93306; 94640; 96365; 97110; 97116; 97163; 99291; G0378; J1450; J1815; J2003; J2250; J2405; J2543; J3490

== ENCOUNTER 2025-04-19 01:17 | Inpatient (IN) | payer OTHER, MEDICAID ==
[2025-04-19] VITALS (33 sets, daily range): BP systolic 96–164; BP diastolic 52–99; PULSE 71–159; RESP 13–24; TEMP 98–98.6; O2SAT 95–100
[~2025-04-19] VITALS: Ht 193 cm; Wt 86.6 kg
[~2025-04-19 01:17] MED LIST changes: -AUG875T PO; +DIVA1TAB58 PO; -DIVA1TAB59 PO; +FLUC200T50 PO; +LEVO112T4 PO; -LEVO125T7 PO; +LEVO500T91 PO; -PRIM125T PO
--- NOTE | 2025-04-19 01:29 | ED.PDOC ---
SOB-HPI HPI Comments 70 year old unresponsive male with a Hx of Deafness, COPD, DM, Cancer, Anemia, UTI's, and Dementia was BIBA for the c/c of SOB w/ associated N/V. EMS states that pt was previously here at [facility] where he was admitted for 9x days for same c/c. EMS states that pts HR was 160 and RR was 63 percent on route but has since improved to 100% after being intubated. No other associated symptoms, modifiers, recent injuries or sick contacts present at this time. Time Seen by MD: 01:20 Primary Care Provider: JARRETT Reviewed notes: Nurses Notes, Race Starter Notes, Medications, Allergies Information Source: Emergency Med Personnel Mode of Arrival: EMS Severity: Moderate Timing: Hours Duration: Since onset, Hours Context: At Rest PE Risk Factors: None History of: COPD Prehospital treatment: 12 Lead EKG, Accucheck, Breathing Tx, Animal Tech, Oxygen Modifying Factors: Exertion Associated Signs and Symptoms: None If cough with SOB: Non-Productive Past Medical History PAST MEDICAL HISTORY: Anemia, Cancer, COPD, Dementia, DM, Liver, Seizures, Thyroid, UTI'S Surgical History: Cholecystectomy Family History Family History: Reviewed,noncontributory to illness, No family hx of Cancer Social History Smoker: Pipe Alcohol: Denies ETOH Use Drugs: Denies Drug Use Lives In: Home Constitutional: denies: chills, diaphoresis, fatigue, fever, malaise, sweats, weakness, others EENTM: denies: blurred vision, double vision, ear bleeding, ear discharge, ear drainage, ear pain, ear ringing, eye pain, eye redness, hearing loss, mouth pain, mouth swelling, nasal discharge, nose bleeding, nose congestion, nose pain, photophobia, tearing, throat pain, throat swelling, voice changes, others Respiratory: reports: SOB at rest, shortness of breath; denies: cough, hemoptysis, orthopnea, SOB with excertion, stridor, wheezing, others Cardiovascular: denies: chest pain, dizzy spells, diaphoresis, Dyspnea on exertion, edema, irregular heart beat, left arm pain, lightheadedness, palpitations, PND, syncope, others Gastrointestinal: denies: abdomen distended, abdominal pain, blood streaked bowels, constipated, diarrhea, dysphagia, difficulty swallowing, hematemesis, melena, nausea, poor appetite, poor fluid intake, rectal bleeding, rectal pain, vomiting, others Genitourinary: denies: burning, dysuria, flank pain, frequency, hematuria, incontinence, penile discharge, penile sore, pain, testicle pain, testicle swelling, urgency, others Neurological: denies: dizziness, fainting, headache, left sided numbness, left sided weakness, numbness, paresthesia, pre-existing deficit, right sided nu mbness, right sided weakness, seizure, speech problems, tingling, tremors, weakness, others Musculoskeletal: denies: back pain, gout, joint pain, joint swelling, muscle pain, muscle stiffness, neck pain, others Integumetry: denies: bruises, change in color, change in hair/nails, dryness, laceration, lesions, lumps, rash, wounds, others Allergic/Immunocompromised: denies: Difficulty Healing, Frequent Infections, Hives, Itching, others Hematologic/Lymphatic: denies: anemia, blood clots, easy bleeding, easy bruising, swollen glands, others Endocrine: denies: excessive hunger, excessive sweating, excessive thirst, excessive urination, flushing, intolerance to cold, intolerance to heat, unexplained weight gain, unexplained weight loss, others Psychiatric: denies: anxiety, bipolar disorder, depression, hopeless, panic disorder, schizophrenia, sleepless, suicidal, others Unable to Obtain due to: Altered Mental Status All Other Systems: Reviewed and Negative Physical Exam General Appearance: Normal, Severe Distress, Other (Unresponisve, Chronic ill appearing) HEENT: Normal ENT Inspection, Pharynx Normal, TMs Normal Neck: Full Range of Motion, Non-Tender, Normal, Normal Inspection Respiratory: Accessory Muscle Use, Respiratory Distress Cardiovascular: No Edema, No JVD, No Murmur, No Gallop, Normal Peripheral Pulses, Regular Rate/Rhythm Breast Exam: Deferred Gastrointestinal: No Organomegaly, Non Tender, No Pulsatile Mass, Normal Bowel Sounds, Soft Genitalia: Deferred Pelvic: Deferred Rectal: Deferred Extremities: No calf tenderness, Normal capillary refill, Normal inspection, Normal range of motion, Non-tender, No pedal edema Musculoskeletal : Apperance: Normal Neurologic: Alert, No Motor Deficits, Normal Affect, Normal Mood, No Sensory Deficits Cerebellar Function: Normal Reflexes: Normal Skin: Dry, Normal Color, Warm Lymphatic: No Adenopathy Was a procedure done? Was a procedure done?: Yes Sedation Sedation?: No Central Line Recorder of insertion practice: Observer Occupation of financial planning advisor: Attending Physician Indication: Suspected infection Room prepared for procedure: Yes Track Sweeper performed hand hygien: Yes Maximal sterile barrier precau: Mask/Eye shield, Sterile gown, Cap, Sterlie gloves, Large sterlie drape Skin Preparation: Chlorhexidine gluconate Skin preparation completely dr: Yes Insertion site: Right, Femoral Central line catheter type: [id number] dialysis Number of lumens: 3 Central line exchanged over a: Yes Antiseptic ointment applied to: Yes Post Assessment: Proper placement, No Pneumothorax Informed consent obtained: No Risks/benefits/alt described: No Intubation Indication: Respiratory Insufficiency, Altered Mental Status, Airway Protection Prep: Preoxygenation Pretreated with: Other (10mg Atonium, 80mg Rock) Medicated with: Succinylcholine, Other (10mg Atonium, 80mg Rock) Intubation Approach: Orotracheal Intubation size: cm (8cm) Informed consent obtained: No Risks/benefits/alt described: No Differential Dx Differential Diagnosis: Anxiety, Asthma, Bronchitis, Cardiogenic Shock, CHF, COPD, Dysrhythmia, Hypertension, Myocardial infarction, Panic Attack, Pneumonia, Pneumothorax, Pulmonary Embolism, Respiratory Distress, Sinusitis, Allergic Rhinitis, Pharyngitis, URI X-Ray, Labs, Meds, VS Vital Signs Date Time Temp Pulse Resp B/P (MAP) Pulse Ox O2 Delivery O2 Flow Rate FiO2 04/19/25 02:44 150 20 164/88 100 50 04/19/25 01:44 158 20 164/88 (113) 100 100 04/19/25 01:41 164/88 04/19/25 01:38 164/88 04/19/25 01:20 150 Lab Test 04/19/25 02:44 04/19/25 02:22 04/19/25 02:00 04/19/25 01:49 Range/Units Troponin I High Sensitivity 58 *H 56 *H </=54 ng/L Urine Color Yellow Yellow Urine Clarity Clear Clear Urine pH 5.5 5.0-9.0 Urine Specific [place] 1.022 1.001-1.035 Urine Protein 1+ H Negative Urine Ketones Trace Negative Urine Blood Trace H Negative /uL Urine Nitrite Negative Negative Urine Bilirubin Negative Negative Urine Urobilinogen Normal Negative mg/dL Urine Leukocyte Esterase Negative Negative /uL Urine RBC 1 0 - 3 /hpf Urine Microscopic WBC 1 0-3 /HPF Urine Squamous Epithelial Cells Few <5 /hpf Urine Bacteria None seen None Seen /hpf Urine Glucose Trace Normal mg/dL Blood Gas Specimen Type Arterial Blood Gas Sample Site Right radial Blood Gas Patient Temperature 37.0 Arterial Blood Date Drawn [id number] Arterial Blood pH 7.345 L 7.350-7.450 Arterial Blood Partial Pressure CO2 43.1 35.0-48.0 mmHg Arterial Blood Partial Pressure O2 285.8 H 83.0-108.0 mmHg Arterial Blood HCO3 23.0 21.0-28.0 mmol/L Arterial Blood Oxygen Saturation 99.7 H 94.0-98.0 % Arterial Blood Base Excess -2.6 L -2.0-3.0 mmol/L Arterial Blood Oxyhemoglobin 98.6 H 94.0-98.0 % Arterial Blood Carboxyhemoglobin 0.4 L 0.5-1.5 % Arterial Blood Methemoglobin 0.7 0.0-1.5 % Kadeem Test N/a Blood Gas Total Hemoglobin 11.20 L 13.5-17.5 g/dL Blood Gas Set Respiration Rate 20.0 Blood Gas Modality Vent - ac FiO2 % 100.0 Blood Gas Tidal Volume 500.0 Blood Gas PEEP or CPAP 5.0 White Blood Count 12.8 #H 4.4-10.8 10^3/uL Red Blood Count 3.57 L 4.5-5.90 10^6/uL Hemoglobin 11.3 L 13.5-17.5 g/dL Hematocrit 34.7 L 41.0-53.0 % Mean Corpuscular Volume 97.2 80.0-100.0 fL Mean Corpuscular Hemoglobin 31.7 28.0-32.0 pg Mean Corpuscular Hemoglobin Concent 32.6 32.0-36.0 g/dL Red Cell Distribution Width 14.1 11.8-14.3 % Platelet Count 383 140-450 10^3/uL Mean Platelet Volume 8.7 6.9-10.8 fL Neutrophils (%) (Auto) 77.2 37.0-80.0 % Lymphocytes (%) (Auto) 14.6 10.0-50.0 % Monocytes (%) (Auto) 7.7 0.0-12.0 % Eosinophils (%) (Auto) 0.1 0.0-7.0 % Basophils (%) (Auto) 0.4 0.0-2.0 % Neutrophils # (Auto) 9.9 H 1.6-8.6 10 ^3/uL Lymphocytes # (Auto) 1.9 0.4-5.4 10 ^3/uL Monocytes # (Auto) 1.0 0-1.3 10 ^3/uL Eosinophils # (Auto) 0 0-0.8 10 ^3/uL Basophils # (Auto) 0.1 0-0.2 10 ^3/uL Nucleated Red Blood Cells 0.1 % Prothrombin Time 11.8 9.3-11.8 sec Prothrombin Time INR 1.13 0.9-1.15 Activated Partial Thromboplast Time 27.7 24.5-34.5 SEC Sodium Level 143 # 136-145 mmol/L Potassium Level 3.7 3.5-5.1 mmol/L Chloride Level 107 98-107 mmol/L Carbon Dioxide Level 24 20-31 mmol/L Anion Gap 12 5-15 Blood Urea Nitrogen 31 H 9-23 mg/dL Creatinine 1.33 H 0.700-1.30 mg/dL Glomerular Filtration Rate Calc 57 >90 mL/min BUN/Creatinine Ratio 23.3 H 10.0-20.0 Serum Glucose 146 H 74-106 mg/dL Lactic Acid Level 2.2 *H 0.4-2.0 mmol/L Calcium Level 11.9 H 8.7-10.4 mg/dL Total Bilirubin 0.2 0.2-1.0 mg/dL Aspartate Amino Transferase (AST) 67 H 13-40 U/L Alanine Aminotransferase (ALT) 31 7-40 U/L Alkaline Phosphatase 98 46-116 U/L Total Protein 8.2 5.7-8.2 g/dL Albumin 4.4 3.2-4.8 g/dL Current Medications Medications (Trade) Dose Ordered Sig/Praneeth Route Start Time Stop Time Status Last Admin Propofol 100 ml @ 2.328 mls/ hr Q24H IV 04/19/25 01:45 04/19/25 01:41 Etomidate 10 mg ONCE ONCE IV 04/19/25 01:45 04/19/25 01:46 DC 04/19/25 01:38 Rocuronium [place] 80 mg ONCE ONCE IV 04/19/25 01:45 04/19/25 01:46 DC 04/19/25 01:38 Adenosine (Adenosine) 6 mg ONCE ONCE IV 04/19/25 01:45 04/19/25 01:46 DC 04/19/25 01:45 Adenosine (Adenosine) 12 mg ONCE ONCE IV 04/19/25 02:00 04/19/25 02:01 DC 04/19/25 02:26 Amiodarone HCl 100 ml @ 600 mls/hr ONCE ONCE IV 04/19/25 02:00 04/19/25 02:09 DC 04/19/25 01:59 Sodium Chloride 2,650 ml @ 2,650 mls/hr ONCE ONCE IV 04/19/25 02:30 04/19/25 03:29 04/19/25 02:31 Piperacillin Sod/ Tazobactam Sod 100 ml @ 100 mls/hr ONCE ONCE IV 04/19/25 02:30 04/19/25 03:29 04/19/25 03:01 Acetaminophen (Ofirmev) 1,000 mg ONCE ONCE IV 04/19/25 02:30 04/19/25 02:31 DC 04/19/25 02:59 Time of 1ST Reevaluation: 01:53 Reevaluation 1ST: Unchanged Patient Education/Counseling: Diagnosis, Treatment, Need For Follow Up Family Education/Counseling: No Family Present SEPSIS Sepsis Screen Physician Orders Electrocardigram (04/19/25 01:31) Electrocardigram (04/19/25 04:31) Blood Culture (04/19/25 01:31) Chest Portable (04/19/25 01:31) Troponin-I Hs (04/19/25 04:31) Covid19 Antigen Nora (04/19/25 ) Communication Order (04/19/25 01:34) Propofol (Diprivan) (04/19/25 01:45) Rass Sedation Scale Q1HR (04/19/25 01:34) Abg W/ Co-Ox (04/19/25 02:00) Ventilator Orders (04/19/25 01:32) Respiratory Culture W/ Gs (04/19/25 01:32) Amiodarone 360mg/200ml Premix (Nexterone (04/19/25 02:15) Amiodarone 360mg/200ml Premix (Nexterone (04/19/25 08:15) Sodium Chloride 0.9% (04/19/25 02:30) Piperacillin-Tazob 3.375gm (Zosyn 3.375g (04/19/25 02:30) Azithromycin 500mg/ 250ml (Zithromax 50 (04/19/25 02:30) Vital Signs Date Time Temp Pulse Resp B/P (MAP) Pulse Ox O2 Delivery O2 Flow Rate FiO2 04/19/25 02:44 150 20 164/88 100 50 04/19/25 01:44 158 20 164/88 (113) 100 100 04/19/25 01:41 164/88 04/19/25 01:38 164/88 04/19/25 01:20 150 Laboratory Tests Test 04/19/25 01:49 Lactic Acid Level 2.2 mmol/L (0.4-2.0) *H White Blood Count 12.8 10^3/uL (4.4-10.8) #H Medications Medications Dose Ordered Sig/Praneeth Route Start Time Stop Time Status Last Admin Dose Admin Acetaminophen 1,000 mg ONCE ONCE IV 04/19/25 02:30 04/19/25 02:31 DC 04/19/25 02:59 Adenosine 6 mg ONCE ONCE IV 04/19/25 01:45 04/19/25 01:46 DC 04/19/25 01:45 Adenosine 12 mg ONCE ONCE IV 04/19/25 02:00 04/19/25 02:01 DC 04/19/25 02:26 Amiodarone HCl 100 ml @ 600 mls/hr ONCE ONCE IV 04/19/25 02:00 04/19/25 02:09 DC 04/19/25 01:59 Etomidate 10 mg ONCE ONCE IV 04/19/25 01:45 04/19/25 01:46 DC 04/19/25 01:38 Piperacillin Sod/ Tazobactam Sod 100 ml @ 100 mls/hr ONCE ONCE IV 04/19/25 02:30 04/19/25 03:29 04/19/25 03:01 Propofol 100 ml @ 2.328 mls/ hr Q24H IV 04/19/25 01:45 04/19/25 01:41 Rocuronium [place] 80 mg ONCE ONCE IV 04/19/25 01:45 04/19/25 01:46 DC 04/19/25 01:38 Sodium Chloride 2,650 ml @ 2,650 mls/hr ONCE ONCE IV 04/19/25 02:30 04/19/25 03:29 04/19/25 02:31 Departure 1 Departure Time of Disposition: 03:24 Impression: Primary Impression: Acute respiratory failure with hypoxia Additional Impressions: Aspiration pneumonia Lung cancer Disposition: 09 ADMITTED INPATIENT Admit to: ICU Condition: Critical Discharged With: Self, Spouse Comments Acute Respiratory Failure with Hypoxia Chief Complaint: Acute shortness of breath and tachycardia History of Present Illness: Patient is a 70-year-old male with a significant past medical history of lung cancer, COPD, type 2 diabetes, deafness, anemia, and dementia who presented from home via ambulance. According to the patient's , he was eating when he developed acute shortness of breath and increased heart rate over the last two hours prior to arrival. Upon presentation to the ED, the patient was found to be in severe respiratory distress with marked tachycardia and bilateral basilar rales on auscultation, requiring immediate intervention. Review of Systems: Constitutional: Positive for fever. Respiratory: Positive for acute shortness of breath and respiratory distress. Cardiovascular: Positive for tachycardia. All other systems: Unable to obtain due to patient's critical condition and subsequent intubation. Medications: Home medications: Not available at time of encounter. Medications administered in ED: - Etomidate 10 mg IV for RSI - Rocuronium 80 mg IV for RSI - IV fluids - Acetaminophen (Ofirmev) IV for fever - Piperacillin-Tazobactam (Zosyn) IV for aspiration pneumonia Allergies: No known drug allergies documented at time of encounter. Past Medical History: 1. Lung cancer - left upper lobe mass 2. Chronic Obstructive Pulmonary Disease (COPD) 3. Type 2 Diabetes Mellitus 4. Deafness 5. Anemia 6. Dementia Vital Signs: Temperature: 102F (febrile) Heart Rate: 155 beats per minute (severely tachycardic) Blood Pressure: 164/88 mmHg Respiratory Rate: Not documented Oxygen Saturation: Not documented, but patient required intubation for hypoxic respiratory failure Physical Exam: General: Elderly male in acute respiratory distress requiring emergent intubation. HEENT: Intubated with 8.0 cuffed endotracheal tube. Respiratory: Bilateral basilar rales/rhonchi noted prior to intubation. Cardiovascular: Tachycardic, no murmurs documented. Abdomen: Not documented. Extremities: Right femoral central venous catheter in place. Neurological: Unable to assess due to sedation for intubation. Lab Results: WBC: 12.8 (Elevated) Lactic Acid: 2.2 (Elevated) Troponin: 56 (Elevated) BUN: 31 (Elevated) Creatinine: 1.33 (Elevated) Imaging and Other Relevant Results: Chest X-ray: Left upper lobe lung mass consistent with known lung cancer. Bilateral patchy infiltrates suggestive of pneumonia/aspiration. Medical Decision Making: Summary Statement: 70-year-old male with history of lung cancer, COPD, and multiple comorbidities who presented with acute respiratory distress requiring emergent intubation, found to have aspiration pneumonia, elevated inflammatory markers, and evidence of dehydration. Problem List: 1. Acute hypoxic respiratory failure requiring intubation 2. Aspiration pneumonia 3. Dehydration 4. Known left upper lobe lung mass 5. Elevated troponin 6. Fever Differential Diagnosis: Aspiration pneumonia, COPD exacerbation, pulmonary francisco javier ma, pneumonitis, sepsis, acute coronary syndrome, pulmonary embolism, progression of underlying lung malignancy. ED Course: Patient presented in acute respiratory distress with tachycardia and fever. Rapid sequence intubation was performed using Etomidate 10mg and Rocuronium 80mg with successful placement of 8.0 cuffed endotracheal tube. A 7 [place] triple lumen central line was placed in the right femoral vein. Patient received IV fluids for dehydration, IV acetaminophen for fever, and IV Zosyn for empiric treatment of aspiration pneumonia. Chest X-ray confirmed ETT placement and showed bilateral infiltrates consistent with aspiration. Labs revealed leukocytosis, elevated lactic acid, elevated troponin, and evidence of pre-renal azotemia. Assessment and Plan: 1. Acute Hypoxic Respiratory Failure: - Patient required emergent intubation for respiratory failure - Continue mechanical ventilation with lung-protective strategy - Monitor ventilator settings and arterial blood gases - Admit to ICU for close monitoring and management 2. Aspiration Pneumonia: - Likely aspiration event while eating as per history - Continue IV Zosyn for broad-spectrum coverage - Consider adding anaerobic coverage if not improving - Monitor WBC count and clinical response to antibiotics 3. Dehydration: - Continue IV fluid resuscitation - Monitor input/output and renal function - Adjust fluid rate based on clinical response 4. Elevated Troponin: - Likely demand ischemia in setting of respiratory distress and tachycardia - Monitor serial troponins - Obtain ECG and cardiology consultation if indicated 5. Fever: - Continue antipyretics as needed - Monitor for signs of sepsis - Blood cultures pending 6. Chronic Conditions (Lung Cancer, COPD, Diabetes, Anemia, Dementia): - Continue home medications as appropriate once stabilized - Oncology consultation for management of lung cancer - Monitor blood glucose levels Disposition: Admit to ICU for management of respiratory failure, aspiration pneumonia, and close monitoring. Additional Notes: Patient was intubated in the ED and will be admitted for respiratory failure with hypoxia, aspiration pneumonia, and dehydration. Billing Information: ICD-10: J96.01 - Acute respiratory failure with hypoxia ICD-10: J69.0 - Aspiration pneumonia ICD-10: E86.0 - Dehydration ICD-10: C34.10 - Malignant neoplasm of upper lobe, left bronchus or lung ICD-10: J44.9 - Chronic obstructive pulmonary disease, unspecified ICD-10: E11.9 - Type 2 diabetes mellitus without complications Critical Care Note Critical Care Time?: Yes (35 min-critical care time only) Critical care comment: Total critical care time: Approximately 36 minutes Due to a high probability of clinically significant, life threatening deterioration, the patient required my highest level of preparedness to intervene emergently and I personally spent this critical care time directly and personally managing the patient. This critical care time included obtaining a history; examining the patient; pulse oximetry; ordering and review of studies; arranging urgent treatment with development of a management plan; evaluation of patient's response to treatment; frequent reassessment; and, discussions with other providers. This critical care time was performed to assess and manage the high probability of imminent, life-threatening deterioration that could result in multi-organ failure. It was exclusive of separately billable procedures and treating other patients. Stability Stability form required: No Heart Score Heart Score: Heart Score Response (Comments) Value History Moderate Suspicious 1 EKG Normal 0 Age >65 2 Risk Factors >3 or Hx ASHD 2 Troponin 1-2 x's Normal limit 1 Total 6 I personally scribed for IGOR POZO MD ([email or web address]) on 04/19/25 at 01:29. Electronically submitted by Edwin Miller ([email or web address]). I personally scribed for IGOR POZO MD ([email or web address]) on 04/19/25 at 01:41. Electronically submitted by Edwin Miller ([email or web address]). I personally scribed for IGOR POZO MD ([email or web address]) on 04/19/25 at 02:27. Electronically submitted by Edwin Miller ([email or web address]). IGOR POZO MD Apr 19, 2025 01:29
[2025-04-19] MEDS: PROPOFOL 100 ML IV ONE (01:33)
[2025-04-19] MEDS: SODIUM CHLORIDE 0.9% 1,000 ML IVB ONE (01:36)
[2025-04-19] MEDS: ROCURONIUM 10MG/ML 10ML VIAL IV ONE ×2 (01:37→01:38)
[2025-04-19] MEDS: ETOMIDATE (2MG/ML) 20ML VIAL IV ONE ×2 (01:37→01:38)
[2025-04-19] MEDS: PROPOFOL 100 ML IV SCH (01:41)
[2025-04-19] MEDS: ADENOSINE 6 MG/2 ML INJ IV ONE ×3 (01:45→02:26)
[2025-04-19] MEDS ORDERED: PROPOFOL 100 ML IV SCH (01:45)
[2025-04-19] MEDS: AMIODARONE BOLUS KIT 100 ML IV ONE (01:59)
[2025-04-19] MEDS ORDERED: AMIODARONE BOLUS KIT 100 ML IV ONE (02:00)
[2025-04-19 02:07] LABS: Base Excess -2.6 mmol/L (-2.0-3.0)
[2025-04-19] MEDS ORDERED: AMIODARONE 360mg/200mL PREMIX 200 ML IV ONE (02:15)
[2025-04-19] MEDS: AMIODARONE 360mg/200mL PREMIX 200 ML IV ONE (02:17)
[2025-04-19 02:25] LABS: Hematocrit 34.7 % (41.0-53.0); Hemoglobin 11.3 g/dL (13.5-17.5); Mean Corpuscular Hemoglobin 31.7 pg (28.0-32.0); Mean Corpuscular Volume 97.2 fL (80.0-100.0); Nucleated Red Blood Cells % 0.1 %
[2025-04-19] MEDS: SODIUM CHLORIDE 0.9% 2,650 ML IV ONE (02:31)
[2025-04-19 02:36] LABS: Urine Protein, UAD 1+ (Negative)
[2025-04-19 02:38] LABS: Alanine Aminotransferase 31 U/L (7-40); Albumin 4.4 g/dL (3.2-4.8); Alkaline Phosphatase 98 U/L (46-116); Anion Gap 12 (5-15); BUN/Creatinine Ratio 23.3 (10.0-20.0); Carbon Dioxide 24 mmol/L (20-31); Potassium 3.7 mmol/L (3.5-5.1); Sodium 143 mmol/L (136-145)
[2025-04-19 02:39] LABS: Bilirubin, Total 0.2 mg/dL (0.2-1.0); Blood Urea Nitrogen 31 mg/dL (9-23); Calcium 11.9 mg/dL (8.7-10.4); Chloride 107 mmol/L (98-107); Glucose 146 mg/dL (74-106); INR 1.13 (0.9-1.15); Partial Thromboplastin Time 27.7 SEC (24.5-34.5); Prothrombin Time 11.8 sec (9.3-11.8); Total Protein 8.2 g/dL (5.7-8.2)
[2025-04-19 02:42] LABS: Lactic Acid w/Reflex 2.2 mmol/L (0.4-2.0)
[2025-04-19] MEDS: AZITHROMYCIN 500MG/ 250ML 250 ML IV ONE (02:55)
[2025-04-19] MEDS: ACETAMINOPHEN IV 1000 MG/100ML (10MG/ML) IV ONE (02:59)
[2025-04-19] MEDS: PIPERACILLIN-TAZOB 3.375GM 100 ML IV ONE (03:01)
--- NOTE | 2025-04-19 04:13 | DVH ---
CHEST RADIOGRAPH Indication: SOB, intubated Technique: Single frontal view of the chest was obtained COMPARISON: XY CHEST XRAY 1 VIEW on DOS: 04/13/25, XY CHEST XRAY 1 VIEW on DOS: 04/11/25, XY CHEST XRAY 1 VIEW on DOS: 04/09/25, XY CHEST PORTABLE on DOS: 04/08/25, XY CHEST PORTABLE on DOS: 10/13/24 FINDINGS: Lines and Tubes: Status post intubation. Endotracheal tube tip projects at the level of the clavicle s, approximately 7.4 cm above the level of the eduardo. Lungs: Stable appearing large medial left apical density consistent with known pulmonary mass. New pa tchy bibasilar infiltrate with left basilar consolidative features. Pleura: No effusion. No pneumothorax. Cardiomediastinal contours: Unremarkable Bones: Unremarkable IMPRESSION: 1. New bibasilar pulmonary airspace disease with left basilar consolidative features. 2. Endotracheal tube tip at the level of the clavicles projecting approximately 7.4 cm above the leve l of the eduardo. Advanced as desired. 3. Stable appearing medial left apical pulmonary mass.
[2025-04-19] MEDS: NOREPINEPHRINE 8 MG/250ML KIT 250 ML IV SCH (06:15)
--- NOTE | 2025-04-19 06:15 | ECG ---
[facility] Test Date: 2025-04-19 Test Time: 03:24:11 Pat Name: NICHOLE NIELSON Department: ED Room: 0263 Gender: M Credit Review Analyst: ESTHELA : 1955 Requested By: IGOR POZO Order Number: [id number] Reading MD: Armani Gama Measurements Intervals [place] Rate: 112 P: 0 [place]: 0 QRS: 45 QRSD: 99 T: 54 QT: 369 QTc: 504 Interpretive Statements Atrial fibrillation Borderline repolarization abnormality Prolonged QT interval Electronically Signed On 04-23-2025 15:49:21 PDT by Armani Gama Please click the below link to view image of tracing.
[2025-04-19 07:31] LABS: Base Excess -4.2 mmol/L (-2.0-3.0)
[2025-04-19] MEDS ORDERED: NITROGLYCERIN 0.4 MG SL TAB SL PRN (07:45)
[2025-04-19] MEDS ORDERED: ONDANSETRON HCL 4 MG/2 ML VIAL IV PRN (07:45)
[2025-04-19] MEDS ORDERED: MORPHINE SULFATE INJ 2 MG/ml SYRG IV PRN (07:45)
--- NOTE | 2025-04-19 07:50 | DVHHP2 ---
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 Patient was recently here and admitted for 9 days for the same chief complaint. Patient's Alyse stated that she noticed he had been breathing differently. She had called EMS due to his high pulse rate and breathing pattern. En route patient's heart rate was in the 160s and saturation was around 63% and after intubation it was improved. Patient's stated that the patient was wheezing and was able to obtain oxygen from another provider. Contacted patient's Alyse and updated on plan of care. Reports that patient does not drink, smoke or does drugs. Was discharged recently for a UTI discharge with antibiotics. She also reports that in March her has been was admitted for pneumonia and a UTI when was also discharged on antibiotics. Was discussed hospice with Dr. Brown per patient's Alyse she had reported during the prior visit. She also stated that she had signed on for hospice and was on for about 2 hours in order to obtain oxygen for her . However she states that since he is admitted into the hospital he no longer is on hospice. 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 Throat cancer chemo and XRT done 5 years ago Deaf Dementia Liver disease Past Surgical History: Cholecystectomy, Other (Back surgery, bladder stimulator, and pain stimulator) Smoke: No ALCOHOL: none Drugs: None Lives: with Family Domestic Violence: Neg Review of Systems Respiratory: Shortness of breath Gastrointestinal: Nausea, Vomiting Allergies: Coded Allergies: Caffeine (Verified Allergy, Mild, 10/17/13) PER CAFFEINE IS CONTRAINDICATED TO PT DUE TO PARKINSONS DISEASE Azithromycin (Verified Allergy, Unknown, 09/16/24) Clindamycin (Verified Allergy, Unknown, 04/19/25) Codeine (Verified Allergy, Unknown, 08/15/24) Doripenem (Verified Allergy, Unknown, 08/15/24) Levofloxacin (Verified Allergy, Unknown, 04/19/25) Metoclopramide (Verified Allergy, Unknown, 08/15/24) Metolazone (Verified Allergy, Unknown, 08/15/24) HISTORY OF PRESENT ILLNESS: The patient was recently started on to a new diuretic medication of metolazone. When he took his second dose last evening, he became dizzy, agitated, developed itching of the skin, and sensation of his throat closing up. Nitrofurantoin (Verified Allergy, Unknown, 04/19/25) Phenytoin (Verified Allergy, Unknown, 04/19/25) Zonisamide (Verified Allergy, Unknown, 04/19/25) Medications Current Medications Medications Dose Ordered Sig/Praneeth Route Start Time Stop Time Status Last Admin Dose Admin Propofol 100 ml @ 2.328 mls/ hr Q24H IV 04/19/25 01:45 Cancel Propofol 100 ml @ 2.328 mls/ hr Q24H IV 04/19/25 01:45 04/19/25 07:15 11.64 MLS/HR Norepinephrine Bitartrate 250 ml @ 3.75 mls/hr Q24H IV 04/19/25 06:15 Sodium Chloride 1,000 ml @ 120 mls/hr Q8H20M IV 04/19/25 07:45 UNV Ondansetron HCl 4 mg Q4HP PRN IV 04/19/25 07:45 UNV Enoxaparin Sodium 40 mg DAILY SC 04/19/25 10:00 UNV Acetaminophen 650 mg Q6HP PRN PO 04/19/25 07:45 UNV Nitroglycerin 0.4 mg Q5MINP PRN SL 04/19/25 07:45 UNV Morphine Sulfate 2 mg Q30M PRN IV 04/19/25 07:45 UNV Exam Vital Signs Vital Signs Date Time Temp Pulse Resp B/P (MAP) Pulse Ox O2 Delivery O2 Flow Rate FiO2 04/19/25 07:15 111/57 04/19/25 07:00 99.0 81 20 100 99.0 04/19/25 06:23 50 04/19/25 02:00 Mechanical Ventilator+ Cardiovascular: Normal S1, Normal S2 Abdominal: Soft Labs/Xrays Labs Test 04/19/25 06:22 04/19/25 04:50 04/19/25 03:34 04/19/25 02:22 Range/Units Blood Gas Specimen Type Arterial Blood Gas Sample Site Left radial Blood Gas Patient Temperature 37.0 Arterial Blood Date Drawn [id number] Arterial Blood pH 7.393 7.350-7.450 Arterial Blood Partial Pressure CO2 33.7 L 35.0-48.0 mmHg Arterial Blood Partial Pressure O2 122.2 H 83.0-108.0 mmHg Arterial Blood HCO3 20.1 L 21.0-28.0 mmol/L Arterial Blood Oxygen Saturation 98.2 H 94.0-98.0 % Arterial Blood Base Excess -4.2 L -2.0-3.0 mmol/L Arterial Blood Oxyhemoglobin 97.7 94.0-98.0 % Arterial Blood Carboxyhemoglobin 0.1 L 0.5-1.5 % Arterial Blood Methemoglobin 0.4 0.0-1.5 % Kadeem Test Modified Blood Gas Total Hemoglobin 10.40 L 13.5-17.5 g/dL Blood Gas Set Respiration Rate 20.0 Blood Gas Modality Vent - ac FiO2 % 50.0 Blood Gas Tidal Volume 500.0 Blood Gas PEEP or CPAP 5.0 Troponin I High Sensitivity 78 *H </=54 ng/L Lactic Acid Level 1.7 0.4-2.0 mmol/L Urine Color Yellow Yellow Urine Clarity Clear Clear Urine pH 5.5 5.0-9.0 Urine Specific [place] 1.022 1.001-1.035 Urine Protein 1+ H Negative Urine Ketones Trace Negative Urine Blood Trace H Negative /uL Urine Nitrite Negative Negative Urine Bilirubin Negative Negative Urine Urobilinogen Normal Negative mg/dL Urine Leukocyte Esterase Negative Negative /uL Urine RBC 1 0 - 3 /hpf Urine Microscopic WBC 1 0-3 /HPF Urine Squamous Epithelial Cells Few <5 /hpf Urine Bacteria None seen None Seen /hpf Urine Glucose Trace Normal mg/dL Test 04/19/25 01:49 Range/Units White Blood Count 12.8 #H 4.4-10.8 10^3/uL Red Blood Count 3.57 L 4.5-5.90 10^6/uL Hemoglobin 11.3 L 13.5-17.5 g/dL Hematocrit 34.7 L 41.0-53.0 % Mean Corpuscular Volume 97.2 80.0-100.0 fL Mean Corpuscular Hemoglobin 31.7 28.0-32.0 pg Mean Corpuscular Hemoglobin Concent 32.6 32.0-36.0 g/dL Red Cell Distribution Width 14.1 11.8-14.3 % Platelet Count 383 140-450 10^3/uL Mean Platelet Volume 8.7 6.9-10.8 fL Neutrophils (%) (Auto) 77.2 37.0-80.0 % Lymphocytes (%) (Auto) 14.6 10.0-50.0 % Monocytes (%) (Auto) 7.7 0.0-12.0 % Eosinophils (%) (Auto) 0.1 0.0-7.0 % Basophils (%) (Auto) 0.4 0.0-2.0 % Neutrophils # (Auto) 9.9 H 1.6-8.6 10 ^3/uL Lymphocytes # (Auto) 1.9 0.4-5.4 10 ^3/uL Monocytes # (Auto) 1.0 0-1.3 10 ^3/uL Eosinophils # (Auto) 0 0-0.8 10 ^3/uL Basophils # (Auto) 0.1 0-0.2 10 ^3/uL Nucleated Red Blood Cells 0.1 % Prothrombin Time 11.8 9.3-11.8 sec Prothrombin Time INR 1.13 0.9-1.15 Activated Partial Thromboplast Time 27.7 24.5-34.5 SEC Sodium Level 143 # 136-145 mmol/L Potassium Level 3.7 3.5-5.1 mmol/L Chloride Level 107 98-107 mmol/L Carbon Dioxide Level 24 20-31 mmol/L Anion Gap 12 5-15 Blood Urea Nitrogen 31 H 9-23 mg/dL Creatinine 1.33 H 0.700-1.30 mg/dL Glomerular Filtration Rate Calc 57 >90 mL/min BUN/Creatinine Ratio 23.3 H 10.0-20.0 Serum Glucose 146 H 74-106 mg/dL Calcium Level 11.9 H 8.7-10.4 mg/dL Total Bilirubin 0.2 0.2-1.0 mg/dL Aspartate Amino Transferase (AST) 67 H 13-40 U/L Alanine Aminotransferase (ALT) 31 7-40 U/L Alkaline Phosphatase 98 46-116 U/L Total Protein 8.2 5.7-8.2 g/dL Albumin 4.4 3.2-4.8 g/dL CHEST RADIOGRAPH Indication: SOB, intubated Technique: Single frontal view of the chest was obtained COMPARISON: XY CHEST XRAY 1 VIEW on DOS: 04/13/25, XY CHEST XRAY 1 VIEW on DOS: 04/11/25, XY CHEST XRAY 1 VIEW on DOS: 04/09/25, XY CHEST PORTABLE on DOS: 04/08/25, XY CHEST PORTABLE on DOS: 10/13/24 FINDINGS: Lines and Tubes: Status post intubation. Endotracheal tube tip projects at the level of the clavicles, approximately 7.4 cm above the level of the eduardo. Lungs: Stable appearing large medial left apical density consistent with known pulmonary mass. New patchy bibasilar infiltrate with left basilar consolidative features. Pleura: No effusion. No pneumothorax. Cardiomediastinal contours: Unremarkable Bones: Unremarkable IMPRESSION: 1. New bibasilar pulmonary airspace disease with left basilar consolidative features. 2. Endotracheal tube tip at the level of the clavicles projecting approximately 7.4 cm above the level of the eduardo. Advanced as desired. 3. Stable appearing medial left apical pulmonary mass. SEPSIS Sepsis Screen Date sepsis recognized/suspect: Apr 19, 2025 Time Sepsis recognized/suspect: 044 Recent Procedure: No On Antibiotic Therapy: Yes Respiratory Rate >20: No Heart Rate >90: Yes Temp<36 C (96.8 F) or >38.3 C: No SBP <90 or MAP <65 mmHG: No New Acute Mental Status Change: No Is the patient on CPAP, BIPAP,: No Physician Orders Electrocardigram (04/19/25 04:31) Blood Culture (04/19/25 01:31) Chest Portable (04/19/25 01:31) Covid19 Antigen Nora (04/19/25 ) Communication Order (04/19/25 01:34) Propofol (Diprivan) (04/19/25 01:45) Rass Sedation Scale Q1HR (04/19/25 01:34) Abg W/ Co-Ox (04/19/25 02:00) Ventilator Orders (04/19/25 01:32) Respiratory Culture W/ Gs (04/19/25 01:32) Amiodarone 360mg/200ml Premix (Nexterone (04/19/25 02:15) Amiodarone 360mg/200ml Premix (Nexterone (04/19/25 08:15) Abg W/ Co-Ox (04/19/25 07:00) Norepinephrine 8 Mg/250ml Kit (Levophed) (04/19/25 06:15) Insert Pal Catheter QSHIFT (04/19/25 07:27) Urine Bacterial Culture (04/19/25 07:27) Admit (04/19/25 07:44) Allergies (04/19/25 07:44) Code Status (04/19/25 07:44) Sodium Chloride 0.9% (04/19/25 07:45) Ondansetron Hcl (Zofran) (04/19/25 07:45) Enoxaparin Sodium (Lovenox) (04/19/25 10:00) Complete Blood Count (04/20/25 04:00) Comprehensive Metabolic Panel (04/20/25 04:00) Npo (Nothing By Mouth) Diet (04/19/25 Breakfast) Acetaminophen Tablet (Tylenol Tablet) (04/19/25 07:45) Nitroglycerin Sublingual (Ntrostat Subli (04/19/25 07:45) Morphine Sulfate Injection (04/19/25 07:45) Stat Ekg For Chest Pain (04/19/25 07:44) Notify Of Changes From Base (04/19/25 07:44) Farmworker Cranberry For 24 Hours (04/19/25 07:44) Emergency Dysrhythmia Protocol (04/19/25 07:44) Rhythm Strips Once Every Shift (04/19/25 07:44) Oxygen By Nasal Cannula (04/19/25 07:44) *Consult / (04/19/25 07:44) Vital Signs Date Time Temp Pulse Resp B/P (MAP) Pulse Ox O2 Delivery O2 Flow Rate FiO2 04/19/25 07:15 111/57 04/19/25 07:00 99.0 81 20 109/60 (76) 100 99.0 04/19/25 07:00 109/60 04/19/25 06:45 98.8 81 21 106/57 (73) 100 98.8 04/19/25 06:30 98.8 82 24 101/57 (72) 100 98.8 04/19/25 06:23 81 20 97/55 (69) 100 50 04/19/25 06:15 99.0 81 21 104/56 (72) 100 99.0 04/19/25 06:00 97/55 04/19/25 06:00 99.0 82 21 97/55 (69) 100 99.0 04/19/25 05:45 99.0 84 20 101/56 (71) 99 99.0 04/19/25 05:30 99.0 90 22 116/67 (83) 99 99.0 04/19/25 05:15 99.0 114 22 117/69 (85) 99 99.0 04/19/25 05:00 116/70 04/19/25 05:00 99.1 95 23 116/70 (85) 99 99.1 04/19/25 04:45 99.1 103 21 111/74 (86) 97 99.1 04/19/25 04:30 111 20 100 50 04/19/25 04:30 99.3 100 27 103/67 (79) 98 99.3 04/19/25 04:15 99.5 114 22 107/70 (82) 97 99.5 04/19/25 04:00 110/65 04/19/25 04:00 99.7 117 21 110/65 (80) 96 99.7 04/19/25 03:45 99.9 106 20 102/66 (78) 98 99.9 04/19/25 03:30 100.1 122 20 98/62 (74) 98 100.1 04/19/25 03:24 112 04/19/25 03:23 104 04/19/25 03:22 139 04/19/25 03:15 100.4 150 20 135/80 (98) 95 100.4 04/19/25 03:00 100.8 149 20 133/80 (97) 95 100.8 04/19/25 03:00 133/80 04/19/25 02:45 101.1 151 21 146/87 (106) 95 101.1 04/19/25 02:44 150 20 164/88 100 50 04/19/25 02:38 100.0 153 29 141/93 (109) 89 100.0 04/19/25 02:30 101.3 152 20 149/92 (111) 99 101.3 04/19/25 02:15 101.5 150 21 145/86 (105) 100 101.5 04/19/25 02:00 159 19 155/89 (111) 100 04/19/25 02:00 155/89 04/19/25 02:00 159 19 99 Mechanical Ventilator+ 50 50 04/19/25 01:44 158 20 164/88 (113) 100 100 04/19/25 01:41 164/88 04/19/25 01:38 164/88 04/19/25 01:22 151 43 168/88 (114) 97 04/19/25 01:20 150 Laboratory Tests Test 04/19/25 01:49 04/19/25 03:34 Lactic Acid Level 2.2 mmol/L (0.4-2.0) *H 1.7 mmol/L (0.4-2.0) White Blood Count 12.8 10^3/uL (4.4-10.8) #H Medications Medications Dose Ordered Sig/Praneeth Route Start Time Stop Time Status Last Admin Dose Admin Acetaminophen 1,000 mg ONCE ONCE IV 04/19/25 02:30 04/19/25 02:31 DC 04/19/25 02:59 1,000 MG Adenosine 6 mg ONCE ONCE IV 04/19/25 01:45 04/19/25 01:46 DC 04/19/25 01:45 6 MG Adenosine 12 mg ONCE ONCE IV 04/19/25 02:00 04/19/25 02:01 DC 04/19/25 02:26 12 MG Amiodarone HCl 100 ml @ 600 mls/hr ONCE ONCE IV 04/19/25 02:00 04/19/25 02:09 DC 04/19/25 01:59 600 MLS/HR Etomidate 10 mg ONCE ONCE IV 04/19/25 01:45 04/19/25 01:46 DC 04/19/25 01:38 10 MG Piperacillin Sod/ Tazobactam Sod 100 ml @ 100 mls/hr ONCE ONCE IV 04/19/25 02:30 04/19/25 03:29 DC 04/19/25 03:01 100 MLS/HR Propofol 100 ml @ 2.328 mls/ hr Q24H IV 04/19/25 01:45 04/19/25 07:15 11.64 MLS/HR Rocuronium [place] 80 mg ONCE ONCE IV 04/19/25 01:45 04/19/25 01:46 DC 04/19/25 01:38 80 MG Sodium Chloride 2,650 ml @ 2,650 mls/hr ONCE ONCE IV 04/19/25 02:30 04/19/25 03:29 DC 04/19/25 02:31 2,650 MLS/HR Assessment/Plan Assessment/Plan Assessment Acute hypoxic respiratory failure on mechanical ventilation Acute on chronic COPD exacerbation AGATHA likely due to sepsis Diabetes Leukocytosis with possible pneumonia Lactic acidosis rule out sepsis Elevated trops Anemia AFib noted on EKG with no history of Left apical pulmonary mass with history of lung cancer recently diagnosed, per stated that biopsy was done History of deafness History of AML with chemo done in the 80s History of throat cancer with chemo and XRT 5 years ago History of Hepatitis C History of UTIs History of dementia History of liver disease History of seizures History of thyroid disease History of cholecystectomy History of back surgery History of bladder stimulators History of pain stimulator Plan Admit to ICU Vasopressors to keep maps greater than 65 Duo nebs Hemoglobin A1c ISS and Accu-Cheks IV antibiotics Antipyretics Antiemetics Pain management NS 3.6 L given in ED Amio given in ED Adenosine given in ED Respiratory culture Vent ABG EKG Blood culture Urine culture Repeat chest x-ray after advancement of ETT for placement NPO Home medications reconciled DVT prophylaxis-SCDs PUD prophylaxis-PPIs Discussed plan of care with patient's and nurse Pulmonary consult Consider Cardiology consult if troponins trend upwards [id number] Preventive counseling healthy eating habits, physical activity, and regular checkups Plan discussed with: Other My Orders Orders - TIARA LOCKETT [employer] Procedure Category Date Status Time Admit ADMIT 04/19/25 Transmitted 07:44 Allergies KEON 04/19/25 In Process 07:44 Code Status CODE 04/19/25 Transmitted 07:44 Sodium Chloride 0.9% PHA 04/19/25 Logged 07:45 Ondansetron Hcl PHA 04/19/25 Logged (Zofran) 07:45 Enoxaparin Sodium PHA 04/19/25 Logged (Lovenox) 10:00 Complete Blood Count LAB 04/20/25 Verified 04:00 Comprehensive LAB 04/20/25 Verified Metabolic Panel 04:00 Npo (Nothing By DIET 04/19/25 Transmitted Mouth) Diet Breakfast Acetaminophen Tablet [facility] 04/19/25 Logged (Tylenol Tablet) 07:45 Nitroglycerin [facility] 04/19/25 Logged Sublingual (Ntrostat 07:45 Morphine Sulfate [facility] 04/19/25 Logged Injection 07:45 Stat Ekg For Chest [facility] 04/19/25 In Process Pain 07:44 Notify Md Of Changes [facility] 04/19/25 In Process From Base 07:44 Farmworker Cranberry For [facility] 04/19/25 In Process 24 Hours 07:44 Emergency Dysrhythmia [facility] 04/19/25 In Process Protocol 07:44 Rhythm Strips Once [facility] 04/19/25 In Process Every Shift 07:44 Oxygen By Nasal RT 04/19/25 Transmitted Cannula 07:44 *Consult CONS 04/19/25 Transmitted / 07:44 Date of Service: Apr 19, 2025 Billing Provider: TIARA LOCKETT Common Visit Codes: [id number] INP/OBS CARE (HIGH) Secondary Visit Codes: [id number] COUNSELING IND TIARA LOCKETT Apr 19, 2025 07:50
[2025-04-19] MEDS: AMIODARONE 360mg/200mL PREMIX 200 ML IV SCH (07:58)
[2025-04-19] MEDS ORDERED: AMIODARONE 360mg/200mL PREMIX 200 ML IV SCH (08:15)
[2025-04-19] MEDS: SODIUM CHLORIDE 0.9% 1,000 ML IV SCH (08:37)
[2025-04-19 09:15] LABS: COVID19 ANTIGEN SOFIA FIA NEGATIVE (NEGATIVE)
[2025-04-19] MEDS: ENOXAPARIN SOD 40 MG/0.4 ML SYRINGE SC SCH (10:22)
--- NOTE | 2025-04-19 11:14 | DVHPN2 ---
Assessment/Plan Assessment/Plan icu note 70 yo M with hx of AML, laryngeal cancer s/p chemorad, DIXIE s/p bx with neuroendocrine tumor, COPD group E, intubated in the field admitted for acute on chronic hypoxic RF. found to be in SVT (vs 2:1 flutter). 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 JVD mid neck. Lungs with B lines on DIXIE only, no PLEF. Plan discussed with: Patient Date of Service: Apr 19, 2025 Billing Provider: ANURADHA ADRIAN MD Common Visit Codes: [id number] CARE 30-74 MIN, PROCEDURE ONLY ([id number]) ANURADHA ADRIAN MD Apr 19, 2025 11:14
[2025-04-19] MEDS ORDERED: VANCOMYCIN PER PHARMACY 0 MG IV SCH (11:15)
[2025-04-19] MEDS: PANTOPRAZOLE 40 MG/10 ML VIAL INJ IV ONE (11:49)
[2025-04-19] MEDS: LACTATED RINGER'S 1,000 ML IV ONE (11:49)
[2025-04-19] MEDS: VANCOMYCIN 1GM/250ML KIT 250 ML IV ONE (11:57)
[2025-04-19] MEDS: VANCOMYCIN 1GM/200ML PM 200 ML IV ONE (12:07)
--- NOTE | 2025-04-19 12:56 | DVHINCON2 ---
Date of service: Apr 19, 2025 Referring Physician Iqra Barry Np Reason for Consultation Acute respiratory failure History of Present Illness History Source: Patient, RN Notes, MD Notes Exam Limitations: Clinical condition HPI Patient is a 70-year old gentleman with a history of acute myeloid leukemia, chronic pain and recent admission who presented with generalized weakness and altered mental status. Was seen in the emergency room where the concern was raised for airway protection and was intubated by the ER provider.Ct guided biopsy was performed during his last admission of a large left upper lobe mass and findings were consistent with neuroendocrine tumor. Pulmonology was consulted to assist in management. Home Meds Active Scripts Fluconazole (Fluconazole) 200 Mg Tab, 1 TAB PO DAILY for 7 Days, #7 TAB Prov:NARCISA CANTU MD 04/16/25 Levofloxacin Hemihydrate (LEVAQUIN 500 MG) 500 Mg Tab, 500 MG PO DAILY for 7 Days, #7 TAB Prov:NARCISA CANTU MD 04/16/25 Reported Medications Levothyroxine Sodium (Levothyroxine Sodium) 112 Mcg Tab, 100 MCG PO, TAB 04/08/25 Divalproex Sodium (Divalproex Sodium Dr) 250 Mg Tab, 250 MG PO, TAB 04/08/25 Ergocalciferol (Vitamin D) 50,000 Unit Cap, 1 CAP PO QWEEKLY 03/13/25 Primidone (MYSOLINE TABLET) 50 Mg Tb, TAB PO 03/13/25 Midodrine Hcl (Midodrine Hcl) 5 Mg Tab, 3 TAB PO BID 03/13/25 Alprazolam (Alprazolam) 0.5 Mg Tab, 0.5 MG PO Q8HPRN PRN for ANXIETY, TAB 09/16/24 Hydromorphone Hcl (Hydromorphone Hcl) 2 Mg Tab, 1 TAB PO Q8HR 09/16/24 Venlafaxine Hcl (Venlafaxine Hcl Er) 75 Mg Cap, 1 CAP PO DAILY 09/16/24 Venlafaxine Hcl (Venlafaxine Hcl Er) 150 Mg Cap, 1 CAP PO DAILY 09/16/24 Omeprazole (Omeprazole Dr) 20 Mg Cap, 1 CAP PO DAILY 09/16/24 Lubiprostone (Lubiprostone) 24 Mcg Cap, 2 CAP PO DAILY 09/16/24 Midodrine HCl (Midodrine Hydrochloride) Unknown Strength Tab, PO BID MIDODRINE 5 MG BID: 10 MG IN PM / 15 MG IN AM 09/16/24 Fludrocortisone Acetate (Fludrocortisone Acetate) 0.1 Mg Tab, 1 TAB PO BID for 90 Days, #180 08/16/24 Vibegron (Gemtesa) 75 Mg Tab, 75 MG PO HS, TAB 08/16/24 Testosterone Cypionate (Depo-Testosterone) 100 Mg/Ml Inj, 0.5 ML IM ONCE EVERY OTHER WEEK for 180 Days, #10 10/15/13 Past Medical History Cardiac: No pertinent Hx Pulmonary: No pertinent Hx Central Nervous System: No pertinent Hx GI: No pertinent Hx Hemotology/Oncology: Cancer (AML), Other (Neuroendocrine tumor) Hepatobiliary: No pertinent Hx Psychiatric: No pertinent Hx Musculoskeletal: No pertinent Hx Rheumotologic: No pertinent Hx Infectious Disease: No peritnent Hx ENT: No pertinent Hx Renal/: No pertinent Hx Endocrine: No pertinent Hx Dermatology: No pertinent Hx Past Surgical History: No pertinent Hx Family History: Cancer Patient Family History: FH: breast cancer G8 MOTHER Smoker: No Hx (Negative) Alocohol: None Drugs: None Lives with: With family Domestic Violence: Neg Review of Systems Comments unable to perform- patient intubated and sedated H&P Exam Vital Signs Vital Signs Date Time Temp Pulse Resp B/P (MAP) Pulse Ox O2 Delivery O2 Flow Rate FiO2 04/19/25 11:15 98.4 77 20 103/56 (72) 98 98.4 04/19/25 10:01 30 04/19/25 07:30 Mechanical Ventilator+ General Appeara: Well developed, Well nourished, Normal Appearance Head Exam: Normal inspection Neck Exam: Normal inspection, Non-tender, Normal alignment Eye Exam: bilateral eye Normal inspection, bilateral eye PERRL, bilateral eye EOMI Ear Exam: bilateral ear Auricle normal, bilateral ear Canal normal, bilateral ear TM normal Nasal Exam: Normal inspection Mouth: Normal Inspection Pulmonary/Respiratory: Decreased breath sounds Cardiovascular/Chest: Normal inspection Peripheral Pulses: 4+ Radial (R), 4+ Radial (L), 4+ Brachial (R), 4+ Brachial (L) Abdominal Exam: Normal bowel sounds Labs/Xrays Labs Test 04/19/25 08:00 04/19/25 06:22 04/19/25 04:50 04/19/25 03:34 Range/Units Influenza Type A Antigen Negative Negative Influenza Type B Antigen Negative Negative SARS-CoV-2 Antigen (Rapid) Negative NEGATIVE Blood Gas Specimen Type Arterial Blood Gas Sample Site Left radial Blood Gas Patient Temperature 37.0 Arterial Blood Date Drawn [id number] Arterial Blood pH 7.393 7.350-7.450 Arterial Blood Partial Pressure CO2 33.7 L 35.0-48.0 mmHg Arterial Blood Partial Pressure O2 122.2 H 83.0-108.0 mmHg Arterial Blood HCO3 20.1 L 21.0-28.0 mmol/L Arterial Blood Oxygen Saturation 98.2 H 94.0-98.0 % Arterial Blood Base Excess -4.2 L -2.0-3.0 mmol/L Arterial Blood Oxyhemoglobin 97.7 94.0-98.0 % Arterial Blood Carboxyhemoglobin 0.1 L 0.5-1.5 % Arterial Blood Methemoglobin 0.4 0.0-1.5 % Kadeem Test Modified Blood Gas Total Hemoglobin 10.40 L 13.5-17.5 g/dL Blood Gas Set Respiration Rate 20.0 Blood Gas Modality Vent - ac FiO2 % 50.0 Blood Gas Tidal Volume 500.0 Blood Gas PEEP or CPAP 5.0 Troponin I High Sensitivity 78 *H </=54 ng/L Lactic Acid Level 1.7 0.4-2.0 mmol/L Test 04/19/25 02:22 04/19/25 01:49 Range/Units Urine Color Yellow Yellow Urine Clarity Clear Clear Urine pH 5.5 5.0-9.0 Urine Specific [place] 1.022 1.001-1.035 Urine Protein 1+ H Negative Urine Ketones Trace Negative Urine Blood Trace H Negative /uL Urine Nitrite Negative Negative Urine Bilirubin Negative Negative Urine Urobilinogen Normal Negative mg/dL Urine Leukocyte Esterase Negative Negative /uL Urine RBC 1 0 - 3 /hpf Urine Microscopic WBC 1 0-3 /HPF Urine Squamous Epithelial Cells Few <5 /hpf Urine Bacteria None seen None Seen /hpf Urine Glucose Trace Normal mg/dL White Blood Count 12.8 #H 4.4-10.8 10^3/uL Red Blood Count 3.57 L 4.5-5.90 10^6/uL Hemoglobin 11.3 L 13.5-17.5 g/dL Hematocrit 34.7 L 41.0-53.0 % Mean Corpuscular Volume 97.2 80.0-100.0 fL Mean Corpuscular Hemoglobin 31.7 28.0-32.0 pg Mean Corpuscular Hemoglobin Concent 32.6 32.0-36.0 g/dL Red Cell Distribution Width 14.1 11.8-14.3 % Platelet Count 383 140-450 10^3/uL Mean Platelet Volume 8.7 6.9-10.8 fL Neutrophils (%) (Auto) 77.2 37.0-80.0 % Lymphocytes (%) (Auto) 14.6 10.0-50.0 % Monocytes (%) (Auto) 7.7 0.0-12.0 % Eosinophils (%) (Auto) 0.1 0.0-7.0 % Basophils (%) (Auto) 0.4 0.0-2.0 % Neutrophils # (Auto) 9.9 H 1.6-8.6 10 ^3/uL Lymphocytes # (Auto) 1.9 0.4-5.4 10 ^3/uL Monocytes # (Auto) 1.0 0-1.3 10 ^3/uL Eosinophils # (Auto) 0 0-0.8 10 ^3/uL Basophils # (Auto) 0.1 0-0.2 10 ^3/uL Nucleated Red Blood Cells 0.1 % Prothrombin Time 11.8 9.3-11.8 sec Prothrombin Time INR 1.13 0.9-1.15 Activated Partial Thromboplast Time 27.7 24.5-34.5 SEC Sodium Level 143 # 136-145 mmol/L Potassium Level 3.7 3.5-5.1 mmol/L Chloride Level 107 98-107 mmol/L Carbon Dioxide Level 24 20-31 mmol/L Anion Gap 12 5-15 Blood Urea Nitrogen 31 H 9-23 mg/dL Creatinine 1.33 H 0.700-1.30 mg/dL Glomerular Filtration Rate Calc 57 >90 mL/min BUN/Creatinine Ratio 23.3 H 10.0-20.0 Serum Glucose 146 H 74-106 mg/dL Calcium Level 11.9 H 8.7-10.4 mg/dL Total Bilirubin 0.2 0.2-1.0 mg/dL Aspartate Amino Transferase (AST) 67 H 13-40 U/L Alanine Aminotransferase (ALT) 31 7-40 U/L Alkaline Phosphatase 98 46-116 U/L Total Protein 8.2 5.7-8.2 g/dL Albumin 4.4 3.2-4.8 g/dL Assessment/Plan Plan Impression Acute hypoxemic respiratory failure Altered mental status Neuroendocrine tumor Possible aspiration Patient seen and examined in the ER Events On mechanical ventilation S/p intubation PEEP 5, FiO2 50% Labs and imaging reviewed Chest x-ray shows large left upper lobe mass Recent CT guided biopsy reveals neuroendocrine tumor ABG reviewed pH 7.39, pCO2 33, pO2 122 Management Vent support Titrate to maintain sats 90% or above Sedation for vent synchrony Antibiotics Bronchodilators Monitor renal function Monitor electrolytes Supplement as needed Pressors as needed for hemodynamic support To maintain a mean arterial pressure of 65 mmHg F/u cardiology Prognosis generally poor Patient is not a candidate for [facility] life support in view of overall decrepit state and advanced malignancy DVT prophylaxis Critical care time 35 minutes Plan discussed with: Other (Rn) DYLAN SHAY MD Apr 19, 2025 12:56
--- NOTE | 2025-04-19 13:32 | DVH ---
CHEST RADIOGRAPH Indication: CHECK ADVANCEMENT OF ET TUBE Technique: Single frontal view of the chest was obtained Comparison: XY CHEST PORTABLE on DOS: 04/19/25 FINDINGS: Lines and Tubes: The enteric tube terminates in the gastric lumen. The endotracheal tube terminates 4 .9 cm above the eduadro. Lungs: Left upper lobe mass. Pleura: No effusion. No pneumothorax. Cardiomediastinal contours: Unremarkable Bones: No acute osseous abnormality. IMPRESSION: 1. Enteric tube terminates in the gastric lumen. 2. Other findings as above.
[2025-04-19] MEDS: CEFEPIME 1GM/ 50ML 50 ML IV ONE (13:40)
[2025-04-19] MEDS: LEVALBUTEROL HCL 1.25 MG/3 ML NEB NEB SCH (18:19)
[2025-04-19] MEDS: IPRATROPIUM BROM 0.5 MG/2.5ML INH SOL NEB SCH (18:19)
[2025-04-19] MEDS: CEFEPIME 1GM/ 50ML 50 ML IV SCH (23:30)
[2025-04-20] VITALS (105 sets, daily range): BP systolic 89–155; BP diastolic 46–92; PULSE 76–93; RESP 18–28; TEMP 96.6–99; O2SAT 96–100
[2025-04-20 06:28] LABS: Base Excess -2.5 mmol/L (-2.0-3.0)
[2025-04-20 06:52] LABS: Hematocrit 28.8 % (41.0-53.0); Hemoglobin 9.4 g/dL (13.5-17.5); Mean Corpuscular Hemoglobin 31.6 pg (28.0-32.0); Mean Corpuscular Volume 96.6 fL (80.0-100.0)
[2025-04-20] MEDS ORDERED: LEVOTHYROXINE SODIUM 100 MCG TAB PO SCH (07:00)
[2025-04-20 07:12] LABS: Alanine Aminotransferase 23 U/L (7-40); Alkaline Phosphatase 86 U/L (46-116); Anion Gap 10 (5-15); BUN/Creatinine Ratio 25.0 (10.0-20.0); Carbon Dioxide 24 mmol/L (20-31); Glucose 97 mg/dL (74-106); Magnesium 1.8 mg/dL (1.6-2.6); Sodium 144 mmol/L (136-145); Total Protein 6.6 g/dL (5.7-8.2)
[2025-04-20 07:13] LABS: Albumin 3.3 g/dL (3.2-4.8)
[2025-04-20 07:34] LABS: Bilirubin, Total 0.2 mg/dL (0.2-1.0); Blood Urea Nitrogen 24 mg/dL (9-23); Calcium 10.9 mg/dL (8.7-10.4); Chloride 110 mmol/L (98-107); Potassium 3.2 mmol/L (3.5-5.1)
[2025-04-20 08:34] LABS: Total Cells Counted 100.0 (100)
[2025-04-20] MEDS: PANTOPRAZOLE 40 MG/10 ML VIAL INJ IV SCH (09:20)
[2025-04-20] MEDS: fentaNYL Drip 2500mCg/250mlNS 250 ML IV SCH (09:30)
[2025-04-20] MEDS: POTASSIUM CHL 20MEQ/100ML 100 ML IV ONE ×2 (10:08→15:22)
[2025-04-20] MEDS ORDERED: DIVA-92 PO (10:25)
[2025-04-20] MEDS: VALPROIC ACID 250 MG/5 ML ORAL SOLN GT ONE (12:09)
--- NOTE | 2025-04-20 13:08 | DVHPN2 ---
Progress Note - Dictate Date Seen: Apr 20, 2025 Medical Necessity Reason Pt with a Central, PICC or Fol: Yes The following are medically ne: Central Line vital signs Vital Sign Date Time Temp Pulse Resp B/P (MAP) Pulse Ox O2 Delivery O2 Flow Rate FiO2 04/20/25 12:00 30 04/20/25 11:38 77 23 113/59 (77) 100 04/20/25 10:00 Mechanical Ventilator 04/20/25 07:30 97.7 207.9 Total Intake and Output 04/19/25 04/19/25 04/20/25 15:00 23:00 07:00 Intake Total 918.10 ml 1038.10 ml 0 ml Output Total 400 ml 1050 ml Balance 918.10 ml 638.10 ml -1050 ml medications Current Medications Medications Dose Ordered Sig/Praneeth Route Start Time Stop Time Status Last Admin Dose Admin Propofol 100 ml @ 2.328 mls/ hr Q24H IV 04/19/25 01:45 Cancel Propofol 100 ml @ 2.328 mls/ hr Q24H IV 04/19/25 01:45 04/20/25 11:47 18.624 MLS/HR Norepinephrine Bitartrate 250 ml @ 3.75 mls/hr Q24H IV 04/19/25 06:15 Sodium Chloride 1,000 ml @ 120 mls/hr Q8H20M IV 04/19/25 07:45 04/20/25 00:14 120 MLS/HR Acetaminophen 650 mg Q6HP PRN PO 04/19/25 07:45 Pantoprazole Sodium 40 mg DAILY IV 04/20/25 10:00 04/20/25 09:20 40 MG Vancomycin HCl 0 ml @ 0 mls/hr UD IV 04/19/25 11:15 Cefepime HCl 50 ml @ 12.5 mls/hr Q12HR IV 04/19/25 22:00 04/20/25 09:20 12.5 MLS/HR Ergocalciferol 50,000 unit QWEEKLY PO 04/21/25 10:00 Levothyroxine Sodium 100 mcg QAM PO 04/20/25 07:00 Hold Levalbuterol HCl 1.25 mg Q6HR NEB 04/19/25 18:00 04/20/25 11:35 1.25 MG Ipratropium [place] 0.5 mg Q6HR NEB 04/19/25 18:00 04/20/25 11:35 0.5 MG Fentanyl Citrate 250 ml @ 2.5 mls/hr Q24H IV 04/20/25 09:30 Enteral Nutritional Formula 1,000 ml 30ML/HR GT 04/20/25 10:45 Valproate Sodium 500 mg BID GT 04/20/25 22:00 Vancomycin HCl 200 ml @ 160 mls/hr DAILY@1400 IV 04/20/25 14:00 laboratory and microbiology Laboratory Tests 04/20/25 05:02 Test 04/20/25 05:02 Range/Units Serum Glucose 97 74-106 mg/dL Assessment/Plan Impression Acute hypoxemic respiratory failure Altered mental status Neuroendocrine tumor Possible aspiration Patient seen and examined in [facility] Events On mechanical ventilation S/p intubation PEEP 5, FiO2 30% Labs and imaging reviewed Chest x-ray shows large left upper lobe mass Recent CT guided biopsy reveals neuroendocrine tumor ABG reviewed Management Vent support Titrate to maintain sats 90% or above Sedation for vent synchrony Continue antibiotics F/u cultures Bronchodilators Monitor renal function Monitor electrolytes Supplement as needed Pressors as needed for hemodynamic support To maintain a mean arterial pressure of 65 mmHg F/u cardiology Prognosis generally poor Patient is not a candidate for care home life support in view of overall decrepit state and advanced malignancy Will consider bronchoscopy DVT prophylaxis Critical care time 35 minutes Plan discussed with: Other (Rn) DYLAN SHAY MD Apr 20, 2025 13:07
[2025-04-20] MEDS: VANCOMYCIN 1GM/200ML PM 200 ML IV SCH (13:46)
--- NOTE | 2025-04-20 13:56 | DVHPN2 ---
Assessment/Plan Assessment/Plan icu note 70 yo M with hx of AML, laryngeal cancer s/p chemorad, DIXIE s/p bx with neuroendocrine tumor, COPD group E, intubated in the field admitted for acute on chronic hypoxic RF. found to be in SVT (vs 2:1 flutter). seen today. 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 IN demand ischemia lactic acidosis hx of laryngeal cancer, AML s/p chemorad c/w mechanical vent c/w pressors maintain MAP >65 c/w sedation RAAS goal -3 empiric vanc and cefepime trend cr IV bolus c/w amio hold AC for now diet tube feeding dvt ppx SCD gi ppx protonix full code condition critical prognosis poor critical care time 45 minutes Plan discussed with: Spouse My Orders Orders - ANURADHA ADRIAN MD Procedure Category Date Status Time Ventilator Orders RT 04/20/25 Transmitted 09:34 Ventilator Orders RT 04/20/25 Transmitted 09:42 Nutritional PHA 04/20/25 In Process Supplements (Jevity 10:45 Valproic Acid Oral PHA 04/20/25 In Process Soln (Depakene Oral S 22:00 Basic Metabolic Panel LAB 04/21/25 Verified 04:00 Complete Blood Count LAB 04/21/25 Verified 04:00 Vancomycin,Trough LAB 04/22/25 Verified 13:00 Vancomycin 1gm/200ml PHA 04/20/25 In Process Pm 14:00 Vancomycin Per KEON 04/22/25 In Process Pharmacy Protoc 14:00 Date of Service: Apr 20, 2025 Billing Provider: ANURADHA ADRIAN MD Common Visit Codes: 37310-NOREYVOB CARE 30-74 MIN ANURADHA ADRIAN MD Apr 20, 2025 13:56
--- NOTE | 2025-04-20 14:56 | DVHINCON2 ---
Date Seen: Apr 20, 2025 Referring Physician DERICK Barry Reason for Consultation Elevated troponin History of Present Illness This is a 70-year-old man who presented to the emergency room via EMS with a chief complaint of shortness of breath. At time of assessment the patient was found chemically sedated and endotracheally intubated with FiO2 at 30%. Per at bedside the patient developed increased shortness of breath associated with tachycardia and delirium which prompted her to call 911. Per records, he was found with a oxygen saturation level of 63% on room air and a blood sugar level of 146 mg/dL. He was subsequently endotracheally intubated in the emergency room. Upon arrival to the emergency room he underwent multiple 12 lead electrocardiograms revealing an atrial fibrillation rhythm with rapid ventricular rate fluctuating also into an atrial flutter rhythm with rapid ventricular rate for which he was placed on an amiodarone drip per protocol. At time of assessment, the patient had successfully transitioned into a normal sinus rhythm. Per there is no previous cardiac history neither tachyarrhythmias. Latest troponin level was found at 78 ng/L. 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 Past Medical History Past medical history reviewed. No other significant than mentioned above. Past Surgical History Cholecystectomy Back surgery Bladder stimulator Pain stimulator Family History: FH: breast cancer G8 MOTHER Family History Family history reviewed. Social History Per , there is no use of illicit drugs, alcohol, or tobacco use. Allergies: Coded Allergies: Caffeine (Verified Allergy, Mild, 10/17/13) PER CAFFEINE IS CONTRAINDICATED TO PT DUE TO PARKINSONS DISEASE Azithromycin (Verified Allergy, Unknown, 09/16/24) Clindamycin (Verified Allergy, Unknown, 04/19/25) Codeine (Verified Allergy, Unknown, 08/15/24) Doripenem (Verified Allergy, Unknown, 08/15/24) Levofloxacin (Verified Allergy, Unknown, 04/19/25) Metoclopramide (Verified Allergy, Unknown, 08/15/24) Metolazone (Verified Allergy, Unknown, 08/15/24) HISTORY OF PRESENT ILLNESS: The patient was recently started on to a new diuretic medication of metolazone. When he took his second dose last evening, he became dizzy, agitated, developed itching of the skin, and sensation of his throat closing up. Nitrofurantoin (Verified Allergy, Unknown, 04/19/25) Phenytoin (Verified Allergy, Unknown, 04/19/25) Zonisamide (Verified Allergy, Unknown, 04/19/25) Home Meds Active Scripts Fluconazole (Fluconazole) 200 Mg Tab, 1 TAB PO DAILY for 7 Days, #7 TAB Prov:NARCISA CANTU MD 04/16/25 Levofloxacin Hemihydrate (LEVAQUIN 500 MG) 500 Mg Tab, 500 MG PO DAILY for 7 Days, #7 TAB Prov:NARCISA CANTU MD 04/16/25 Reported Medications Divalproex Sodium (Depakote Er) 250 Mg Tab, 1 TAB PO DAILY, #30 TAB 2 Refills 04/20/25 Levothyroxine Sodium (Levothyroxine Sodium) 112 Mcg Tab, 100 MCG PO, TAB 04/08/25 Divalproex Sodium (Divalproex Sodium Dr) 250 Mg Tab, 250 MG PO, TAB 04/08/25 Ergocalciferol (Vitamin D) 50,000 Unit Cap, 1 CAP PO QWEEKLY 03/13/25 Primidone (MYSOLINE TABLET) 50 Mg Tb, TAB PO 03/13/25 Midodrine Hcl (Midodrine Hcl) 5 Mg Tab, 3 TAB PO BID 03/13/25 Alprazolam (Alprazolam) 0.5 Mg Tab, 0.5 MG PO Q8HPRN PRN for ANXIETY, TAB 09/16/24 Hydromorphone Hcl (Hydromorphone Hcl) 2 Mg Tab, 1 TAB PO Q8HR 09/16/24 Venlafaxine Hcl (Venlafaxine Hcl Er) 75 Mg Cap, 1 CAP PO DAILY 09/16/24 Venlafaxine Hcl (Venlafaxine Hcl Er) 150 Mg Cap, 1 CAP PO DAILY 09/16/24 Omeprazole (Omeprazole Dr) 20 Mg Cap, 1 CAP PO DAILY 09/16/24 Lubiprostone (Lubiprostone) 24 Mcg Cap, 2 CAP PO DAILY 09/16/24 Midodrine HCl (Midodrine Hydrochloride) Unknown Strength Tab, PO BID MIDODRINE 5 MG BID: 10 MG IN PM / 15 MG IN AM 09/16/24 Fludrocortisone Acetate (Fludrocortisone Acetate) 0.1 Mg Tab, 1 TAB PO BID for 90 Days, #180 08/16/24 Vibegron (Gemtesa) 75 Mg Tab, 75 MG PO HS, TAB 08/16/24 Testosterone Cypionate (Depo-Testosterone) 100 Mg/Ml Inj, 0.5 ML IM ONCE EVERY OTHER WEEK for 180 Days, #10 10/15/13 Home Meds Home medications reviewed. Current Medications Current Medications Medications (Trade) Dose Ordered Sig/Praneeth Route PRN Reason Start Time Stop Time Status Last Admin Pantoprazole Sodium (Protonix) 40 mg DAILY IV 04/20/25 10:00 04/20/25 09:20 Cefepime HCl 50 ml @ 12.5 mls/hr Q12HR IV 04/19/25 22:00 04/20/25 09:20 Ergocalciferol (Vitamin D 50,000 Unit) 50,000 unit QWEEKLY PO 04/21/25 10:00 Levothyroxine Sodium (Synthroid Tablet) 100 mcg QAM PO 04/20/25 07:00 Hold Levalbuterol HCl (Xopenex Medneb) 1.25 mg Q6HR NEB 04/19/25 18:00 04/20/25 11:35 Ipratropium Blevins (Atrovent Medneb) 0.5 mg Q6HR NEB 04/19/25 18:00 04/20/25 11:35 Fentanyl Citrate 250 ml @ 2.5 mls/hr Q24H IV 04/20/25 09:30 Enteral Nutritional Formula (Jevity 1.2 Hernan/ Fiber) 1,000 ml 30ML/HR GT 04/20/25 10:45 Valproate Sodium (Depakene Oral Day) 500 mg BID GT 04/20/25 22:00 Vancomycin HCl 200 ml @ 160 mls/hr DAILY@1400 IV 04/20/25 14:00 04/20/25 13:46 Review of Systems Constitutional: No symptom reported Ears, Nose, & Throat: No symptom reported Eyes: No symptom reported Neurological: Delirium Pulmonary/Respiratory: SOB Cardiovascular: Tachycardia Gastrointestinal: No symptom reported Genitourinary: No symptom reported Musculoskeletal: No symptom reported Skin: No symptom reported Psychiatric: No symptom reported Endocrine: No symptom reported Hemotologic/Lymphatic: No symptom reported Vital Signs Vital Signs Date Time Temp Pulse Resp B/P (MAP) Pulse Ox O2 Delivery O2 Flow Rate FiO2 04/20/25 14:19 85 23 96/51 (66) 100 30 04/20/25 14:00 98.1 208.6 04/20/25 10:00 Mechanical Ventilator Physical Exam General Appearance: Chemically sedated. Withdrawn. Endotracheally intubated 30% FiO2 Head Exam: Normal inspection Neck Exam: Normal inspection. Normal alignment Pulmonary/Respiratory: Diminished bilateral breath sounds. Endotracheally intubated 30% FiO2 Cardiovascular/Chest: Regular rate and rhythm. S1, S2. NSR. No murmurs. No JVD. Peripheral Pulses: 2+ Radial (R). 2+ Radial (L). 2+ Pedal (R). 2+ Pedal (L) Abdominal Exam: Normal bowel sounds Ankle Exam: Negative ankle edema Lower extremities: Negative lower extremity edema Neuro/Mental Status: Withdrawn. Chemically sedated Thoughts/Psych: Unable to assess at this time. Appearance: In no acute distress Skin Exam: Normal inspection. Pale color. Warm. Dry Labs/Diagnostic Data Labs Test 04/20/25 06:22 04/20/25 05:02 04/19/25 08:00 04/19/25 04:50 Range/Units Blood Gas Specimen Type Arterial Blood Gas Sample Site Right radial Blood Gas Patient Temperature 37.0 Arterial Blood Date Drawn [id number] Arterial Blood pH 7.429 7.350-7.450 Arterial Blood Partial Pressure CO2 32.7 L 35.0-48.0 mmHg Arterial Blood Partial Pressure O2 90.7 83.0-108.0 mmHg Arterial Blood HCO3 21.2 21.0-28.0 mmol/L Arterial Blood Oxygen Saturation 96.2 94.0-98.0 % Arterial Blood Base Excess -2.5 L -2.0-3.0 mmol/L Arterial Blood Oxyhemoglobin 95.4 94.0-98.0 % Arterial Blood Carboxyhemoglobin 0.3 L 0.5-1.5 % Arterial Blood Methemoglobin 0.5 0.0-1.5 % Kadeem Test Modified Blood Gas Total Hemoglobin 10.50 L 13.5-17.5 g/dL Blood Gas Set Respiration Rate 20.0 Blood Gas Modality Vent - ac FiO2 % 30.0 Blood Gas Tidal Volume 500.0 Blood Gas PEEP or CPAP 5.0 White Blood Count 9.4 # 4.4-10.8 10^3/uL Red Blood Count 2.98 L 4.5-5.90 10^6/uL Hemoglobin 9.4 #L 13.5-17.5 g/dL Hematocrit 28.8 #L 41.0-53.0 % Mean Corpuscular Volume 96.6 80.0-100.0 fL Mean Corpuscular Hemoglobin 31.6 28.0-32.0 pg Mean Corpuscular Hemoglobin Concent 32.7 32.0-36.0 g/dL Red Cell Distribution Width 14.4 H 11.8-14.3 % Platelet Count 280 140-450 10^3/uL Mean Platelet Volume 8.8 6.9-10.8 fL Neutrophils (%) (Auto) 37.0-80.0 % Lymphocytes (%) (Auto) 10.0-50.0 % Monocytes (%) (Auto) 0.0-12.0 % Basophils (%) (Auto) 0.0-2.0 % Neutrophils # (Auto) 1.6-8.6 10 ^3/uL Lymphocytes # (Auto) 0.4-5.4 10 ^3/uL Monocytes # (Auto) 0-1.3 10 ^3/uL Differential Total Cells Counted 100.0 100 Neutrophils % (Manual) 60 37.0-80.0 Band Neutrophils % (Manual) 6 Lymphocytes % (Manual) 25 10.0-50.0 Monocytes % (Manual) 1 0-12 Eosinophils % (Manual) 8 H 0-7 Basophils % (Manual) 0 0.0-2.0 Metamyelocytes % (manual) 0 Myelocytes % (Manual) 0 Promyelocytes % (Manual) 0 Blast Cells % (Manual) 0 Reactive Lymphocytes 0 Platelet Estimate Adequate Sodium Level 144 136-145 mmol/L Potassium Level 3.2 L 3.5-5.1 mmol/L Chloride Level 110 H 98-107 mmol/L Carbon Dioxide Level 24 20-31 mmol/L Anion Gap 10 5-15 Blood Urea Nitrogen 24 H 9-23 mg/dL Creatinine 0.96 0.700-1.30 mg/dL Glomerular Filtration Rate Calc 84 >90 mL/min BUN/Creatinine Ratio 25.0 H 10.0-20.0 Serum Glucose 97 74-106 mg/dL Calcium Level 10.9 H 8.7-10.4 mg/dL Phosphorus Level 2.4 2.4-5.1 mg/dL Magnesium Level 1.8 1.6-2.6 mg/dL Total Bilirubin 0.2 0.2-1.0 mg/dL Aspartate Amino Transferase (AST) 96 H 13-40 U/L Alanine Aminotransferase (ALT) 23 7-40 U/L Alkaline Phosphatase 86 46-116 U/L Total Protein 6.6 5.7-8.2 g/dL Albumin 3.3 3.2-4.8 g/dL Random Vancomycin Level 8.1 5-10 ug/mL Influenza Type A Antigen Negative Negative Influenza Type B Antigen Negative Negative SARS-CoV-2 Antigen (Rapid) Negative NEGATIVE Troponin I High Sensitivity 78 *H </=54 ng/L Test 04/19/25 03:34 04/19/25 02:22 04/19/25 01:49 Range/Units Lactic Acid Level 1.7 0.4-2.0 mmol/L Urine Color Yellow Yellow Urine Clarity Clear Clear Urine pH 5.5 5.0-9.0 Urine Specific Plain 1.022 1.001-1.035 Urine Protein 1+ H Negative Urine Ketones Trace Negative Urine Blood Trace H Negative /uL Urine Nitrite Negative Negative Urine Bilirubin Negative Negative Urine Urobilinogen Normal Negative mg/dL Urine Leukocyte Esterase Negative Negative /uL Urine RBC 1 0 - 3 /hpf Urine Microscopic WBC 1 0-3 /HPF Urine Squamous Epithelial Cells Few <5 /hpf Urine Bacteria None seen None Seen /hpf Urine Glucose Trace Normal mg/dL Eosinophils (%) (Auto) 0.1 0.0-7.0 % Eosinophils # (Auto) 0 0-0.8 10 ^3/uL Basophils # (Auto) 0.1 0-0.2 10 ^3/uL Nucleated Red Blood Cells 0.1 % Prothrombin Time 11.8 9.3-11.8 sec Prothrombin Time INR 1.13 0.9-1.15 Activated Partial Thromboplast Time 27.7 24.5-34.5 SEC Microbiology Date/Time Source Procedure Growth Status 04/20/25 05:24 Nose MRSA Screen - Final Complete 04/19/25 07:27 Urine - Pal Port Urine Culture - Preliminary Resulted 04/19/25 01:49 Blood Blood Culture - Preliminary NO GROWTH AFTER 24 HOURS OF INCUBATION. Resulted 04/19/25 01:30 Sputum Gram Stain - Final Resulted 04/19/25 01:30 Sputum Respiratory Culture - Preliminary Resulted Assessment Paroxysmal atrial fibrillation/atrial flutter with RVR, now NSR, newly diagnosed Acute on chronic hypoxic respiratory failure Septic shock with possible aspiration pneumonia Acute kidney injury NSTEMI, likely type 2 secondary to above DIXIE neuroendocrine tumor Hx laryngeal/AML CA Plan/Recommendation (Dr. Hensley) Recent transthoracic echocardiogram revealing LVEF of 60% with normal RV function. Transition from amiodarone IV to flecainide therapy. Replete electrolytes as necessary, K>4 and Mg>2. [id number] Score 1 point, no DOAC therapy recommended at this time. is considering hospice care. We will continue conservative management only. Kindly call cardiology team on as needed basis for any further work-up or recommendations. Thank you for allowing us to participate in this patient's care. Please call if you have any questions or concerns. Critical care time: 35 min. This medical document was created using an electronic medical record system with voice recognition software and computerized dictation system. Although this document has been carefully reviewed, there might still be some phonetic and typographical errors. Occasional wrong-word or ``sound-alike substitutions may have occurred due to the inherent limitations of voice recognition software. These areas are purely typographical due to imperfections of the software programs and do not reflect any compromise in the patient's medical care. Please read the chart carefully and recognize, using context, where these substitutions have occurred. Plan discussed with: Spouse, Other NYHA Physical activity limitations: NA Date of Service: Apr 20, 2025 Billing Provider: BIRGITTE SALINAS Cardiology Common Codes: [id number] CARE 30-74 MIN BRIGITTE SALINAS Apr 20, 2025 14:56
[2025-04-20] MEDS: FLECAINIDE ACETATE 50 MG TAB PO ONE (15:22)
[2025-04-20] MEDS: MAGNESIUM SULFATE 1GM/100ML 100 ML IV ONE (15:22)
[2025-04-20] MEDS: CEFEPIME 1GM/ 50ML 50 ML IV SCH (17:42)
[2025-04-20] MEDS: FLECAINIDE ACETATE 50 MG TAB PO SCH (22:00)
--- NOTE | 2025-04-20 23:16 | DVHINCON2 ---
Date Seen: Apr 20, 2025 Referring Physician DERICK Barry Reason for Consultation Elevated troponin History of Present Illness This is a 70-year-old male with a past medical history of history of acute myeloid leukemia with chemotherapy in , history of laryngeal cancer status post radiation and chemotherapy in 2019, left upper lobe neuroendocrine tumor, hepatitis-C from blood transfusion, hepatitis a, hepatitis-B, deafness, dementia, liver disease, seizure activity, thyroid disease, and COPD who presented to the ED by EMS with complaint of shortness of breath. At time of assessment the patient was found chemically sedated and endotracheally intubated with FiO2 at 30%. Per at bedside the patient developed increased shortness of breath associated with tachycardia and excited delirium which prompted her to call 911. Per records, he was found with a oxygen saturation level of 63% on room air and a blood sugar level of 146 mg/dL. Patient was subsequently endotracheally intubated in the emergency room. Upon arrival to the ED he underwent multiple 12 lead electrocardiograms revealing an atrial fibrillation rhythm with rapid ventricular rate fluctuating also into an atrial flutter rhythm with rapid ventricular rate for which he was placed on an amiodarone drip per protocol. At time of assessment, the patient had successfully transitioned into a normal sinus rhythm. Per there is no previous cardiac history neither tachyarrhythmias. Latest troponin level was found at 78 ng/L. Chest x- ray shows new bibasilar pulmonary airspace disease with left basilar consolidative features, stable appearing medial left apical pulmonary mass. Patient was admitted to the hospital. I am asked to consult on this patient. Past Medical History Past medical history reviewed. No other significant than mentioned above. Past Surgical History Cholecystectomy Back surgery Bladder stimulator Pain stimulator Family History: FH: breast cancer G8 MOTHER Allergies: Coded Allergies: Caffeine (Verified Allergy, Mild, 10/17/13) PER CAFFEINE IS CONTRAINDICATED TO PT DUE TO PARKINSONS DISEASE Azithromycin (Verified Allergy, Unknown, 09/16/24) Clindamycin (Verified Allergy, Unknown, 04/19/25) Codeine (Verified Allergy, Unknown, 08/15/24) Doripenem (Verified Allergy, Unknown, 08/15/24) Levofloxacin (Verified Allergy, Unknown, 04/19/25) Metoclopramide (Verified Allergy, Unknown, 08/15/24) Metolazone (Verified Allergy, Unknown, 08/15/24) HISTORY OF PRESENT ILLNESS: The patient was recently started on to a new diuretic medication of metolazone. When he took his second dose last evening, he became dizzy, agitated, developed itching of the skin, and sensation of his throat closing up. Nitrofurantoin (Verified Allergy, Unknown, 04/19/25) Phenytoin (Verified Allergy, Unknown, 04/19/25) Zonisamide (Verified Allergy, Unknown, 04/19/25) Home Meds Active Scripts Fluconazole (Fluconazole) 200 Mg Tab, 1 TAB PO DAILY for 7 Days, #7 TAB Prov:NARCISA CANTU MD 04/16/25 Levofloxacin Hemihydrate (LEVAQUIN 500 MG) 500 Mg Tab, 500 MG PO DAILY for 7 Days, #7 TAB Prov:NARCISA CANTU MD 04/16/25 Reported Medications Divalproex Sodium (Depakote Er) 250 Mg Tab, 1 TAB PO DAILY, #30 TAB 2 Refills 04/20/25 Levothyroxine Sodium (Levothyroxine Sodium) 112 Mcg Tab, 100 MCG PO, TAB 04/08/25 Divalproex Sodium (Divalproex Sodium Dr) 250 Mg Tab, 250 MG PO, TAB 04/08/25 Ergocalciferol (Vitamin D) 50,000 Unit Cap, 1 CAP PO QWEEKLY 03/13/25 Primidone (MYSOLINE TABLET) 50 Mg Tb, TAB PO 03/13/25 Midodrine Hcl (Midodrine Hcl) 5 Mg Tab, 3 TAB PO BID 03/13/25 Alprazolam (Alprazolam) 0.5 Mg Tab, 0.5 MG PO Q8HPRN PRN for ANXIETY, TAB 09/16/24 Hydromorphone Hcl (Hydromorphone Hcl) 2 Mg Tab, 1 TAB PO Q8HR 09/16/24 Venlafaxine Hcl (Venlafaxine Hcl Er) 75 Mg Cap, 1 CAP PO DAILY 09/16/24 Venlafaxine Hcl (Venlafaxine Hcl Er) 150 Mg Cap, 1 CAP PO DAILY 09/16/24 Omeprazole (Omeprazole Dr) 20 Mg Cap, 1 CAP PO DAILY 09/16/24 Lubiprostone (Lubiprostone) 24 Mcg Cap, 2 CAP PO DAILY 09/16/24 Midodrine HCl (Midodrine Hydrochloride) Unknown Strength Tab, PO BID MIDODRINE 5 MG BID: 10 MG IN PM / 15 MG IN AM 09/16/24 Fludrocortisone Acetate (Fludrocortisone Acetate) 0.1 Mg Tab, 1 TAB PO BID for 90 Days, #180 08/16/24 Vibegron (Gemtesa) 75 Mg Tab, 75 MG PO HS, TAB 08/16/24 Testosterone Cypionate (Depo-Testosterone) 100 Mg/Ml Inj, 0.5 ML IM ONCE EVERY OTHER WEEK for 180 Days, #10 10/15/13 Current Medications Current Medications Medications (Trade) Dose Ordered Sig/Praneeth Route PRN Reason Start Time Stop Time Status Last Admin Pantoprazole Sodium (Protonix) 40 mg DAILY IV 04/20/25 10:00 04/20/25 09:20 Cefepime HCl 50 ml @ 12.5 mls/hr Q12HR IV 04/19/25 22:00 04/20/25 09:20 Ergocalciferol (Vitamin D 50,000 Unit) 50,000 unit QWEEKLY PO 04/21/25 10:00 Levothyroxine Sodium (Synthroid Tablet) 100 mcg QAM PO 04/20/25 07:00 Hold Levalbuterol HCl (Xopenex Medneb) 1.25 mg Q6HR NEB 04/19/25 18:00 04/20/25 11:35 Ipratropium [place] (Atrovent Medneb) 0.5 mg Q6HR NEB 04/19/25 18:00 04/20/25 11:35 Fentanyl Citrate 250 ml @ 2.5 mls/hr Q24H IV 04/20/25 09:30 Enteral Nutritional Formula (Jevity 1.2 [place]/ Fiber) 1,000 ml 30ML/HR GT 04/20/25 10:45 Valproate Sodium (Depakene Oral Day) 500 mg BID GT 04/20/25 22:00 Vancomycin HCl 200 ml @ 160 mls/hr DAILY@1400 IV 04/20/25 14:00 04/20/25 13:46 Flecainide Acetate (Tambocor Tablet) 50 mg Q12HR PO 04/20/25 22:00 Review of Systems Constitutional: No symptom reported Ears, Nose, & Throat: No symptom reported Eyes: No symptom reported Neurological: Delirium Pulmonary/Respiratory: SOB Cardiovascular: Tachycardia Gastrointestinal: No symptom reported Genitourinary: No symptom reported Musculoskeletal: No symptom reported Skin: No symptom reported Psychiatric: No symptom reported Endocrine: No symptom reported Hemotologic/Lymphatic: No symptom reported Vital Signs Vital Signs Date Time Temp Pulse Resp B/P (MAP) Pulse Ox O2 Delivery O2 Flow Rate FiO2 04/20/25 16:00 30 04/20/25 16:00 86 04/20/25 14:19 23 96/51 (66) 100 04/20/25 14:00 98.1 208.6 04/20/25 10:00 Mechanical Ventilator Physical Exam GENERAL: Ill appearing, intubated on ventilator. EYES: PERRL, EOMI. Anicteric. HENT: Moist mucous membranes. LUNGS: breath sounds. CARDIOVASCULAR: Regular rate and rhythm. ABDOMEN: Soft, nontender and nondistended. EXTREMITIES: No edema. SKIN: Warm, dry. Pale appearing. Labs/Diagnostic Data Labs Test 04/20/25 06:22 04/20/25 05:02 04/19/25 08:00 04/19/25 04:50 Range/Units Blood Gas Specimen Type Arterial Blood Gas Sample Site Right radial Blood Gas Patient Temperature 37.0 Arterial Blood Date Drawn [id number] Arterial Blood pH 7.429 7.350-7.450 Arterial Blood Partial Pressure CO2 32.7 L 35.0-48.0 mmHg Arterial Blood Partial Pressure O2 90.7 83.0-108.0 mmHg Arterial Blood HCO3 21.2 21.0-28.0 mmol/L Arterial Blood Oxygen Saturation 96.2 94.0-98.0 % Arterial Blood Base Excess -2.5 L -2.0-3.0 mmol/L Arterial Blood Oxyhemoglobin 95.4 94.0-98.0 % Arterial Blood Carboxyhemoglobin 0.3 L 0.5-1.5 % Arterial Blood Methemoglobin 0.5 0.0-1.5 % Kadeem Test Modified Blood Gas Total Hemoglobin 10.50 L 13.5-17.5 g/dL Blood Gas Set Respiration Rate 20.0 Blood Gas Modality Vent - ac FiO2 % 30.0 Blood Gas Tidal Volume 500.0 Blood Gas PEEP or CPAP 5.0 White Blood Count 9.4 # 4.4-10.8 10^3/uL Red Blood Count 2.98 L 4.5-5.90 10^6/uL Hemoglobin 9.4 #L 13.5-17.5 g/dL Hematocrit 28.8 #L 41.0-53.0 % Mean Corpuscular Volume 96.6 80.0-100.0 fL Mean Corpuscular Hemoglobin 31.6 28.0-32.0 pg Mean Corpuscular Hemoglobin Concent 32.7 32.0-36.0 g/dL Red Cell Distribution Width 14.4 H 11.8-14.3 % Platelet Count 280 140-450 10^3/uL Mean Platelet Volume 8.8 6.9-10.8 fL Neutrophils (%) (Auto) 37.0-80.0 % Lymphocytes (%) (Auto) 10.0-50.0 % Monocytes (%) (Auto) 0.0-12.0 % Basophils (%) (Auto) 0.0-2.0 % Neutrophils # (Auto) 1.6-8.6 10 ^3/uL Lymphocytes # (Auto) 0.4-5.4 10 ^3/uL Monocytes # (Auto) 0-1.3 10 ^3/uL Differential Total Cells Counted 100.0 100 Neutrophils % (Manual) 60 37.0-80.0 Band Neutrophils % (Manual) 6 Lymphocytes % (Manual) 25 10.0-50.0 Monocytes % (Manual) 1 0-12 Eosinophils % (Manual) 8 H 0-7 Basophils % (Manual) 0 0.0-2.0 Metamyelocytes % (manual) 0 Myelocytes % (Manual) 0 Promyelocytes % (Manual) 0 Blast Cells % (Manual) 0 Reactive Lymphocytes 0 Platelet Estimate Adequate Sodium Level 144 136-145 mmol/L Potassium Level 3.2 L 3.5-5.1 mmol/L Chloride Level 110 H 98-107 mmol/L Carbon Dioxide Level 24 20-31 mmol/L Anion Gap 10 5-15 Blood Urea Nitrogen 24 H 9-23 mg/dL Creatinine 0.96 0.700-1.30 mg/dL Glomerular Filtration Rate Calc 84 >90 mL/min BUN/Creatinine Ratio 25.0 H 10.0-20.0 Serum Glucose 97 74-106 mg/dL Calcium Level 10.9 H 8.7-10.4 mg/dL Phosphorus Level 2.4 2.4-5.1 mg/dL Magnesium Level 1.8 1.6-2.6 mg/dL Total Bilirubin 0.2 0.2-1.0 mg/dL Aspartate Amino Transferase (AST) 96 H 13-40 U/L Alanine Aminotransferase (ALT) 23 7-40 U/L Alkaline Phosphatase 86 46-116 U/L Total Protein 6.6 5.7-8.2 g/dL Albumin 3.3 3.2-4.8 g/dL Thyroid Stimulating Hormone (TSH) 5.60 H 0.55-4.78 uIU/mL Random Vancomycin Level 8.1 5-10 ug/mL Influenza Type A Antigen Negative Negative Influenza Type B Antigen Negative Negative SARS-CoV-2 Antigen (Rapid) Negative NEGATIVE Troponin I High Sensitivity 78 *H </=54 ng/L Test 04/19/25 03:34 04/19/25 02:22 04/19/25 01:49 Range/Units Lactic Acid Level 1.7 0.4-2.0 mmol/L Urine Color Yellow Yellow Urine Clarity Clear Clear Urine pH 5.5 5.0-9.0 Urine Specific [place] 1.022 1.001-1.035 Urine Protein 1+ H Negative Urine Ketones Trace Negative Urine Blood Trace H Negative /uL Urine Nitrite Negative Negative Urine Bilirubin Negative Negative Urine Urobilinogen Normal Negative mg/dL Urine Leukocyte Esterase Negative Negative /uL Urine RBC 1 0 - 3 /hpf Urine Microscopic WBC 1 0-3 /HPF Urine Squamous Epithelial Cells Few <5 /hpf Urine Bacteria None seen None Seen /hpf Urine Glucose Trace Normal mg/dL Eosinophils (%) (Auto) 0.1 0.0-7.0 % Eosinophils # (Auto) 0 0-0.8 10 ^3/uL Basophils # (Auto) 0.1 0-0.2 10 ^3/uL Nucleated Red Blood Cells 0.1 % Prothrombin Time 11.8 9.3-11.8 sec Prothrombin Time INR 1.13 0.9-1.15 Activated Partial Thromboplast Time 27.7 24.5-34.5 SEC Microbiology Date/Time Source Procedure Growth Status 04/20/25 05:24 Nose MRSA Screen - Final Complete 04/19/25 07:27 Urine - Pal Port Urine Culture - Preliminary Resulted 04/19/25 01:49 Blood Blood Culture - Preliminary NO GROWTH AFTER 24 HOURS OF INCUBATION. Resulted 04/19/25 01:30 Sputum Gram Stain - Final Resulted 04/19/25 01:30 Sputum Respiratory Culture - Preliminary Resulted Assessment Paroxysmal atrial fibrillation/atrial flutter with RVR, now NSR, newly diagnosed. Acute on chronic hypoxic respiratory failure. Septic shock with possible aspiration pneumonia. Acute kidney injury. NSTEMI, likely type 2 secondary to above. DIXIE neuroendocrine tumor. History of laryngeal/AML CA. Plan/Recommendation I agree with your ongoing assessment and care of plan. Patient has been seen by Halima Rodgers NP on my behalf, her and I discussed the plan with the patient. Recent transthoracic echocardiogram revealing LVEF of 60% with normal RV function. Transition from amiodarone IV to flecainide therapy. Replete electrolytes as necessary, K>4 and Mg>2. [id number] Score 1 point, no DOAC therapy recommended at this time. is considering hospice care. We will continue conservative management only. Additional plan as per the hospital course. Plan discussed with: Other NYHA Physical activity limitations: NA Date of Service: Apr 20, 2025 Billing Provider: CAMILLA LOPEZ MD Cardiology Common Codes: [id number] INP/OBS CARE (High), [id number] CARE 30-74 MIN CAMILLA LOPEZ MD Apr 20, 2025 16:46
[2025-04-21] VITALS (105 sets, daily range): BP systolic 82–144; BP diastolic 46–73; PULSE 71–98; RESP 18–28; TEMP 93.6–99; O2SAT 98–100
[2025-04-21] MEDS: VALPROIC ACID 250 MG/5 ML ORAL SOLN GT SCH
--- NOTE | 2025-04-21 05:38 | DVH ---
CHEST RADIOGRAPH Indication: RESPIRATORY FAILURE Technique: Single frontal view of the chest was obtained COMPARISON: XY CHEST XRAY 1 VIEW on DOS: 04/19/25, XY CHEST PORTABLE on DOS: 04/19/25, XY CHEST XRAY 1 VIEW on DOS: 04/13/25, XY CHEST XRAY 1 VIEW on DOS: 04/11/25, XY CHEST XRAY 1 VIEW on DOS: 04/09/25 FINDINGS: Lines and Tubes: Endotracheal tube and enteric catheter in satisfactory position. Lungs: Multifocal airspace disease. Persistent left upper lobe consolidation. Pleura: No effusion. No pneumothorax. Cardiomediastinal contours: Unremarkable Bones: Unremarkable IMPRESSION: Lines and tubes in satisfactory position. No significant interval change.
[2025-04-21 06:43] LABS: Base Excess -1.7 mmol/L (-2.0-3.0)
[2025-04-21 07:18] LABS: Sodium 143 mmol/L (136-145)
[2025-04-21 07:19] LABS: Anion Gap 11 (5-15); Carbon Dioxide 23 mmol/L (20-31)
[2025-04-21 07:24] LABS: BUN/Creatinine Ratio 20.0 (10.0-20.0); Blood Urea Nitrogen 16 mg/dL (9-23); Glucose 98 mg/dL (74-106); Magnesium 1.9 mg/dL (1.6-2.6)
[2025-04-21 07:25] LABS: Hematocrit 27.6 % (41.0-53.0); Hemoglobin 9.2 g/dL (13.5-17.5); Mean Corpuscular Hemoglobin 32.0 pg (28.0-32.0); Mean Corpuscular Volume 95.5 fL (80.0-100.0); Nucleated Red Blood Cells % 0.1 %
[2025-04-21 07:30] LABS: Calcium 10.5 mg/dL (8.7-10.4); Chloride 109 mmol/L (98-107); Potassium 3.0 mmol/L (3.5-5.1)
[2025-04-21] MEDS: ERGOCALCIFEROL 50,000 UNIT(1.25MG) CAP PO SCH (09:23)
[2025-04-21] MEDS: POTASSIUM CHL 20MEQ/100ML 100 ML IV SCH (10:16)
[2025-04-21] MEDS: ENOXAPARIN SOD 40 MG/0.4 ML SYRINGE SC SCH (10:16)
[2025-04-21] MEDS: SODIUM CHLORIDE 0.9% 1,000 ML IV SCH (11:15)
--- NOTE | 2025-04-21 11:34 | DVHPN2 ---
Progress Note Date Seen: Apr 21, 2025 Medical Necessity Reason Pt with a Central, PICC or Fol: Yes The following are medically ne: Central Line, Aceves Catheter Reason for aceves catheter: Strict I&O Subjective Patient reports: No new complaints Review of Systems: HEENT:Normal, CVS:Normal, RESPIRATORY:Normal, GI:Normal, :Normal, MSK:Normal, NEURO:Normal Objective vital signs Vital Sign Date Time Temp Pulse Resp B/P (MAP) Pulse Ox O2 Delivery O2 Flow Rate FiO2 04/21/25 11:06 83 23 101/57 (72) 100 30 04/21/25 11:00 97.7 207.9 04/21/25 10:00 Mechanical Ventilator+ Total Intake and Output 04/20/25 04/20/25 04/21/25 15:00 23:00 07:00 Intake Total 1475.612 ml 1378.728 ml 1610.164 ml Output Total 850 ml 1900 ml Balance 1475.612 ml 528.728 ml -289.836 ml medications Current Medications Medications Dose Ordered Sig/Praneeth Route Start Time Stop Time Status Last Admin Dose Admin Propofol 100 ml @ 2.328 mls/ hr Q24H IV 04/19/25 01:45 Cancel Propofol 100 ml @ 2.328 mls/ hr Q24H IV 04/19/25 01:45 04/21/25 09:23 18.624 MLS/HR Norepinephrine Bitartrate 250 ml @ 3.75 mls/hr Q24H IV 04/19/25 06:15 Acetaminophen 650 mg Q6HP PRN PO 04/19/25 07:45 Pantoprazole Sodium 40 mg DAILY IV 04/20/25 10:00 04/21/25 09:23 40 MG Vancomycin HCl 0 ml @ 0 mls/hr UD IV 04/19/25 11:15 Levalbuterol HCl 1.25 mg Q6HR NEB 04/19/25 18:00 04/21/25 06:05 1.25 MG Ipratropium [place] 0.5 mg Q6HR NEB 04/19/25 18:00 04/21/25 06:05 0.5 MG Fentanyl Citrate 250 ml @ 2.5 mls/hr Q24H IV 04/20/25 09:30 Enteral Nutritional Formula 1,000 ml 30ML/HR GT 04/20/25 10:45 Vancomycin HCl 200 ml @ 160 mls/hr DAILY@1400 IV 04/20/25 14:00 04/20/25 13:46 160 MLS/HR Flecainide Acetate 50 mg Q12HR PO 04/20/25 22:00 04/21/25 09:23 50 MG Cefepime HCl 50 ml @ 12.5 mls/hr Q8H IV 04/20/25 18:00 04/21/25 09:24 12.5 MLS/HR Enoxaparin Sodium 40 mg DAILY SC 04/21/25 10:00 04/21/25 10:16 40 MG Potassium Chloride 100 ml @ 50 mls/hr Q2H IV 04/21/25 09:15 04/21/25 13:14 04/21/25 10:16 50 MLS/HR Sodium Chloride 1,000 ml @ 60 mls/hr [id number] IV 04/21/25 11:15 UNV Levothyroxine Sodium 100 mcg QAM@0600 PO 04/22/25 06:00 UNV Micafungin Sodium 100 mg/Sodium Chloride 100 ml @ 100 mls/hr DAILY IV 04/22/25 10:00 UNV Examination: GENERAL:Normal, HEENT:Normal, NECK:Normal, LUNGS:Normal, LUNGS:Abnormal (intubated), CVS:Normal, ABDOMEN:Normal, MSK:Normal, SKIN:Normal, NEURO:Normal, NEURO:Abnormal (sedated), :Normal laboratory and microbiology Laboratory Tests 04/21/25 04:58 Test 04/21/25 04:58 Range/Units Serum Glucose 98 74-106 mg/dL Microbiology Date/Time Source Procedure Growth Status 04/20/25 05:24 Nose MRSA Screen - Final Complete 04/19/25 07:27 Urine - Aceves Port Urine Culture - Final Complete 04/19/25 01:49 Blood Blood Culture - Preliminary NO GROWTH AFTER 48 HOURS OF INCUBATION. Resulted 04/19/25 01:30 Sputum Gram Stain - Final Resulted 04/19/25 01:30 Sputum Respiratory Culture - Preliminary Resulted Problem List/Assessment/Plan Problem List/Assessment/Plan * Acute respiratory failure: on acv * Left lung pneumonia gram-positive gram-negative with septic shock: iv pressors, iv antibiotics, bronchoscopy * Left lung mass with high-grade neuroendocrine tumor,with metastatic. * COPD: iv steroids * History of laryngeal cancer. * History of AML. * Encephalopathy metabolic: on sedation * Chronic pain. * Depression. * Anemia. * Hypothyroidism. * Seizure disorder. * Orthostatic hypotension. * Left hip pain. * a fib: on flecainde long dw Alyse- reviewed labs and plan of care Plan discussed with: Spouse My Orders My Orders Orders - NARCISA CANTU MD Procedure Category Date Status Time Sodium Chloride 0.9% PHA 04/21/25 Logged 11:15 Levothyroxine Tablet PHA 04/22/25 Logged (Synthroid Tablet) 06:00 Micafungin Sodium PHA 04/22/25 Logged (Mycamine) 10:00 Micafungin Sodium PHA 04/21/25 Logged (Mycamine) 11:15 Complete Blood Count LAB 04/22/25 Verified 06:00 Comprehensive LAB 04/22/25 Verified Metabolic Panel 06:00 Chest Portable XY 04/22/25 Logged 06:00 Abg W/ Co-Ox RT 04/22/25 Logged 06:00 Midodrine Tablet PHA 04/21/25 Verified (Proamatine Tablet) 11:30 Midodrine Tablet PHA 04/21/25 Verified (Proamatine Tablet) 12:00 Critical Care Time (mins): 81 (critical care time excluding procedures and including dw with was 81 mins) Date of Service: Apr 21, 2025 Billing Provider: NARCISA CANTU MD Common Visit Codes: [id number] CARE 30-74 MIN, [id number] CARE-EACH +30MIN NARCISA CANTU MD Apr 21, 2025 11:34
[2025-04-21] MEDS: MIDODRINE HCL 10 MG TAB PO ONE (11:48)
[2025-04-21] MEDS: methylPREDNISolone SOD SUCC 40 MG/ML VL IV ONE (11:48)
[2025-04-21] MEDS: MICAFUNGIN SODIUM 100 MG in SODIUM CHL 0.9% 100 ML IV ONE (11:51)
--- NOTE | 2025-04-21 12:46 | DVHNC2 ---
Procedure - bronchoscopy and airway exam indication: resp failure consent obtained time out per protocol flexible scope used passed thru ETT tracheo-bronchial tree examined no airway secretions DIXIE bronchus completely occluded by tumor. (previously biopsied) images obtained at the end of procedure scope removed pt tolerated procedure well. DYLAN SHAY MD Apr 21, 2025 12:45
[2025-04-21] MEDS: MIDODRINE HCL 10 MG TAB PO SCH (18:00)
[2025-04-21] MEDS: methylPREDNISolone SOD SUCC 40 MG/ML VL IV SCH (21:49)
--- NOTE | 2025-04-21 23:30 | DVHPN2 ---
Progress Note - Dictate Date Seen: Apr 21, 2025 Medical Necessity Reason Pt with a Central, PICC or Fol: Yes The following are medically ne: Central Line, Aceves Catheter Reason for aceves catheter: Strict I&O Subjective Patient was seen and evaluated in follow up in the ICU. Patient is intubated and sedated on ventilator. 30% FiO2. Patient is receiving vasopressors for hemodynamic support. WBC 12.6, HGB 9.2, HCT 27.6, K 3.0. vital signs Vital Sign Date Time Temp Pulse Resp B/P (MAP) Pulse Ox O2 Delivery O2 Flow Rate FiO2 04/21/25 23:15 74 21 96/54 (68) 100 04/21/25 22:55 30 04/21/25 20:00 Mechanical Ventilator+ 04/21/25 20:00 97.8 97.8 Total Intake and Output 04/20/25 04/20/25 04/21/25 15:00 23:00 07:00 Intake Total 1475.612 ml 1378.728 ml 1610.164 ml Output Total 850 ml 1900 ml Balance 1475.612 ml 528.728 ml -289.836 ml medications Current Medications Medications Dose Ordered Sig/Praneeth Route Start Time Stop Time Status Last Admin Dose Admin Propofol 100 ml @ 2.328 mls/ hr Q24H IV 04/19/25 01:45 Cancel Propofol 100 ml @ 2.328 mls/ hr Q24H IV 04/19/25 01:45 04/21/25 22:58 18.624 MLS/HR Norepinephrine Bitartrate 250 ml @ 3.75 mls/hr Q24H IV 04/19/25 06:15 Acetaminophen 650 mg Q6HP PRN PO 04/19/25 07:45 Pantoprazole Sodium 40 mg DAILY IV 04/20/25 10:00 04/21/25 09:23 40 MG Vancomycin HCl 0 ml @ 0 mls/hr UD IV 04/19/25 11:15 Levalbuterol HCl 1.25 mg Q6HR NEB 04/19/25 18:00 04/21/25 18:14 1.25 MG Ipratropium [place] 0.5 mg Q6HR NEB 04/19/25 18:00 04/21/25 18:14 0.5 MG Fentanyl Citrate 250 ml @ 2.5 mls/hr Q24H IV 04/20/25 09:30 Enteral Nutritional Formula 1,000 ml 30ML/HR GT 04/20/25 10:45 Vancomycin HCl 200 ml @ 160 mls/hr DAILY@1400 IV 04/20/25 14:00 04/21/25 14:06 160 MLS/HR Flecainide Acetate 50 mg Q12HR PO 04/20/25 22:00 04/21/25 21:49 50 MG Cefepime HCl 50 ml @ 12.5 mls/hr Q8H IV 04/20/25 18:00 04/21/25 17:56 12.5 MLS/HR Enoxaparin Sodium 40 mg DAILY SC 04/21/25 10:00 04/21/25 10:16 40 MG Sodium Chloride 1,000 ml @ 60 mls/hr [id number] IV 04/21/25 11:15 Levothyroxine Sodium 100 mcg QAM@0600 PO 04/22/25 06:00 Micafungin Sodium 100 mg/Sodium Chloride 100 ml @ 100 mls/hr DAILY IV 04/22/25 10:00 Midodrine 10 mg TID@0600,1200,1800 PO 04/21/25 18:00 04/21/25 18:00 10 MG Methylprednisolone Sodium Succinate 40 mg BID IV 04/21/25 22:00 04/21/25 21:49 40 MG objective GENERAL: Ill appearing, intubated on ventilator. EYES: PERRL, EOMI. Anicteric. HENT: Moist mucous membranes. LUNGS: breath sounds. CARDIOVASCULAR: Regular rate and rhythm. ABDOMEN: Soft, nontender and nondistended. EXTREMITIES: No edema. SKIN: Warm, dry. Pale appearing. laboratory and microbiology Laboratory Tests 04/21/25 04:58 Test 04/21/25 04:58 Range/Units Serum Glucose 98 74-106 mg/dL Problem List Paroxysmal atrial fibrillation/atrial flutter with RVR, now NSR, newly diagnosed. Acute on chronic hypoxic respiratory failure. Septic shock with possible aspiration pneumonia. Acute kidney injury. NSTEMI, likely type 2 secondary to above. DIXIE neuroendocrine tumor. History of laryngeal/AML CA. Assessment/Plan Continued all current supportive medical care. We will continue conservative management only. IV antibiotics as ordered. DVT and GI prophylactics. Vasopressors for hemodynamic support. Additional plan as per the hospital course. Critical care time of 45 minutes provided to include time spent evaluation of patient at bedside, when appropriate patient/family education for diagnosis, treatment plan, review of pertinent medical information and discussion of care with specialty providers and PCP. Mechanical ventilator parameters, treatment and adjustments have personally been reviewed by me and treatment plan by textile scrap salvager has also been reviewed. Dietary Evaluation Review Comments: 1) TF Jevity AF 1.2Cal @ 50ml/hr (goal) along with Pro-stat 1 pk BID. Start @ 20ml/hr, increase 10ml/hr Q4H until goal is reached. TF @ goal volume along with Pro-stat & Propofol provides 2132 kcal (100% energy needs), 96 gm protein (100% protein needs), 968 ml free water. 2) Water flush 200ml Q4H if allowed, adjust PRN 3) TPN if NPO > 7 days 4) Monitor NPO status, lab values, wt trend, I/O Expected Outcomes/Goals: Lab values to improve To meet >75% estimated needs Fu 2-3 days Plan discussed with: CAMILLA Benitez MD Apr 21, 2025 23:30
[2025-04-22] VITALS (78 sets, daily range): BP systolic 93–142; BP diastolic 47–82; PULSE 56–107; RESP 11–33; TEMP 58.5–97.7; O2SAT 81–100
--- NOTE | 2025-04-22 04:58 | DVH ---
CHEST RADIOGRAPH Indication: RESP FAILURE Technique: Single frontal view of the chest was obtained COMPARISON: XY CHEST PORTABLE on DOS: 04/21/25, XY CHEST XRAY 1 VIEW on DOS: 04/19/25, XY CHEST PORTABL E on DOS: 04/19/25, XY CHEST XRAY 1 VIEW on DOS: 04/13/25, XY CHEST XRAY 1 VIEW on DOS: 04/11/25 FINDINGS: Lines and Tubes: Unchanged. Lungs: Stable appearing left apical opacity consistent with mass. Stable small right pleural effusion . No pneumothorax. Cardiomediastinal contours: Unremarkable Bones: Unremarkable IMPRESSION: 1. Left upper lobe opacity consistent with mass. 2. Small right pleural effusion. 3. Lines and tubes unchanged.
[2025-04-22] MEDS: LEVOTHYROXINE SODIUM 100 MCG TAB PO SCH (06:07)
[2025-04-22 06:25] LABS: Alanine Aminotransferase 18 U/L (7-40); Alkaline Phosphatase 92 U/L (46-116); Anion Gap 11 (5-15); BUN/Creatinine Ratio 21.8 (10.0-20.0); Blood Urea Nitrogen 19 mg/dL (9-23); Calcium 9.6 mg/dL (8.7-10.4); Carbon Dioxide 22 mmol/L (20-31); Potassium 3.7 mmol/L (3.5-5.1); Total Protein 6.2 g/dL (5.7-8.2)
[2025-04-22 06:27] LABS: Albumin 3.1 g/dL (3.2-4.8); Bilirubin, Total 0.2 mg/dL (0.2-1.0); Chloride 112 mmol/L (98-107); Glucose 143 mg/dL (74-106); Sodium 145 mmol/L (136-145)
[2025-04-22 06:28] LABS: Hemoglobin 8.4 g/dL (13.5-17.5)
[2025-04-22 06:30] LABS: Hematocrit 25.6 % (41.0-53.0); Mean Corpuscular Hemoglobin 31.3 pg (28.0-32.0); Mean Corpuscular Volume 95.0 fL (80.0-100.0)
[2025-04-22 06:37] LABS: Base Excess -2.0 mmol/L (-2.0-3.0)
[2025-04-22 07:10] LABS: Total Cells Counted 100.0 (100)
[2025-04-22] MEDS: MICAFUNGIN SODIUM 100 MG in SODIUM CHL 0.9% 100 ML IV SCH (08:38)
[2025-04-22] MEDS ORDERED: FUROSEMIDE 20 MG/2 ML VIAL IV ONE (10:00)
[2025-04-22] MEDS: FUROSEMIDE 20 MG/2 ML VIAL IV ONE ×2 (10:10→13:45)
[2025-04-22 10:27] LABS: Base Excess -1.7 mmol/L (-2.0-3.0)
--- NOTE | 2025-04-22 11:20 | DVHPN2 ---
Progress Note Date Seen: Apr 22, 2025 Medical Necessity Reason Pt with a Central, PICC or Fol: Yes The following are medically ne: Central Line, Aceves Catheter Reason for aceves catheter: Strict I&O Subjective Patient reports: No new complaints Review of Systems: HEENT:Normal, CVS:Normal, RESPIRATORY:Normal, GI:Normal, :Normal, MSK:Normal, NEURO:Normal Objective vital signs Vital Sign Date Time Temp Pulse Resp B/P (MAP) Pulse Ox O2 Delivery O2 Flow Rate FiO2 04/22/25 10:10 124/68 04/22/25 10:00 30 04/22/25 10:00 99 Mechanical Ventilator 04/22/25 10:00 97.4 100 30 97.4 Total Intake and Output 04/21/25 04/21/25 04/22/25 15:00 23:00 07:00 Intake Total 1033.992 ml 897.742 ml 599.668 ml Output Total 1350 ml 1850 ml Balance 1033.992 ml -452.258 ml -1250.332 ml medications Current Medications Medications Dose Ordered Sig/Praneeth Route Start Time Stop Time Status Last Admin Dose Admin Propofol 100 ml @ 2.328 mls/ hr Q24H IV 04/19/25 01:45 Cancel Propofol 100 ml @ 2.328 mls/ hr Q24H IV 04/19/25 01:45 04/22/25 03:20 9.312 MLS/HR Norepinephrine Bitartrate 250 ml @ 3.75 mls/hr Q24H IV 04/19/25 06:15 Acetaminophen 650 mg Q6HP PRN PO 04/19/25 07:45 Pantoprazole Sodium 40 mg DAILY IV 04/20/25 10:00 04/22/25 09:32 40 MG Vancomycin HCl 0 ml @ 0 mls/hr UD IV 04/19/25 11:15 Levalbuterol HCl 1.25 mg Q6HR NEB 04/19/25 18:00 04/22/25 05:50 1.25 MG Ipratropium [place] 0.5 mg Q6HR NEB 04/19/25 18:00 04/22/25 05:50 0.5 MG Fentanyl Citrate 250 ml @ 2.5 mls/hr Q24H IV 04/20/25 09:30 Enteral Nutritional Formula 1,000 ml 30ML/HR GT 04/20/25 10:45 Vancomycin HCl 200 ml @ 160 mls/hr DAILY@1400 IV 04/20/25 14:00 04/21/25 14:06 160 MLS/HR Flecainide Acetate 50 mg Q12HR PO 04/20/25 22:00 04/22/25 09:32 50 MG Cefepime HCl 50 ml @ 12.5 mls/hr Q8H IV 04/20/25 18:00 04/22/25 09:33 12.5 MLS/HR Enoxaparin Sodium 40 mg DAILY SC 04/21/25 10:00 04/22/25 09:33 40 MG Levothyroxine Sodium 100 mcg QAM@0600 PO 04/22/25 06:00 04/22/25 06:07 100 MCG Micafungin Sodium 100 mg/Sodium Chloride 100 ml @ 100 mls/hr DAILY IV 04/22/25 10:00 04/22/25 08:38 100 MLS/HR Midodrine 10 mg TID@0600,1200,1800 PO 04/21/25 18:00 04/22/25 10:59 10 MG Methylprednisolone Sodium Succinate 40 mg BID IV 04/21/25 22:00 04/22/25 09:33 40 MG Examination: GENERAL:Normal, HEENT:Normal, NECK:Normal, LUNGS:Normal, LUNGS:Abnormal (intubated), CVS:Normal, ABDOMEN:Normal, MSK:Normal, SKIN:Normal, NEURO:Normal, :Normal laboratory and microbiology Laboratory Tests 04/22/25 04:40 Test 04/22/25 04:40 Range/Units Serum Glucose 143 H 74-106 mg/dL Microbiology Date/Time Source Procedure Growth Status 04/20/25 05:24 Nose MRSA Screen - Final Complete 04/19/25 07:27 Urine - Aceves Port Urine Culture - Final Complete 04/19/25 01:49 Blood Blood Culture - Preliminary NO GROWTH AFTER 72 HOURS OF INCUBATION. 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 * COPD: iv steroids * History of laryngeal cancer. * History of AML. * Encephalopathy metabolic: on sedation * Chronic pain. * Depression. * Anemia. * Hypothyroidism. * Seizure disorder. * Orthostatic hypotension. * Left hip pain. * a fib: on flecainde * nstemi ?type 2 long dw Alyse- reviewed labs and plan of care, wishes to contact [facility] for possible transfer Plan discussed with: Spouse My Orders My Orders Orders - NARCISA CANTU MD Procedure Category Date Status Time Levothyroxine Tablet PHA 04/22/25 In Process (Synthroid Tablet) 06:00 Micafungin Sodium PHA 04/22/25 In Process (Mycamine) 10:00 Chest Portable XY 04/22/25 Resulted 06:00 Abg W/ Co-Ox RT 04/22/25 Logged 06:00 Midodrine Tablet PHA 04/21/25 In Process (Proamatine Tablet) 18:00 Methylprednisolone PHA 04/21/25 In Process Sod Succ (Solu Medrol 22:00 Cpap Trial For Am ORDERS 04/21/25 Transmitted 16:33 Cleanse Wound With KEON 04/21/25 In Process Mild Soap A 15:42 Cover Wound With Foam KEON 04/21/25 In Process Dressing 15:42 Cpap/Sed Vacation Med ORDERS 04/22/25 Transmitted Weaning 07:13 Abg W/ Co-Ox RT 04/22/25 Logged 10:13 Extubate KEON 04/22/25 In Process 10:54 Dietary Evaluation Review Comments: 1) TF Jevity AF 1.2Cal @ 50ml/hr (goal) along with Pro-stat 1 pk BID. Start @ 20ml/hr, increase 10ml/hr Q4H until goal is reached. TF @ goal volume along with Pro-stat & Propofol provides 2132 kcal (100% energy needs), 96 gm protein (100% protein needs), 968 ml free water. 2) Water flush 200ml Q4H if allowed, adjust PRN 3) TPN if NPO > 7 days 4) Monitor NPO status, lab values, wt trend, I/O Expected Outcomes/Goals: Lab values to improve To meet >75% estimated needs Fu 2-3 days Critical Care Time (mins): 82 (critical care time excluding procedures including cpap trial and extensive dw was 82 mins) Date of Service: Apr 22, 2025 Billing Provider: NARCISA CANTU MD Common Visit Codes: 91469-[id number] CARE 30-74 MIN, [id number] CARE-EACH +30MIN NARCISA CANTU MD Apr 22, 2025 11:20
[2025-04-22] MEDS: VANCOMYCIN 1.25GM/250ML 250 ML IV SCH (14:56)
[2025-04-22] MEDS ORDERED: VANCOMYCIN 1.25GM/250ML 250 ML IV ONE (15:00)
[2025-04-22] MEDS ORDERED: VANCOMYCIN 1.25GM/250ML 250 ML IV SCH (15:00)
[2025-04-22] MEDS: VANCOMYCIN 1.25GM/250ML 250 ML IV ONE (15:02)
--- NOTE | 2025-04-22 16:07 | DVHPN2 ---
Progress Note - Dictate Date Seen: Apr 22, 2025 Medical Necessity Reason Pt with a Central, PICC or Fol: Yes The following are medically ne: Central Line, Aceves Catheter Reason for aceves catheter: Strict I&O Subjective Patient was seen and evaluated in follow up in the ICU. Patient had CPAP trial this morning and was successfully extubated. Patient on supplemental O2. WBC 11.8, HGB 8.4, HCT 25.6. MRSA is negative. Urine culture showed no growth. Chest x-ray shows left upper lobe opacity consistent with mass and small right pleural effusion. The patients wishes to contact [facility] for possible transfer. vital signs Vital Sign Date Time Temp Pulse Resp B/P (MAP) Pulse Ox O2 Delivery O2 Flow Rate FiO2 04/22/25 13:45 97.3 101 27 137/68 (91) 100 97.3 04/22/25 13:09 Mask 10.0 04/22/25 13:09 N/A Total Intake and Output 04/21/25 04/21/25 04/22/25 15:00 23:00 07:00 Intake Total 1033.992 ml 897.742 ml 599.668 ml Output Total 1350 ml 1850 ml Balance 1033.992 ml -452.258 ml -1250.332 ml medications Current Medications Medications Dose Ordered Sig/Praneeth Route Start Time Stop Time Status Last Admin Dose Admin Propofol 100 ml @ 2.328 mls/ hr Q24H IV 04/19/25 01:45 Cancel Propofol 100 ml @ 2.328 mls/ hr Q24H IV 04/19/25 01:45 04/22/25 03:20 9.312 MLS/HR Norepinephrine Bitartrate 250 ml @ 3.75 mls/hr Q24H IV 04/19/25 06:15 Acetaminophen 650 mg Q6HP PRN PO 04/19/25 07:45 Pantoprazole Sodium 40 mg DAILY IV 04/20/25 10:00 04/22/25 09:32 40 MG Vancomycin HCl 0 ml @ 0 mls/hr UD IV 04/19/25 11:15 Levalbuterol HCl 1.25 mg Q6HR NEB 04/19/25 18:00 04/22/25 13:09 1.25 MG Ipratropium [place] 0.5 mg Q6HR NEB 04/19/25 18:00 04/22/25 13:09 0.5 MG Fentanyl Citrate 250 ml @ 2.5 mls/hr Q24H IV 04/20/25 09:30 Enteral Nutritional Formula 1,000 ml 30ML/HR GT 04/20/25 10:45 Flecainide Acetate 50 mg Q12HR PO 04/20/25 22:00 04/22/25 09:32 50 MG Cefepime HCl 50 ml @ 12.5 mls/hr Q8H IV 04/20/25 18:00 04/22/25 09:33 12.5 MLS/HR Enoxaparin Sodium 40 mg DAILY SC 04/21/25 10:00 04/22/25 09:33 40 MG Levothyroxine Sodium 100 mcg QAM@0600 PO 04/22/25 06:00 04/22/25 06:07 100 MCG Micafungin Sodium 100 mg/Sodium Chloride 100 ml @ 100 mls/hr DAILY IV 04/22/25 10:00 04/22/25 08:38 100 MLS/HR Midodrine 10 mg TID@0600,1200,1800 PO 04/21/25 18:00 04/22/25 10:59 10 MG Methylprednisolone Sodium Succinate 40 mg BID IV 04/21/25 22:00 04/22/25 09:33 40 MG Vancomycin HCl 250 ml @ 200 mls/hr DAILY@1500 IV 04/22/25 15:00 04/22/25 14:56 200 MLS/HR objective GENERAL: Alert and oriented x 3. No acute distress. EYES: PERRL, EOMI. Anicteric. HENT: Moist mucous membranes. LUNGS: breath sounds. CARDIOVASCULAR: Regular rate and rhythm. ABDOMEN: Soft, nontender and nondistended. EXTREMITIES: No edema. SKIN: Warm, dry. laboratory and microbiology Laboratory Tests 04/22/25 04:40 Test 04/22/25 04:40 Range/Units Serum Glucose 143 H 74-106 mg/dL Problem List Paroxysmal atrial fibrillation/atrial flutter with RVR, now NSR, newly diagnosed. Acute on chronic hypoxic respiratory failure. Left lung pneumonia gram-positive gram-negative with septic shock. Acute kidney injury. NSTEMI, likely type 2 secondary to above. DIXIE neuroendocrine tumor. History of laryngeal/AML CA. COPD. Encephalopathy metabolic. Orthostatic hypotension. Assessment/Plan Continued all current supportive medical care. IV antibiotics as ordered. DVT and GI prophylactics. Vasopressors for hemodynamic support. Additional plan as per the hospital course. Critical care time of 45 minutes provided to include time spent evaluation of patient at bedside, when appropriate patient/family education for diagnosis, treatment plan, review of pertinent medical information and discussion of care with specialty providers and PCP. Dietary Evaluation Review Comments: 1) TF Jevity AF 1.2Cal @ 50ml/hr (goal) along with Pro-stat 1 pk BID. Start @ 20ml/hr, increase 10ml/hr Q4H until goal is reached. TF @ goal volume along with Pro-stat & Propofol provides 2132 kcal (100% energy needs), 96 gm protein (100% protein needs), 968 ml free water. 2) Water flush 200ml Q4H if allowed, adjust PRN 3) TPN if NPO > 7 days 4) Monitor NPO status, lab values, wt trend, I/O Expected Outcomes/Goals: Lab values to improve To meet >75% estimated needs Fu 2-3 days Plan discussed with: Patient, Spouse CAIMLLA LOPEZ MD Apr 22, 2025 16:07
[2025-04-22] MEDS: POTASSIUM CHL 20MEQ/100ML 100 ML IV SCH (16:20)
[2025-04-23] VITALS (32 sets, daily range): BP systolic 110–132; BP diastolic 61–81; PULSE 93–108; RESP 18–28; TEMP 96.9–97.9; O2SAT 93–100
--- NOTE | 2025-04-23 00:03 | DVH ---
CHEST RADIOGRAPH Indication: Verify NGT placement Technique: Single frontal view of the chest was obtained COMPARISON: XY CHEST PORTABLE on DOS: 04/22/25, XY CHEST PORTABLE on DOS: 04/21/25, XY CHEST XRAY 1 VIE W on DOS: 04/19/25, XY CHEST PORTABLE on DOS: 04/19/25, XY CHEST XRAY 1 VIEW on DOS: 04/13/25 FINDINGS: Lines and Tubes: Status post interval extubation. Enteric catheter terminates within the gastric lum en. Lungs: Stable appearing left upper lung zone opacity consistent with known mass. Small bilateral pleu ral effusions. No pneumothorax. Cardiomediastinal contours: Unremarkable Bones: Unremarkable IMPRESSION: 1. Status post interval extubation. Enteric catheter as above. 2. Stable left upper lung zone opacity consistent with known mass. 3. Bilateral pleural effusions.
[2025-04-23] MEDS: Jevity 1.2 Cal/Fiber 1 Liter GT SCH (00:44)
--- NOTE | 2025-04-23 05:06 | DVH ---
CHEST RADIOGRAPH Indication: LUNG CANCER Technique: Single frontal view of the chest was obtained COMPARISON: XY CHEST PORTABLE on DOS: 04/22/25, XY CHEST PORTABLE on DOS: 04/22/25, XY CHEST PORTABLE o n DOS: 04/21/25, XY CHEST XRAY 1 VIEW on DOS: 04/19/25, XY CHEST PORTABLE on DOS: 04/19/25 FINDINGS: Lines and Tubes: Enteric catheter in satisfactory position. Lungs: Left upper lobe consolidation, unchanged Pleura: No effusion. No pneumothorax. Cardiomediastinal contours: Unremarkable Bones: Unremarkable IMPRESSION: No significant interval change.
[2025-04-23 06:21] LABS: Hematocrit 30.6 % (41.0-53.0); Hemoglobin 10.0 g/dL (13.5-17.5); Mean Corpuscular Hemoglobin 30.8 pg (28.0-32.0); Mean Corpuscular Volume 94.4 fL (80.0-100.0)
[2025-04-23 06:30] LABS: Anion Gap 12 (5-15); Carbon Dioxide 26 mmol/L (20-31); Potassium 3.6 mmol/L (3.5-5.1)
[2025-04-23 06:37] LABS: BUN/Creatinine Ratio 27.8 (10.0-20.0); Magnesium 2.2 mg/dL (1.6-2.6)
[2025-04-23 06:47] LABS: Blood Urea Nitrogen 30 mg/dL (9-23); Calcium 11.6 mg/dL (8.7-10.4); Chloride 108 mmol/L (98-107); Glucose 131 mg/dL (74-106); Sodium 146 mmol/L (136-145)
[2025-04-23 06:53] LABS: Total Cells Counted 100.0 (100)
[2025-04-23] MEDS ORDERED: Jevity 1.2 Cal/Fiber 1 Liter GT SCH (12:45)
--- NOTE | 2025-04-23 12:56 | DVHPN2 ---
Progress Note Date Seen: Apr 23, 2025 Medical Necessity Reason Pt with a Central, PICC or Fol: Yes The following are medically ne: Central Line, Aceves Catheter Reason for aceves catheter: Strict I&O Subjective Patient reports: No new complaints Review of Systems: HEENT:Normal, CVS:Normal, RESPIRATORY:Normal, GI:Normal, :Normal, MSK:Normal, NEURO:Normal Objective vital signs Vital Sign Date Time Temp Pulse Resp B/P (MAP) Pulse Ox O2 Delivery O2 Flow Rate FiO2 04/23/25 11:51 97 22 100 04/23/25 11:22 Nasal Cannula 3.0 04/23/25 11:22 32 04/23/25 08:00 97.0 126/70 (88) 97.0 Total Intake and Output 04/22/25 04/22/25 04/23/25 15:00 23:00 07:00 Intake Total 202.5 ml 562.5 ml 103 ml Output Total 4150 ml 1300 ml Balance 202.5 ml -3587.5 ml -1197 ml medications Current Medications Medications Dose Ordered Sig/Praneeth Route Start Time Stop Time Status Last Admin Dose Admin Propofol 100 ml @ 2.328 mls/ hr Q24H IV 04/19/25 01:45 Cancel Acetaminophen 650 mg Q6HP PRN PO 04/19/25 07:45 Pantoprazole Sodium 40 mg DAILY IV 04/20/25 10:00 04/23/25 10:05 40 MG Vancomycin HCl 0 ml @ 0 mls/hr UD IV 04/19/25 11:15 Levalbuterol HCl 1.25 mg Q6HR NEB 04/19/25 18:00 04/23/25 11:21 1.25 MG Ipratropium [place] 0.5 mg Q6HR NEB 04/19/25 18:00 04/23/25 11:21 0.5 MG Flecainide Acetate 50 mg Q12HR PO 04/20/25 22:00 04/23/25 10:06 50 MG Cefepime HCl 50 ml @ 12.5 mls/hr Q8H IV 04/20/25 18:00 04/23/25 10:05 12.5 MLS/HR Enoxaparin Sodium 40 mg DAILY SC 04/21/25 10:00 04/23/25 10:06 40 MG Levothyroxine Sodium 100 mcg QAM@0600 PO 04/22/25 06:00 04/23/25 05:42 100 MCG Micafungin Sodium 100 mg/Sodium Chloride 100 ml @ 100 mls/hr DAILY IV 04/22/25 10:00 04/23/25 10:06 100 MLS/HR Midodrine 10 mg TID@0600,1200,1800 PO 04/21/25 18:00 04/23/25 11:07 10 MG Methylprednisolone Sodium Succinate 40 mg BID IV 04/21/25 22:00 04/23/25 10:06 40 MG Vancomycin HCl 250 ml @ 200 mls/hr DAILY@1500 IV 04/22/25 15:00 04/22/25 14:56 200 MLS/HR Enteral Nutritional Formula 1,000 ml 40ML/HR GT 04/23/25 12:45 UNV Purified Water 100 ml Q6HR GT 04/23/25 18:00 UNV Examination: GENERAL:Normal, HEENT:Normal, NECK:Normal, LUNGS:Normal, CVS:Normal, ABDOMEN:Normal, ABDOMEN:Abnormal (NG TUBE), MSK:Normal, SKIN:Normal, NEURO:Normal, :Normal laboratory and microbiology Laboratory Tests 04/23/25 04:53 Test 04/23/25 04:53 Range/Units Serum Glucose 131 H 74-106 mg/dL Microbiology Date/Time Source Procedure Growth Status 04/20/25 05:24 Nose MRSA Screen - Final Complete 04/19/25 07:27 Urine - Aceves Port Urine Culture - Final Complete 04/19/25 01:49 Blood Blood Culture - Preliminary NO GROWTH AFTER 72 HOURS OF INCUBATION. 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 * COPD: iv steroids * History of laryngeal cancer. * History of AML. * Encephalopathy metabolic: off sedation * Chronic pain. * Depression. * Anemia. * Hypothyroidism. * Seizure disorder. * Orthostatic hypotension. * Left hip pain. * a fib: on flecainde * nstemi ?type 2 long dw Alyse- reviewed labs and plan of care, wishes to contact [facility] for possible transfer Plan discussed with: Patient, Spouse My Orders My Orders Orders - NARCISA CANTU MD Procedure Category Date Status Time Nasal Tracheal Suction RT 04/22/25 Logged 17:21 Nutritional PHA 04/23/25 Logged Supplements (Jevity 12:45 Free Water PHA 04/23/25 Logged 18:00 Pt Request For Service PT 04/23/25 Logged 12:45 Basic Metabolic Panel LAB 04/24/25 Verified 06:00 Complete Blood Count LAB 04/24/25 Verified 06:00 Chest Portable XY 04/24/25 Verified 06:00 Dietary Evaluation Review Comments: 1) TF Jevity AF 1.2Cal @ 50ml/hr (goal) along with Pro-stat 1 pk BID. Start @ 20ml/hr, increase 10ml/hr Q4H until goal is reached. TF @ goal volume along with Pro-stat & Propofol provides 2132 kcal (100% energy needs), 96 gm protein (100% protein needs), 968 ml free water. 2) Water flush 200ml Q4H if allowed, adjust PRN 3) TPN if NPO > 7 days 4) Monitor NPO status, lab values, wt trend, I/O Expected Outcomes/Goals: Lab values to improve To meet >75% estimated needs Fu 2-3 days Critical Care Time (mins): 37 (critical care time outside of procedures is 37 mins) Date of Service: Apr 23, 2025 Billing Provider: NARCISA CANTU MD Common Visit Codes: [id number] CARE 30-74 MIN NARCISA CANTU MD Apr 23, 2025 12:56
[2025-04-23] MEDS: FREE WATER GT SCH (18:31)
[2025-04-23] MEDS: HYDROmorphone HCL 2 MG/ML VL/or syr IV PRN (20:51)
--- NOTE | 2025-04-23 23:55 | DVHPN2 ---
Progress Note - Dictate Date Seen: Apr 23, 2025 Medical Necessity Reason Pt with a Central, PICC or Fol: Yes The following are medically ne: Central Line, Aceves Catheter Reason for aceves catheter: Strict I&O Subjective Patient was seen and evaluated in follow up in the ICU. Patient is on 2 LPM NC. Patient's family has requested for the patient to have a bedside sitter. Patient's Alyse is at bedside. WBC 14.1, NA 146, CL 108, BUN 30, CA 11.6. vital signs Vital Sign Date Time Temp Pulse Resp B/P (MAP) Pulse Ox O2 Delivery O2 Flow Rate FiO2 04/23/25 13:00 107 25 124/70 (88) 99 04/23/25 12:00 Nasal Cannula* 2 28 04/23/25 12:00 96.9 96.9 Total Intake and Output 04/22/25 04/22/25 04/23/25 15:00 23:00 07:00 Intake Total 202.5 ml 562.5 ml 103 ml Output Total 4150 ml 1300 ml Balance 202.5 ml -3587.5 ml -1197 ml medications Current Medications Medications Dose Ordered Sig/Praneeth Route Start Time Stop Time Status Last Admin Dose Admin Propofol 100 ml @ 2.328 mls/ hr Q24H IV 04/19/25 01:45 Cancel Acetaminophen 650 mg Q6HP PRN PO 04/19/25 07:45 Pantoprazole Sodium 40 mg DAILY IV 04/20/25 10:00 04/23/25 10:05 40 MG Vancomycin HCl 0 ml @ 0 mls/hr UD IV 04/19/25 11:15 Levalbuterol HCl 1.25 mg Q6HR NEB 04/19/25 18:00 04/23/25 11:21 1.25 MG Ipratropium [place] 0.5 mg Q6HR NEB 04/19/25 18:00 04/23/25 11:21 0.5 MG Flecainide Acetate 50 mg Q12HR PO 04/20/25 22:00 04/23/25 10:06 50 MG Cefepime HCl 50 ml @ 12.5 mls/hr Q8H IV 04/20/25 18:00 04/23/25 10:05 12.5 MLS/HR Enoxaparin Sodium 40 mg DAILY SC 04/21/25 10:00 04/23/25 10:06 40 MG Levothyroxine Sodium 100 mcg QAM@0600 PO 04/22/25 06:00 04/23/25 05:42 100 MCG Micafungin Sodium 100 mg/Sodium Chloride 100 ml @ 100 mls/hr DAILY IV 04/22/25 10:00 04/23/25 10:06 100 MLS/HR Midodrine 10 mg TID@0600,1200,1800 PO 04/21/25 18:00 04/23/25 11:07 10 MG Methylprednisolone Sodium Succinate 40 mg BID IV 04/21/25 22:00 04/23/25 10:06 40 MG Vancomycin HCl 250 ml @ 200 mls/hr DAILY@1500 IV 04/22/25 15:00 04/22/25 14:56 200 MLS/HR Enteral Nutritional Formula 1,000 ml 40ML/HR GT 04/23/25 12:45 Purified Water 100 ml Q6HR GT 04/23/25 18:00 objective GENERAL: Alert and oriented x 3. No acute distress. EYES: PERRL, EOMI. Anicteric. HENT: Moist mucous membranes. LUNGS: breath sounds. CARDIOVASCULAR: Regular rate and rhythm. ABDOMEN: Soft, nontender and nondistended. EXTREMITIES: No edema. SKIN: Warm, dry. laboratory and microbiology Laboratory Tests 04/23/25 04:53 Test 04/23/25 04:53 Range/Units Serum Glucose 131 H 74-106 mg/dL Problem List Paroxysmal atrial fibrillation/atrial flutter with RVR, now NSR, newly diagnosed. Acute on chronic hypoxic respiratory failure. Left lung pneumonia gram-positive gram-negative with septic shock. Acute kidney injury. NSTEMI, likely type 2 secondary to above. DIXIE neuroendocrine tumor. History of laryngeal/AML CA. COPD. Encephalopathy metabolic. Orthostatic hypotension. Assessment/Plan Continued all current supportive medical care. Midodrine IV Solu-Medrol. . IV antibiotics as ordered. DVT and GI prophylactics. Additional plan as per the hospital course. Critical care time of 45 minutes provided to include time spent evaluation of patient at bedside, when appropriate patient/family education for diagnosis, treatment plan, review of pertinent medical information and discussion of care with specialty providers and PCP. Dietary Evaluation Review Comments: 1) TF Jevity AF 1.2Cal @ 50ml/hr (goal) along with Pro-stat 1 pk BID. Start @ 20ml/hr, increase 10ml/hr Q4H until goal is reached. TF @ goal volume along with Pro-stat & Propofol provides 2132 kcal (100% energy needs), 96 gm protein (100% protein needs), 968 ml free water. 2) Water flush 200ml Q4H if allowed, adjust PRN 3) TPN if NPO > 7 days 4) Monitor NPO status, lab values, wt trend, I/O Expected Outcomes/Goals: Lab values to improve To meet >75% estimated needs Fu 2-3 days Plan discussed with: Patient CAMILLA LOPEZ MD Apr 23, 2025 14:36
[2025-04-24] VITALS (70 sets, daily range): BP systolic 78–150; BP diastolic 41–86; PULSE 59–130; RESP 11–41; TEMP 96.7–98.7; O2SAT 82–100
[2025-04-24 05:35] LABS: Hematocrit 31.1 % (41.0-53.0); Hemoglobin 10.2 g/dL (13.5-17.5); Mean Corpuscular Hemoglobin 31.1 pg (28.0-32.0); Mean Corpuscular Volume 94.7 fL (80.0-100.0)
[2025-04-24 05:39] LABS: Anion Gap 10 (5-15); Carbon Dioxide 26 mmol/L (20-31)
[2025-04-24 05:40] LABS: Calcium 10.9 mg/dL (8.7-10.4); Chloride 110 mmol/L (98-107); Potassium 3.4 mmol/L (3.5-5.1); Sodium 146 mmol/L (136-145)
[2025-04-24 05:44] LABS: BUN/Creatinine Ratio 39.6 (10.0-20.0)
[2025-04-24 05:46] LABS: Blood Urea Nitrogen 44 mg/dL (9-23); Glucose 196 mg/dL (74-106)
--- NOTE | 2025-04-24 06:27 | DVH ---
CHEST RADIOGRAPH Indication: RESP FAILURE Technique: Single frontal view of the chest was obtained COMPARISON: XY CHEST PORTABLE on DOS: 04/23/25, XY CHEST PORTABLE on DOS: 04/22/25, XY CHEST PORTABLE o n DOS: 04/22/25, XY CHEST PORTABLE on DOS: 04/21/25, XY CHEST XRAY 1 VIEW on DOS: 04/19/25 FINDINGS: Lines and Tubes: Enteric catheter in satisfactory position. Lungs: Stable appearing left upper lung zone mass and mild right hemidiaphragmatic elevation. Small r ight pleural effusion. No pneumothorax. Cardiomediastinal contours: Unremarkable Bones: Unremarkable IMPRESSION: 1. A stable appearing left upper lung zone pulmonary mass and small right pleural effusion. 2. Enteric catheter.
[2025-04-24 06:54] LABS: Nucleated Red Blood Cells % 1.0 %; Total Cells Counted 100.0 (100)
[2025-04-24] MEDS: FUROSEMIDE 20 MG/2 ML VIAL ONE (10:27)
[2025-04-24] MEDS: FUROSEMIDE 20 MG/2 ML VIAL IV ONE (10:39)
[2025-04-24 11:12] LABS: Base Excess 1.2 mmol/L (-2.0-3.0)
--- NOTE | 2025-04-24 13:12 | DVHPN2 ---
Progress Note Date Seen: Apr 24, 2025 Medical Necessity Reason Pt with a Central, PICC or Fol: Yes The following are medically ne: Central Line, Aceves Catheter Reason for aceves catheter: Strict I&O Subjective Patient reports: No new complaints Review of Systems: HEENT:Normal, CVS:Normal, RESPIRATORY:Normal, GI:Normal, :Normal, MSK:Normal, NEURO:Normal Objective vital signs Vital Sign Date Time Temp Pulse Resp B/P (MAP) Pulse Ox O2 Delivery O2 Flow Rate FiO2 04/24/25 12:00 97.3 107 31 139/66 (90) 89 97.3 04/24/25 10:30 50.0 100 04/24/25 06:05 Nasal Cannula* Total Intake and Output 04/23/25 04/23/25 04/24/25 15:00 23:00 07:00 Intake Total 150.0 ml 515 ml 640 ml Output Total 800 ml 700 ml Balance 150.0 ml -285 ml -60 ml medications Current Medications Medications Dose Ordered Sig/Praneeth Route Start Time Stop Time Status Last Admin Dose Admin Propofol 100 ml @ 2.328 mls/ hr Q24H IV 04/19/25 01:45 Cancel Acetaminophen 650 mg Q6HP PRN PO 04/19/25 07:45 Pantoprazole Sodium 40 mg DAILY IV 04/20/25 10:00 04/24/25 10:21 40 MG Vancomycin HCl 0 ml @ 0 mls/hr UD IV 04/19/25 11:15 Flecainide Acetate 50 mg Q12HR PO 04/20/25 22:00 04/24/25 10:29 50 MG Cefepime HCl 50 ml @ 12.5 mls/hr Q8H IV 04/20/25 18:00 04/24/25 03:49 12.5 MLS/HR Enoxaparin Sodium 40 mg DAILY SC 04/21/25 10:00 04/24/25 10:27 40 MG Levothyroxine Sodium 100 mcg QAM@0600 PO 04/22/25 06:00 04/24/25 05:48 100 MCG Micafungin Sodium 100 mg/Sodium Chloride 100 ml @ 100 mls/hr DAILY IV 04/22/25 10:00 04/24/25 10:38 100 MLS/HR Midodrine 10 mg TID@0600,1200,1800 PO 04/21/25 18:00 04/24/25 05:50 10 MG Methylprednisolone Sodium Succinate 40 mg BID IV 04/21/25 22:00 04/24/25 10:17 40 MG Vancomycin HCl 250 ml @ 200 mls/hr DAILY@1500 IV 04/22/25 15:00 04/23/25 16:57 200 MLS/HR Enteral Nutritional Formula 1,000 ml 40ML/HR GT 04/23/25 12:45 Purified Water 100 ml Q6HR GT 04/23/25 18:00 04/24/25 05:48 100 ML Hydromorphone HCl 1 mg Q8HPRN PRN IV 04/23/25 20:30 04/23/25 20:51 1 MG Acetylcysteine 200 mg Q4HR NEB 04/24/25 14:00 Levalbuterol HCl 0.625 mg Q4HR NEB 04/24/25 14:00 Ipratropium [place] 0.5 mg Q4HR NEB 04/24/25 14:00 Examination: GENERAL:Normal, HEENT:Normal, NECK:Normal, LUNGS:Normal, LUNGS:Abnormal ( RALES LEFT SIDE, TACHYPNEIC), CVS:Normal, ABDOMEN:Normal, MSK:Normal, SKIN:Normal, NEURO:Normal, :Normal laboratory and microbiology Laboratory Tests 04/24/25 04:49 Test 04/24/25 04:49 Range/Units Serum Glucose 196 H 74-106 mg/dL Microbiology Date/Time Source Procedure Growth Status 04/20/25 05:24 Nose MRSA Screen - Final Complete 04/19/25 07:27 Urine - Aceves Port Urine Culture - Final Complete 04/19/25 01:49 Blood Blood Culture - Final NO GROWTH AFTER 5 DAYS OF INCUBATION. 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 * COPD: iv steroids * History of laryngeal cancer. * History of AML. * Encephalopathy metabolic: off sedation * Chronic pain. * Depression. * Anemia. * Hypothyroidism. * Seizure disorder. * Orthostatic hypotension. * Left hip pain. * a fib: on flecainde * nstemi ?type 2 long dw Alyse- reviewed labs and plan of care, [facility] - possible transfer if resp status more stable Plan discussed with: Patient, Spouse My Orders My Orders Orders - NARCISA CANTU MD Procedure Category Date Status Time Abg W/ Co-Ox RT 04/24/25 Logged 10:15 Oxygen By High-Flow RT 04/24/25 Transmitted 10:30 Acetylcysteine PHA 04/24/25 In Process Inhalation 20% 14:00 Levalbuterol Hcl PHA 04/24/25 In Process (Xopenex Medneb) 14:00 Ipratropium Medneb PHA 04/24/25 In Process (Atrovent Medneb) 14:00 Chest Percussion Tx RT 04/24/25 Logged Initi 14:00 Dietary Evaluation Review Comments: 1) TF Jevity AF 1.2Cal @ 50ml/hr (goal) along with Pro-stat 1 pk BID. Start @ 20ml/hr, increase 10ml/hr Q4H until goal is reached. TF @ goal volume along with Pro-stat & Propofol provides 2132 kcal (100% energy needs), 96 gm protein (100% protein needs), 968 ml free water. 2) Water flush 200ml Q4H if allowed, adjust PRN 3) TPN if NPO > 7 days 4) Monitor NPO status, lab values, wt trend, I/O Expected Outcomes/Goals: Lab values to improve To meet >75% estimated needs Fu 2-3 days Critical Care Time (mins): 81 (critical care time excluding procedures and including dw , monitoring of abg/resp status and [facility] is 81 mins) Date of Service: Apr 24, 2025 Billing Provider: NARCISA CANTU MD Common Visit Codes: [id number] CARE 30-74 MIN, [id number] CARE-EACH +30MIN NARCISA CANTU MD Apr 24, 2025 13:12
[2025-04-24] MEDS: IPRATROPIUM BROM 0.5 MG/2.5ML INH SOL NEB SCH (14:21)
[2025-04-24] MEDS: ACETYLCYSTEINE 20%(200MG/ML) SOL 4ML NEB SCH (14:21)
[2025-04-24] MEDS: LEVALBUTEROL HCL 1.25 MG/3 ML NEB NEB SCH (14:21)
[2025-04-24] MEDS: ACETYLCYSTEINE 20%(200MG/ML) SOL 4ML ONE (14:30)
[2025-04-24] MEDS: MIDODRINE HCL 10 MG TAB PO SCH (14:30)
[2025-04-24] MEDS: ROCURONIUM 10MG/ML 10ML VIAL IV ONE (14:39)
[2025-04-24] MEDS: fentaNYL Drip 2500mCg/250mlNS 250 ML IV ONE (14:45)
[2025-04-24] MEDS: ETOMIDATE (2MG/ML) 20ML VIAL IV ONE (14:45)
[2025-04-24] MEDS: MIDAZOLAM DRIP 50 mg/50mL 50 ML IV ONE (14:45)
[2025-04-24] MEDS ORDERED: MIDAZOLAM DRIP 50 mg/50mL 50 ML IV SCH (15:00)
[2025-04-24] MEDS ORDERED: fentaNYL Drip 2500mCg/250mlNS 250 ML IV SCH (15:00)
--- NOTE | 2025-04-24 15:02 | DVHNC2 ---
Intubation Indication: Respiratory Insufficiency Prep: Preoxygenation Pretreated with: Sedation Medicated with: Nothing Intubation Approach: Orotracheal Intubation size: cm (8) Informed consent obtained: Yes Risks/benefits/alt described: Yes Date of Service: Apr 24, 2025 Billing Provider: NARCISA CANTU MD Common Visit Codes: PROCEDURE ONLY Procedure Codes: [id number] NARCISA CANTU MD Apr 24, 2025 15:02
[2025-04-24] MEDS: fentaNYL Drip 2500mCg/250mlNS 250 ML IV SCH (15:22)
[2025-04-24] MEDS: SODIUM CHLORIDE 0.9% 500 ML IV ONE (15:23)
[2025-04-24] MEDS: MIDAZOLAM DRIP 50 mg/50mL 50 ML IV SCH (15:24)
--- NOTE | 2025-04-24 15:28 | DVH ---
CHEST RADIOGRAPH Indication: intubated - check placement ett Technique: Single frontal view of the chest was obtained Comparison: XY CHEST PORTABLE on DOS: 04/24/25, XY CHEST PORTABLE on DOS: 04/23/25, XY CHEST PORTABLE o n DOS: 04/22/25 FINDINGS: Lines and Tubes: Endotracheal tube is 5.9 cm above the eduardo. Enteric tube just below the left diaph ragm recommend advancement 5-6 inches. Findings are worse in the left upper lobe April 24 2025 at 5: 35 a.m. Lungs: Consolidation left upper lobe. Airspace disease and atelectasis left lower lobe. Pleura: No effusion. No pneumothorax. Cardiomediastinal contours: Unremarkable Bones: No acute osseous abnormality. IMPRESSION: 1. No acute cardiopulmonary disease. 2. Endotracheal tube 5.9 cm above the eduardo, 3. Enteric tube needs to be advanced 5-6 inches. 4. Consolidation in the left upper lobe is noted. 5. Airspace disease in the left lower lobe is noted
[2025-04-24] MEDS: SODIUM CHLORIDE 0.9% 1,000 ML IV SCH ×2 (15:30→16:54)
[2025-04-24] MEDS: POTASSIUM CHLORIDE 40 MEQ, LIDOCAINE 1% (LOCAL ANESTH.) 4 ML in SODIUM CHL 0.9% 250 ML IV ONE (16:34)
[2025-04-24 16:44] LABS: Base Excess 0.2 mmol/L (-2.0-3.0)
[2025-04-24] MEDS: PROPOFOL 100 ML IV SCH (16:45)
[2025-04-24] MEDS: PROPOFOL 100 ML IV ONE (16:59)
[2025-04-24] MEDS ORDERED: ARTIFICIAL TEARS 15ml EACHEYE PRN (17:00)
[2025-04-24] MEDS: PHENYLEPHRINE INJ 40 MG in SODIUM CHL 0.9% 246 ML IV SCH (18:15)
[2025-04-24] MEDS: NOREPINEPHRINE 8 MG/250ML KIT 250 ML IV SCH (19:00)
[2025-04-25] VITALS (112 sets, daily range): BP systolic 76–140; BP diastolic 42–74; PULSE 74–102; RESP 17–25; TEMP 95.9–98.8; O2SAT 93–100
--- NOTE | 2025-04-25 00:13 | DVHPN2 ---
Progress Note - Dictate Date Seen: Apr 24, 2025 Medical Necessity Reason Pt with a Central, PICC or Fol: Yes The following are medically ne: Central Line, Aceves Catheter Reason for aceves catheter: Strict I&O Subjective Patient was seen and evaluated in follow up in the ICU. Patient is on high flow oxygen. Patient has thin white scant return from NGT. WBC 11.6, NA 146, K 3.4, BUN 44, CA 10.9. Chest x-ray shows stable appearing left upper lung zone pulmonary mass and small right pleural effusion. vital signs Vital Sign Date Time Temp Pulse Resp B/P (MAP) Pulse Ox O2 Delivery O2 Flow Rate FiO2 04/24/25 12:00 97.3 107 31 139/66 (90) 89 97.3 04/24/25 10:30 50.0 100 04/24/25 06:05 Nasal Cannula* Total Intake and Output 04/23/25 04/23/25 04/24/25 15:00 23:00 07:00 Intake Total 150.0 ml 515 ml 640 ml Output Total 800 ml 700 ml Balance 150.0 ml -285 ml -60 ml medications Current Medications Medications Dose Ordered Sig/Praneeth Route Start Time Stop Time Status Last Admin Dose Admin Propofol 100 ml @ 2.328 mls/ hr Q24H IV 04/19/25 01:45 Cancel Acetaminophen 650 mg Q6HP PRN PO 04/19/25 07:45 Pantoprazole Sodium 40 mg DAILY IV 04/20/25 10:00 04/24/25 10:21 40 MG Vancomycin HCl 0 ml @ 0 mls/hr UD IV 04/19/25 11:15 Flecainide Acetate 50 mg Q12HR PO 04/20/25 22:00 04/24/25 10:29 50 MG Cefepime HCl 50 ml @ 12.5 mls/hr Q8H IV 04/20/25 18:00 04/24/25 03:49 12.5 MLS/HR Enoxaparin Sodium 40 mg DAILY SC 04/21/25 10:00 04/24/25 10:27 40 MG Levothyroxine Sodium 100 mcg QAM@0600 PO 04/22/25 06:00 04/24/25 05:48 100 MCG Micafungin Sodium 100 mg/Sodium Chloride 100 ml @ 100 mls/hr DAILY IV 04/22/25 10:00 04/24/25 10:38 100 MLS/HR Midodrine 10 mg TID@0600,1200,1800 PO 04/21/25 18:00 04/24/25 05:50 10 MG Methylprednisolone Sodium Succinate 40 mg BID IV 04/21/25 22:00 04/24/25 10:17 40 MG Vancomycin HCl 250 ml @ 200 mls/hr DAILY@1500 IV 04/22/25 15:00 04/23/25 16:57 200 MLS/HR Enteral Nutritional Formula 1,000 ml 40ML/HR GT 04/23/25 12:45 Purified Water 100 ml Q6HR GT 04/23/25 18:00 04/24/25 05:48 100 ML Hydromorphone HCl 1 mg Q8HPRN PRN IV 04/23/25 20:30 04/23/25 20:51 1 MG Acetylcysteine 200 mg Q4HR NEB 04/24/25 14:00 Levalbuterol HCl 0.625 mg Q4HR NEB 04/24/25 14:00 Ipratropium [place] 0.5 mg Q4HR NEB 04/24/25 14:00 objective GENERAL: Alert and oriented x 3. No acute distress. EYES: PERRL, EOMI. Anicteric. HENT: Moist mucous membranes. LUNGS: breath sounds. CARDIOVASCULAR: Regular rate and rhythm. ABDOMEN: Soft, nontender and nondistended. EXTREMITIES: No edema. SKIN: Warm, dry. laboratory and microbiology Laboratory Tests 04/24/25 04:49 Test 04/24/25 04:49 Range/Units Serum Glucose 196 H 74-106 mg/dL Problem List Paroxysmal atrial fibrillation/atrial flutter with RVR, now NSR, newly diagnosed. Acute on chronic hypoxic respiratory failure. Left lung pneumonia gram-positive gram-negative with septic shock. Acute kidney injury. NSTEMI, likely type 2 secondary to above. DIXIE neuroendocrine tumor. History of laryngeal/AML CA. COPD. Encephalopathy metabolic. Orthostatic hypotension. Assessment/Plan Continued all current supportive medical care. Midodrine. IV Solu-Medrol. IV antibiotics as ordered. DVT and GI prophylactics. Tylenol for pain management. Nebulized breathing treatments. Additional plan as per the hospital course. Critical care time of 45 minutes provided to include time spent evaluation of patient at bedside, when appropriate patient/family education for diagnosis, treatment plan, review of pertinent medical information and discussion of care with specialty providers and PCP. Dietary Evaluation Review Comments: 1) TF Jevity AF 1.2Cal @ 50ml/hr (goal) along with Pro-stat 1 pk BID. Start @ 20ml/hr, increase 10ml/hr Q4H until goal is reached. TF @ goal volume along with Pro-stat & Propofol provides 2132 kcal (100% energy needs), 96 gm protein (100% protein needs), 968 ml free water. 2) Water flush 200ml Q4H if allowed, adjust PRN 3) TPN if NPO > 7 days 4) Monitor NPO status, lab values, wt trend, I/O Expected Outcomes/Goals: Lab values to improve To meet >75% estimated needs Fu 2-3 days Plan discussed with: Patient CAMILLA LOPEZ MD Apr 24, 2025 13:24
[2025-04-25] MEDS: PHENYLEPHRINE IV 250 ML IV ONE (01:48)
[2025-04-25] MEDS: PHENYLEPHRINE HCL 10 MG/ML VL ONE (01:48)
[2025-04-25 05:44] LABS: Hematocrit 32.6 % (41.0-53.0); Hemoglobin 10.1 g/dL (13.5-17.5); Mean Corpuscular Hemoglobin 31.3 pg (28.0-32.0); Mean Corpuscular Volume 100.7 fL (80.0-100.0)
[2025-04-25 05:59] LABS: Alkaline Phosphatase 91 U/L (46-116); Anion Gap 13 (5-15); Carbon Dioxide 24 mmol/L (20-31); Potassium 4.8 mmol/L (3.5-5.1); Total Protein 6.7 g/dL (5.7-8.2)
[2025-04-25 06:00] LABS: Albumin 3.3 g/dL (3.2-4.8); BUN/Creatinine Ratio 29.2 (10.0-20.0)
[2025-04-25 06:01] LABS: Base Excess -4.8 mmol/L (-2.0-3.0)
[2025-04-25 06:02] LABS: Alanine Aminotransferase 167 U/L (7-40); Bilirubin, Total 0.3 mg/dL (0.2-1.0); Blood Urea Nitrogen 56 mg/dL (9-23); Calcium 11.0 mg/dL (8.7-10.4); Chloride 112 mmol/L (98-107); Glucose 161 mg/dL (74-106); Sodium 149 mmol/L (136-145)
--- NOTE | 2025-04-25 06:03 | DVH ---
CHEST RADIOGRAPH Indication: RESP FAILURE Technique: Single frontal view of the chest was obtained COMPARISON: XY CHEST PORTABLE on DOS: 04/24/25, XY CHEST PORTABLE on DOS: 04/24/25, XY CHEST PORTABLE o n DOS: 04/23/25, XY CHEST PORTABLE on DOS: 04/22/25, XY CHEST PORTABLE on DOS: 04/22/25 FINDINGS: Lines and Tubes: Unchanged. Lungs: Progressive multifocal consolidative infiltrate within the left middle and lower lung zones wi th otherwise stable appearing left upper lung zone opacity consistent with known pulmonary mass. Stab le small right pleural effusion. No pneumothorax. Cardiomediastinal contours: Unremarkable Bones: Unremarkable IMPRESSION: 1. Progressive left middle and lower lung zone consolidative infiltrate. 2. Stable appearing left upper lung zone opacity consistent with known mass. 3. Small right pleural effusion. 4. Lines and tubes unchanged.
[2025-04-25 06:51] LABS: Total Cells Counted 100.0 (100)
--- NOTE | 2025-04-25 09:41 | DVHPN2 ---
Subjective Patient chemically sedated Reviewed: Care Plan, H&P, Labs, Medications Changes from previous H/P or p: No Changes General: Per HPI Respiratory: Shortness of breath Gastrointestinal: Nausea, Vomiting Objective Vitals Vital Signs Date Time Temp Pulse Resp B/P (MAP) Pulse Ox O2 Delivery O2 Flow Rate FiO2 04/25/25 09:15 81 22 107/57 (74) 98 04/25/25 08:22 Mechanical Ventilator+ 45 45 04/25/25 08:00 98.2 98.2 04/24/25 16:00 Intake/Output Intake and Output 04/25/25 07:00 Intake Total 3195.850 ml Output Total 1675 ml Balance 1520.850 ml Intake Oral 100 ml IV Total 3095.850 ml Output Urine Total 1675 ml # Bowel Movements 2 General Appearance: Other (Intubated and sedated) HEENT: Atraumatic, PERRLA Lungs: Other (Increase air movement to left upper and lower lobe. Mechanical ventilation) Cardiovascular: Normal S1, Normal S2 Genitourinary: No Apparent Abnormalities (Pal catheter) Musculoskeletal: Other (Unable to assess) Skin: Dry, Intact Psych/Mental Status: Other (Unable to assess) Medications Current Medications Medications Dose Ordered Sig/Praneeth Route Start Time Stop Time Status Last Admin Dose Admin Propofol 100 ml @ 2.328 mls/ hr Q24H IV 04/19/25 01:45 Cancel Acetaminophen 650 mg Q6HP PRN PO 04/19/25 07:45 Pantoprazole Sodium 40 mg DAILY IV 04/20/25 10:00 04/25/25 07:55 40 MG Vancomycin HCl 0 ml @ 0 mls/hr UD IV 04/19/25 11:15 Flecainide Acetate 50 mg Q12HR PO 04/20/25 22:00 04/25/25 07:55 50 MG Cefepime HCl 50 ml @ 12.5 mls/hr Q8H IV 04/20/25 18:00 04/25/25 07:55 12.5 MLS/HR Enoxaparin Sodium 40 mg DAILY SC 04/21/25 10:00 04/25/25 07:56 40 MG Levothyroxine Sodium 100 mcg QAM@0600 PO 04/22/25 06:00 04/25/25 05:57 100 MCG Micafungin Sodium 100 mg/Sodium Chloride 100 ml @ 100 mls/hr DAILY IV 04/22/25 10:00 04/25/25 07:55 100 MLS/HR Methylprednisolone Sodium Succinate 40 mg BID IV 04/21/25 22:00 04/25/25 07:55 40 MG Vancomycin HCl 250 ml @ 200 mls/hr DAILY@1500 IV 04/22/25 15:00 04/24/25 16:25 200 MLS/HR Enteral Nutritional Formula 1,000 ml 40ML/HR GT 04/23/25 12:45 Purified Water 100 ml Q6HR GT 04/23/25 18:00 04/25/25 05:57 100 ML Acetylcysteine 200 mg Q4HR NEB 04/24/25 14:00 04/25/25 05:58 200 MG Levalbuterol HCl 0.625 mg Q4HR NEB 04/24/25 14:00 04/25/25 05:58 0.625 MG Ipratropium [place] 0.5 mg Q4HR NEB 04/24/25 14:00 04/25/25 05:58 0.5 MG Midodrine 10 mg TID@0600,1200,1800 PO 04/24/25 14:30 04/25/25 05:57 10 MG Midazolam HCl 50 ml @ 1 mls/hr Q24H IV 04/24/25 15:00 04/25/25 08:13 5 MLS/HR Fentanyl Citrate 250 ml @ 2.5 mls/hr Q24H IV 04/24/25 15:00 04/25/25 08:14 15 MLS/HR Midazolam HCl 50 ml @ 1 mls/hr Q24H IV 04/24/25 15:00 UNV Fentanyl Citrate 250 ml @ 2.5 mls/hr Q24H IV 04/24/25 15:00 UNV Metronidazole 100 ml @ 100 mls/hr Q8HR IV 04/24/25 22:00 04/25/25 05:57 100 MLS/HR Sodium Chloride 1,000 ml @ 75 mls/hr [id number] IV 04/24/25 16:45 04/24/25 16:54 75 MLS/HR Propofol 100 ml @ 2.343 mls/ hr Q24H IV 04/24/25 16:45 Norepinephrine Bitartrate 250 ml @ 1.875 mls/ hr Q24H IV 04/24/25 17:00 Artificial Tears 1 drop Q2HP PRN EACHEYE 04/24/25 17:00 Phenylephrine HCl 40 mg/Sodium Chloride 250 ml @ 15 mls/hr [id number] IV 04/24/25 18:15 04/25/25 01:47 33.75 MLS/HR Laboratory Results Laboratory Tests 04/25/25 05:00 Chemistry Test 04/25/25 05:00 Albumin 3.3 g/dL (3.2-4.8) Calcium Level 11.0 mg/dL (8.7-10.4) H Total Protein 6.7 g/dL (5.7-8.2) LFT Test 04/25/25 05:00 Alanine Aminotransferase (ALT) 167 U/L (7-40) H Alkaline Phosphatase 91 U/L (46-116) Aspartate Amino Transferase (AST) 310 U/L (13-40) H Total Bilirubin 0.3 mg/dL (0.2-1.0) Urinalysis Test 04/19/25 02:22 Urine Color Yellow (Yellow) Urine Clarity Clear (Clear) Urine pH 5.5 (5.0-9.0) Urine Specific [place] 1.022 (1.001-1.035) Urine Protein 1+ (Negative) H Urine Ketones Trace (Negative) Urine Blood Trace /uL (Negative) H Urine Nitrite Negative (Negative) Urine Bilirubin Negative (Negative) Urine Urobilinogen Normal mg/dL (Negative) Urine Leukocyte Esterase Negative /uL (Negative) Urine RBC 1 /hpf (0 - 3) Urine Microscopic WBC 1 /HPF (0-3) Urine Squamous Epithelial Cells Few /hpf (<5) Urine Bacteria None seen /hpf (None Seen) Urine Glucose Trace mg/dL (Normal) Blood Gas Results Test 04/24/25 10:16 04/24/25 16:35 04/25/25 05:52 Arterial Blood pH 7.453 (7.350-7.450) 7.384 (7.350-7.450) 7.284 (7.350-7.450) FiO2 % 60.0 100.0 90.0 Microbiology Microbiology Date/Time Source Procedure Growth Status 04/24/25 15:11 Sputum Gram Stain Pending Resulted 04/24/25 15:11 Sputum Respiratory Culture - Preliminary Resulted 04/20/25 05:24 Nose MRSA Screen - Final Complete 04/19/25 07:27 Urine - Pal Port Urine Culture - Final Complete 04/19/25 01:49 Blood Blood Culture - Final NO GROWTH AFTER 5 DAYS OF INCUBATION. Complete Labs and/or images reviewed: Labs reviewed by me, Image(s) reviewed by me Assessment/Plan Assessment/Plan Impression: -acute hypoxic respiratory failure now mechanical ventilation -left lung pneumonia Gram-negative etiology -septic shock -COPD -history of laryngeal CA -history of AML -metabolic encephalopathy -chronic pain -depression -acute kidney injury, vasomotor nephropathy -paroxysmal atrial fibrillation -NSTEMI type 2 Plan: -continue current mechanical ventilation settings. Improvement with FiO2 requirements -continue current antibiotic therapy with cefepime and vancomycin -bronchodilators, mucolytics -continue current sedation with fentanyl and Versed -rate control with flecainide -cardiology consultation -PUD, DVT prophylaxis -long discussion made with the patient's was bedside. All questions answered. Hold attempts to transfer to [facility] at this time. -repeat labs and chest x-ray in a.m. Critical care time spent with patient discussing and formulating plan of care: 40 minutes. This does not include time spent performing procedures. This medical document was created using an electronic medical record system with [employer] dictation system. Although this document has been carefully reviewed, there may still be some phonetic and typographical errors. These areas are purely typographical due to imperfections of the software programs, and do not reflect any compromise in the patient's medical care. Plan discussed with: Patient, Spouse, Other (RN) My Orders Orders - SOFIA NELSON NP Procedure Category Date Status Time Basic Metabolic Panel LAB 04/26/25 Verified 05:00 Basic Metabolic Panel LAB 04/27/25 Verified 05:00 Basic Metabolic Panel LAB 04/28/25 Verified 05:00 Complete Blood Count LAB 04/26/25 Verified 05:00 Complete Blood Count LAB 04/27/25 Verified 05:00 Complete Blood Count LAB 04/28/25 Verified 05:00 Chest Portable XY 04/26/25 Logged 05:00 Chest Portable XY 04/27/25 Logged 05:00 Chest Portable XY 04/28/25 Logged 05:00 Date of Service: Apr 25, 2025 Billing Provider: SOFIA NELSON [employer] Common Visit Codes: [id number] CARE 30-74 MIN SOFIA NELSON [employer] MECH[employer]IC Apr 25, 2025 09:41
--- NOTE | 2025-04-25 23:45 | DVHPN2 ---
Progress Note - Dictate Date Seen: Apr 25, 2025 Medical Necessity Reason Pt with a Central, PICC or Fol: Yes The following are medically ne: Central Line, Aceves Catheter Reason for aceves catheter: Strict I&O Subjective Patient was seen and evaluated in follow up in the ICU. Overnight, the patient developing an increased WOB and was intubated for airway protection. WBC 23.3, NA 149, BUN 56, VEGETABLE TIER 1.92, AST 310, ALT 167. Chest x-ray shows progressive left middle and lower lung zone consolidative infiltrate, stable appearing left upper lung zone opacity consistent with known mass, small right pleural effusion. vital signs Vital Sign Date Time Temp Pulse Resp B/P (MAP) Pulse Ox O2 Delivery O2 Flow Rate FiO2 04/25/25 12:15 81 22 112/54 (73) 95 04/25/25 12:00 98.0 98.0 04/25/25 11:34 Mechanical Ventilator+ 30 30 04/24/25 16:00 Total Intake and Output 04/24/25 04/24/25 04/25/25 15:00 23:00 07:00 Intake Total 2.5 ml 1419.125 ml 1774.225 ml Output Total 1600 ml 75 ml Balance 2.5 ml -180.875 ml 1699.225 ml medications Current Medications Medications Dose Ordered Sig/Praneeth Route Start Time Stop Time Status Last Admin Dose Admin Propofol 100 ml @ 2.328 mls/ hr Q24H IV 04/19/25 01:45 Cancel Acetaminophen 650 mg Q6HP PRN PO 04/19/25 07:45 Pantoprazole Sodium 40 mg DAILY IV 04/20/25 10:00 04/25/25 07:55 40 MG Vancomycin HCl 0 ml @ 0 mls/hr UD IV 04/19/25 11:15 Flecainide Acetate 50 mg Q12HR PO 04/20/25 22:00 04/25/25 07:55 50 MG Cefepime HCl 50 ml @ 12.5 mls/hr Q8H IV 04/20/25 18:00 04/25/25 07:55 12.5 MLS/HR Enoxaparin Sodium 40 mg DAILY SC 04/21/25 10:00 04/25/25 07:56 40 MG Levothyroxine Sodium 100 mcg QAM@0600 PO 04/22/25 06:00 04/25/25 05:57 100 MCG Micafungin Sodium 100 mg/Sodium Chloride 100 ml @ 100 mls/hr DAILY IV 04/22/25 10:00 04/25/25 07:55 100 MLS/HR Methylprednisolone Sodium Succinate 40 mg BID IV 04/21/25 22:00 04/25/25 07:55 40 MG Vancomycin HCl 250 ml @ 200 mls/hr DAILY@1500 IV 04/22/25 15:00 04/24/25 16:25 200 MLS/HR Enteral Nutritional Formula 1,000 ml 40ML/HR GT 04/23/25 12:45 Purified Water 100 ml Q6HR GT 04/23/25 18:00 04/25/25 12:06 100 ML Acetylcysteine 200 mg Q4HR [facility] 04/24/25 14:00 04/25/25 10:00 200 MG Levalbuterol HCl 0.625 mg Q4HR [facility] 04/24/25 14:00 04/25/25 09:59 0.625 MG Ipratropium [place] 0.5 mg Q4HR [facility] 04/24/25 14:00 04/25/25 09:59 0.5 MG Midodrine 10 mg TID@0600,1200,1800 PO 04/24/25 14:30 04/25/25 12:01 10 MG Midazolam HCl 50 ml @ 1 mls/hr Q24H IV 04/24/25 15:00 04/25/25 08:13 5 MLS/HR Fentanyl Citrate 250 ml @ 2.5 mls/hr Q24H IV 04/24/25 15:00 04/25/25 08:14 15 MLS/HR Midazolam HCl 50 ml @ 1 mls/hr Q24H IV 04/24/25 15:00 UNV Fentanyl Citrate 250 ml @ 2.5 mls/hr Q24H IV 04/24/25 15:00 UNV Metronidazole 100 ml @ 100 mls/hr Q8HR IV 04/24/25 22:00 04/25/25 12:02 100 MLS/HR Sodium Chloride 1,000 ml @ 75 mls/hr [id number] IV 04/24/25 16:45 04/24/25 16:54 75 MLS/HR Propofol 100 ml @ 2.343 mls/ hr Q24H IV 04/24/25 16:45 Norepinephrine Bitartrate 250 ml @ 1.875 mls/ hr Q24H IV 04/24/25 17:00 Artificial Tears 1 drop Q2HP PRN EACHEYE 04/24/25 17:00 Phenylephrine HCl 40 mg/Sodium Chloride 250 ml @ 15 mls/hr [id number] IV 04/24/25 18:15 04/25/25 12:17 24.375 MLS/HR objective GENERAL: Ill appearing, intubated on ventilator. EYES: PERRL, EOMI. Anicteric. HENT: Moist mucous membranes. LUNGS: breath sounds. CARDIOVASCULAR: Regular rate and rhythm. ABDOMEN: Soft, nontender and nondistended. EXTREMITIES: No edema. SKIN: Warm, dry. laboratory and microbiology Laboratory Tests 04/25/25 05:00 Test 04/25/25 05:00 Range/Units Serum Glucose 161 H 74-106 mg/dL Problem List Paroxysmal atrial fibrillation/atrial flutter with RVR, now NSR, newly diagnosed. Acute on chronic hypoxic respiratory failure. Left lung pneumonia gram-positive gram-negative with septic shock. Acute kidney injury. NSTEMI, likely type 2 secondary to above. DIXIE neuroendocrine tumor. History of laryngeal/AML CA. COPD. Encephalopathy metabolic. Orthostatic hypotension. Assessment/Plan Continued all current supportive medical care. IV Solu-Medrol. IV antibiotics as ordered. DVT and GI prophylactics. Nebulized breathing treatments. Vasopressors for hemodynamic support. Additional plan as per the hospital course. Critical care time of 45 minutes provided to include time spent evaluation of patient at bedside, when appropriate patient/family education for diagnosis, treatment plan, review of pertinent medical information and discussion of care with specialty providers and PCP. Mechanical ventilator parameters, treatment and adjustments have personally been reviewed by me and treatment plan by double end tenoner setter has also been reviewed. Dietary Evaluation Review Comments: 1) TF Jevity AF 1.2Cal @ 50ml/hr (goal) along with Pro-stat 1 pk BID. Start @ 20ml/hr, increase 10ml/hr Q4H until goal is reached. TF @ goal volume along with Pro-stat & Propofol provides 2132 kcal (100% energy needs), 96 gm protein (100% protein needs), 968 ml free water. 2) Water flush 200ml Q4H if allowed, adjust PRN 3) TPN if NPO > 7 days 4) Monitor NPO status, lab values, wt trend, I/O Expected Outcomes/Goals: Lab values to improve To meet >75% estimated needs Fu 2-3 days Plan discussed with: Other CAMILLA LOPEZ MD Apr 25, 2025 12:56
[2025-04-26] VITALS (110 sets, daily range): BP systolic 83–141; BP diastolic 43–77; PULSE 66–152; RESP 11–25; TEMP 96.8–98.4; O2SAT 96–100
[2025-04-26] MEDS: AMIODARONE BOLUS KIT 100 ML IV ONE ×2 (04:45→04:55)
[2025-04-26] MEDS: AMIODARONE 360mg/200mL PREMIX 200 ML IV ONE ×2 (04:54→04:55)
[2025-04-26 05:26] LABS: Hematocrit 28.9 % (41.0-53.0); Hemoglobin 9.1 g/dL (13.5-17.5); Mean Corpuscular Hemoglobin 30.4 pg (28.0-32.0); Mean Corpuscular Volume 96.2 fL (80.0-100.0)
[2025-04-26 05:43] LABS: Potassium 4.3 mmol/L (3.5-5.1)
[2025-04-26 05:44] LABS: Anion Gap 11 (5-15); Carbon Dioxide 23 mmol/L (20-31)
[2025-04-26 05:49] LABS: BUN/Creatinine Ratio 41.3 (10.0-20.0); Calcium 10.8 mg/dL (8.7-10.4); Chloride 116 mmol/L (98-107); Sodium 150 mmol/L (136-145)
--- NOTE | 2025-04-26 05:55 | DVH ---
CHEST RADIOGRAPH Indication: pna Technique: Single frontal view of the chest was obtained COMPARISON: XY CHEST PORTABLE on DOS: 04/25/25, XY CHEST PORTABLE on DOS: 04/24/25, XY CHEST PORTABLE o n DOS: 04/24/25, XY CHEST PORTABLE on DOS: 04/23/25, XY CHEST PORTABLE on DOS: 04/22/25 FINDINGS: Lines and Tubes: Endotracheal tube, enteric catheter in satisfactory position. Lungs: Multifocal airspace disease most prominent in the left upper lobe. Pleura: No effusion. No pneumothorax. Cardiomediastinal contours: Unremarkable Bones: Unremarkable IMPRESSION: Lines and tubes in satisfactory position. No significant interval change.
[2025-04-26 06:02] LABS: Blood Urea Nitrogen 64 mg/dL (9-23); Glucose 157 mg/dL (74-106)
[2025-04-26 06:19] LABS: Total Cells Counted 100.0 (100)
[2025-04-26 07:47] LABS: Base Excess -5.1 mmol/L (-2.0-3.0)
[2025-04-26] MEDS: AMIODARONE 360mg/200mL PREMIX 200 ML IV SCH (10:45)
[2025-04-26] MEDS: FREE WATER GT SCH (12:00)
--- NOTE | 2025-04-26 12:56 | DVHPN2 ---
Reviewed: Care Plan, H&P, Labs, Medications Changes from previous H/P or p: No Changes General: Per HPI Respiratory: Shortness of breath Gastrointestinal: Nausea, Vomiting Objective Vitals Vital Signs Date Time Temp Pulse Resp B/P (MAP) Pulse Ox O2 Delivery O2 Flow Rate FiO2 04/26/25 11:45 97.2 74 22 108/59 (75) 100 207.0 04/26/25 11:42 30 04/26/25 10:04 Mechanical Ventilator 04/24/25 16:00 Intake/Output Intake and Output 04/26/25 07:00 Intake Total 3804.585 ml Output Total 1500 ml Balance 2304.585 ml Intake Oral 440 ml IV Total 3364.585 ml Output Urine Total 1500 ml General Appearance: Other (Intubated and sedated) HEENT: Atraumatic, PERRLA Lungs: Other (Increase air movement to left upper and lower lobe. Mechanical ventilation) Cardiovascular: Normal S1, Normal S2 Genitourinary: No Apparent Abnormalities (Pal catheter) Musculoskeletal: Other (Unable to assess) Skin: Dry, Intact Psych/Mental Status: Other (Unable to assess) Medications Current Medications Medications Dose Ordered Sig/Praneeth Route Start Time Stop Time Status Last Admin Dose Admin Propofol 100 ml @ 2.328 mls/ hr Q24H IV 04/19/25 01:45 Cancel Acetaminophen 650 mg Q6HP PRN PO 04/19/25 07:45 Pantoprazole Sodium 40 mg DAILY IV 04/20/25 10:00 04/26/25 08:04 40 MG Vancomycin HCl 0 ml @ 0 mls/hr UD IV 04/19/25 11:15 Flecainide Acetate 50 mg Q12HR PO 04/20/25 22:00 04/26/25 08:05 50 MG Cefepime HCl 50 ml @ 12.5 mls/hr Q8H IV 04/20/25 18:00 04/26/25 09:17 12.5 MLS/HR Enoxaparin Sodium 40 mg DAILY SC 04/21/25 10:00 04/26/25 08:05 40 MG Levothyroxine Sodium 100 mcg QAM@0600 PO 04/22/25 06:00 04/26/25 05:30 100 MCG Micafungin Sodium 100 mg/Sodium Chloride 100 ml @ 100 mls/hr DAILY IV 04/22/25 10:00 04/26/25 08:05 100 MLS/HR Methylprednisolone Sodium Succinate 40 mg BID IV 04/21/25 22:00 04/26/25 08:05 40 MG Enteral Nutritional Formula 1,000 ml 40ML/HR GT 04/23/25 12:45 Acetylcysteine 200 mg Q4HR NEB 04/24/25 14:00 04/26/25 10:07 200 MG Levalbuterol HCl 0.625 mg Q4HR NEB 04/24/25 14:00 04/26/25 10:07 0.625 MG Ipratropium [place] 0.5 mg Q4HR NEB 04/24/25 14:00 04/26/25 10:07 0.5 MG Midodrine 10 mg TID@0600,1200,1800 PO 04/24/25 14:30 04/26/25 12:00 10 MG Midazolam HCl 50 ml @ 1 mls/hr Q24H IV 04/24/25 15:00 04/26/25 09:25 4 MLS/HR Fentanyl Citrate 250 ml @ 2.5 mls/hr Q24H IV 04/24/25 15:00 04/25/25 23:47 15 MLS/HR Midazolam HCl 50 ml @ 1 mls/hr Q24H IV 04/24/25 15:00 UNV Fentanyl Citrate 250 ml @ 2.5 mls/hr Q24H IV 04/24/25 15:00 UNV Metronidazole 100 ml @ 100 mls/hr Q8HR IV 04/24/25 22:00 04/26/25 12:00 100 MLS/HR Sodium Chloride 1,000 ml @ 75 mls/hr [id number] IV 04/24/25 16:45 04/26/25 08:15 75 MLS/HR Propofol 100 ml @ 2.343 mls/ hr Q24H IV 04/24/25 16:45 Norepinephrine Bitartrate 250 ml @ 1.875 mls/ hr Q24H IV 04/24/25 17:00 04/25/25 23:46 3.75 MLS/HR Artificial Tears 1 drop Q2HP PRN EACHEYE 04/24/25 17:00 Phenylephrine HCl 40 mg/Sodium Chloride 250 ml @ 15 mls/hr [id number] IV 04/24/25 18:15 04/26/25 09:25 18.75 MLS/HR Purified Water 150 ml Q6HR GT 04/26/25 12:00 Laboratory Results Laboratory Tests 04/26/25 04:00 Chemistry Test 04/26/25 04:00 Calcium Level 10.8 mg/dL (8.7-10.4) H Urinalysis Test 04/19/25 02:22 Urine Color Yellow (Yellow) Urine Clarity Clear (Clear) Urine pH 5.5 (5.0-9.0) Urine Specific [place] 1.022 (1.001-1.035) Urine Protein 1+ (Negative) H Urine Ketones Trace (Negative) Urine Blood Trace /uL (Negative) H Urine Nitrite Negative (Negative) Urine Bilirubin Negative (Negative) Urine Urobilinogen Normal mg/dL (Negative) Urine Leukocyte Esterase Negative /uL (Negative) Urine RBC 1 /hpf (0 - 3) Urine Microscopic WBC 1 /HPF (0-3) Urine Squamous Epithelial Cells Few /hpf (<5) Urine Bacteria None seen /hpf (None Seen) Urine Glucose Trace mg/dL (Normal) Blood Gas Results Test 04/26/25 07:05 Arterial Blood pH 7.370 (7.350-7.450) FiO2 % 30.0 Microbiology Microbiology Date/Time Source Procedure Growth Status 04/24/25 15:11 Sputum Gram Stain Pending Resulted 04/24/25 15:11 Sputum Respiratory Culture - Preliminary Resulted 04/20/25 05:24 Nose MRSA Screen - Final Complete 04/19/25 07:27 Urine - Pal Port Urine Culture - Final Complete 04/19/25 01:49 Blood Blood Culture - Final NO GROWTH AFTER 5 DAYS OF INCUBATION. Complete Assessment/Plan Assessment/Plan Impression: -acute hypoxic respiratory failure now mechanical ventilation -left lung pneumonia Gram-negative etiology -septic shock -COPD -history of laryngeal CA -history of AML -metabolic encephalopathy -chronic pain -depression -acute kidney injury, vasomotor nephropathy -paroxysmal atrial fibrillation -NSTEMI type 2 Plan: -continue current mechanical ventilation settings. Improvement with FiO2 requirements -continue current antibiotic therapy with cefepime and vancomycin -bronchodilators, mucolytics -continue current sedation with fentanyl and Versed, weaning down as tolerated -cardiology consultation -PUD, DVT prophylaxis -previous hospitalist had long discussion made with the patient's was bedside. All questions answered. Hold attempts to transfer to [facility] at this time. -repeat labs and chest x-ray in a.m. Critical care time spent with patient discussing and formulating plan of care: 40 minutes. This does not include time spent performing procedures. Plan discussed with: Other (nursing staf) Date of Service: Apr 26, 2025 Billing Provider: DAVID PRETTY DO Common Visit Codes: [id number] INP/OBS CARE(HIGH) DAVID PRETTY DO Apr 26, 2025 12:56
[2025-04-26] MEDS: DIGOXIN (250MCG/ML) 2 ML AMPULE IV ONE (21:03)
[2025-04-26] MEDS: CEFEPIME 1GM/ 50ML 50 ML IV SCH (22:36)
[2025-04-26] MEDS ORDERED: DEXTROSE (50%) 50ML SYRG IV PRN (23:15)
--- NOTE | 2025-04-26 23:30 | DVHPN2 ---
Progress Note - Dictate Date Seen: Apr 26, 2025 Medical Necessity Reason Pt with a Central, PICC or Fol: Yes The following are medically ne: Central Line, Aceves Catheter Reason for aceves catheter: Strict I&O Subjective [facility] Patient seen and examined at bedside. Sedated, intubated on mechanical ventilator. Overnight events reviewed. vital signs Vital Sign Date Time Temp Pulse Resp B/P (MAP) Pulse Ox O2 Delivery O2 Flow Rate FiO2 04/26/25 22:15 98.1 75 16 103/57 (72) 100 208.6 04/26/25 22:00 Mechanical Ventilator+ 30 30 04/24/25 16:00 Total Intake and Output 04/25/25 04/25/25 04/26/25 15:00 23:00 07:00 Intake Total 1314.125 ml 1165.500 ml 1324.96 ml Output Total 850 ml 650 ml Balance 1314.125 ml 315.500 ml 674.96 ml medications Current Medications Medications Dose Ordered Sig/Praneeth Route Start Time Stop Time Status Last Admin Dose Admin Propofol 100 ml @ 2.328 mls/ hr Q24H IV 04/19/25 01:45 Cancel Acetaminophen 650 mg Q6HP PRN PO 04/19/25 07:45 Pantoprazole Sodium 40 mg DAILY IV 04/20/25 10:00 04/26/25 08:04 40 MG Vancomycin HCl 0 ml @ 0 mls/hr UD IV 04/19/25 11:15 Flecainide Acetate 50 mg Q12HR PO 04/20/25 22:00 04/26/25 21:31 50 MG Enoxaparin Sodium 40 mg DAILY SC 04/21/25 10:00 04/26/25 08:05 40 MG Levothyroxine Sodium 100 mcg QAM@0600 PO 04/22/25 06:00 04/26/25 05:30 100 MCG Micafungin Sodium 100 mg/Sodium Chloride 100 ml @ 100 mls/hr DAILY IV 04/22/25 10:00 04/26/25 08:05 100 MLS/HR Methylprednisolone Sodium Succinate 40 mg BID IV 04/21/25 22:00 04/26/25 21:31 40 MG Enteral Nutritional Formula 1,000 ml 40ML/HR GT 04/23/25 12:45 Acetylcysteine 200 mg Q4HR NEB 04/24/25 14:00 04/26/25 21:45 200 MG Levalbuterol HCl 0.625 mg Q4HR NEB 04/24/25 14:00 04/26/25 21:45 0.625 MG Ipratropium [place] 0.5 mg Q4HR NEB 04/24/25 14:00 04/26/25 21:45 0.5 MG Midodrine 10 mg TID@0600,1200,1800 PO 04/24/25 14:30 04/26/25 17:40 10 MG Midazolam HCl 50 ml @ 1 mls/hr Q24H IV 04/24/25 15:00 04/26/25 18:12 4 MLS/HR Fentanyl Citrate 250 ml @ 2.5 mls/hr Q24H IV 04/24/25 15:00 04/26/25 13:56 15 MLS/HR Midazolam HCl 50 ml @ 1 mls/hr Q24H IV 04/24/25 15:00 UNV Fentanyl Citrate 250 ml @ 2.5 mls/hr Q24H IV 04/24/25 15:00 UNV Metronidazole 100 ml @ 100 mls/hr Q8HR IV 04/24/25 22:00 04/26/25 21:31 100 MLS/HR Sodium Chloride 1,000 ml @ 75 mls/hr [id number] IV 04/24/25 16:45 04/26/25 08:15 75 MLS/HR Propofol 100 ml @ 2.343 mls/ hr Q24H IV 04/24/25 16:45 Norepinephrine Bitartrate 250 ml @ 1.875 mls/ hr Q24H IV 04/24/25 17:00 04/25/25 23:46 3.75 MLS/HR Artificial Tears 1 drop Q2HP PRN EACHEYE 04/24/25 17:00 Phenylephrine HCl 40 mg/Sodium Chloride 250 ml @ 15 mls/hr [id number] IV 04/24/25 18:15 04/26/25 09:25 18.75 MLS/HR Purified Water 150 ml Q6HR GT 04/26/25 12:00 04/26/25 17:40 150 ML Cefepime HCl 50 ml @ 12.5 mls/hr Q12H IV 04/26/25 23:00 04/26/25 22:36 12.5 MLS/HR Diagnostic Test (Pha) 1 strip Q6HR 04/27/25 00:00 Dextrose 50 ml UD PRN IV 04/26/25 23:15 Insulin Human Regular Q6HR SC 04/26/25 23:15 objective Gen.: Patient lying in bed in medical ICU. Sedated, intubated on mechanical ventilator. Head: Normocephalic, atraumatic. Eyes: PERRLA. Ears: Normal external anatomy. Throat: Endotracheal tube and orogastric tube in place. Neck: Supple, trachea midline. Chest: Transmitted breath sounds bilaterally. Decreased air entry bilaterally. No wheezing. Bibasilar crackles. Cardiovascular: Positive S1, positive S2. Regular rate and rhythm. Abdomen: Positive bowel sounds in all 4 quadrants. Soft, nontender, nondistended. : Aceves in place. Normal external genitalia. Rectal: Deferred. Skin: Warm, dry. Intact. Extremities: 2+ radial pulses bilaterally. No lower extremity edema. Neuro: Sedated. laboratory and microbiology Laboratory Tests 04/26/25 04:00 Test 04/26/25 04:00 Range/Units Serum Glucose 157 H 74-106 mg/dL Assessment/Plan Impression: Acute hypoxemic respiratory failure On mechanical ventilator Lung cancer Supraventricular tachycardia Septic shock Pneumonia Pleural effusion Atelectasis Hypernatremia Altered mental status Neuroendocrine tumor Possible aspiration Events: Remains on vent support AC mode with RR 22, VT 500, PEEP 5, FiO2 30% Taper FiO2 as tolerated ABG reviewed, compensated. Sedated on Versed/Fentanyl. On pressors for hemodynamic support On Jeremy-Synephrine 50 mcg/min Titrate to keep mean arterial pressure greater than 65 mmHg Off Levophed Amiodarone drip was started due to SVT last night. ECG appears to be flutter, 2:1 Folow up Cardiology recommendations Continue abx WBC trending down. Blood cultures show no growth for 5 days Sputum cultures show Malorie albicans, likely colonizer. Tube feeds for nutritional support Monitor hemoglobin - trended down to 9.1 g/dL. Monitor renal function Monitor electrolytes; supplement as needed Monitor sodium Labs and imaging reviewed Chest x-ray shows large left upper lobe mass Recent CT guided biopsy reveals neuroendocrine tumor Plan: Vent support Titrate to maintain sats 90% or above Sedation for vent synchrony Continue antibiotics F/u cultures Bronchodilators Tube feeds for nutritional support Monitor hemoglobin Monitor renal function Monitor electrolytes Supplement as needed Pressors as needed for hemodynamic support To maintain a mean arterial pressure of 65 mmHg F/u cardiology Prognosis generally poor Patient is not a candidate for shelter life support in view of overall decrepit state and advanced malignancy S/p bronchoscopy on 04/21/25 - see separate procedure note for details. DVT prophylaxis Prognosis: Poor given patient's multiple co-morbidities. Condition: Critical Rest of plan per hospitalist and other consultants. A total of 35 minutes of critical care time was spent reviewing the patient record, examining the patient, making a diagnostic and therapeutic plan, discussing this plan with the medical personnel, following up on diagnostic studies and following the patient for clinical stability excluding any and all procedures. At least 50% of this time was spent in direct, [id number] contact. Thank you, DERICK Linares, for allowing me to participate in this patient's care. Further recommendations will depend on the patient's clinical course. Please do not hesitate to contact me if you have any questions or concerns. This medical document was created using an electronic medical record system with [employer] dictation system. Although these documentations are being carefully reviewed, there may still be some phonetic and typographical changes. The errors are purely typographical, due to imperfection on the software program, and do not reflect any compromise in the patient's medical care. Dietary Evaluation Review Comments: 1) TF Jevity AF 1.2Cal @ 50ml/hr (goal) along with Pro-stat 1 pk BID. Start @ 20ml/hr, increase 10ml/hr Q4H until goal is reached. TF @ goal volume along with Pro-stat & Propofol provides 2132 kcal (100% energy needs), 96 gm protein (100% protein needs), 968 ml free water. 2) Water flush 200ml Q4H if allowed, adjust PRN 3) TPN if NPO > 7 days 4) Monitor NPO status, lab values, wt trend, I/O Expected Outcomes/Goals: Lab values to improve To meet >75% estimated needs Fu 2-3 days Plan discussed with: Other (DANAE Garcia) Critical Care Time(min): 35 DAWSON AC MD Apr 26, 2025 23:30
--- NOTE | 2025-04-26 23:47 | DVHPN2 ---
Progress Note - Dictate Date Seen: Apr 26, 2025 Medical Necessity Reason Pt with a Central, PICC or Fol: Yes The following are medically ne: Central Line, Aceves Catheter Reason for aceves catheter: Strict I&O Subjective Patient was seen and evaluated in follow up in the ICU. Patient is intubated and sedated on ventilator. 30% FiO2. Patient had rhythm change and went int o A FIb with RVR. Patient reeivig IV Digoxin and Amiodarone bolus. Patient also started on Amiodarone drip. WBC 18.6, HGB 9.1, HCT 28.9, NA 150, CL 116, BUN 64, MECHANIC INSULATOR 1.55, CA 10.8. Chest x-ray shows multifocal airspace disease most prominent in the left upper lobe. vital signs Vital Sign Date Time Temp Pulse Resp B/P (MAP) Pulse Ox O2 Delivery O2 Flow Rate FiO2 04/26/25 11:45 97.2 74 22 108/59 (75) 100 207.0 04/26/25 11:42 30 04/26/25 10:04 Mechanical Ventilator 04/24/25 16:00 Total Intake and Output 04/25/25 04/25/25 04/26/25 15:00 23:00 07:00 Intake Total 1314.125 ml 1165.500 ml 1324.96 ml Output Total 850 ml 650 ml Balance 1314.125 ml 315.500 ml 674.96 ml medications Current Medications Medications Dose Ordered Sig/Praneeth Route Start Time Stop Time Status Last Admin Dose Admin Propofol 100 ml @ 2.328 mls/ hr Q24H IV 04/19/25 01:45 Cancel Acetaminophen 650 mg Q6HP PRN PO 04/19/25 07:45 Pantoprazole Sodium 40 mg DAILY IV 04/20/25 10:00 04/26/25 08:04 40 MG Vancomycin HCl 0 ml @ 0 mls/hr UD IV 04/19/25 11:15 Flecainide Acetate 50 mg Q12HR PO 04/20/25 22:00 04/26/25 08:05 50 MG Cefepime HCl 50 ml @ 12.5 mls/hr Q8H IV 04/20/25 18:00 04/26/25 09:17 12.5 MLS/HR Enoxaparin Sodium 40 mg DAILY SC 04/21/25 10:00 04/26/25 08:05 40 MG Levothyroxine Sodium 100 mcg QAM@0600 PO 04/22/25 06:00 04/26/25 05:30 100 MCG Micafungin Sodium 100 mg/Sodium Chloride 100 ml @ 100 mls/hr DAILY IV 04/22/25 10:00 04/26/25 08:05 100 MLS/HR Methylprednisolone Sodium Succinate 40 mg BID IV 04/21/25 22:00 04/26/25 08:05 40 MG Enteral Nutritional Formula 1,000 ml 40ML/HR GT 04/23/25 12:45 Acetylcysteine 200 mg Q4HR NEB 04/24/25 14:00 04/26/25 10:07 200 MG Levalbuterol HCl 0.625 mg Q4HR NEB 04/24/25 14:00 04/26/25 10:07 0.625 MG Ipratropium [place] 0.5 mg Q4HR NEB 04/24/25 14:00 04/26/25 10:07 0.5 MG Midodrine 10 mg TID@0600,1200,1800 PO 04/24/25 14:30 04/26/25 12:00 10 MG Midazolam HCl 50 ml @ 1 mls/hr Q24H IV 04/24/25 15:00 04/26/25 09:25 4 MLS/HR Fentanyl Citrate 250 ml @ 2.5 mls/hr Q24H IV 04/24/25 15:00 04/25/25 23:47 15 MLS/HR Midazolam HCl 50 ml @ 1 mls/hr Q24H IV 04/24/25 15:00 UNV Fentanyl Citrate 250 ml @ 2.5 mls/hr Q24H IV 04/24/25 15:00 UNV Metronidazole 100 ml @ 100 mls/hr Q8HR IV 04/24/25 22:00 04/26/25 12:00 100 MLS/HR Sodium Chloride 1,000 ml @ 75 mls/hr [id number] IV 04/24/25 16:45 04/26/25 08:15 75 MLS/HR Propofol 100 ml @ 2.343 mls/ hr Q24H IV 04/24/25 16:45 Norepinephrine Bitartrate 250 ml @ 1.875 mls/ hr Q24H IV 04/24/25 17:00 04/25/25 23:46 3.75 MLS/HR Artificial Tears 1 drop Q2HP PRN EACHEYE 04/24/25 17:00 Phenylephrine HCl 40 mg/Sodium Chloride 250 ml @ 15 mls/hr [id number] IV 04/24/25 18:15 04/26/25 09:25 18.75 MLS/HR Purified Water 150 ml Q6HR GT 04/26/25 12:00 UNV objective GENERAL: Ill appearing, intubated on ventilator. EYES: PERRL, EOMI. Anicteric. HENT: Moist mucous membranes. LUNGS: breath sounds. CARDIOVASCULAR: Regular rate and rhythm. ABDOMEN: Soft, nontender and nondistended. EXTREMITIES: No edema. SKIN: Warm, dry. laboratory and microbiology Laboratory Tests 04/26/25 04:00 Test 04/26/25 04:00 Range/Units Serum Glucose 157 H 74-106 mg/dL Problem List Paroxysmal atrial fibrillation/atrial flutter with RVR, now NSR, newly diagnosed. Acute on chronic hypoxic respiratory failure. Left lung pneumonia gram-positive gram-negative with septic shock. Acute kidney injury. NSTEMI, likely type 2 secondary to above. DIXIE neuroendocrine tumor. History of laryngeal/AML CA. COPD. Encephalopathy metabolic. Orthostatic hypotension. Assessment/Plan Continued all current supportive medical care. IV Amiodarone. IV antibiotics as ordered. DVT and GI prophylactics. Nebulized breathing treatments. Vasopressors for hemodynamic support. Additional plan as per the hospital course. Critical care time of 45 minutes provided to include time spent evaluation of patient at bedside, when appropriate patient/family education for diagnosis, treatment plan, review of pertinent medical information and discussion of care with specialty providers and PCP. Mechanical ventilator parameters, treatment and adjustments have personally been reviewed by me and treatment plan by extract operator has also been reviewed. Dietary Evaluation Review Comments: 1) TF Jevity AF 1.2Cal @ 50ml/hr (goal) along with Pro-stat 1 pk BID. Start @ 20ml/hr, increase 10ml/hr Q4H until goal is reached. TF @ goal volume along with Pro-stat & Propofol provides 2132 kcal (100% energy needs), 96 gm protein (100% protein needs), 968 ml free water. 2) Water flush 200ml Q4H if allowed, adjust PRN 3) TPN if NPO > 7 days 4) Monitor NPO status, lab values, wt trend, I/O Expected Outcomes/Goals: Lab values to improve To meet >75% estimated needs Fu 2-3 days Plan discussed with: Patient CAMILLA LOPEZ MD Apr 26, 2025 12:20
[2025-04-27] VITALS (113 sets, daily range): BP systolic 87–128; BP diastolic 44–77; PULSE 69–147; RESP 16–29; TEMP 96.8–98.8; O2SAT 93–100
[2025-04-27] MEDS: ACCU-CHEK COMFORT CURVE STRIP VI SCH
[2025-04-27] MEDS ORDERED: InsuLIN REG 1unit/0.01ml Soln (100units/ml) SC SCH
[2025-04-27] MEDS: InsuLIN REG 1unit/0.01ml Soln (100units/ml) SC SCH
[2025-04-27 00:55] LABS: Hematocrit 27.1 % (41.0-53.0); Hemoglobin 8.7 g/dL (13.5-17.5); Mean Corpuscular Hemoglobin 30.5 pg (28.0-32.0); Mean Corpuscular Volume 94.9 fL (80.0-100.0)
[2025-04-27 01:20] LABS: Potassium 3.8 mmol/L (3.5-5.1); Total Cells Counted 100.0 (100)
[2025-04-27 01:21] LABS: Anion Gap 11 (5-15); Calcium 9.7 mg/dL (8.7-10.4); Carbon Dioxide 23 mmol/L (20-31)
[2025-04-27 01:26] LABS: BUN/Creatinine Ratio 51.2 (10.0-20.0); Blood Urea Nitrogen 63 mg/dL (9-23); Chloride 116 mmol/L (98-107); Glucose 159 mg/dL (74-106); Sodium 150 mmol/L (136-145)
[2025-04-27 01:27] LABS: Magnesium 2.2 mg/dL (1.6-2.6)
[2025-04-27] MEDS: AMIODARONE 360mg/200mL PREMIX 200 ML IV SCH (03:00)
--- NOTE | 2025-04-27 06:07 | DVH ---
CHEST RADIOGRAPH Indication: pna Technique: Single frontal view of the chest was obtained Comparison: XY CHEST PORTABLE on DOS: 04/26/25, XY CHEST PORTABLE on DOS: 04/25/25, XY CHEST PORTABLE o n DOS: 04/24/25 IMPRESSION: Heart is stable in size. Support lines and tubes appear unchanged in satisfactory position. Dense op acification of the left upper lung with patchy airspace opacities in the left lower lobe and right lo wer lobe, similar to prior examination. No significant interval change.
[2025-04-27 08:32] LABS: Base Excess -5.6 mmol/L (-2.0-3.0)
[2025-04-27] MEDS: VANCOMYCIN 1GM/200ML PM 200 ML IV ONE (10:00)
--- NOTE | 2025-04-27 10:59 | DVHPN2 ---
Reviewed: Care Plan, H&P, Labs, Medications Changes from previous H/P or p: No Changes General: Per HPI Respiratory: Shortness of breath Gastrointestinal: Nausea, Vomiting Objective Vitals Vital Signs Date Time Temp Pulse Resp B/P (MAP) Pulse Ox O2 Delivery O2 Flow Rate FiO2 04/27/25 10:15 140 24 113/69 (84) 97 04/27/25 10:00 98.8 209.8 04/27/25 09:40 30 04/27/25 09:33 Mechanical Ventilator+ Intake/Output Intake and Output 04/27/25 07:00 Intake Total 4900.405 ml Output Total 1800 ml Balance 3100.405 ml Intake Oral 660 ml IV Total 3990.405 ml Tube Feeding 250 ml Output Urine Total 1800 ml General Appearance: Other (Intubated and sedated) HEENT: Atraumatic Lungs: Other (Increase air movement to left upper and lower lobe. Mechanical ventilation) Cardiovascular: Normal S1, Normal S2 Abdomen: Normal bowel sounds, Soft, No tenderness Genitourinary: No Apparent Abnormalities (Pal catheter) Musculoskeletal: Other (Unable to assess) Skin: Dry, Intact Psych/Mental Status: Other (Unable to assess) Medications Current Medications Medications Dose Ordered Sig/Praneeth Route Start Time Stop Time Status Last Admin Dose Admin Propofol 100 ml @ 2.328 mls/ hr Q24H IV 04/19/25 01:45 Cancel Acetaminophen 650 mg Q6HP PRN PO 04/19/25 07:45 Pantoprazole Sodium 40 mg DAILY IV 04/20/25 10:00 04/27/25 07:36 40 MG Vancomycin HCl 0 ml @ 0 mls/hr UD IV 04/19/25 11:15 Flecainide Acetate 50 mg Q12HR PO 04/20/25 22:00 04/27/25 07:36 50 MG Enoxaparin Sodium 40 mg DAILY SC 04/21/25 10:00 04/27/25 07:37 40 MG Levothyroxine Sodium 100 mcg QAM@0600 PO 04/22/25 06:00 04/27/25 05:34 100 MCG Micafungin Sodium 100 mg/Sodium Chloride 100 ml @ 100 mls/hr DAILY IV 04/22/25 10:00 04/27/25 07:37 100 MLS/HR Methylprednisolone Sodium Succinate 40 mg BID IV 04/21/25 22:00 04/27/25 07:36 40 MG Enteral Nutritional Formula 1,000 ml 40ML/HR GT 04/23/25 12:45 Acetylcysteine 200 mg Q4HR NEB 04/24/25 14:00 04/27/25 09:40 200 MG Levalbuterol HCl 0.625 mg Q4HR NEB 04/24/25 14:00 04/27/25 09:40 0.625 MG Ipratropium [place] 0.5 mg Q4HR NEB 04/24/25 14:00 04/27/25 09:40 0.5 MG Midodrine 10 mg TID@0600,1200,1800 PO 04/24/25 14:30 04/27/25 05:34 10 MG Midazolam HCl 50 ml @ 1 mls/hr Q24H IV 04/24/25 15:00 04/27/25 07:36 5 MLS/HR Fentanyl Citrate 250 ml @ 2.5 mls/hr Q24H IV 04/24/25 15:00 04/27/25 05:15 15 MLS/HR Midazolam HCl 50 ml @ 1 mls/hr Q24H IV 04/24/25 15:00 UNV Fentanyl Citrate 250 ml @ 2.5 mls/hr Q24H IV 04/24/25 15:00 UNV Metronidazole 100 ml @ 100 mls/hr Q8HR IV 04/24/25 22:00 04/27/25 05:34 100 MLS/HR Sodium Chloride 1,000 ml @ 75 mls/hr [id number] IV 04/24/25 16:45 04/26/25 08:15 75 MLS/HR Propofol 100 ml @ 2.343 mls/ hr Q24H IV 04/24/25 16:45 Norepinephrine Bitartrate 250 ml @ 1.875 mls/ hr Q24H IV 04/24/25 17:00 04/25/25 23:46 3.75 MLS/HR Artificial Tears 1 drop Q2HP PRN EACHEYE 04/24/25 17:00 Phenylephrine HCl 40 mg/Sodium Chloride 250 ml @ 15 mls/hr [id number] IV 04/24/25 18:15 04/27/25 07:40 9.375 MLS/HR Purified Water 150 ml Q6HR GT 04/26/25 12:00 04/27/25 05:34 150 ML Diagnostic Test (Pha) 1 strip Q6HR 04/27/25 00:00 04/27/25 05:42 1 STRIP Dextrose 50 ml UD PRN IV 04/26/25 23:15 Insulin Human Regular Q6HR SC 04/26/25 23:15 04/27/25 05:40 3 UNITS Meropenem 50 ml @ 17 mls/hr Q8HR IV 04/27/25 14:00 UNV Laboratory Results Laboratory Tests 04/27/25 00:45 Chemistry Test 04/26/25 23:14 04/27/25 00:45 Magnesium Level 2.2 mg/dL (1.6-2.6) 2.2 mg/dL (1.6-2.6) Calcium Level 9.7 mg/dL (8.7-10.4) Urinalysis Test 04/19/25 02:22 Urine Color Yellow (Yellow) Urine Clarity Clear (Clear) Urine pH 5.5 (5.0-9.0) Urine Specific [place] 1.022 (1.001-1.035) Urine Protein 1+ (Negative) H Urine Ketones Trace (Negative) Urine Blood Trace /uL (Negative) H Urine Nitrite Negative (Negative) Urine Bilirubin Negative (Negative) Urine Urobilinogen Normal mg/dL (Negative) Urine Leukocyte Esterase Negative /uL (Negative) Urine RBC 1 /hpf (0 - 3) Urine Microscopic WBC 1 /HPF (0-3) Urine Squamous Epithelial Cells Few /hpf (<5) Urine Bacteria None seen /hpf (None Seen) Urine Glucose Trace mg/dL (Normal) Blood Gas Results Test 04/27/25 07:28 Arterial Blood pH 7.336 (7.350-7.450) FiO2 % 30.0 Microbiology Microbiology Date/Time Source Procedure Growth Status 04/24/25 15:11 Sputum Gram Stain Pending Resulted 04/24/25 15:11 Respiratory Culture - Final Citrobacter species Resulted 04/20/25 05:24 Nose MRSA Screen - Final Complete 04/19/25 07:27 Urine - Pal Port Urine Culture - Final Complete 04/19/25 01:49 Blood Blood Culture - Final NO GROWTH AFTER 5 DAYS OF INCUBATION. Complete Labs and/or images reviewed: Labs reviewed by me, Image(s) reviewed by me Assessment/Plan Assessment/Plan Impression: -acute hypoxic respiratory failure now mechanical ventilation -left lung pneumonia Gram-negative etiology -septic shock -COPD -history of laryngeal CA -history of AML -metabolic encephalopathy -chronic pain -depression -acute kidney injury, vasomotor nephropathy -paroxysmal atrial fibrillation -NSTEMI type 2 Plan: -continue current mechanical ventilation settings. Improvement with FiO2 requirements -continue current antibiotic therapy with cefepime and vancomycin -bronchodilators, mucolytics -continue current sedation with fentanyl and Versed, weaning down as tolerated -cardiology consultation -PUD, DVT prophylaxis -previous hospitalist had long discussion made with the patient's was bedside. All questions answered. Hold attempts to transfer to [facility] at this time. -repeat labs and chest x-ray in a.m. Critical care time spent with patient discussing and formulating plan of care: 40 minutes. This does not include time spent performing procedures. Plan discussed with: Other (nursing staff) My Orders Orders - DAVID PRETTY DO Procedure Category Date Status Time Electrocardigram EKG 04/26/25 Logged 16:57 Meropenem 1gm Ivpb PHA 04/27/25 Pending (Merrem 1gm/ Ns) 14:00 Date of Service: Apr 27, 2025 Billing Provider: DAVID PRETTY DO Common Visit Codes: [id number] CARE 30-74 MIN DAVID PRETTY DO Apr 27, 2025 10:59
[2025-04-27] MEDS: MEROPENEM 1GM IVPB 50 ML IV SCH (11:57)
--- NOTE | 2025-04-27 13:02 | MEDREC ---
[facility] ASP Intervention Section I [facility] ASP Intervention: Duplication of therapy (PLEASE CONSIDER D/C FLAGYL SINCE BOTH MEROPENEM AND FLAGYL COVER FOR ANAEROBE ORGANISMS (DUPLICATE) ) FLORENCE BAGLEY PHARMACIST Apr 27, 2025 13:01
[2025-04-27] MEDS: DIGOXIN (250MCG/ML) 2 ML AMPULE IV ONE (13:51)
--- NOTE | 2025-04-27 18:32 | DVH ---
Procedure: XY KUB ABDOMEN SINGLE VIEW Study Date and Requested Time: 04/27/2025 05:53 PM Technique: Single view of the abdomen and pelvis is available for evaluation. History: R/O BOWEL OBSTRUCTION Comparison: None Findings/ Impression: Nonspecific bowel gas pattern. No evidence of bowel obstruction or ileus. Small to moderate amount o f fecal material within the visualized colon. Enteric tube is in satisfactory position. Surgical clips are noted over the right upper abdominal quadrant. Spinal stimulator is noted with the wire terminating at the level of right T12-L1. Right-sided sacral nerve stimulator is noted. Partially visualized tubular structure overlying the right hemipelvis with the tip projected over the right S1-S2 which may represent femoral approach central line. Mild interstitial prominence of the lung bases with blunting of the argva-oschmcw-tsct-left costophre melania angles which may be from small effusion /atelectasis. Suture material is noted overlying the righ t costophrenic angle.
--- NOTE | 2025-04-27 23:22 | DVHPN2 ---
Progress Note - Dictate Date Seen: Apr 27, 2025 Medical Necessity Reason Pt with a Central, PICC or Fol: Yes The following are medically ne: Central Line, Aceves Catheter Reason for aceves catheter: Strict I&O Subjective [facility] Patient seen and examined at bedside. Sedated, intubated on mechanical ventilator. Overnight events reviewed. vital signs Vital Sign Date Time Temp Pulse Resp B/P (MAP) Pulse Ox O2 Delivery O2 Flow Rate FiO2 04/27/25 23:00 98.4 101 22 108/54 (72) 97 209.1 04/27/25 22:14 30 04/27/25 22:00 Mechanical Ventilator+ Total Intake and Output 04/26/25 04/26/25 04/27/25 15:00 23:00 07:00 Intake Total 1390.675 ml 1769.215 ml 1740.515 ml Output Total 1150 ml 650 ml Balance 1390.675 ml 619.215 ml 1090.515 ml medications Current Medications Medications Dose Ordered Sig/Praneeth Route Start Time Stop Time Status Last Admin Dose Admin Propofol 100 ml @ 2.328 mls/ hr Q24H IV 04/19/25 01:45 Cancel Acetaminophen 650 mg Q6HP PRN PO 04/19/25 07:45 Pantoprazole Sodium 40 mg DAILY IV 04/20/25 10:00 04/27/25 07:36 40 MG Vancomycin HCl 0 ml @ 0 mls/hr UD IV 04/19/25 11:15 Flecainide Acetate 50 mg Q12HR PO 04/20/25 22:00 04/27/25 21:43 50 MG Enoxaparin Sodium 40 mg DAILY SC 04/21/25 10:00 04/27/25 07:37 40 MG Levothyroxine Sodium 100 mcg QAM@0600 PO 04/22/25 06:00 04/27/25 05:34 100 MCG Micafungin Sodium 100 mg/Sodium Chloride 100 ml @ 100 mls/hr DAILY IV 04/22/25 10:00 04/27/25 07:37 100 MLS/HR Methylprednisolone Sodium Succinate 40 mg BID IV 04/21/25 22:00 04/27/25 21:43 40 MG Enteral Nutritional Formula 1,000 ml 40ML/HR GT 04/23/25 12:45 Acetylcysteine 200 mg Q4HR NEB 04/24/25 14:00 04/27/25 22:15 200 MG Levalbuterol HCl 0.625 mg Q4HR NEB 04/24/25 14:00 04/27/25 22:15 0.625 MG Ipratropium [place] 0.5 mg Q4HR NEB 04/24/25 14:00 04/27/25 22:14 0.5 MG Midodrine 10 mg TID@0600,1200,1800 PO 04/24/25 14:30 04/27/25 05:34 10 MG Midazolam HCl 50 ml @ 1 mls/hr Q24H IV 04/24/25 15:00 04/27/25 18:04 5 MLS/HR Fentanyl Citrate 250 ml @ 2.5 mls/hr Q24H IV 04/24/25 15:00 04/27/25 18:02 15 MLS/HR Midazolam HCl 50 ml @ 1 mls/hr Q24H IV 04/24/25 15:00 UNV Fentanyl Citrate 250 ml @ 2.5 mls/hr Q24H IV 04/24/25 15:00 UNV Metronidazole 100 ml @ 100 mls/hr Q8HR IV 04/24/25 22:00 04/27/25 21:43 100 MLS/HR Sodium Chloride 1,000 ml @ 75 mls/hr [id number] IV 04/24/25 16:45 04/27/25 11:44 75 MLS/HR Propofol 100 ml @ 2.343 mls/ hr Q24H IV 04/24/25 16:45 Norepinephrine Bitartrate 250 ml @ 1.875 mls/ hr Q24H IV 04/24/25 17:00 04/25/25 23:46 3.75 MLS/HR Artificial Tears 1 drop Q2HP PRN EACHEYE 04/24/25 17:00 Phenylephrine HCl 40 mg/Sodium Chloride 250 ml @ 15 mls/hr [id number] IV 04/24/25 18:15 04/27/25 07:40 9.375 MLS/HR Purified Water 150 ml Q6HR GT 04/26/25 12:00 04/27/25 05:34 150 ML Diagnostic Test (Pha) 1 strip Q6HR 04/27/25 00:00 04/27/25 17:59 1 STRIP Dextrose 50 ml UD PRN IV 04/26/25 23:15 Insulin Human Regular Q6HR SC 04/26/25 23:15 04/27/25 17:59 2 UNITS Meropenem 50 ml @ 17 mls/hr Q8HR IV 04/27/25 14:00 04/27/25 21:43 17 MLS/HR objective Gen.: Patient lying in bed in medical ICU. Sedated, intubated on mechanical ventilator. Head: Normocephalic, atraumatic. Eyes: PERRLA. Ears: Normal external anatomy. Throat: Endotracheal tube and orogastric tube in place. Neck: Supple, trachea midline. Chest: Transmitted breath sounds bilaterally. Decreased air entry bilaterally. No wheezing. Bibasilar crackles. Cardiovascular: Positive S1, positive S2. Regular rate and rhythm. Abdomen: Positive bowel sounds in all 4 quadrants. Soft, nontender, nondistended. : Aceves in place. Normal external genitalia. Rectal: Deferred. Skin: Warm, dry. Intact. Extremities: 2+ radial pulses bilaterally. No lower extremity edema. Neuro: Sedated. laboratory and microbiology Laboratory Tests 04/27/25 00:45 Test 04/27/25 00:45 Range/Units Serum Glucose 159 H 74-106 mg/dL Assessment/Plan Impression: Acute hypoxemic respiratory failure On mechanical ventilator Lung cancer Supraventricular tachycardia Septic shock Pneumonia Pleural effusion Atelectasis Hypernatremia Altered mental status Neuroendocrine tumor Possible aspiration Events: Remains on vent support AC mode with RR 22, VT 500, PEEP 5, FiO2 30% Taper FiO2 as tolerated ABG reviewed, notable for acidemia CXR reviewed, reveals dense opacification of the left upper lung with patchy airspace opacities in the left lower lobe and right lower lobe, similar to prior. Sedated on Versed/Fentanyl. On pressors for hemodynamic support On Jeremy-Synephrine 50 mcg/min Titrate to keep mean arterial pressure greater than 65 mmHg Off Levophed Continue Amiodarone drip - pt had episode of AFib with RVR overnight again. Received digoxin. ECG appears to be flutter, 2:1 Follow up Cardiology recommendations Continue abx WBC of 19.6 K. Blood cultures show no growth for 5 days Sputum cultures show Malorie albicans, likely colonizer. Tube feeds for nutritional support Monitor hemoglobin Monitor renal function Monitor electrolytes; supplement as needed K, mag at goal. Labs and imaging reviewed Lung cancer - chest x-ray showed large left upper lobe mass Recent CT guided biopsy revealed neuroendocrine tumor Plan: Vent support Titrate to maintain sats 90% or above Sedation for vent synchrony Continue antibiotics F/u cultures Bronchodilators Tube feeds for nutritional support Monitor hemoglobin Monitor renal function Monitor electrolytes Supplement as needed Pressors as needed for hemodynamic support To maintain a mean arterial pressure of 65 mmHg F/u cardiology Prognosis generally poor Patient is not a candidate for fpc life support in view of overall decrepit state and advanced malignancy S/p bronchoscopy on 04/21/25 - see separate procedure note for details. DVT prophylaxis Prognosis: Poor given patient's multiple co-morbidities. Condition: Critical Rest of plan per hospitalist and other consultants. A total of 35 minutes of critical care time was spent reviewing the patient record, examining the patient, making a diagnostic and therapeutic plan, discussing this plan with the medical personnel, following up on diagnostic studies and following the patient for clinical stability excluding any and all procedures. At least 50% of this time was spent in direct, [id number] contact. Thank you, DERICK Linares, for allowing me to participate in this patient's care. Further recommendations will depend on the patient's clinical course. Please do not hesitate to contact me if you have any questions or concerns. This medical document was created using an electronic medical record system with [employer] dictation system. Although these documentations are being carefully reviewed, there may still be some phonetic and typographical changes. The errors are purely typographical, due to imperfection on the software program, and do not reflect any compromise in the patient's medical care. Dietary Evaluation Review Comments: 1) TF Jevity AF 1.2Cal @ 50ml/hr (goal) along with Pro-stat 1 pk BID. Start @ 20ml/hr, increase 10ml/hr Q4H until goal is reached. TF @ goal volume along with Pro-stat & Propofol provides 2132 kcal (100% energy needs), 96 gm protein (100% protein needs), 968 ml free water. 2) Water flush 200ml Q4H if allowed, adjust PRN 3) TPN if NPO > 7 days 4) Monitor NPO status, lab values, wt trend, I/O Expected Outcomes/Goals: Lab values to improve To meet >75% estimated needs Fu 2-3 days Plan discussed with: Other (DANAE Garcia) Critical Care Time(min): 35 DAWSON AC MD Apr 27, 2025 23:22
--- NOTE | 2025-04-27 23:36 | DVHPN2 ---
Progress Note - Dictate Date Seen: Apr 27, 2025 Medical Necessity Reason Pt with a Central, PICC or Fol: Yes The following are medically ne: Central Line, Aceves Catheter Reason for aceves catheter: Strict I&O Subjective Patient was seen and evaluated in follow up in the ICU. Patient is intubated and sedated on ventilator. 30% FiO2. Patient remains in A-fib, received Digoxin bolus. Bedside nurse to call if HR is not controlled. WBC 19.6, HGB 8.7, HCT 27.1, NA 150, CL 116, BUN 63. Chest x-ray showed dense opacification of the left upper lung with patchy airspace opacities in the left lower lobe and right lower lobe. vital signs Vital Sign Date Time Temp Pulse Resp B/P (MAP) Pulse Ox O2 Delivery O2 Flow Rate FiO2 04/27/25 11:37 138 22 127/73 (91) 96 30 04/27/25 10:00 98.8 209.8 04/27/25 09:33 Mechanical Ventilator+ Total Intake and Output 04/26/25 04/26/25 04/27/25 15:00 23:00 07:00 Intake Total 1390.675 ml 1769.215 ml 1740.515 ml Output Total 1150 ml 650 ml Balance 1390.675 ml 619.215 ml 1090.515 ml medications Current Medications Medications Dose Ordered Sig/Praneeth Route Start Time Stop Time Status Last Admin Dose Admin Propofol 100 ml @ 2.328 mls/ hr Q24H IV 04/19/25 01:45 Cancel Acetaminophen 650 mg Q6HP PRN PO 04/19/25 07:45 Pantoprazole Sodium 40 mg DAILY IV 04/20/25 10:00 04/27/25 07:36 40 MG Vancomycin HCl 0 ml @ 0 mls/hr UD IV 04/19/25 11:15 Flecainide Acetate 50 mg Q12HR PO 04/20/25 22:00 04/27/25 07:36 50 MG Enoxaparin Sodium 40 mg DAILY SC 04/21/25 10:00 04/27/25 07:37 40 MG Levothyroxine Sodium 100 mcg QAM@0600 PO 04/22/25 06:00 04/27/25 05:34 100 MCG Micafungin Sodium 100 mg/Sodium Chloride 100 ml @ 100 mls/hr DAILY IV 04/22/25 10:00 04/27/25 07:37 100 MLS/HR Methylprednisolone Sodium Succinate 40 mg BID IV 04/21/25 22:00 04/27/25 07:36 40 MG Enteral Nutritional Formula 1,000 ml 40ML/HR GT 04/23/25 12:45 Acetylcysteine 200 mg Q4HR NEB 04/24/25 14:00 04/27/25 09:40 200 MG Levalbuterol HCl 0.625 mg Q4HR NEB 04/24/25 14:00 04/27/25 09:40 0.625 MG Ipratropium [place] 0.5 mg Q4HR NEB 04/24/25 14:00 04/27/25 09:40 0.5 MG Midodrine 10 mg TID@0600,1200,1800 PO 04/24/25 14:30 04/27/25 11:55 10 MG Midazolam HCl 50 ml @ 1 mls/hr Q24H IV 04/24/25 15:00 04/27/25 07:36 5 MLS/HR Fentanyl Citrate 250 ml @ 2.5 mls/hr Q24H IV 04/24/25 15:00 04/27/25 05:15 15 MLS/HR Midazolam HCl 50 ml @ 1 mls/hr Q24H IV 04/24/25 15:00 UNV Fentanyl Citrate 250 ml @ 2.5 mls/hr Q24H IV 04/24/25 15:00 UNV Metronidazole 100 ml @ 100 mls/hr Q8HR IV 04/24/25 22:00 04/27/25 11:55 100 MLS/HR Sodium Chloride 1,000 ml @ 75 mls/hr [id number] IV 04/24/25 16:45 04/27/25 11:44 75 MLS/HR Propofol 100 ml @ 2.343 mls/ hr Q24H IV 04/24/25 16:45 Norepinephrine Bitartrate 250 ml @ 1.875 mls/ hr Q24H IV 04/24/25 17:00 04/25/25 23:46 3.75 MLS/HR Artificial Tears 1 drop Q2HP PRN EACHEYE 04/24/25 17:00 Phenylephrine HCl 40 mg/Sodium Chloride 250 ml @ 15 mls/hr [id number] IV 04/24/25 18:15 04/27/25 07:40 9.375 MLS/HR Purified Water 150 ml Q6HR GT 04/26/25 12:00 04/27/25 12:01 150 ML Diagnostic Test (Pha) 1 strip Q6HR 04/27/25 00:00 04/27/25 11:44 1 STRIP Dextrose 50 ml UD PRN IV 04/26/25 23:15 Insulin Human Regular Q6HR SC 04/26/25 23:15 04/27/25 05:40 3 UNITS Meropenem 50 ml @ 17 mls/hr Q8HR IV 04/27/25 14:00 04/27/25 11:57 17 MLS/HR objective GENERAL: Ill appearing, intubated on ventilator. EYES: PERRL, EOMI. Anicteric. HENT: Moist mucous membranes. LUNGS: breath sounds. CARDIOVASCULAR: Regular rate and rhythm. ABDOMEN: Soft, nontender and nondistended. EXTREMITIES: No edema. SKIN: Warm, dry. laboratory and microbiology Laboratory Tests 04/27/25 00:45 Test 04/27/25 00:45 Range/Units Serum Glucose 159 H 74-106 mg/dL Problem List Paroxysmal atrial fibrillation/atrial flutter with RVR, now NSR, newly diagnosed. Acute on chronic hypoxic respiratory failure. Left lung pneumonia gram-positive gram-negative with septic shock. Acute kidney injury. NSTEMI, likely type 2 secondary to above. DIXIE neuroendocrine tumor. History of laryngeal/AML CA. COPD. Encephalopathy metabolic. Orthostatic hypotension. Assessment/Plan Continued all current supportive medical care. DVT and GI prophylactics. IV antibiotics as ordered. Midodrine. Vasopressors for hemodynamic support. Nebulized breathing treatments. Additional plan as per the hospital course. Critical care time of 45 minutes provided to include time spent evaluation of patient at bedside, when appropriate patient/family education for diagnosis, treatment plan, review of pertinent medical information and discussion of care with specialty providers and PCP. Mechanical ventilator parameters, treatment and adjustments have personally been reviewed by me and treatment plan by social economist has also been reviewed. Dietary Evaluation Review Comments: 1) TF Jevity AF 1.2Cal @ 50ml/hr (goal) along with Pro-stat 1 pk BID. Start @ 20ml/hr, increase 10ml/hr Q4H until goal is reached. TF @ goal volume along with Pro-stat & Propofol provides 2132 kcal (100% energy needs), 96 gm protein (100% protein needs), 968 ml free water. 2) Water flush 200ml Q4H if allowed, adjust PRN 3) TPN if NPO > 7 days 4) Monitor NPO status, lab values, wt trend, I/O Expected Outcomes/Goals: Lab values to improve To meet >75% estimated needs Fu 2-3 days Plan discussed with: Patient CAMILLA LOPEZ MD Apr 27, 2025 13:21
[2025-04-28] VITALS (109 sets, daily range): BP systolic 81–154; BP diastolic 42–76; PULSE 48–78; RESP 16–23; TEMP 75.4–98.8; O2SAT 96–100
[2025-04-28 05:01] LABS: Hematocrit 29.5 % (41.0-53.0); Hemoglobin 9.2 g/dL (13.5-17.5); Mean Corpuscular Hemoglobin 30.2 pg (28.0-32.0); Mean Corpuscular Volume 97.0 fL (80.0-100.0)
[2025-04-28 05:26] LABS: Potassium 3.6 mmol/L (3.5-5.1)
[2025-04-28 05:27] LABS: Anion Gap 11 (5-15); Carbon Dioxide 22 mmol/L (20-31)
[2025-04-28 05:28] LABS: Calcium 9.6 mg/dL (8.7-10.4); Chloride 116 mmol/L (98-107); Sodium 149 mmol/L (136-145)
[2025-04-28 05:33] LABS: BUN/Creatinine Ratio 44.8 (10.0-20.0); Blood Urea Nitrogen 52 mg/dL (9-23); Glucose 146 mg/dL (74-106); Magnesium 2.0 mg/dL (1.6-2.6)
[2025-04-28 05:48] LABS: Total Cells Counted 100.0 (100)
--- NOTE | 2025-04-28 06:28 | DVH ---
CHEST RADIOGRAPH Indication: pna Technique: Single frontal view of the chest was obtained COMPARISON: XY CHEST PORTABLE on DOS: 04/27/25, XY CHEST PORTABLE on DOS: 04/26/25, XY CHEST PORTABLE o n DOS: 04/25/25, XY CHEST PORTABLE on DOS: 04/24/25, XY CHEST PORTABLE on DOS: 04/24/25, XY CHEST PORTAB LE on DOS: 04/26/25 FINDINGS: Lines and Tubes: Endotracheal tube, enteric catheter in satisfactory position. Lungs: Multifocal airspace disease most prominent in the left upper lobe. Pleura: No effusion. No pneumothorax. Cardiomediastinal contours: Unremarkable Bones: Unremarkable IMPRESSION: Lines and tubes in satisfactory position. No significant interval change.
[2025-04-28 07:15] LABS: Base Excess -4.9 mmol/L (-2.0-3.0)
--- NOTE | 2025-04-28 08:32 | ECG ---
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
--- NOTE | 2025-04-28 10:38 | DVHDS2 ---
Discharge Summary Date of Admission Apr 19, 2025 at 07:44 Date of Discharge: Apr 28, 2025 Labs/Diagnostic Data: Laboratory Results Test 04/28/25 07:07 04/28/25 06:12 04/28/25 04:30 04/27/25 00:45 Blood Gas Specimen Type Arterial Blood Gas Sample Site Right radial Blood Gas Patient Temperature 37.0 Arterial Blood Date Drawn [id number] Arterial Blood pH 7.333 (7.350-7.450) Arterial Blood Partial Pressure CO2 39.7 mmHg (35.0-48.0) Arterial Blood Partial Pressure O2 78.3 mmHg (83.0-108.0) Arterial Blood HCO3 20.6 mmol/L (21.0-28.0) Arterial Blood Oxygen Saturation 94.0 % (94.0-98.0) Arterial Blood Base Excess -4.9 mmol/L (-2.0-3.0) Arterial Blood Oxyhemoglobin 93.5 % (94.0-98.0) Arterial Blood Carboxyhemoglobin 0.1 % (0.5-1.5) Arterial Blood Methemoglobin 0.4 % (0.0-1.5) Kadeem Test Modified Blood Gas Total Hemoglobin 9.80 g/dL (13.5-17.5) Blood Gas Set Respiration Rate 22.0 Blood Gas Modality Vent - ac FiO2 % 30.0 Blood Gas Tidal Volume 500.0 Blood Gas PEEP or CPAP 5.0 POC Glucose 146 mg/dl (70-106) White Blood Count 18.0 10^3/uL (4.4-10.8) Red Blood Count 3.04 10^6/uL (4.5-5.90) Hemoglobin 9.2 g/dL (13.5-17.5) Hematocrit 29.5 % (41.0-53.0) Mean Corpuscular Volume 97.0 fL (80.0-100.0) Mean Corpuscular Hemoglobin 30.2 pg (28.0-32.0) Mean Corpuscular Hemoglobin Concent 31.2 g/dL (32.0-36.0) Red Cell Distribution Width 15.8 % (11.8-14.3) Platelet Count 282 10^3/uL (140-450) Mean Platelet Volume 9.4 fL (6.9-10.8) Neutrophils (%) (Auto) % (37.0-80.0) Lymphocytes (%) (Auto) % (10.0-50.0) Monocytes (%) (Auto) % (0.0-12.0) Basophils (%) (Auto) % (0.0-2.0) Neutrophils # (Auto) 10 ^3/uL (1.6-8.6) Lymphocytes # (Auto) 10 ^3/uL (0.4-5.4) Monocytes # (Auto) 10 ^3/uL (0-1.3) Differential Total Cells Counted 100.0 (100) Neutrophils % (Manual) 91 (37.0-80.0) Band Neutrophils % (Manual) 1 Lymphocytes % (Manual) 7 (10.0-50.0) Monocytes % (Manual) 1 (0-12) Eosinophils % (Manual) 0 (0-7) Basophils % (Manual) 0 (0.0-2.0) Metamyelocytes % (manual) 0 Myelocytes % (Manual) 0 Promyelocytes % (Manual) 0 Blast Cells % (Manual) 0 Reactive Lymphocytes 0 Platelet Estimate Adequate Large Platelets Few Sodium Level 149 mmol/L (136-145) Potassium Level 3.6 mmol/L (3.5-5.1) Chloride Level 116 mmol/L (98-107) Carbon Dioxide Level 22 mmol/L (20-31) Anion Gap 11 (5-15) Blood Urea Nitrogen 52 mg/dL (9-23) Creatinine 1.16 mg/dL (0.700-1.30) Glomerular Filtration Rate Calc 67 mL/min (>90) BUN/Creatinine Ratio 44.8 (10.0-20.0) Serum Glucose 146 mg/dL (74-106) Calcium Level 9.6 mg/dL (8.7-10.4) Magnesium Level 2.0 mg/dL (1.6-2.6) Random Vancomycin Level 20.0 ug/mL (5-10) Troponin I High Sensitivity 16 ng/L (</=54) Test 04/25/25 14:07 04/25/25 05:00 04/24/25 10:16 04/24/25 04:49 Vancomycin Level Trough 29.8 ug/mL (5-10) Total Bilirubin 0.3 mg/dL (0.2-1.0) Aspartate Amino Transferase (AST) 310 U/L (13-40) Alanine Aminotransferase (ALT) 167 U/L (7-40) Alkaline Phosphatase 91 U/L (46-116) Total Protein 6.7 g/dL (5.7-8.2) Albumin 3.3 g/dL (3.2-4.8) Blood Gas Liter Flow 10.00 Blood Gas Critical Value Read Back Yes Blood Gas Notified [place] Cantu md Blood Gas Notified Time [id number] Blood Gas Notified By Floor Hand jovanna chaves Nucleated Red Blood Cells 1.0 % Test 04/22/25 10:19 04/21/25 04:58 04/20/25 05:02 04/19/25 08:00 Blood Gas Pressure Support 8 Eosinophils (%) (Auto) 1.7 % (0.0-7.0) Eosinophils # (Auto) 0.2 10 ^3/uL (0-0.8) Basophils # (Auto) 0.1 10 ^3/uL (0-0.2) Phosphorus Level 2.3 mg/dL (2.4-5.1) Thyroid Stimulating Hormone (TSH) 5.60 uIU/mL (0.55-4.78) Influenza Type A Antigen Negative (Negative) Influenza Type B Antigen Negative (Negative) SARS-CoV-2 Antigen (Rapid) Negative (NEGATIVE) Test 04/19/25 03:34 04/19/25 02:22 04/19/25 01:49 Lactic Acid Level 1.7 mmol/L (0.4-2.0) Urine Color Yellow (Yellow) Urine Clarity Clear (Clear) Urine pH 5.5 (5.0-9.0) Urine Specific [place] 1.022 (1.001-1.035) Urine Protein 1+ (Negative) Urine Ketones Trace (Negative) Urine Blood Trace /uL (Negative) Urine Nitrite Negative (Negative) Urine Bilirubin Negative (Negative) Urine Urobilinogen Normal mg/dL (Negative) Urine Leukocyte Esterase Negative /uL (Negative) Urine RBC 1 /hpf (0 - 3) Urine Microscopic WBC 1 /HPF (0-3) Urine Squamous Epithelial Cells Few /hpf (<5) Urine Bacteria None seen /hpf (None Seen) Urine Glucose Trace mg/dL (Normal) Prothrombin Time 11.8 sec (9.3-11.8) Prothrombin Time INR 1.13 (0.9-1.15) Activated Partial Thromboplast Time 27.7 SEC (24.5-34.5) Other Laboratory Tests 04/28/25 04:30 Brief Hx & Hospital Course: SEE DICTATED NOTE Condition at Discharge: Guarded Final Diagnosis/Problems List ACUTE RESP FAILURE Discharge Disposition: Acute Care Facility Discharge Instruct/Medications Diet: See Comment Diet comment: NPO Activity: Bed rest Follow Up/Referral: FU WITH [facility] Medications: PER MAR Scheduled Divalproex Sodium (Depakote Er), 1 TAB PO DAILY, (Reported) Ergocalciferol (Vitamin D), 1 CAP PO QWEEKLY, (Reported) Fluconazole (Fluconazole), 1 TAB PO DAILY Fludrocortisone Acetate (Fludrocortisone Acetate), 1 TAB PO BID, (Reported) Hydromorphone Hcl (Hydromorphone Hcl), 1 TAB PO Q8HR, (Reported) Levofloxacin Hemihydrate (Levaquin 500 Mg), 500 MG PO DAILY Lubiprostone (Lubiprostone), 2 CAP PO DAILY, (Reported) Midodrine HCl (Midodrine Hydrochloride), Unknown Dose PO BID, (Reported) Midodrine Hcl (Midodrine Hcl), 3 TAB PO BID, (Reported) Omeprazole (Omeprazole Dr), 1 CAP PO DAILY, (Reported) Testosterone Cypionate (Depo-Testosterone), 0.5 ML IM ONCE EVERY OTHER WEEK, (Reported) Venlafaxine Hcl (Venlafaxine Hcl Er), 1 CAP PO DAILY, (Reported) Venlafaxine Hcl (Venlafaxine Hcl Er), 1 CAP PO DAILY, (Reported) Vibegron (Gemtesa), 75 MG PO HS, (Reported) Scheduled PRN Alprazolam (Alprazolam), 0.5 MG PO Q8HPRN PRN for ANXIETY, (Reported) Miscellaneous Medications Divalproex Sodium (Divalproex Sodium Dr), 250 MG PO, (Reported) Levothyroxine Sodium (Levothyroxine Sodium), 100 MCG PO, (Reported) Primidone (Mysoline Tablet), TAB PO, (Reported) Discharge Statement: "Patient was advised to return to the ER or call 911 if any headaches, dizziness, shortness of breath, chest pain, abdominal pain, bleeding, fevers, or worsening of medical condition. Patient was counseled about treatment plan, medications, possible side effects, patientverbalized understanding. All questions were answered to the best of my ability. This discharge took greater then 30 minutes in planning, reviewing documentation, counseling the patient, and discussing with other team members." ASSESSMENT ASSESSMENT Assessment ACUTE RESP FAILURE Date of Service: Apr 28, 2025 Billing Provider: NARCISA CANTU MD Common Visit Codes: [id number] CARE 30-74 MIN NARCISA CANTU MD Apr 28, 2025 10:38
[2025-04-28] MEDS: AMIODARONE 360mg/200mL PREMIX 200 ML IV SCH (10:47)
--- NOTE | 2025-04-28 11:14 | DVHDS ---
DATE OF DISCHARGE: 04/28/2025 HISTORY OF PRESENT ILLNESS: The patient is a 70-year-old gentleman who was admitted after he had increasing shortness of breath and tachycardia and low oxygen saturation. The patient was subsequently intubated. He has a history of previous AML, previous hepatitis C, laryngeal cancer, COPD, respiratory failure, recently diagnosed neuroendocrine lung cancer, hypothyroidism, pain stimulator, and seizure disorder. HOSPITAL COURSE: The patient was treated with broad-spectrum antibiotics. His blood cultures were negative. The patient's chest x-ray showed a left basilar consolidation. He was seen in Cardiology consult by Dr. Gama. The patient was noted to have atrial fibrillation/flutter for which he was placed on amiodarone. The patient was initially extubated, but needed reintubation for worsening respiratory failure. I have been discussing with the patient's and his doctor, Dr. Marks at [facility]. I have explained to him the patient's condition. He, however, wishes to transfer the patient for consideration of further treatment over there. The patient will be transferred to [facility]. FINAL DIAGNOSES: * Acute respiratory failure. * Left lung pneumonia secondary to Citrobacter, with septic shock. 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 * COPD. * History of laryngeal cancer. * History of AML. * Encephalopathy metabolic. * Chronic pain. * Depression. * Anemia. * Hypothyroidism. * Seizure disorder. * Atrial fibrillation. * Non-STEMI likely type 2. * History of orthostatic hypotension. Critical care time spent, including discussion with family and paperwork was 51 minutes. MD LETTY Montalvo/EARLE TID: [id number] RECEIPT: [id number]
[2025-04-28] MEDS: D5W/SOD CHL 0.45% 1,000 ML IV SCH (12:07)
--- NOTE | 2025-04-28 13:43 | DVHPN2 ---
Progress Note - Dictate Date Seen: Apr 28, 2025 Medical Necessity Reason Pt with a Central, PICC or Fol: Yes The following are medically ne: Central Line, Aceves Catheter Reason for aceves catheter: Strict I&O Subjective Patient was seen and evaluated in follow up in the ICU. Patient is intubated and sedated on ventilator. 30% FiO2. Patient continued on Amiodarone drip. Chest x- ray shows multifocal airspace disease most prominent in the left upper lobe. WBC 18, HGB 9.2, HCT 29.5, NA 149, BUN 52. Respiratory culture grew Citrobacter sedlakii. vital signs Vital Sign Date Time Temp Pulse Resp B/P (MAP) Pulse Ox O2 Delivery O2 Flow Rate FiO2 04/28/25 12:05 70 22 114/62 (79) 100 30 04/28/25 09:45 Mechanical Ventilator 04/28/25 07:00 97.5 207.5 Total Intake and Output 04/27/25 04/27/25 04/28/25 15:00 23:00 07:00 Intake Total 1251.640 ml 1211.265 ml 1368.58 ml Output Total 2000 ml 225 ml Balance 1251.640 ml -788.735 ml 1143.58 ml medications Current Medications Medications Dose Ordered Sig/Praneeth Route Start Time Stop Time Status Last Admin Dose Admin Propofol 100 ml @ 2.328 mls/ hr Q24H IV 04/19/25 01:45 Cancel Acetaminophen 650 mg Q6HP PRN PO 04/19/25 07:45 Pantoprazole Sodium 40 mg DAILY IV 04/20/25 10:00 04/28/25 10:35 40 MG Vancomycin HCl 0 ml @ 0 mls/hr UD IV 04/19/25 11:15 Flecainide Acetate 50 mg Q12HR PO 04/20/25 22:00 04/28/25 10:36 50 MG Enoxaparin Sodium 40 mg DAILY SC 04/21/25 10:00 04/28/25 10:35 40 MG Levothyroxine Sodium 100 mcg QAM@0600 PO 04/22/25 06:00 04/28/25 06:01 100 MCG Micafungin Sodium 100 mg/Sodium Chloride 100 ml @ 100 mls/hr DAILY IV 04/22/25 10:00 04/28/25 10:35 100 MLS/HR Enteral Nutritional Formula 1,000 ml 40ML/HR GT 04/23/25 12:45 Acetylcysteine 200 mg Q4HR NEB 04/24/25 14:00 04/28/25 10:20 200 MG Levalbuterol HCl 0.625 mg Q4HR NEB 04/24/25 14:00 04/28/25 10:20 0.625 MG Ipratropium [place] 0.5 mg Q4HR NEB 04/24/25 14:00 04/28/25 10:20 0.5 MG Midodrine 10 mg TID@0600,1200,1800 PO 04/24/25 14:30 04/28/25 12:06 10 MG Midazolam HCl 50 ml @ 1 mls/hr Q24H IV 04/24/25 15:00 04/28/25 11:19 5 MLS/HR Fentanyl Citrate 250 ml @ 2.5 mls/hr Q24H IV 04/24/25 15:00 04/28/25 11:20 15 MLS/HR Midazolam HCl 50 ml @ 1 mls/hr Q24H IV 04/24/25 15:00 UNV Fentanyl Citrate 250 ml @ 2.5 mls/hr Q24H IV 04/24/25 15:00 UNV Propofol 100 ml @ 2.343 mls/ hr Q24H IV 04/24/25 16:45 Norepinephrine Bitartrate 250 ml @ 1.875 mls/ hr Q24H IV 04/24/25 17:00 04/25/25 23:46 3.75 MLS/HR Artificial Tears 1 drop Q2HP PRN EACHEYE 04/24/25 17:00 Phenylephrine HCl 40 mg/Sodium Chloride 250 ml @ 15 mls/hr [id number] IV 04/24/25 18:15 04/28/25 06:55 9.375 MLS/HR Purified Water 150 ml Q6HR GT 04/26/25 12:00 04/28/25 12:18 150 ML Diagnostic Test (Pha) 1 strip Q6HR 04/27/25 00:00 04/28/25 06:00 1 STRIP Dextrose 50 ml UD PRN IV 04/26/25 23:15 Insulin Human Regular Q6HR SC 04/26/25 23:15 04/28/25 06:00 2 UNITS Meropenem 50 ml @ 17 mls/hr Q8HR IV 04/27/25 14:00 04/28/25 06:01 17 MLS/HR Dextrose/Sodium Chloride 1,000 ml @ 75 mls/hr [id number] IV 04/28/25 10:45 04/28/25 12:07 75 MLS/HR objective GENERAL: Ill appearing, intubated on ventilator. EYES: PERRL, EOMI. Anicteric. HENT: Moist mucous membranes. LUNGS: breath sounds. CARDIOVASCULAR: Regular rate and rhythm. ABDOMEN: Soft, nontender and nondistended. EXTREMITIES: No edema. SKIN: Warm, dry. laboratory and microbiology Laboratory Tests 04/28/25 04:30 Test 04/28/25 04:30 Range/Units Serum Glucose 146 H 74-106 mg/dL Problem List Paroxysmal atrial fibrillation/atrial flutter with RVR, now NSR, newly diagnosed. Acute on chronic hypoxic respiratory failure. Left lung pneumonia gram-positive gram-negative with septic shock. Acute kidney injury. NSTEMI, likely type 2 secondary to above. DIXIE neuroendocrine tumor. History of laryngeal/AML CA. COPD. Encephalopathy metabolic. Orthostatic hypotension. Assessment/Plan Continued all current supportive medical care. DVT and GI prophylactics. IV antibiotics as ordered. Midodrine. Vasopressors for hemodynamic support. Nebulized breathing treatments. Additional plan as per the hospital course. Critical care time of 45 minutes provided to include time spent evaluation of patient at bedside, when appropriate patient/family education for diagnosis, treatment plan, review of pertinent medical information and discussion of care with specialty providers and PCP. Mechanical ventilator parameters, treatment and adjustments have personally been reviewed by me and treatment plan by animal anatomist has also been reviewed. Dietary Evaluation Review Comments: 1) TF Jevity AF 1.2Cal @ 50ml/hr (goal) along with Pro-stat 1 pk BID. Start @ 20ml/hr, increase 10ml/hr Q4H until goal is reached. TF @ goal volume along with Pro-stat & Propofol provides 2132 kcal (100% energy needs), 96 gm protein (100% protein needs), 968 ml free water. 2) Water flush 200ml Q4H if allowed, adjust PRN 3) TPN if NPO > 7 days 4) Monitor NPO status, lab values, wt trend, I/O Expected Outcomes/Goals: Lab values to improve To meet >75% estimated needs Fu 2-3 days Plan discussed with: Other CAMILLA LOPEZ MD Apr 28, 2025 13:42
--- NOTE | 2025-04-28 14:35 | ECG ---
[facility] Test Date: 2025-04-26 Test Time: 04:25:42 Pat Name: NICHOLE NIELSON Department: Room: 0263 A Gender: M Hr Analyst: QUINCY : 1955 Requested By: NERIS KULKARNI Order Number: [id number] Reading MD: Armani Gama Measurements Intervals [place] Rate: 167 P: 0 [place]: 0 QRS: -3 QRSD: 84 T: 237 QT: 300 QTc: 500 Interpretive Statements Supraventricular tachycardia Marked ST abnormality, possible anterior subendocardial injury Electronically Signed On 04-30-2025 13:52:07 PDT by Armani Gama Please click the below link to view image of tracing.
--- NOTE | 2025-04-28 14:36 | ECG ---
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
--- NOTE | 2025-04-28 14:36 | ECG ---
[facility] Test Date: 2025-04-26 Test Time: 07:17:31 Pat Name: NICHOLE NIELSON Department: Room: 0263 A Gender: M Gang Leader: : 1955 Requested By: NERIS KULKARNI Order Number: [id number] Reading MD: Armani Gama Measurements Intervals [place] Rate: 83 P: 48 RI: 138 QRS: 43 QRSD: 84 T: 21 QT: 384 QTc: 451 Interpretive Statements Normal sinus rhythm Electronically Signed On 04-30-2025 13:52:11 PDT by Armani Gama Please click the below link to view image of tracing.
[2025-04-29] VITALS (71 sets, daily range): BP systolic 97–141; BP diastolic 47–72; PULSE 73–103; RESP 18–29; TEMP 98.2–100.4; O2SAT 93–100
[2025-04-29 04:56] LABS: Hematocrit 28.4 % (41.0-53.0); Hemoglobin 9.0 g/dL (13.5-17.5); Mean Corpuscular Hemoglobin 30.7 pg (28.0-32.0); Mean Corpuscular Volume 96.7 fL (80.0-100.0)
[2025-04-29 05:07] LABS: Anion Gap 9 (5-15); Calcium 9.2 mg/dL (8.7-10.4); Carbon Dioxide 23 mmol/L (20-31); Chloride 116 mmol/L (98-107); Potassium 3.2 mmol/L (3.5-5.1); Sodium 148 mmol/L (136-145)
[2025-04-29 05:12] LABS: BUN/Creatinine Ratio 44.1 (10.0-20.0); Blood Urea Nitrogen 45 mg/dL (9-23); Glucose 132 mg/dL (74-106)
[2025-04-29 05:32] LABS: Total Cells Counted 100.0 (100)
--- NOTE | 2025-04-29 05:48 | DVH ---
CHEST RADIOGRAPH Indication: RESP FAILURE Technique: Single frontal view of the chest was obtained COMPARISON: XY CHEST PORTABLE on DOS: 04/28/25, XY CHEST PORTABLE on DOS: 04/27/25, XY CHEST PORTABLE o n DOS: 04/26/25, XY CHEST PORTABLE on DOS: 04/25/25, XY CHEST PORTABLE on DOS: 04/24/25, XY CHEST PORTAB LE on DOS: 04/28/25 FINDINGS: Lines and Tubes: Endotracheal tube, enteric catheter in satisfactory position. Lungs: Multifocal airspace disease most prominent in the left upper lobe. Pleura: No effusion. No pneumothorax. Cardiomediastinal contours: Unremarkable Bones: Unremarkable IMPRESSION: Lines and tubes in satisfactory position. No significant interval change.
[2025-04-29 06:27] LABS: Base Excess -2.6 mmol/L (-2.0-3.0)
[2025-04-29] MEDS: POTASSIUM CHL 20MEQ/100ML 100 ML IV ONE (09:20)
[2025-04-29] MEDS: VANCOMYCIN 1GM/200ML PM 200 ML IV ONE (10:29)
--- NOTE | 2025-04-29 11:42 | DVHPN2 ---
Progress Note Date Seen: Apr 29, 2025 Medical Necessity Reason Pt with a Central, PICC or Fol: Yes The following are medically ne: Central Line, Aceves Catheter Reason for aceves catheter: Strict I&O Subjective Patient reports: No new complaints Review of Systems: HEENT:Normal, CVS:Normal, RESPIRATORY:Normal, GI:Normal, :Normal, MSK:Normal, NEURO:Normal Objective vital signs Vital Sign Date Time Temp Pulse Resp B/P (MAP) Pulse Ox O2 Delivery O2 Flow Rate FiO2 04/29/25 10:45 99.0 80 20 107/55 (72) 95 210.2 04/29/25 10:02 30 04/29/25 10:00 Mechanical Ventilator Total Intake and Output 04/28/25 04/28/25 04/29/25 15:00 23:00 07:00 Intake Total 1024.330 ml 1130.968 ml 1121.3 ml Output Total 0 ml 1025 ml 931 ml Balance 1024.330 ml 105.968 ml 190.3 ml medications Current Medications Medications Dose Ordered Sig/Praneeth Route Start Time Stop Time Status Last Admin Dose Admin Propofol 100 ml @ 2.328 mls/ hr Q24H IV 04/19/25 01:45 Cancel Acetaminophen 650 mg Q6HP PRN PO 04/19/25 07:45 Pantoprazole Sodium 40 mg DAILY IV 04/20/25 10:00 04/29/25 09:11 40 MG Vancomycin HCl 0 ml @ 0 mls/hr UD IV 04/19/25 11:15 Flecainide Acetate 50 mg Q12HR PO 04/20/25 22:00 04/28/25 21:55 50 MG Enoxaparin Sodium 40 mg DAILY SC 04/21/25 10:00 04/29/25 09:11 40 MG Levothyroxine Sodium 100 mcg QAM@0600 PO 04/22/25 06:00 04/29/25 06:19 100 MCG Micafungin Sodium 100 mg/Sodium Chloride 100 ml @ 100 mls/hr DAILY IV 04/22/25 10:00 04/29/25 09:12 100 MLS/HR Enteral Nutritional Formula 1,000 ml 40ML/HR GT 04/23/25 12:45 Acetylcysteine 200 mg Q4HR NEB 04/24/25 14:00 04/29/25 10:01 200 MG Levalbuterol HCl 0.625 mg Q4HR NEB 04/24/25 14:00 04/29/25 10:01 0.625 MG Ipratropium [place] 0.5 mg Q4HR NEB 04/24/25 14:00 04/29/25 10:01 0.5 MG Midodrine 10 mg TID@0600,1200,1800 PO 04/24/25 14:30 04/29/25 06:19 10 MG Midazolam HCl 50 ml @ 1 mls/hr Q24H IV 04/24/25 15:00 04/28/25 21:56 3 MLS/HR Fentanyl Citrate 250 ml @ 2.5 mls/hr Q24H IV 04/24/25 15:00 04/29/25 06:31 10 MLS/HR Midazolam HCl 50 ml @ 1 mls/hr Q24H IV 04/24/25 15:00 UNV Fentanyl Citrate 250 ml @ 2.5 mls/hr Q24H IV 04/24/25 15:00 UNV Propofol 100 ml @ 2.343 mls/ hr Q24H IV 04/24/25 16:45 Norepinephrine Bitartrate 250 ml @ 1.875 mls/ hr Q24H IV 04/24/25 17:00 04/25/25 23:46 3.75 MLS/HR Artificial Tears 1 drop Q2HP PRN EACHEYE 04/24/25 17:00 Phenylephrine HCl 40 mg/Sodium Chloride 250 ml @ 15 mls/hr [id number] IV 04/24/25 18:15 04/28/25 06:55 9.375 MLS/HR Purified Water 150 ml Q6HR GT 04/26/25 12:00 04/29/25 06:00 150 ML Diagnostic Test (Pha) 1 strip Q6HR 04/27/25 00:00 04/29/25 06:00 1 STRIP Dextrose 50 ml UD PRN IV 04/26/25 23:15 Insulin Human Regular Q6HR SC 04/26/25 23:15 04/29/25 06:00 2 UNITS Meropenem 50 ml @ 17 mls/hr Q8HR IV 04/27/25 14:00 04/29/25 06:19 17 MLS/HR Dextrose/Sodium Chloride 1,000 ml @ 75 mls/hr [id number] IV 04/28/25 10:45 04/29/25 00:05 75 MLS/HR Examination: GENERAL:Normal, HEENT:Normal, NECK:Normal, LUNGS:Normal, LUNGS:Abnormal (INTUBATED), CVS:Normal, ABDOMEN:Normal, MSK:Normal, SKIN:Normal, NEURO:Normal, :Normal laboratory and microbiology Laboratory Tests 04/29/25 04:16 Test 04/29/25 04:16 Range/Units Serum Glucose 132 H 74-106 mg/dL Microbiology Date/Time Source Procedure Growth Status 04/24/25 15:11 Sputum Gram Stain - Final Complete 04/24/25 15:11 Respiratory Culture - Final Citrobacter species Complete 04/20/25 05:24 Nose MRSA Screen - Final Complete 04/19/25 07:27 Urine - [place] Urine Culture - Final Complete 04/19/25 01:49 Blood Blood Culture - Final NO GROWTH AFTER 5 DAYS OF INCUBATION. Complete Problem List/Assessment/Plan Problem List/Assessment/Plan * Acute respiratory failure: worsening hypoxia, high flow oxygen, monitor abg * Left lung pneumonia gram-positive gram-negative with septic shock: off iv pressors, iv antibiotics, s/p bronchoscopy * Left lung mass with high-grade neuroendocrine tumor,with metastatic. * COPD: iv steroids * History of laryngeal cancer. * History of AML. * Encephalopathy metabolic: off sedation * Chronic pain. * Depression. * Anemia. * Hypothyroidism. * Seizure disorder. * Orthostatic hypotension. * Left hip pain. * a fib: on flecainde, amiodarone drip * nstemi ?type 2 long dw Alyse- reviewed labs and plan of care, Gave report to dr Meyer at [facility] - possible transfer if resp status more stable Plan discussed with: Spouse My Orders My Orders Orders - NARCISA CANTU MD Procedure Category Date Status Time Tap Water Enema ORDERS 04/28/25 Transmitted 12:32 Dietary Evaluation Review Comments: 1) TF Jevity AF 1.2Cal @ 50ml/hr (goal) along with Pro-stat 1 pk BID. Start @ 20ml/hr, increase 10ml/hr Q4H until goal is reached. TF @ goal volume along with Pro-stat & Propofol provides 2132 kcal (100% energy needs), 96 gm protein (100% protein needs), 968 ml free water. 2) Water flush 200ml Q4H if allowed, adjust PRN 3) TPN if NPO > 7 days 4) Monitor NPO status, lab values, wt trend, I/O Expected Outcomes/Goals: Lab values to improve To meet >75% estimated needs Fu 2-3 days Critical Care Time (mins): 48 (critical care time excluding procedures and including dw family and report to [facility] is 48mins) Date of Service: Apr 29, 2025 Billing Provider: NARCISA CANTU MD Common Visit Codes: [id number] CARE 30-74 MIN NARCISA CANTU MD Apr 29, 2025 11:42
[2025-04-29] MEDS ORDERED: CLINIMIX PER PHARMACY 0 ML IV SCH (11:45)
[2025-04-29 12:46] LABS: Triglycerides 127 mg/dL (< 150)
[2025-04-29 12:47] LABS: Magnesium 1.9 mg/dL (1.6-2.6)
[2025-04-29 12:54] LABS: Albumin 2.7 g/dL (3.2-4.8); Bilirubin, Total < 0.2 mg/dL (0.2-1.0)
[2025-04-29] MEDS ORDERED: DEXTROSE (50%) 50ML SYRG IV SCH (13:45)
[2025-04-29] MEDS ORDERED: POTASSIUM PHOSPHATE 22 MEQ in SODIUM CHL 0.9% 100 ML IV ONE (14:00)
[2025-04-29] MEDS: ACETAMINOPHEN 325 MG TAB PO PRN (15:21)
[2025-04-29] MEDS ORDERED: PANTOPRAZOLE 40 MG/10 ML VIAL INJ IV SCH (17:00)
[2025-04-29] MEDS ORDERED: InsuLIN REG 1unit/0.01ml Soln (100units/ml) SC SCH (18:00)
[2025-04-29] MEDS ORDERED: ACCU-CHEK COMFORT CURVE STRIP VI SCH (18:00)
--- NOTE | 2025-04-29 21:55 | DVHPN2 ---
Progress Note - Dictate Date Seen: Apr 29, 2025 Medical Necessity Reason Pt with a Central, PICC or Fol: Yes The following are medically ne: Central Line, Aceves Catheter Reason for aceves catheter: Strict I&O Subjective Patient was seen and evaluated in follow up in the ICU. Patient is intubated and sedated on ventilator. 30% FiO2. WBC 16.3, HGB 9, HCT 28.4, NA 148, K 3.2, BUN 45. Patient has been accepted to [facility] and is being transferred for continuation of care. vital signs Vital Sign Date Time Temp Pulse Resp B/P (MAP) Pulse Ox O2 Delivery O2 Flow Rate FiO2 04/29/25 16:00 103 04/29/25 16:00 24 96 Mechanical Ventilator+ 30 30 04/29/25 15:31 125/60 04/29/25 15:30 100.4 212.7 Total Intake and Output 04/28/25 04/28/25 04/29/25 15:00 23:00 07:00 Intake Total 1024.330 ml 1130.968 ml 1121.3 ml Output Total 0 ml 1025 ml 931 ml Balance 1024.330 ml 105.968 ml 190.3 ml medications Current Medications Medications Dose Ordered Sig/Praneeth Route Start Time Stop Time Status Last Admin Dose Admin Propofol 100 ml @ 2.328 mls/ hr Q24H IV 04/19/25 01:45 Cancel Midazolam HCl 50 ml @ 1 mls/hr Q24H IV 04/24/25 15:00 UNV Fentanyl Citrate 250 ml @ 2.5 mls/hr Q24H IV 04/24/25 15:00 UNV objective GENERAL: Ill appearing, intubated on ventilator. EYES: PERRL, EOMI. Anicteric. HENT: Moist mucous membranes. LUNGS: breath sounds. CARDIOVASCULAR: Regular rate and rhythm. ABDOMEN: Soft, nontender and nondistended. EXTREMITIES: No edema. SKIN: Warm, dry. laboratory and microbiology Laboratory Tests 04/29/25 04:16 Test 04/29/25 04:16 Range/Units Serum Glucose 132 H 74-106 mg/dL Problem List Paroxysmal atrial fibrillation/atrial flutter with RVR, now NSR, newly diagnosed. Acute on chronic hypoxic respiratory failure. Left lung pneumonia gram-positive gram-negative with septic shock. Acute kidney injury. NSTEMI, likely type 2 secondary to above. DIXIE neuroendocrine tumor. History of laryngeal/AML CA. COPD. Encephalopathy metabolic. Orthostatic hypotension. Assessment/Plan Continued all current supportive medical care. DVT and GI prophylactics. IV antibiotics as ordered. Midodrine. Vasopressors for hemodynamic support. Nebulized breathing treatments. Additional plan as per the hospital course. Critical care time of 45 minutes provided to include time spent evaluation of patient at bedside, when appropriate patient/family education for diagnosis, treatment plan, review of pertinent medical information and discussion of care with specialty providers and PCP. Mechanical ventilator parameters, treatment and adjustments have personally been reviewed by me and treatment plan by manager banquet has also been reviewed. Dietary Evaluation Review Comments: 1) TF Jevity AF 1.2Cal @ 50ml/hr (goal) along with Pro-stat 1 pk BID. Start @ 20ml/hr, increase 10ml/hr Q4H until goal is reached. TF @ goal volume along with Pro-stat & Propofol provides 2132 kcal (100% energy needs), 96 gm protein (100% protein needs), 968 ml free water. 2) Water flush 200ml Q4H if allowed, adjust PRN 3) TPN if NPO > 7 days 4) Monitor NPO status, lab values, wt trend, I/O Expected Outcomes/Goals: Lab values to improve To meet >75% estimated needs Fu 2-3 days Plan discussed with: Spouse, Other CAMILLA LOPEZ MD Apr 29, 2025 21:55
== END 2025-04-29 15:44 | disposition short-term general hospital (02) | DRG 870 ==
LOC: ER 01:17 → EDBD 01:17 → OVERFLOW 07:44 → ICU CENTRL 22:26
PROVIDERS: ADMIT Internal Medicine; ATTEND Internal Medicine
PROC: 06HY33Z Insertion of Infusion Device into Lower Vein, Percutaneous Approach (ICD-10-PCS; 2025-04-19)
PROC: 0BH17EZ Insertion of Endotracheal Airway into Trachea, Via Natural or Artificial Opening (ICD-10-PCS; 2025-04-19)
PROC: 5A1945Z Respiratory Ventilation, 24-96 Consecutive Hours (ICD-10-PCS; 2025-04-19)
PROC: 0BJ08ZZ Inspection of Tracheobronchial Tree, Via Natural or Artificial Opening Endoscopic (ICD-10-PCS; 2025-04-21)
PROC: 5A1955Z Respiratory Ventilation, Greater than 96 Consecutive Hours (ICD-10-PCS; principal; 2025-04-24)
PROC: 0BH17EZ Insertion of Endotracheal Airway into Trachea, Via Natural or Artificial Opening (ICD-10-PCS; 2025-04-24)
PROC: 5A0935A Assistance with Respiratory Ventilation, Less than 24 Consecutive Hours, High Flow/Velocity Cannula (ICD-10-PCS; 2025-04-24)
DX: A41.9 Sepsis, unspecified organism (principal); G93.41 Metabolic encephalopathy; I21.A1 Myocardial infarction type 2; J96.21 Acute and chronic respiratory failure with hypoxia; R65.21 Severe sepsis with septic shock; J69.0 Pneumonitis due to inhalation of food and vomit; J15.69 Pneumonia due to other Gram-negative bacteria; J15.9 Unspecified bacterial pneumonia; N17.0 Acute kidney failure with tubular necrosis; J15.8 Pneumonia due to other specified bacteria; E87.20 Acidosis, unspecified; J44.1 Chronic obstructive pulmonary disease with (acute) exacerbation; B15.9 Hepatitis A without hepatic coma; J44.0 Chronic obstructive pulmonary disease with (acute) lower respiratory infection; I48.92 Unspecified atrial flutter; C34.12 Malignant neoplasm of upper lobe, left bronchus or lung; I47.10 Supraventricular tachycardia, unspecified; E87.0 Hyperosmolality and hypernatremia; J90 Pleural effusion, not elsewhere classified; F03.93 Unspecified dementia, unspecified severity, with mood disturbance; D3A.8 Other benign neuroendocrine tumors; D64.9 Anemia, unspecified; E11.9 Type 2 diabetes mellitus without complications; Z20.822 Contact with and (suspected) exposure to COVID-19; I48.0 Paroxysmal atrial fibrillation; G40.909 Epilepsy, unspecified, not intractable, without status epilepticus; I95.1 Orthostatic hypotension; G89.29 Other chronic pain; F32.A Depression, unspecified; E03.9 Hypothyroidism, unspecified; Z90.49 Acquired absence of other specified parts of digestive tract; Z79.899 Other long term (current) drug therapy; Z92.3 Personal history of irradiation; Z87.440 Personal history of urinary (tract) infections; Z85.819 Personal history of malignant neoplasm of unspecified site of lip, oral cavity, and pharynx; Z88.5 Allergy status to narcotic agent; Z88.1 Allergy status to other antibiotic agents; Z88.8 Allergy status to other drugs, medicaments and biological substances; Z85.6 Personal history of leukemia; Z92.21 Personal history of antineoplastic chemotherapy; Z80.3 Family history of malignant neoplasm of breast; Z85.118 Personal history of other malignant neoplasm of bronchus and lung; Z85.21 Personal history of malignant neoplasm of larynx
CPT/HCPCS: 31500; 36415; 36556; 36600; 71045; 74018; 80048; 80053; 80202; 81001; 82040; 82247; 82805; 82962; 83605; 83735; 84100; 84132; 84443; 84478; 84484; 85007; 85025; 85027; 85610; 85730; 87040; 87070; 87077; 87081; 87086; 87186; 87205; 87426; 87804; 93005; 94002; 94003; 94640; 94645; 94667; 94668; 96365; 96375; 99291; G0378; J0131; J0153; J1815; J2003; J2185; J2248; J2470; J2543; J2704; J3480; J3490